=== PATIENT | male | born 1945 | race Caucasian/White ===

== ENCOUNTER → 2016-08-23 08:27 | Outpatient (CLI) | payer MEDICARE, BC ==
[2014-01-08 11:24] VITALS: BMI 35.5
[~2016-08-23 08:27] MED LIST: ASCORBIC ACID500 MG PO; BAYER CHEWABLE81 MG PO; COZAAR50 MG PO; ECOTRIN325 MG PO; HYDROCODON-ACE1 EAC7 PO; MOBIC7.5 MG PO; MULTI-DAY VITAM1 TAB PO; PLAVIX75 MG PO; TOPROL XL100 MG PO; TOPROL XL50 MG PO; VITAMIN D31000 UNIT; WELLBUTRIN SR150 MG PO; ZOCOR40 MG PO
== END | disposition home or self-care (01) ==
LOC: D.US 08:27
DX: I71.4 Abdominal aortic aneurysm, without rupture (principal); I65.23 Occlusion and stenosis of bilateral carotid arteries

== ENCOUNTER → 2017-02-02 08:51 | Outpatient (CLI) | payer MEDICARE, BC ==
[2014-01-08 11:24] VITALS: BMI 35.5
[~2017-02-02 08:51] MED LIST changes: +CORDARONE200 MG PO; +HYDROCODONE-APA1 TAB PO; +K-DUR20 MEQ PO; +LASIX40 MG PO; +METOPROLOL TART50 MG PO
== END | disposition home or self-care (01) ==
LOC: D.CT 08:51
DX: I71.4 Abdominal aortic aneurysm, without rupture (principal); I65.23 Occlusion and stenosis of bilateral carotid arteries

== ENCOUNTER → 2017-02-09 07:50 | Outpatient (CLI) | payer MEDICARE, BC ==
[2014-01-08 11:24] VITALS: BMI 35.5
== END | disposition home or self-care (01) ==
LOC: D.CT 07:50
DX: I71.4 Abdominal aortic aneurysm, without rupture (principal)

== ENCOUNTER 2017-05-12 06:32 | Outpatient (CLI) | payer MEDICARE, BC ==
[~2017-05-12] VITALS: Ht 172.7 cm; Wt 90.9 kg
--- NOTE | ~2017-05-12 | HEMODYNAMI ---
PATIENT:YOEL FINK MEDICAL RECORD: [id number] : 49 LOCATION:[facility] ADMISSION DATE: 05/12/17 Generatedon:05/12/20178:57 Patient name: YOEL FINK Patient #: [id number] SSN: DO B: 1945 Date of study: 05/12/2017 Page: Of Hemodynamic Procedure Report Patient Data Patient Demographics Procedure consent was obtained First Name: YOEL Gender: Male Last Name: DANAE : 1945 Middle Initial: A Age: 72 year(s) Patient #: [id number] Race: Unknown Additional ID: [id number] Contact details Address: [address] [place] [address] [facility] State: [place] City: [place] Zip code: [address] Past Medical History Allergies: No known allergies Admission Admission Data Admission Date: 05/12/2017 Admission Time: 6:32 Admit Source: Other Lab Results Lab Result Date: 05/12/2017 Lab Result Time: 7:19 Biochemistry Name Units Result Min Max BUN mg/dl 12 --(-*--)-- 7 18 Creatinine mg/dl 1 --(--*-)-- 0.6 1.3 CBC Name Units Result Min Max Hematocrit % 43.2 --(*---)-- 42 54 Hemoglobin g/dl 15 --(-*--)-- 13.5 17.5 Procedure Procedure Types Cath Procedure Diagnostic Procedure LHC LHC w/Coronaries Miscellaneous Procedures Moderate Sedation up to 30 minutes Procedure Description Procedure Date Procedure Date: 05/12/2017 Procedure Start Time: 8:36 Procedure End Time: 8:55 Procedure Staff Name Function Joel Mitchell MD Performing Physician Roldan Thrasher RT Monitor Farzana Santo RT Scrub Arnulfo Arreaga RN Nurse Procedure Data Cath Procedure Fluoroscopy Diagnostic fluoroscopy Total fluoroscopy Time: 4.4 time: 4.4 min min Diagnostic fluoroscopy Total fluoroscopy dose: 938 dose: 938 mGy mGy Contrast Material Contrast Material Type Amount (ml) Isovue 300 72 Entry Location Entry Primary Successful Side Size Upsize Upsize Entry Closure Bustos ccessful Closure Location (Fr) 1 (Fr) 2 (Fr) Remarks Device Remarks Radial Right 6 Fr Mechanical artery Short Compression Estimated blood loss: 5 ml Diagnostic catheters Device Type Used For End Catheter Placement DIAGNOSTIC Jesus 110cm Procedure 5Fr catheter ([id number]) DIAGNOSTIC AR MOD 5Fr Procedure Catheter ([id number]) Procedure Complications No complications Procedure Medications Medication Administration Route Dosage Oxygen NC 2 l/min Heparin Flush Bag added to field 2 bags (1000units/500ml NS) 0.9% NaCl I.V. 100 ml/hr Radial Cocktail added to field 1 syringe (Verapomil 2mg/Nitro 400mcg/Heparin 1500units) Fentanyl I.V. 50 mcg Versed I.V. 1 mg Radial Cocktail I.A. 1 syringe (Verapomil 2mg/Nitro 400mcg/Heparin 1500units) Hemodynamics Rest HGB: 15 (g/dl) Heart Rate: 56 (bpm) Pressure Samples Time Site Value (mmHg) Purpose Heart Use Rate(bpm) 8:46 LV 117/13,10 Snapshot 117 8:47 AO 149/64(97) Pullback 78 8:47 LV 154/0,17 Pullback 78 Gradients Valve Time Site 1 Site 2 Mean SEP/DFP Peak To Heart Use (mmHg) (sec/min) Peak Rate (mmHg) (bpm) Aortic 8:47 LV AO 5 78 154/0,17 149/64(97) Calculations Valve P-P Mean Valve Index Valve Source Name Gradient Area Flow (cm2) Aortic 5 5 Snapshots Pre Cath Intra NCS Post Cath Vital Signs Time Heart Resp SPO2 etCO2 NIBP (mmHg) Rhythm Pain Sedation Rate (ipm) (%) (mmHg) Status Level (bpm) 8:21:22 69 18 95 0 135/77(110) NSR 0 (11) 10(A) , No pain 8:25:40 66 16 93 0 128/63(74) NSR 0 (11) 10(A) , No pain 8:29:52 67 17 96 15.9 120/73(95) NSR 0 (11) 10(A) , No pain 8:34:02 62 17 95 18.2 117/73(91) NSR 0 (11) 9(A) , No pain 8:38:12 63 18 96 12.9 115/66(86) NSR 0 (11) 9(A) , No pain 8:42:24 71 18 95 3.7 105/59(76) NSR 0 (11) 9(A) , No pain 8:46:36 82 17 95 12.1 102/46(68) NSR 0 (11) 9(A) , No pain 8:50:40 67 18 95 19 108/65(88) NSR 0 (11) 9(A) , No pain 8:54:49 69 19 95 15.2 113/57(84) NSR 0 (11) 9(A) , No pain Medications Time Medication Route Dose Verified Delivered Reason Notes E ffectiveness by by 8:26:26 Oxygen NC 2 l/min Joel Arnulfo Per Stephen Arreaga RN physician 8:27:01 Heparin Flush added 2 bags Joel Arnulfo used for Bag to Stephen Arreaga RN procedure (1000units/500ml field NS) 8:27:12 0.9% NaCl I.V. 100 Joel Arnulfo Per ml/hr Stephen Arreaga RN physician 8:27:19 Radial Cocktail added 1 Joel Arnulfo used for (Verapomil to syringe Stephen Arreaga RN procedure 2mg/Nitro field 400mcg/Heparin 1500units) 8:31:23 Fentanyl I.V. 50 mcg Joel Arnulfo for sedation Stephen Arreaga RN 8:31:33 Versed I.V. 1 mg Joel Arnulfo for sedation Stephen Arreaga RN 8:39:42 Radial Cocktail I.A. 1 Joel Joel for (Verapomil syringe Stephen Mitchell MD vasodilation 2mg/Nitro 400mcg/Heparin 1500units) Procedure Log Time Note 7:37:55 Informed consent obtained and on chart 7:37:57 Admit Source: Other 7:39:01 Diagnostic Cath status Elective 7:39:03 Time tracking: Regular hours 7:39:06 Plan of Care:Hemodynamics will remain stable., Cardiac rhythm will remain stable., Comfort level will be maintained., Respiratory function will remain adequate., Patient/ family verbilizes understanding of procedure., Procedure tolerated without complication., Recovers from procedure without complications.. 7:39:13 H&P Date Dictated: 05/12/2017 New H&P dictated by physician.. 7:39:50 Lab Result : BUN 12 mg/dl 7:39:50 Lab Result : Creatinine 1 mg/dl 7:39:50 Lab Result : Hemoglobin 15 g/dl 7:39:50 Lab Result : Hematocrit 43.2 % 7:39:53 Lab results completed and on chart. 8:01:46 Roldan Thrasher RT(R) sent for patient. Start room use. 8:08:54 Patient received from Pre/Post Procedure Room to CCL 2 Alert and oriented. Tansferred to table in Supine position. 8:08:55 Warm blankets applied, and gareth hugger turned on for patient comfort. 8:08:56 Correct patient and procedure confirmed by team. 8:08:57 ECG and BP/O2 sat monitors applied to patient. 8:20:25 Vital chart was started 8:24:57 Baseline sample Acquired. 8:25:13 Rhythm: sinus rhythm 8:26:26 Oxygen 2 l/min NC was administered by Arnulfo Arreaga RN; Per physician; 8:26:30 Full Disclosure recording started 8:26:33 Pre-procedure instructions explained to patient. 8:26:34 Pre-op teaching completed and patient verbalized understanding. 8:26:36 Family in waiting room. 8:26:38 Patient NPO since Midnight. 8:26:46 Patient allergic to No known allergies 8:26:57 Is the patient allergic to Iodine/contrast media? No. 8:26:58 Is patient on blood thinner?Yes 8:27:00 ACC The patient was administered the following blood thiners within the last 24 hours: ACCPlavix 8:27:01 Heparin Flush Bag (1000units/500ml NS) 2 bags added to field was administered by Arnulfo Arreaga RN; used for procedure; 8:27:02 Patient diabetic? No. 8:27:07 Previous problem with sedation/anesthesia? No ? 8:27:07 Snore? Yes 8:27:08 Sleep apnea? Yes 8:27:09 Deviated septum? No 8:27:09 Opens mouth fully? Yes 8:27:10 Sticks out tongue? Yes 8:27:12 0.9% NaCl 100 ml/hr I.V. was administered by Arnulfo Arreaga RN; Per physician; 8:27:12 Airway obstruction? No ? 8:27:15 Dentures? Yes in tight 8:27:19 Radial Cocktail (Verapomil 2mg/Nitro 400mcg/Heparin 1500units) 1 syringe added to field was administered by Arnulfo Arreaga RN; used for procedure; 8:28:09 Modified Patrick's test Ulnar < 7 seconds 8:28:44 IV patent on arrival in left hand with 0.9% NaCl at O. 8:28:50 Right Radial & Right Groin area was prepped with chlora-prep and draped in sterile fashion 8:28:51 Alarms reviewed by R. N. 8:28:51 Sharps counted by scrub and verified by R.N. 8:28:55 Use device set Radial Dx or PCI 8:28:58 MBrace Wrist Support ([id number]) opened to sterile field. 8:28:59 Tegaderm 4 x 4 (1626W) opened to sterile field. 8:29:00 ACIST Manifold (81620) opened to sterile field. 8:29:00 ACIST Hand Control (06343) opened to sterile field. 8:29:01 ACIST Syringe (92953) opened to sterile field. 8:29:02 Medline Cath Pack ([id number]) opened to sterile field. 8:29:02 Bag Decanter (2002S) opened to sterile field. 8:29:04 DIAGNOSTIC WIRE .035 260cm J wire (607847) opened to sterile field. 8:29:05 SHEATH 6FR Slender ([id number]) opened to sterile field. 8:29:26 NEEDLE Cook 21G 4cm Radial (B19870) opened to sterile field. 8:30:23 Physician arrived 8:30:24 --------ALL STOP TIME OUT------ 8:30:24 Final Timeout: patient, procedure, and site verified with staff and physician. All members of the team are in agreement. 8:30:25 Right Radial & Right Groin site verified by team. 8:30:28 Physical assessment completed. ASA score P 2 - A patient with mild systemic disease as per Joel Mitchell MD. 8:30:31 Sedation plan: IV Moderate Sedation Medication:Versed, Fentanyl 8:30:42 Zero performed for pressure channel P1 8:31:23 Fentanyl 50 mcg I.V. was administered by Arnulfo Arreaga RN; for sedation; 8:31:33 Versed 1 mg I.V. was administered by Arnulfo Arreaga RN; for sedation; 8:36:32 Procedure started. 8:36:37 Local anesthetic to right radial artery with Lidocaine 2% by Joel Mitchell MD.INITIAL ACCESS ONLY 8:37:00 A 6 Fr Short sheath was inserted into the Right Radial artery 8:39:06 A DIAGNOSTIC Jesus 110cm 5Fr catheter (556022) was advanced over the wire and used for Procedure. 8:39:42 Radial Cocktail (Verapomil 2mg/Nitro 400mcg/Heparin 1500units) 1 syringe I.A. was administered by Joel Mitchell MD; for vasodilation; 8:40:57 GLIDE WIRE ANGLE 260cm (ET6210) opened to sterile field. 8:41:05 glide wire advanced. 8:41:37 Wire removed. 8:42:20 LCA angiography performed. 8:45:15 RCA angiography performed. 8:47:06 LV gram done using ROWE 8:47:10 Injector settings: Ml/sec: 5, Volume: 15, 8:47:17 EF : 50 % 8:47:36 Catheter exchanged over wire. 8:48:08 Catheter exchanged over wire. 8:48:11 A DIAGNOSTIC AR MOD 5Fr Catheter (552808L) was advanced over the wire and used for Procedure. 8:50:46 RCA angiography performed. 8:51:47 Catheter removed. 8:51:52 TR BAND Standard ([id number]) opened to sterile field. 8:52:11 Sheath removed intact; hemostasis achieved with Mechanical Compression to the Right Radial artery. 8:52:12 Procedure ended.(Physican Out) 8:52:25 Fluoroscopy time 04.40 minutes. 8:52:29 Fluoroscopy dose: 938 mGy 8:52:29 Flurop Dose total: 938 8:52:32 Contrast amount:Isovue 300 72ml. 8:52:33 Sharps counted by scrub and verified by R.N. 8:53:29 Insertion/operative site no bleeding no hematoma. 8:53:34 Post right radial artery:stable, soft, clean and dry 8:54:08 Post Procedure Pulses reassessed and unchanged 8:54:11 Post-procedure physical assessment completed. ASA score P 2 - A patient with mild systemic disease as per Joel Mitchell MD. 8:54:13 Post procedure rhythm: unchanged. 8:54:15 Estimated blood loss: 5 ml 8:54:47 Post procedure instruction explained to patient.Patient verbalizes understanding. 8:54:48 Patient needs reinforcement of post procedure teaching. 8:55:23 Procedure and supply charges have been captured, reviewed, submitted and are correct. 8:55:25 Procedure Complication : No complications 8:55:27 Vital chart was stopped 8:55:27 See physician's report for complete and final results. 8:55:29 Report given to Pre/Post Procedure Room. 8:55:32 Patient transfered to Pre/Post Procedure Room with Stretcher. 8:55:34 Procedure ended. 8:55:34 Full Disclosure recording stopped 8:56:53 TR band inflated with 12cc of air. 8:56:58 End room use (Document Last) Device Usage Item Name Manufacture Quantity Catalog Hospital Part Current Minima l Lot# / Number Charge Number Stock Stock Serial# Code MBrace Wrist Advanced 1 140-0250-00 216578 61784 057156 5 Support Vascular ([id number]) Dynamics Tegaderm 4 x 3M 1 1626W 923803 383178 421375 5 4 (1626W) ACIST Acist 1 50598 580962 151719 819111 5 Manifold Medical (67134) Systems Inc ACIST Hand Acist 1 44174 154577 331812 970859 5 Control Medical (96656) Systems Inc ACIST Acist 1 21601 769968 446805 600493 20 Syringe Medical (52817) Systems Inc Medline Cath Cardinal 1 [id number] 955931 25626 421470 5 Pack Health ([id number]) Bag Decanter Microtek 1 2001S 062374 15355 784697 5 (2001S) Medical Inc. DIAGNOSTIC St Cuate 1 699006 830621 264147 778514 30 WIRE .035 260cm J wire (381867) SHEATH 6FR Terumo 1 [id number] 671415 117469 669286 40 Slender ([id number]) NEEDLE Cook Cook Medical 1 I60779 977788 360426 377189 5 21G 4cm Radial (C01944) DIAGNOSTIC Terumo 1 40-4283 988874 961090 959613 5 Jesus 110cm 5Fr catheter (108323) GLIDE WIRE Terumo 1 RU0077 184225 528605 240023 5 ANGLE 260cm (CC2959) DIAGNOSTIC Cardinal 1 [id number] 996335 028869 095753 15 AR MOD 5Fr Health Catheter (632648U) TR BAND Terumo 1 [id number] 523224 509975 457132 40 Standard ([id number]) Signature Audit [place] Stage Time Signature Unsigned Intra-Procedure 05/12/2017 Roldan Thrasher 8:57:28 AM RT(R) Signatures Monitor : Roldan Thrasher RT Signature : Date : Time : [place] [id number] [facility] [place] [address]
[~2017-05-12 06:32] MED LIST changes: -CORDARONE200 MG PO; -HYDROCODONE-APA1 TAB PO; -K-DUR20 MEQ PO; -LASIX40 MG PO; -METOPROLOL TART50 MG PO
[2017-05-12 07:08] VITALS: BP 110/61; Ht 172.7 cm; Wt 90.9 kg
[2017-05-12 07:09] LABS: BASOPHILS 0.3 % (0-2); EOSINOPHILS 2.4 % (0-7); HEMATOCRIT 43.2 % (42.0-54.0); IMMATURE GRANULOCYTES 0.2 % (0-5); LYMPHOCYTES 34.7 % (15-50); MCHC 34.7 g/dL (31.0-37.0); MCV 103.6 fL (80.0-100.0); MEAN PLATELET VOLUME 9.4 fL (7.4-10.4); NEUTROPHILS 52.4 % (40-80); PLATELET COUNT 167 10x3/uL (130-400); RBC 4.17 10x6/uL (4.20-6.10); RDW 13.6 % (11.5-14.5); WBC 5.8 10x3/uL (4.8-10.8)
[2017-05-12 07:21] LABS: CALC OSMOLALITY 271 mosm/kg (275-300); CARBON DIOXIDE 23.9 mmol/L (21.0-32.0); CHLORIDE - SERUM 102 mmol/L (98-107); GLUCOSE 97 mg/dL (74-106); SODIUM 136 mmol/L (136-145); UREA NITROGEN 12 mg/dL (7-18); eGFR NON AFRICAN AMERICAN 78 mL/min (90-120)
[2017-05-24] MEDS ORDERED: MOBIC7.5 MG PO (14:51)
== END 2017-05-12 11:37 | disposition home or self-care (01) ==
LOC: D.CATH 06:32
PROVIDERS: Internal Medicine Cardiovascular Disease
DX: I25.119 Atherosclerotic heart disease of native coronary artery with unspecified angina pectoris (principal); R94.39 Abnormal result of other cardiovascular function study; I73.9 Peripheral vascular disease, unspecified; I10 Essential (primary) hypertension; E78.00 Pure hypercholesterolemia, unspecified; Z79.82 Long term (current) use of aspirin; Z79.891 Long term (current) use of opiate analgesic; Z79.02 Long term (current) use of antithrombotics/antiplatelets; Z87.891 Personal history of nicotine dependence; Z01.812 Encounter for preprocedural laboratory examination

== ENCOUNTER → 2017-05-17 16:05 | Outpatient (CLI) | payer MEDICARE, BC ==
[2017-05-12 07:08] VITALS: BMI 30.4
[~2017-05-17 16:05] MED LIST changes: +CORDARONE200 MG PO; +HYDROCODONE-APA1 TAB PO; +K-DUR20 MEQ PO; +LASIX40 MG PO; +METOPROLOL TART50 MG PO
[2017-05-19 14:28] LABS: HEPATITIS C ANTIBODY <0.1 (0.0-0.9)
== END | disposition home or self-care (01) ==
LOC: D.LAB 16:05
PROVIDERS: Internal Medicine Cardiovascular Disease
DX: Z01.812 Encounter for preprocedural laboratory examination (principal)

== ENCOUNTER 2017-05-25 05:16 | Inpatient (IN) | payer MEDICARE, BC ==
[2017-05-24 11:44] LABS: BASOPHILS 0.4 % (0-2); EOSINOPHILS 1.1 % (0-7); HEMATOCRIT 46.1 % (42.0-54.0); HEMOGLOBIN 15.6 g/dL (13.5-17.5); IMMATURE GRANULOCYTES 0.5 % (0-5); LYMPHOCYTES 26.4 % (15-50); MCH 35.5 pg (26.0-34.0); MCHC 33.8 g/dL (31.0-37.0); MCV 104.8 fL (80.0-100.0); MEAN PLATELET VOLUME 9.7 fL (7.4-10.4); MONOCYTES 11.4 % (2-11); NEUTROPHILS 60.2 % (40-80); PLATELET COUNT 164 10x3/uL (130-400); RDW 13.8 % (11.5-14.5); WBC 8.5 10x3/uL (4.8-10.8)
[2017-05-24 11:52] LABS: APTT 37.2 SECONDS (22.8-39.4); INR 1.09 (0.85-1.17); PROTIME 13.7 SECONDS (11.6-15.0)
[2017-05-24 12:00] LABS: HEMOGLOBIN A1C 5.7 % (4.8-6.0)
[2017-05-24 12:06] LABS: ALBUMIN 3.8 g/dL (3.4-5.0); ANION GAP 10.6 mmol/L (8-16); BILIRUBIN - TOTAL 1.52 mg/dL (0.2-1.3); CALCIUM 9.2 mg/dL (8.5-10.1); CARBON DIOXIDE 30.2 mmol/L (21.0-32.0); CREATININE - SERUM 1.3 mg/dL (0.6-1.3); PHOSPHOROUS 3.8 mg/dL (2.5-4.9); POTASSIUM - SERUM 4.8 mmol/L (3.5-5.1); PROTEIN - SERUM 7.8 g/dL (6.4-8.2); T4 THYROXIN - FREE 1.05 ng/dL (0.76-1.46); THYROID STIMULATING HORMONE 1.75 uIU/mL (0.36-3.74); URIC ACID 7.1 mg/dL (2.6-7.2)
[2017-05-24 12:25] LABS: APPEARANCE CLEAR (CLEAR); BILIRUBIN NEGATIVE (NEGATIVE); COLOR YELLOW (YELLOW); GLUCOSE NEGATIVE (NEGATIVE); KETONE NEGATIVE (NEGATIVE); NITRITE NEGATIVE (NEGATIVE); PROTEIN NEGATIVE (NEGATIVE); SPECIFIC GRAVITY 1.015 (1.005-1.020); UROBILINOGEN NORMAL (NORMAL)
[2017-05-24 12:27] LABS: BACTERIA FEW /hpf (NONE SEEN); EPITHELIAL CELLS 0-5 /hpf (0-5); MUCUS <1+ /lpf (NONE SEEN); RED CELLS - URINE OCC /hpf (0-5); WHITE CELLS - URINE OCC /hpf (0-5)
[2017-05-24 14:38] LABS: COLD SCREEN @ 4 DEGREES 2+ (NEGATIVE); COLD SCREEN ROOM TEMP NEGATIVE (NEGATIVE)
[~2017-05-25] VITALS: Ht 172.7 cm; Wt 88.2 kg
[2017-05-25] VITALS (33 sets, daily range): BP systolic 99–146; BP diastolic 35–70; BMI 29.5
--- NOTE | ~2017-05-25 | OP ---
PATIENT NAME: YOEL FINK MEDICAL RECORD: [id number] :49 LOCATION:D[facility]I D.[facility] ADMISSION DATE:05/25/17 SURGEON: MANUEL CASTILLO MD DATE OF OPERATION: 05/25/2017 SURGEON: Manuel Castillo MD ANESTHESIA: General endotracheal, Dr. Zamarripa. OPERATIONS PERFORMED: 1. Aortocoronary artery bypass utilizing left internal thoracic, left anterior descending. 2. Reverse saphenous vein graft to the ramus coronary artery. 3. Reverse saphenous vein graft to the circumflex coronary artery. 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 INDICATION FOR OPERATION: Angina pectoris with severe occlusive coronary artery disease. FINDINGS AT OPERATION: The right coronary artery was not graftable and not seen on the surface of the heart. The left anterior descending and ramus were large vessels and graftable. The circumflex coronary artery was a 1.5-mm vessel and graftable in the first obtuse marginal. ESTIMATED BLOOD LOSS: Cell Saver was used. DESCRIPTION OF PROCEDURE: After informed consent, adequate preoperative medication, and evaluation, the patient was brought to the operating room and placed on the table in supine position. After induction of general endotracheal anesthesia and application of appropriate monitoring devices, the chest, neck, abdomen, and both legs were prepped and draped in sterile field utilizing Betadine scrub, alcohol, and Betadine solution. Betadine-impregnated drape was also used. Saphenous vein was harvested from right thigh and prepared for reverse saphenous vein grafting. Leg was closed over drains utilizing 3-0 Vicryl and skin thi. A median sternotomy incision was made and dissection was carried down to the fascia. Hemostasis was maintained with electrocautery. Sternum was divided. Left internal thoracic was taken down and prepared for grafting. Pericardium was opened and pericardial well was formed utilizing pericardial traction sutures. The patient was given a calculated dose of heparin and cannulated in a standard fashion utilizing one aortic, one 2-stage cannula in the atrium and the inferior vena cava. The patient was placed on cardiopulmonary bypass and cooled to 27 degrees centigrade. A cross clamp was placed just proximal to the aortic cannula and the patient was given cardioplegic solution through the aortic root. The patient was given cold induction and cold maintenance. The patient was given cold intermittent cardioplegic solution throughout the procedure, either through the root, the grafts, or combination of both. The first vessel to be grafted was the ramus coronary artery, was grafted end-to-side utilizing running 7-0 Prolene suture. Graft was measured back to the aorta and the proximal anastomosis was fashioned utilizing running 6-0 Prolene suture. OPERATIVE REPORT [id number] YOEL FINK Next, the first obtuse marginal was grafted end-to-side utilizing running 7-0 Prolene suture. The grafts were measured back to the aorta and the proximal anastomosis was fashioned utilizing running 6-0 Prolene suture. Next, the left internal thoracic was brought through the hole in pericardium, sutured left anterior descending end-to-side utilizing running 8-0 Prolene suture. Pedicle was attached to epicardium with 6-0 Prolene suture. All maneuvers to remove trapped air were performed. The patient was given warm cardioplegic reperfusion and controlled reperfusion. The patient was rewarmed to 37 degrees centigrade. Two atrial and two ventricular pacing wires were placed on the heart and brought out through the epigastric area. The patient was weaned cardiopulmonary bypass. After being stable off bypass, he was given a calculated dose of protamine to reverse the heparin. Hemostasis was achieved. A #40 right angle and a #36 chest tubes were placed in the mediastinum and brought out through the epigastric area. A separate left pleural tube was connected to underwater seal and suction. Chest was again irrigated. Instrument count and sponge count were correct times 2. Chest was closed in layers utilizing #7 wire on the sternum, #2 Vicryl on linea alba and pectoralis fascia. Subcutaneous tissue was approximated with 3-0 Vicryl and skin was approximated with 3-0 subcuticular Vicryl. Sterile dressings were applied. The patient tolerated the procedure well and was transferred to the CV ICU in satisfactory condition. TRANSINT:[id number] Voice Confirmation ID: [id number] DOCUMENT ID: [id number] MANUEL CASTILLO MD at 1401 CC: [id number] DICTATION DATE: 05/25/17 1614 CAFETERIA WORKER: 05/25/17 1840 [place] [address]
--- NOTE | ~2017-05-25 | TEE ---
PATIENT:YOEL FINK MEDICAL RECORD: [id number] LOCATION:[place] [address] AGE OF PATIENT: 72 ADMISSION DATE: 05/25/17 SEX: M REFERRING PHYSICIAN: INTERPRETING PHYSICIAN: FRANKLIN PINON MD TRANSESOPHAGEAL ECHOCARDIOGRAM CHELA CHARGE Y INDICATIONS: CABG PREMEDICATIONS: PATIENT'S RESPONSE PROCEDURE DOPPLER MEASUREMENTS: LVIT LA PA RA LVOT RVOT Asc. Ao AV Gradient Peak AV Mean AV Area MV Gradient Peak MV Mean MV Area INTERPRETATION: LVd: 6.3 cm LVs: 4.0 cm Doppler: 2-D: COLOR FLOW DOPPLER NORMAL SALINE STUDY: MISCELLANOUS: DIAGNOSIS: PLAN: Director Of Vocational Guidance:2 Dr. Mitchell Zipper Ironer: Mabel LA COMMENTS: DATE OF SERVICE: 05/25/2017 DATE OF SERVICE: 05/25/2017 Transesophageal echo evaluation of valvular structures during bypass surgery. FINDINGS: 1. Left ventricular chamber size is within normal limits. Left ventricular systolic function is normal. Overall ejection fraction is estimated at 55%. TRANSESOPHAGEAL ECHOCARDIOGRAM REPORT [id number] YOEL FINK 2. Left atrium, right atrium, and right ventricle chamber sizes are within normal limits. 3. Valvular structures have normal structure and motion. 4. Doppler interrogation reveals mild mitral regurgitation, mild tricuspid regurgitation, no other valvular insufficiency or stenosis. 5. No evidence of pericardial effusion or left ventricular thrombus. TRANSINT:[id number] Voice Confirmation ID: [id number] DOCUMENT ID: [id number] at 1800 CC: [id number] DICTATION DATE: 05/26/17 1214 RETAIL SERVICES PROFESSIONAL: 05/26/17 1536 DIS IN 06/03/17 [place] [id number] [place] [id number]
--- NOTE | ~2017-05-25 | HP ---
PATIENT: YOEL FINK MEDICAL RECORD: [id number] ACCOUNT: [id number] LOCATION:[facility] : 49 ADMISSION DATE: 05/25/17 HISTORY AND PHYSICAL EXAMINATION YOEL Vila (72yo, M) ID# [id number]. Date/Time05/17/2017 03:55WABVC1947Service Dept.NP_[facility] ClinicProviderLIA LUTHER MDInsuranceMed Primary: [place]) Insurance # : [id number] Referring Provider Name : ABDIFATAH VENEGAS Employer Name : RETIRED Med Secondary: [place]LE[place]) Insurance # : [id number] Policy/Group # : [id number] Referring Provider Name : ABDIFATAH VENEGAS Employer Name : RETIRED Prescription: CMX - Member is eligible. Chief Complaint Followup: Coronary atherosclerosis s/p R arteriogram w intervention 09/15/09 s/p L arteriogram w intervention 09/14/13 s/p EVS AAA repair 01/08/14 now CAD, eval for CABG Patient's Care Team Referring Provider (): ABDIFATAH VENEGAS: [address] [place] [address], , Patient's Pharmacies [facility] [place] [id number] (ERX): [address] [facility] [address], , Vitals BP:128/60 sitting L arm 05/17/2017 03:04 pm 142/74 sitting R arm 05/17/2017 03:05 pmBP Cuff Size:adult 05/17/2017 03:04 pm adult 05/17/2017 03:05 pmHR:76,reg 05/17/2017 03:06 pmHt:5 ft 8 in 05/17/2017 02:58 pmWt:200 lbs 05/17/2017 03:06 pmNotes:has had some transient chest pressure, and some shortness of breath with exertion. Had abnormal EKG w physical at Dr Venegas back in February, and that started his cardiac w/u. SOB and chest pressure has occurred more frequently/noticably recently. 05/17/2017 03:07 pmBMI:30.4 05/17/2017 03:06 pmAllergies Reviewed Allergies NKDAMedications Reviewed Medications amoxicillin 875 mg-potassium clavulanate 125 mg hdwipr78/16/17 filledCaremarkcefUROXime axetil 500 mg /25/16 filledCaremarkclarithromycin 500 mg kawudo09/20/17 filledCaremarkclopidogrel 75 mg dtmsta24/20/17 filledCaremarketodolac ER 400 mg tablet,extended release 24 hr03/17/14 filledMEDCOfluticasone 50 mcg/actuation nasal spray,byeqsxcezh84/16/14 filledMEDCOHYDROcodone 5 mg-acetaminophen 325 mg /29/14 filledMEDCOlosartan 50 mg mlryte53/18/17 filledCaremarkmeloxicam 7.5 mg /15/17 filledCaremarkmethylPREDNISolone 4 mg tablets in a dose pack07/12/16 filledCaremarkmetoprolol succinate ER 100 mg tablet,extended release 24 hr 1 tab daily02/28/17 filledCaremarknitroglycerin 0.4 mg sublingual byvyht66/19/18 filledCaremarkOsmoPrep 1.5 gram (1.102-0.398) tablet Take 4 tablet(s) by oral route as directed.01/01/14 filledMEDCOpolyethylene glycol 3350 17 gram/dose oral eijpdg74/23/17 filledCaremarksimvastatin 40 mg HISTORY AND PHYSICAL [id number] YOEL FINK /09/17 filledCaremarkProblems Reviewed Problems Coronary atherosclerosis - Onset: 05/17/2017 Carotid artery occlusion Carotid artery stenosis Atherosclerosis of koi arteries of the extremities Atherosclerosis of arteries of the extremities, Bilateral Abdominal aortic aneurysm without rupture Intermittent claudication Family History Reviewed Family History Father- Myocardial infarction ( age: 72) - previously recorded as Heart Attack (ID)Social History Reviewed Social History Cardiology Family history of heart disease?: Y Smoking Status: Former smoker (Notes: quit in 2008) Smoker (1 04/26 PPD) Has smoked since age: (Notes: smoked for 42+ yrs) High Cholesterol: Y Alcohol intake: Occasional Diet: Regular Occupation: [employer] Surgical History Reviewed Surgical History Angioplasty - 09/15/2009 - LT & RT EXT. ILIAC W/ SMART STENTS Angioplasty - 09/15/2009 - LT & RT COM. ILIAC W/ SMART STENTS Past Medical History Reviewed Past Medical History Dizzy Spells: Y Eye Problems: Y High Blood Pressure: Y P ain in legs when walking: Y Stroke: Y Documents for Discussion N/A Screening None recorded. HPI Coronary Artery Disease F/U Reported by patient. Severity: has not needed to use Nitroglycerin; symptoms are worsening Context: non-smoker Associated Symptoms: no chest pain; no neck pain; no left arm pain; no sweating; no nausea; no stress; dyspnea with exertion; chest pressure coronary atherosclerosis with angina equivalent shortness of breath ROS Patient reports exercise intolerance but reports no fever, no night sweats, no significant weight gain, and no significant weight loss; but no cramping in his calves which was his preoperative symptom. He reports shortness of breath when walking and shortness of breath when lying down but reports no chest pain, no arm pain on exertion, no palpitations, and no known heart murmur; angina equivalent HISTORY AND PHYSICAL [id number] YOEL FINK A shortness of breath with exertion. He reports shortness of breath but reports no cough, no wheezing, and no coughing up blood. He reports muscle aches, muscle weakness, and arthralgias/joint pain (hips bilat) but reports no back pain and no swelling in the extremities; radicular pain left leg. He reports no dry eyes, no irritation, and no vision change. He reports no difficulty hearing and no ear pain. He reports no frequent nosebleeds and no nose/sinus problems. He reports no sore throat, no bleeding gums, no snoring, no dry mouth, no mouth ulcers, no oral abnormalities, and no teeth problems. He reports no abdominal pain, no vomiting, normal appetite, no diarrhea, not vomiting blood, no nausea, and no constipation. He reports no incontinence, no difficulty urinating, no hematuria, and no increased frequency. He reports no abnormal mole, no jaundice, and no rashes. He reports no loss of consciousness, no w e akness, no numbness, no seizures, no dizziness, and no headaches. He reports no depression, no sleep disturbances, feeling safe in relationship, and no alcohol abuse. He reports no fatigue. He reports no swollen glands and no bruising. He reports no runny nose, no sinus pressure, no itching, no hives, and no frequent sneezing. ROS as noted in the HPI Physical Exam Patient is a 72-year-old male. Constitutional: General Appearance well nourished and developed and healthy-appearing. Level of Distress NAD. Ambulation limited ambulation. Cardiovascular: Apical Impulse not displaced or no thrill. Heart Auscultation normal s1 and s2; no murmurs, rubs, or gallops; and RRR. Arterial Pulses no abdominal aorta bruits, femoral bruits, or popliteal bruits; popliteal diminished (B) and dorsalis pedis diminished (B); and 2+ bilateral, carotid 2+ bilateral, and femoral 2+ bilateral. Edema no edema or varicosities. Lungs: Repiratory Effort no dyspnea. Percussion no hyperresonance or dullness or flatness. Auscultation no w heezing, rhonchi, or rales / crackles and breathing sounds normal, good air movement, and CTA except as noted. Abdomen: Bowl Sounds normal. Inspection and Palpation no tenderness, guarding, masses, or rebound tenderness and soft and non-distended; SMALL AAA. Liver non-tender and no hepatomegaly. Spleen non-tender and no splenomegaly. Hernia none palpable. Ears, Nose, Throat: Hearing grossly normal hearing. Nose no external nose lesion. Lips, Teeth, and Gums no mouth or lip ulcers. Oropharynx: moist mucous membranes. Musculoskeletal System: Gait And Stance normal gait and stance. Digits and Nails normal nails and no cyanosis. Neurologic: Cranial Nerves grossly intact. Reflexes DTRs 2+ bilaterally throughout. Sensation grossly intact. Lymph Nodes: Lymph Nodes no cervical LAD, supraclavicular LAD, axillary LAD, or inguinal LAD. Eyes: Lids and Conjunctivae no discharge or pallor and non-injected. Pupils PERRLA. Cornea grossly intact. EOM EOMI. Lens clear. Sclerae non-icteric. Neck: Neck no masses, enlarged lymph nodes, or carotid bruits and supple and trachea midline. Thyroid no enlargement or nodules and non-tender. HISTORY AND PHYSICAL [id number] YOEL FINK Skin: Inspection and Palpation no rash, lesions, ulcers, jaundice, or abnormal nevi. Assessment / Plan coronary atherosclerosis with angina 1. Coronary atherosclerosis I25.118: Atherosclerotic heart disease of koi coronary artery with other forms of angina pectoris Discussion Notes I discussed the patient's disease process with him and his in detail as well as the alternative methods of treatment .We discussed coronary artery bypass including the expected benefits and risk which include bleeding, infection, stroke, , and the imponderables.He and his understand all of the above and he wished proceed with planned surgery. Will discontinue his Plavix now and restart in the postoperative period. ATILIO LUTHER MD at 1102 CC: [id number] DICTATION DATE: 05/17/17 1500 LABORER [place]: LIV 05/20/17 1149 PRE IN [facility] [address] [place] [address]
--- NOTE | ~2017-05-25 | CN ---
PATIENT NAME:YOEL FINK MEDICAL RECORD: [id number] : 49 LOCATION:[facility] ADMIT DATE: 05/25/17 ACCOUNT: [id number] CONSULTING PHYSICIAN: ABDIFATAH VENEGAS MD REFERRING PHYSICIAN: ATILIO LUTHER MD DATE OF CONSULTATION: 05/25/2017 REASON FOR CONSULTATION: Medical management. HISTORY OF PRESENT ILLNESS: Yoel is a 72-year-old gentleman with a history of peripheral vascular disease. He has seen Dr. Luther in the past. The patient had presented for his annual physical exam in February of this year where he was complaining of having some shortness of breath with exertion. The patient was found to have nonspecific ST-T wave changes with T-wave inversions inferiorly as well as laterally. It was felt the patient should proceed with cardiac catheterization. He was then referred to Dr. Mitchell. Dr. Mitchell on 12 of May of this year did a cardiac catheterization, which did reveal high-grade 3-vessel coronary artery disease with occluded circumflex as well as right coronary artery filling through collaterals, low-normal LV function. He was then referred to Dr. Luther for cardiac bypass. The patient was admitted earlier today and did undergo 3-vessel coronary artery bypass grafting. PAST MEDICAL HISTORY: Significant that he has had borderline diabetes. He has had peripheral vascular disease with stenting in the past. He has had carotid artery disease, had carpal tunnel syndrome, hypertension, hyperlipidemia, and osteoarthritis. He has had depression in the past. FAMILY HISTORY: Significant that father at age 72 of myocardial infarction. SOCIAL HISTORY: The patient was born and raised in [place]. 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 He is . The patient had been a smoker, started at age 19. He has since stopped several years ago. He denies any ethanol use or abuse. PAST SURGICAL HISTORY: He had a decompression laminectomy L4 and L5. MEDICATIONS: Include aspirin 81 mg once a day, Plavix 75 mg once a day, losartan 50 mg once a day, meloxicam 7.5 mg 1 to 2 p.o. every day p.r.n. pain. He has been on metoprolol succinate 25 mg once a day, 1 multivitamin a day, MiraLax 17 g every day, simvastatin 40 mg once a day, vitamin D3 2000 international units once a day. ALLERGIES: None. REVIEW OF SYSTEMS: Cannot be obtained, the patient is in the CVU unit, currently on the ventilator at the present time. PHYSICAL EXAMINATION: VITAL SIGNS: His temperature is 99.7, pulse 69, respirations were 18, blood pressure 129/70. HEENT: Head is normocephalic. No lesions. Ears: TMs clear. Eyes: The pupils are equal and reactive. CONSULT REPORT [id number] YOEL FINK NECK: Supple. There is no adenopathy. HEART: Has a regular rate and rhythm. LUNGS: Clear, chest tube is present. ABDOMEN: Soft, bowel sounds are positive. EXTREMITIES: Lower extremities have no edema currently, LABORATORY DATA: White count 17.5, hemoglobin 10.7, hematocrit 31.6, and his platelets are 121. Sodium 147, potassium 4.3, chloride 109, CO2 is 24, BUN is 10, creatinine 0.8, glucose slightly elevated at 196. ASSESSMENT: Status post coronary artery bypass grafting times 3, currently stable and history of peripheral vascular disease, carotid artery disease, hypertension, hyperlipidemia, borderline diabetes, history of depression. PLAN: We will continue the current course of therapy at the present time. We will follow with you. Thanks for the consultation. TRANSINT:[id number] Voice Confirmation ID: [id number] DOCUMENT ID: [id number] ABDIFATAH VENEGAS MD at 0619 CC: [id number] DICTATION DATE: 05/25/17 1755 FURNITURE PACKER: 05/26/17 0114 ADM IN [facility] [id number] [place] [address]
--- NOTE | ~2017-05-25 | OP ---
PATIENT NAME: YOEL FINK MEDICAL RECORD: [id number] :49 [facility]ATION:[facility] ADMISSION DATE:05/25/17 SURGEON: ATILIO LUTHER MD DATE OF OPERATION: 06/02/2017 SURGEON: Atilio Luther MD ANESTHESIA: General, Dr. Zamarrpia. OPERATION PERFORMED: Insertion of dual chamber pacing system. PREOPERATIVE DIAGNOSES: 1. Sick sinus syndrome. 2. Complete heart block. POSTOPERATIVE DIAGNOSES: 1. Sick sinus syndrome. 2. Complete heart block. INDICATIONS FOR OPERATION: Complete heart block. FINDINGS OF THE OPERATION: The pulse generator Medtronic Adapta ADDR01, serial number [id number]. ATRIAL LEAD: MedCooliris, model number 5568-45, serial number [id number]. VENTRICULAR LEAD: Medtronic, model number 4074-52, serial number [id number]. LEAD ANALYSIS: Atrial lead threshold 0.5 volts, current lead threshold 0.5 milliamps, resistance 515 ohms. P-wave 2.3. Ventricular lead threshold 0.5 volts, current lead threshold 0.6 milliamps, resistance 1054 ohms. R-wave 6.8. ESTIMATED BLOOD LOSS: Less than 5 cc. DESCRIPTION OF PROCEDURE: After informed consent, adequate preoperative medication and evaluation, the patient was brought to the operating room and placed on the table in the supine position. After induction of general endotracheal anesthesia and application of appropriate monitoring devices, the left chest and neck prepped and draped in a sterile field, utilizing Betadine scrub, alcohol, and Betadine solution. A Betadine-impregnated drape was also used. A subclavicular incision was made and dissection was carried down to the fascia. Hemostasis was maintained with electrocautery. A pocket was formed. Subclavian vein was cannulated with introducers, leads placed in the heart. The above electrophysiologic study was done. They were felt to be in good position. The patient required cardioversion with 300 joules due to atrial flutter. This returned to a sinus rhythm. The pulse generator was then connected to the leads and the pacemaker placed in the pocket. Pacemaker fired, captured and sensed appropriately. Pocket was irrigated. Instrument count and sponge count were correct times 2. Pocket was closed in layers utilizing 3-0 Vicryl on deep subcutaneous tissue, 5-0 subcuticular Monocryl on the skin. Sterile dressings were applied. The patient tolerated the procedure well and was transferred to the CV ICU in satisfactory condition. TRANSINT:[id number] Voice Confirmation ID: [id number] DOCUMENT ID: [id number] OPERATIVE REPORT [id number] YOEL FINK EDWARD MD at 1311 CC: [id number] DICTATION DATE: 06/02/17 1645 RESIDENTIAL LIFE DIRECTOR: 06/02/17 1712 DIS IN 06/03/17 [facility] [address] [place] [address]
[~2017-05-25 05:16] MED LIST changes: -CORDARONE200 MG PO; -HYDROCODONE-APA1 TAB PO; -K-DUR20 MEQ PO; -LASIX40 MG PO; -METOPROLOL TART50 MG PO
[2017-05-25 08:05] LABS: PLT FUNCT.(P2Y12) PLAVIX 223 PRU (194-418)
[2017-05-25 15:11] LABS: HEMATOCRIT 31.6 % (42.0-54.0); HEMOGLOBIN 10.7 g/dL (13.5-17.5); MCH 35.3 pg (26.0-34.0); MCHC 33.9 g/dL (31.0-37.0); MCV 104.3 fL (80.0-100.0); MEAN PLATELET VOLUME 10.3 fL (7.4-10.4); RBC 3.03 10x6/uL (4.20-6.10); RDW 13.9 % (11.5-14.5); WBC 17.5 10x3/uL (4.8-10.8)
[2017-05-25 15:26] LABS: APTT 34.6 SECONDS (22.8-39.4)
[2017-05-25 15:28] LABS: INR 1.62 (0.85-1.17); PROTIME 18.7 SECONDS (11.6-15.0)
[2017-05-25 15:41] LABS: CALC OSMOLALITY 295 mosm/kg (275-300); CALCIUM 7.2 mg/dL (8.5-10.1); CARBON DIOXIDE 24.4 mmol/L (21.0-32.0); CHLORIDE - SERUM 109 mmol/L (98-107); CREATININE - SERUM 0.8 mg/dL (0.6-1.3); GLUCOSE 196 mg/dL (74-106); POTASSIUM - SERUM 4.3 mmol/L (3.5-5.1); SODIUM 147 mmol/L (136-145); UREA NITROGEN 10 mg/dL (7-18); eGFR NON AFRICAN AMERICAN > 90 mL/min (90-120)
[2017-05-26] VITALS (96 sets, daily range): BP systolic 107–150; BP diastolic 42–73; BMI 33.0
[2017-05-26 06:13] LABS: MCH 35.5 pg (26.0-34.0); MCHC 34.5 g/dL (31.0-37.0); MCV 102.7 fL (80.0-100.0); MEAN PLATELET VOLUME 9.2 fL (7.4-10.4); RDW 14.2 % (11.5-14.5)
[2017-05-26 06:48] LABS: HEMATOCRIT 22.6 % (42.0-54.0); HEMOGLOBIN 7.8 g/dL (13.5-17.5); PLATELET COUNT 82 10x3/uL (130-400); WBC 12.1 10x3/uL (4.8-10.8)
[2017-05-26 06:53] LABS: ALBUMIN 3.4 g/dL (3.4-5.0); ANION GAP 14.5 mmol/L (8-16); CALCIUM 8.7 mg/dL (8.5-10.1); CARBON DIOXIDE 27.2 mmol/L (21.0-32.0); POTASSIUM - SERUM 4.7 mmol/L (3.5-5.1)
[2017-05-26 06:54] LABS: CREATININE - SERUM 1.4 mg/dL (0.6-1.3); PROTEIN - SERUM 5.1 g/dL (6.4-8.2)
[2017-05-26 07:10] LABS: PLATELET ESTIMATE DECREASED
[2017-05-26 07:23] LABS: HEMATOCRIT 22.5 % (42.0-54.0); HEMOGLOBIN 7.6 g/dL (13.5-17.5)
[2017-05-26 13:32] LABS: BASOPHILS 0.1 % (0-2); EOSINOPHILS 0 % (0-7); IMMATURE GRANULOCYTES 0.3 % (0-5); LYMPHOCYTES 9.7 % (15-50); MCH 33.8 pg (26.0-34.0); MCHC 34.1 g/dL (31.0-37.0); MEAN PLATELET VOLUME 9.5 fL (7.4-10.4); MONOCYTES 12.8 % (2-11); NEUTROPHILS 77.1 % (40-80); PLATELET COUNT 77 10x3/uL (130-400); RDW 15.6 % (11.5-14.5); WBC 14.4 10x3/uL (4.8-10.8)
[2017-05-26 13:33] LABS: HEMATOCRIT 29.3 % (42.0-54.0); RBC 2.96 10x6/uL (4.20-6.10)
[2017-05-27] VITALS (97 sets, daily range): BP systolic 91–143; BP diastolic 44–73
[2017-05-27 06:06] LABS: HEMOGLOBIN 10.2 g/dL (13.5-17.5); MCH 34.3 pg (26.0-34.0); MEAN PLATELET VOLUME 10.3 fL (7.4-10.4); RBC 2.97 10x6/uL (4.20-6.10); RDW 16.3 % (11.5-14.5); WBC 17.8 10x3/uL (4.8-10.8)
[2017-05-27 06:25] LABS: ALBUMIN 3.1 g/dL (3.4-5.0); ANION GAP 14.3 mmol/L (8-16); BILIRUBIN - TOTAL 4.2 mg/dL (0.2-1.3); CALCIUM 8.1 mg/dL (8.5-10.1); CARBON DIOXIDE 24.9 mmol/L (21.0-32.0); CREATININE - SERUM 1.1 mg/dL (0.6-1.3); MAGNESIUM - SERUM 2.1 mg/dL (1.8-2.4); PHOSPHOROUS 2.5 mg/dL (2.5-4.9); POTASSIUM - SERUM 4.2 mmol/L (3.5-5.1); PROTEIN - SERUM 5.6 g/dL (6.4-8.2)
[2017-05-28] VITALS (91 sets, daily range): BP systolic 71–138; BP diastolic 34–84
[2017-05-28 06:56] LABS: HEMATOCRIT 28.4 % (42.0-54.0); HEMOGLOBIN 9.8 g/dL (13.5-17.5); LYMPHOCYTES 4.6 % (15-50); MCH 34.9 pg (26.0-34.0); MCHC 34.5 g/dL (31.0-37.0); MCV 101.1 fL (80.0-100.0); MEAN PLATELET VOLUME 9.3 fL (7.4-10.4); NEUTROPHILS 89.7 % (40-80); PLATELET COUNT 75 10x3/uL (130-400); RBC 2.81 10x6/uL (4.20-6.10); RDW 15.9 % (11.5-14.5); WBC 17.9 10x3/uL (4.8-10.8)
[2017-05-28 07:07] LABS: ALBUMIN 2.8 g/dL (3.4-5.0); ANION GAP 13.7 mmol/L (8-16); BILIRUBIN - TOTAL 3.8 mg/dL (0.2-1.3); CALCIUM 8.1 mg/dL (8.5-10.1); CARBON DIOXIDE 25.8 mmol/L (21.0-32.0); CREATININE - SERUM 1.1 mg/dL (0.6-1.3); MAGNESIUM - SERUM 2.4 mg/dL (1.8-2.4); POTASSIUM - SERUM 4.5 mmol/L (3.5-5.1); PROTEIN - SERUM 5.7 g/dL (6.4-8.2)
[2017-05-28 21:07] LABS: ACID FAST SMEAR Negative (()); AFB SPECIMEN PROCESSING Concentration (())
[2017-05-29] VITALS (65 sets, daily range): BP systolic 78–144; BP diastolic 34–90
[2017-05-29 06:50] LABS: BASOPHILS 0 % (0-2); EOSINOPHILS 0 % (0-7); IMMATURE GRANULOCYTES 0.4 % (0-5); LYMPHOCYTES 5.2 % (15-50); MCH 33.3 pg (26.0-34.0); MONOCYTES 6.3 % (2-11); NEUTROPHILS 88.1 % (40-80); PLATELET COUNT 89 10x3/uL (130-400); RDW 16.5 % (11.5-14.5); WBC 16.1 10x3/uL (4.8-10.8)
[2017-05-29 06:52] LABS: HEMATOCRIT 35.6 % (42.0-54.0); HEMOGLOBIN 12.1 g/dL (13.5-17.5); MCV 98.1 fL (80.0-100.0); RBC 3.63 10x6/uL (4.20-6.10)
[2017-05-29 07:04] LABS: ALBUMIN 2.9 g/dL (3.4-5.0); ANION GAP 11.9 mmol/L (8-16); BILIRUBIN - TOTAL 3.69 mg/dL (0.2-1.3); CALCIUM 8.5 mg/dL (8.5-10.1); CARBON DIOXIDE 26.3 mmol/L (21.0-32.0); CREATININE - SERUM 1.2 mg/dL (0.6-1.3); MAGNESIUM - SERUM 2.6 mg/dL (1.8-2.4); PHOSPHOROUS 2.8 mg/dL (2.5-4.9); POTASSIUM - SERUM 4.2 mmol/L (3.5-5.1); PROTEIN - SERUM 6.1 g/dL (6.4-8.2)
[2017-05-30] VITALS (24 sets, daily range): BP systolic 92–136; BP diastolic 46–78; Ht 172.7 cm; Wt 88.2 kg
[2017-05-30 06:32] LABS: HEMATOCRIT 36.2 % (42.0-54.0); HEMOGLOBIN 12.2 g/dL (13.5-17.5); MCH 33.2 pg (26.0-34.0); MCHC 33.7 g/dL (31.0-37.0); MCV 98.6 fL (80.0-100.0); MEAN PLATELET VOLUME 10.4 fL (7.4-10.4); RBC 3.67 10x6/uL (4.20-6.10); RDW 16.4 % (11.5-14.5); WBC 16.3 10x3/uL (4.8-10.8)
[2017-05-30 06:52] LABS: ALBUMIN 3.1 g/dL (3.4-5.0); ANION GAP 13.1 mmol/L (8-16); BILIRUBIN - TOTAL 3.4 mg/dL (0.2-1.3); CALCIUM 8.7 mg/dL (8.5-10.1); CARBON DIOXIDE 24.8 mmol/L (21.0-32.0); CREATININE - SERUM 1.3 mg/dL (0.6-1.3); POTASSIUM - SERUM 3.9 mmol/L (3.5-5.1); PROTEIN - SERUM 6.5 g/dL (6.4-8.2)
[2017-05-30 10:12] LABS: FUNGUS STAIN Final report (())
[2017-05-31] VITALS (24 sets, daily range): BP systolic 86–120; BP diastolic 47–77
[2017-05-31 06:27] LABS: HEMATOCRIT 34.5 % (42.0-54.0); HEMOGLOBIN 11.7 g/dL (13.5-17.5); MCH 33.2 pg (26.0-34.0); MCHC 33.9 g/dL (31.0-37.0); MEAN PLATELET VOLUME 10.1 fL (7.4-10.4); RBC 3.52 10x6/uL (4.20-6.10); RDW 15.9 % (11.5-14.5); WBC 17.6 10x3/uL (4.8-10.8)
[2017-05-31 06:38] LABS: ANION GAP 13.8 mmol/L (8-16); CALCIUM 8.2 mg/dL (8.5-10.1); CARBON DIOXIDE 23.7 mmol/L (21.0-32.0); CREATININE - SERUM 1.4 mg/dL (0.6-1.3); POTASSIUM - SERUM 3.5 mmol/L (3.5-5.1)
[2017-06-01] VITALS (24 sets, daily range): BP systolic 88–139; BP diastolic 39–72
[2017-06-01 05:45] LABS: HEMATOCRIT 34.1 % (42.0-54.0); HEMOGLOBIN 11.4 g/dL (13.5-17.5); MCH 33.2 pg (26.0-34.0); MCHC 33.4 g/dL (31.0-37.0); MCV 99.4 fL (80.0-100.0); RBC 3.43 10x6/uL (4.20-6.10); RDW 15.8 % (11.5-14.5); WBC 14.2 10x3/uL (4.8-10.8)
[2017-06-01 06:07] LABS: CALCIUM 8.5 mg/dL (8.5-10.1); CARBON DIOXIDE 25.7 mmol/L (21.0-32.0); CREATININE - SERUM 1.2 mg/dL (0.6-1.3); POTASSIUM - SERUM 3.7 mmol/L (3.5-5.1)
[2017-06-02] VITALS (25 sets, daily range): BP systolic 93–130; BP diastolic 52–72
[2017-06-02 07:16] LABS: CALCIUM 9.4 mg/dL (8.5-10.1); CARBON DIOXIDE 24.5 mmol/L (21.0-32.0)
[2017-06-02 07:21] LABS: ANION GAP 17.4 mmol/L (8-16); CREATININE - SERUM 1.7 mg/dL (0.6-1.3); POTASSIUM - SERUM 4.9 mmol/L (3.5-5.1)
[2017-06-02 07:27] LABS: HEMATOCRIT 39.9 % (42.0-54.0); HEMOGLOBIN 13.3 g/dL (13.5-17.5); MCH 33.7 pg (26.0-34.0); MCHC 33.3 g/dL (31.0-37.0); RBC 3.95 10x6/uL (4.20-6.10); RDW 15.4 % (11.5-14.5); WBC 20.7 10x3/uL (4.8-10.8)
[2017-06-02 07:33] LABS: INR 1.11 (0.85-1.17); PROTIME 13.9 SECONDS (11.6-15.0)
[2017-06-02 15:25] LABS: FUNGUS MYCOLOGY CULTURE Preliminary report (())
[2017-06-02 15:25] LABS: IMMUNOGLOBULIN E 18 IU/mL (0-100)
[2017-06-03] VITALS (15 sets, daily range): BP systolic 93–127; BP diastolic 40–72
[2017-06-03 06:29] LABS: HEMATOCRIT 35.8 % (42.0-54.0); HEMOGLOBIN 11.9 g/dL (13.5-17.5); MCH 33.3 pg (26.0-34.0); MCHC 33.2 g/dL (31.0-37.0); MCV 100.3 fL (80.0-100.0); MEAN PLATELET VOLUME 9.8 fL (7.4-10.4); RBC 3.57 10x6/uL (4.20-6.10); RDW 15.3 % (11.5-14.5); WBC 18.1 10x3/uL (4.8-10.8)
[2017-06-03 06:38] LABS: ANION GAP 13.8 mmol/L (8-16); CALCIUM 8.4 mg/dL (8.5-10.1); CARBON DIOXIDE 26.4 mmol/L (21.0-32.0); CREATININE - SERUM 1.5 mg/dL (0.6-1.3); POTASSIUM - SERUM 4.2 mmol/L (3.5-5.1)
[2017-06-03] MEDS ORDERED: CORDARONE200 MG PO (10:52)
[2017-06-03] MEDS ORDERED: LASIX40 MG PO (10:57)
[2017-06-03] MEDS ORDERED: METOPROLOL TART50 MG PO (10:57)
[2017-06-03] MEDS ORDERED: K-DUR20 MEQ PO (11:00)
[2017-06-03] MEDS ORDERED: HYDROCODONE-APA1 TAB PO (14:45)
== END 2017-06-03 16:37 | disposition home or self-care (01) | DRG 235 ==
LOC: D.SDCHOLD 05:16 → D.CVICU 05:16 → D.SDCHOLD 07:30 → D.CVICU 12:27
PROVIDERS: Internal Medicine Cardiovascular Disease; Internal Medicine Pulmonary Disease
PROC: 02100AC Bypass Coronary Artery, One Artery from Thoracic Artery with Autologous Arterial Tissue, Open Approach (ICD-10-PCS; 2017-05-25)
PROC: 021109W Bypass Coronary Artery, Two Arteries from Aorta with Autologous Venous Tissue, Open Approach (ICD-10-PCS; 2017-05-25)
PROC: B245ZZ4 Ultrasonography of Left Heart, Transesophageal (ICD-10-PCS; 2017-05-25)
PROC: 0B9B8ZZ Drainage of Left Lower Lobe Bronchus, Via Natural or Artificial Opening Endoscopic (ICD-10-PCS; principal; 2017-05-27)
PROC: 0B968ZZ Drainage of Right Lower Lobe Bronchus, Via Natural or Artificial Opening Endoscopic (ICD-10-PCS; 2017-05-27)
PROC: 5A2204Z Restoration of Cardiac Rhythm, Single (ICD-10-PCS; 2017-05-31)
PROC: 0JH606Z Insertion of Pacemaker, Dual Chamber into Chest Subcutaneous Tissue and Fascia, Open Approach (ICD-10-PCS; 2017-06-02)
PROC: 02H63JZ Insertion of Pacemaker Lead into Right Atrium, Percutaneous Approach (ICD-10-PCS; 2017-06-02)
PROC: 02HK3JZ Insertion of Pacemaker Lead into Right Ventricle, Percutaneous Approach (ICD-10-PCS; 2017-06-02)
DX: I25.10 Atherosclerotic heart disease of native coronary artery without angina pectoris (principal); J96.01 Acute respiratory failure with hypoxia; J18.9 Pneumonia, unspecified organism; J44.1 Chronic obstructive pulmonary disease with (acute) exacerbation; J44.0 Chronic obstructive pulmonary disease with (acute) lower respiratory infection; D62 Acute posthemorrhagic anemia; I48.92 Unspecified atrial flutter; T17.590A Other foreign object in bronchus causing asphyxiation, initial encounter; I44.2 Atrioventricular block, complete; E78.5 Hyperlipidemia, unspecified; I10 Essential (primary) hypertension; G47.33 Obstructive sleep apnea (adult) (pediatric); Z91.19 Patient's noncompliance with other medical treatment and regimen; D69.6 Thrombocytopenia, unspecified; I71.4 Abdominal aortic aneurysm, without rupture; F32.9 Major depressive disorder, single episode, unspecified; M19.90 Unspecified osteoarthritis, unspecified site; I70.203 Unspecified atherosclerosis of native arteries of extremities, bilateral legs; E11.9 Type 2 diabetes mellitus without complications; Z87.891 Personal history of nicotine dependence; I49.5 Sick sinus syndrome

== ENCOUNTER → 2017-06-16 09:06 | Outpatient (CLI) | payer MEDICARE, BC ==
[2017-05-30 16:32] VITALS: BMI 33.0
[~2017-06-16 09:06] MED LIST changes: +CORDARONE200 MG PO; +HYDROCODONE-APA1 TAB PO; +K-DUR20 MEQ PO; +LASIX40 MG PO; +METOPROLOL TART50 MG PO
[2017-06-16 09:43] LABS: BASOPHILS 0.2 % (0-2); EOSINOPHILS 0.4 % (0-7); HEMOGLOBIN 12.6 g/dL (13.5-17.5); IMMATURE GRANULOCYTES 0.5 % (0-5); LYMPHOCYTES 19.9 % (15-50); MCH 32.6 pg (26.0-34.0); MCHC 33.2 g/dL (31.0-37.0); MCV 98.2 fL (80.0-100.0); MEAN PLATELET VOLUME 9.6 fL (7.4-10.4); MONOCYTES 13.2 % (2-11); NEUTROPHILS 65.8 % (40-80); PLATELET COUNT 263 10x3/uL (130-400); RBC 3.87 10x6/uL (4.20-6.10); RDW 14.7 % (11.5-14.5); WBC 9.2 10x3/uL (4.8-10.8)
[2017-06-16 10:06] LABS: ALBUMIN 3.1 g/dL (3.4-5.0); ANION GAP 12.6 mmol/L (8-16); BILIRUBIN - TOTAL 1.2 mg/dL (0.2-1.3); CARBON DIOXIDE 26.3 mmol/L (21.0-32.0); CREATININE - SERUM 1.3 mg/dL (0.6-1.3); POTASSIUM - SERUM 3.9 mmol/L (3.5-5.1); PROTEIN - SERUM 7.9 g/dL (6.4-8.2)
== END | disposition home or self-care (01) ==
LOC: D.RAD 09:06
PROVIDERS: Internal Medicine Cardiovascular Disease
DX: J91.8 Pleural effusion in other conditions classified elsewhere (principal); D64.9 Anemia, unspecified

== ENCOUNTER → 2017-10-11 12:56 | Outpatient (CLI) | payer MEDICARE, BC ==
[2017-05-30 16:32] VITALS: BMI 33.0
[~2017-10-11 12:56] MED LIST changes: +ADVIL200 MG PO; +ELIQUIS5 MG PO; +NEURONTIN 300300 MG PO; +RESTORIL15 MG PO
== END | disposition home or self-care (01) ==
LOC: D.US 12:56
DX: I65.23 Occlusion and stenosis of bilateral carotid arteries (principal)

== ENCOUNTER 2017-10-21 15:38 | Inpatient (IN) | payer MEDICARE, BC ==
[~2017-10-21] VITALS: Ht 172.7 cm; Wt 80.8 kg
--- NOTE | ~2017-10-21 | HEMODYNAMI ---
PATIENT:YOEL FINK MEDICAL RECORD: [id number] : 49 LOCATION:[facility] D.2220 ADMISSION DATE: 10/21/17 Generatedon:10/24/201716:46 Patient name: YOEL FINK Patient #: [id number] SSN: DO B: 1945 Date of study: 10/24/2017 Page: Of Hemodynamic Procedure Report Patient Data Patient Demographics Procedure consent was obtained First Name: YOEL Gender: Male Last Name: DANAE : 1945 Middle Initial: A Age: 72 year(s) Patient #: [id number] Race: Unknown Additional ID: [id number] Contact details Address: [address] [place] [address] [facility] State: [place] City: [place] Zip code: [address] Past Medical History Allergies: No known allergies Admission Admission Data Admission Date: 10/21/2017 Admission Time: 19:41 Room #: D.2220 Height (in.): 68 BSA: 1.97 (m2) Height (cm.): 172.72 BMI: 27.82 (kg/m2) Weight (lbs.): 183 Weight (kg.): 83.01 Procedure Procedure Types Cath Procedure Peripheral Cath Diagnostic Procedure Cath Peripheral Abd/Extremity Extremities Left Lower Ext Arterio Procedure Description Procedure Date Procedure Date: 10/24/2017 Procedure Start Time: 16:04 Procedure Staff Name Function Anthony Ramirez MD Performing Physician Ana Collins RT Animal Killer Radha Gonzalez RN Nurse Hai Muñoz RT Scrub Procedure Data Cath Procedure Fluoroscopy Diagnostic fluoroscopy Total fluoroscopy Time: 3.9 time: 3.9 min min Diagnostic fluoroscopy Total fluoroscopy dose: 226 dose: 226 mGy mGy Contrast Material Contrast Material Type Amount (ml) Isovue 300 135 Entry Location Entry Primary Successful Side Size Upsize Upsize Entry Closure Succes sful Closure Location (Fr) 1 (Fr) 2 (Fr) Remarks Device Remarks Femoral Left Exoseal artery Procedure Medications Medication Administration Route Dosage Lidocaine 1% added to field 20 Heparin Flush Bag added to field 3 bags (1000units/500ml NS) Versed I.V. 1 mg Fentanyl I.V. 50 mcg Versed I.V. 1 mg Fentanyl I.V. 50 mcg Hemodynamics Rest BSA: 1.97 (m2) O2 Consumption: Estimated: 280.11 (ml/min) O2 Consumption indexed : Estimated:142.19 (ml/min/m) Heart Rate: 140 (bpm) Snapshots Pre Cath Intra NCS Post Cath Vital Signs Time Heart Resp SPO2 etCO2 NIBP (mmHg) Rhythm Pain Sedation Rate (ipm) (%) (mmHg) Status Level (bpm) 15:32:34 85 24 92 15 112/70(94) NSR 0 (11) 10(A) , No pain 15:36:48 81 15 97 14.2 100/72(90) NSR 0 (11) 10(A) , No pain 15:40:54 81 16 96 9.7 116/68(91) NSR 0 (11) 10(A) , No pain 15:45:06 81 15 98 0 119/74(94) NSR 0 (11) 10(A) , No pain 15:49:44 89 28 92 0 111/87(106) NSR 0 (11) 10(A) , No pain 15:53:52 86 18 96 0 123/78(102) NSR 0 (11) 10(A) , No pain 15:58:04 80 20 96 16.5 107/69(93) NSR 0 (11) 10(A) , No pain 16:02:14 77 18 94 0 112/67(93) NSR 0 (11) 10(A) , No pain 16:06:24 80 17 96 2.2 110/73(91) NSR 0 (11) 10(A) , No pain 16:10:32 80 19 95 0 106/68(88) NSR 0 (11) 8(A) , No pain 16:14:40 82 28 94 0 110/71(86) NSR 0 (11) 8(A) , No pain 16:18:52 78 20 91 0 100/63(82) NSR 0 (11) 8(A) , No pain 16:22:59 80 23 96 0 104/66(78) NSR 0 (11) 8(A) , No pain 16:27:07 79 17 82 0 100/64(79) NSR 0 (11) 8(A) , No pain 16:31:13 80 27 94 0 97/71(80) NSR 0 (11) 8(A) , No pain 16:35:19 80 28 85 17.9 100/67(84) NSR 0 (11) 8(A) , No pain 16:39:25 78 18 96 0.7 99/69(81) NSR 0 (11) 8(A) , No pain 16:44:24 80 19 96 0.7 102/68(92) NSR 0 (11) 8(A) , No pain Medications Time Medication Route Dose Verified Delivered Reason Notes Effec tiveness by by 15:42:15 Lidocaine 1% added 20ml Anthony Cruz used for to vial James Ramirez MD procedure field ADAM 15:42:30 Heparin Flush added 3 Anthony Cruz used for Bag to bags James Ramirez MD procedure (1000units/500ml field ADAM NS) 16:04:10 Versed I.V. 1 mg Anthony Garcia for Carlos Ramirez RN sedation 16:04:50 Fentanyl I.V. 50 Anthony Garcia for mcg Carlos Ramirez RN sedation 16:08:27 Versed I.V. 1 mg Anthony Garcia for Carlos Ramirez RN sedation 16:08:37 Fentanyl I.V. 50 Anthony Garcia for mcg Carlos Ramirez RN sedation Procedure Log Time Note 15:01:08 Patient Height : 68 inches 15:01:13 Patient Weight : 183 lbs 15:05:38 Use device set IR Diagnostic 15:26:56 Time tracking: Regular hours (M-F 7:00 - 5:00) 15:27:15 Patient received from Med/Surg to IR Alert and oriented. Tansferred to table in Supine position. 15:27:17 Correct patient and procedure confirmed by team. 15:27:19 Signed procedure consent form obtained from patient. 15:27:27 H&P Date Dictated: 10/24/2017 Within 30 days and on chart.. 15:27:28 Pre-procedure instructions explained to patient. 15:27:29 Pre-op teaching completed and patient verbalized understanding. 15:27:31 Family in waiting room. 15:27:34 Patient NPO since Midnight. 15:27:42 Patient allergic to No known allergies 15::47 Is the patient allergic to Iodine/contrast media? No. 15::52 Is patient on blood thinner?Yes 15:28:02 Patient diabetic? No. 15:28:05 - 15:28:08 ----Pre-sedation anethsthesia assessment.---- 15::22 Previous problem with sedation/anesthesia? No ? 15:28:41 Snore? Yes 15:28:45 Sleep apnea? Yes 15:28:48 Deviated septum? No 15::51 Opens mouth fully? Yes 15:28:52 Sticks out tongue? Yes 15:29:11 Airway obstruction? No ? 15:29:16 Dentures? No ? 15:30:03 Pre procedure: right dorsailis pedis pulse Doppler 15:30:08 Pre procedure: left dorsailis pedis pulse Doppler 15:30:12 Pre procedure: right posterior tibial pulse Doppler 15:30:18 Pre procedure: left posterior tibial pulse Doppler 15:30:50 IV patent on arrival in right wrist with D5/.45%NaCl at KVO. 15:30:56 Left groin area was prepped with chlora-prep and draped in sterile fashion :: Plan of Care:Hemodynamics will remain stable., Cardiac rhythm will remain stable., Comfort level will be maintained., Respiratory function will remain adequate., Patient/ family verbilizes understanding of procedure., Procedure tolerated without complication., Recovers from procedure without complications.. 15:: ECG and BP/O2 sat monitors applied to patient. 15:: Vital chart was started 15:: Baseline sample Acquired. :: Full Disclosure recording started 15:31:35 - 15:32:16 Rhythm: paced 15:32:22 - 15:32:31 DOC .035 wire ([id number]) opened to sterile field. 15:32:32 TUBING Contrast Injection High Pressure (ITT463B) opened to sterile field. 15:32:33 Micropuncture VSI 4FR kit opened to sterile field. 15:32:35 Cordis 5Fr BRITE TIP 11cm sheath opened to sterile field. 15:32:36 Tegaderm 4 x 4 (1626W) opened to sterile field. 15:32:37 Sterile Angiographic Pack opened to sterile field. 15:32:38 Bag Decanter (2002S) opened to sterile field. 15:32:39 ACIST Manifold (37238) opened to sterile field. 15:32:40 ACIST Hand Control (15171) opened to sterile field. 15:32:41 ACIST Syringe (71206) opened to sterile field. 15:33:29 - 15:42:15 Lidocaine 1% 20ml vial added to field was administered by Anthony Ramirez MD; used for procedure; 15:42:30 Heparin Flush Bag (1000units/500ml NS) 3 bags added to field was administered by Anthony Ramirez MD; used for procedure; 15:58:53 Physician arrived 15:59:08 --------ALL STOP TIME OUT------ 15:59:08 Final Timeout: patient, procedure, and site verified with staff and physician. All members of the team are in agreement. 16:02:40 Procedure started. 16:04:10 Versed 1 mg I.V. was administered by Radha Gonzalez RN; for sedation; 16:04:32 Local anesthetic to left femerol artery with Lidocaine 1% by Anthony Ramirez MD.INITIAL ACCESS ONLY 16:04:50 Fentanyl 50 mcg I.V. was administered by Radha Gonzalez RN; for sedation ; 16:05:19 Arterial access obtained using ultrasound guidance. 16:08:27 Versed 1 mg I.V. was administered by Radha Gonzalez RN; for sedation; 16:08:37 Fentanyl 50 mcg I.V. was administered by Radha Gonzalez RN; for sedation ; 16:14:02 TORQUE DEVICE PLASTIC .038 ( TD01) opened to sterile field. 16:14:02 GLIDE CATHETER 5FR ANGLED 65cm (CG507) opened to sterile field. 16:14:03 Angiodynamics Omniflush 5Fr 65cm ([id number]) opened to sterile field. 16:14:04 GLIDE WIRE ANGLE 180cm (EP3485) opened to sterile field. 16:39:29 EXOSEAL 5Fr (EX500) opened to sterile field. 16:40:13 A sheath was inserted into the Left Femoral artery 16:40:13 Sheath removed intact; hemostasis achieved with Exoseal to the Left Femoral artery. 16:40:20 Procedure ended.(Physican Out) 16:40:34 Fluoroscopy time 03.90 minutes. 16:40:47 Flurop Dose total: 226 16:40:47 Fluoroscopy dose: 226 mGy 16:40:56 Contrast amount:Isovue 300 135ml. 16:43:05 Procedure and supply charges have been captured, reviewed, submitted an d are correct. 16:43:08 Post Procedure Pulses reassessed and unchanged 16:43:18 Report given to Med/Surg. 16:46:10 Vital chart was stopped Device Usage Item Name Manufacture Quantity Catalog Hospital Part Current Minim al Lot# / Number Charge Number Stock Stock Serial# Code DOC .035 wire [employer] 1 [id number] 5 ([id number]) TUBING [facility] 1 [id number] 860713 939239 5 Contrast Injection High Pressure (RBT502N) Micropuncture VSI VASCULAR 1 7266V 122274 181165 5 VSI 4FR kit SOLUTIONS Cordis 5Fr Cardinal 1 [id number] 083067 396094 5 BRITE TIP Health 11cm sheath Tegaderm 4 x 3M 1 1626W 690551 592525 765917 5 4 (1626W) Sterile Cardinal 1 [id number] 300719 476681 5 Angiographic Health Pack Bag Decanter Microtek 1 2001S 736691 92208 139494 5 (2001S) Medical Inc. ACIST Acist Medical 1 70150 042133 738286 121729 5 Manifold Systems Inc (24980) ACIST Hand Acist Medical 1 12083 677410 728980 315628 5 Control Systems Inc (41943) ACIST Syringe Acist Medical 1 54897 565620 189156 843754 20 (64186) Systems [employer]Space TORQUE DEVICE [place] 1 TD01 621254 131342 065967 5 PLASTIC .038 Scientific ( TD01) GLIDE Terumo 1 CG507 775195 034237 5 CATHETER 5FR ANGLED 65cm (CG507) Angiodynamics Angiodynamics 1 [id number] 602627 380345 299145 5 Omniflush 5Fr 65cm ([id number]) GLIDE WIRE Terumo 1 JU7757 024566 283638 076525 5 ANGLE 180cm (SF7683) EXOSEAL 5Fr Cardinal 1 EX500 179193 473572 739202 10 [id number] (EX500) Health Signature Audit Bacova Stage Time Signature Unsigned Intra-Procedure 10/24/2017 Ana Collins 4:46:07 PM RT(R) [address] [id number] [place] [address]
--- NOTE | ~2017-10-21 | DS ---
PATIENT:YOEL FINK :49 MEDICAL RECORD: [id number] DISCHARGE SUMMARY ADMISSION DATE: 10/21/17 DISCHARGE DATE: 10/25/17 DATE OF ADMISSION: 10/21/2017 DATE OF DISCHARGE: 10/25/2017 CONDITION ON DISCHARGE: Improved. ADMITTING DIAGNOSES: Peripheral vascular disease, cyanosis of the left lower extremity, history of prior peripheral vascular disease with iliac stenting, carotid endarterectomy, coronary artery bypass grafting, history of congestive heart failure, borderline diabetes, and hypertension. DISCHARGE DIAGNOSES: Peripheral vascular disease, cardiomyopathy, prediabetes, arteriosclerotic heart disease, history of coronary artery bypass grafting, hyperlipidemia, heart failure, and hypertension. HOSPITAL COURSE: This patient is a 72-year-old gentleman with a longstanding history of peripheral vascular disease. He has had coronary artery bypass grafting and carotid endarterectomy. For the past couple of weeks, he had noticed increased swelling in his lower extremities. Also, pain in the left foot. He had felt he had bruised the left foot. Upon arrival in the Emergency Room, he was found to have an ischemic left lower extremity. PHYSICAL EXAMINATION: VITAL SIGNS: He was afebrile. His vital signs are stable. HEENT: Unremarkable. NECK: Supple. There is no adenopathy. HEART: Regular. LUNGS: Clear. EXTREMITIES: The patient did have 1+ to 2+ pretibial edema. He also had cyanosis over the dorsum of the left foot and the toes were cyanotic. No palpable dorsalis pedis and posterior tibial pulses. He was afebrile. His vital signs were table. He was admitted, placed on heparin, sliding scale, and he was seen in consultation by Dr. Castillo. He did have arterial Dopplers and arterial Dopplers revealed significantly decreased velocity in the left dorsalis pedis artery, abrupt disease was noted and flow velocity between the right common femoral and proximal superficial femoral and between the right distal superficial femoral artery and proximal popliteal artery suggest peripheral vascular disease at least mild to moderate. 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 The patient did have a left lower extremity arteriogram, accessed the left common femoral artery with retrograde fashion. DSA of the aortoiliac stent grafts and left lower extremity artery performed, extensive multifocal calcifications throughout the left lower extremity in particular in unstented portions of the superficial femoral artery as well as popliteal artery below the knee. No definite right limiting stenosis, chronically occluded left anterior tibial artery with sluggish runoff to the left foot via the left posterior tibial artery and peroneal artery to the ankle. No single or multiple lesions amenable to endovascular intervention was seen. The patient did have an echocardiogram. Echocardiogram revealed left ventricular chamber size with the upper limits of normal. Left ventricular systolic functions were markedly decreased. Overall ejection fraction was down to 25% to 30%. Left atrium was within normal limits. Right atrium and right ventricle appeared to be mildly dilated. The patient was seen in consultation by Dr. Castillo, his cardiovascular surgeon, who felt the patient should be medically managed. His cyanosis did resolve. The patient had had no further pain. Therefore, he was discharged. MEDICATIONS: He would be on Eliquis 5 mg p.o. b.i.d., Zocor 40 mg daily, vitamin D3 2000 international units once a day, aspirin 81 mg once a day, hydrocodone 10/325 one every 4 hours p.r.n. severe pain, metoprolol tartrate 50 mg p.o. b.i.d., Lasix 40 mg p.o. every day, KCl 20 mEq once a day, meloxicam 7.5 mg one p.o. every day p.r.n. pain, Neurontin 300 mg p.o. t.i.d., Restoril 15 mg p.o. at bedtime p.r.n. insomnia. His Plavix was stopped. DISCHARGE INSTRUCTIONS: The patient was discharged. He was to take his p.o. potassium and Lasix as needed p.r.n. edema. Continue home medications. He was to follow up with me in 10-14 days. He would be on a 50-ounce fluid restriction. TRANSINT:[id number] Voice Confirmation ID: [id number] DOCUMENT ID: [id number] ABDIFATAH VENEGAS MD at 1414 CC: [id number] DICTATION DATE: 11/20/17 1434 OUTREACH ASSOCIATE: 11/21/17 1124 DIS IN 10/25/17 [address] [place] [address]
--- NOTE | ~2017-10-21 | EC ---
PATIENT:YOEL FINK DATE OF SERVICE: 10/21/17 SEX: M MEDICAL RECORD: [id number] DATE OF : [birth year] LOCATION:D.MS [facility] AGE OF PATIENT: 72 ADMISSION DATE: 10/21/17 REFERRING PHYSICIAN: INTERPRETING PHYSICIAN: FRANKLIN DOMINGUEZ MD ECHOCARDIOGRAM REPORT ECHO CHARGES 4 ECHO COMPLETE Date: 10/22 CLINICAL DIAGNOSIS: CHF HX OF PACER,CABG ECHOCARDIOGRAPHIC MEASUREMENTS (adult normal given) AC root (d.<3.7cm) 3.9 cm LV Septum d (<1.2 cm> 1.4 cm Valve Excursion 1.6 cm LV Septum (systole) 1.6 cm Left Atria (s.<4.0cm> 3.6 cm LVPW d(<1.2cm) 1.3 cm RV (d.<2.3cm) 4.3 cm LVPW (sytole) 1.4 cm LV diastole(<5.6CM) 5.2 cm MV E-F(>70mm/sec) cm LV systole 3.9 cm LVOT Diameter 1.9 cm MV exc.(>10mm) 1.9 cm Est.ejection fraction (50-75%) % DOPPLER: LVIT cm/sec A 49.0 cm/sec E 101 cm/sec LA cm/sec RVSP 44 mmHg LVOT 78 cm/sec AOP1/2T m/s Asc. Ao 90 cm/sec RVOT 42 cm/sec RA cm/sec PA 68 cm/sec AV Gradient Peak 3.21 mmHg AV Mean 1.687mmHg AV Area 2.6 cm MV Gradient Peak 4.97 mmHg MV Mean 2.04 mmHg MV Area cm COMMENTS: Benefits Specialist: Natalie MOTT Correspondent: 1 Dr. Dominguez TAPE# PACS Pericardial Effusion N DATE OF SERVICE: 10/22/2017 PROCEDURE: Echocardiogram. FINDINGS: 1. Left ventricular chamber size is upper limits of normal, left ventricular systolic function is markedly reduced, overall ejection fraction 25% to 30%. 2. Left atrium is within normal limits at 3.6 cm. Right atrium and right ventricle chamber sizes are mildly dilated. 3. Valvular structures have normal structure and motion. ECHOCARDIOGRAM REPORT [id number] YOEL FINK 4. Doppler interrogation reveals moderate mitral regurgitation, moderate to severe tricuspid regurgitation, no other valvular insufficiency or stenosis. Pulmonary systolic pressure is elevated, estimated at 44 mmHg. 5. No evidence of pericardial effusion or left ventricular thrombus. TRANSINT:[id number] Voice Confirmation ID: [id number] DOCUMENT ID: [id number] FRANKLIN DOMINGUEZ MD at 1741 CC: [id number] DICTATION DATE: 10/23/17 1037 INSURANCE ADMINISTRATIVE ASSISTANT: 10/23/17 1159 DIS IN 10/25/17 [id number] [place] [address]
--- NOTE | ~2017-10-21 | HP ---
PATIENT: YOEL FINK MEDICAL RECORD: [id number] ACCOUNT: [id number] LOCATION:D.MS [address] : 49 ADMISSION DATE: 10/21/17 HISTORY AND PHYSICAL EXAMINATION DATE OF ADMISSION: 10/21/2017 CHIEF COMPLAINT: Swelling in lower extremities as well as pain in the left foot. HISTORY OF PRESENT ILLNESS: The patient is a 72-year-old male with a history of having peripheral vascular disease in the past. He has also had coronary artery bypass grafting. The patient has also had a carotid endarterectomy. He states for the past couple of weeks, he has noticed increased swelling in the lower extremities, also had pain in the left foot, felt as if he may have bruised this. He presented to the Emergency Room where he was found to have an ischemic left lower limb. PAST MEDICAL HISTORY: Significantly, he has had diabetes mellitus and hyperlipidemia. He has had depression, coronary artery disease, and peripheral vascular disease. He has had cataract surgery. He has had iliac stenting in the past. The patient has had carpal tunnel syndrome. He has some chronic leukocytosis, low back pain. He has had a lumbar decompression laminectomy L4-L5. FAMILY HISTORY: Father had coronary artery disease. Mother history, unknown. ALLERGIES: The patient has known drug allergies. MEDICATIONS: Include aspirin 81 mg once a day, he has also been on Plavix 75 mg every day, Lasix 40 mg p.o. q.a.m., gabapentin 300 mg tablet p.o. q.h.s., metoprolol succinate 25 mg 1 p.o. b.i.d., multivitamin once a day, nitroglycerin 0.4 sublingual p.r.n., KCl 10 mEq once a day, simvastatin 40 mg p.o. q.h.s., temazepam 15 mg once a day, vitamin D3 2000 international units daily. SOCIAL HISTORY: The patient had been a 1 pack per day smoker, has stopped several years ago. He was born and raised in [facility]. 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 He is . REVIEW OF SYSTEMS: GENERAL: He denies any headaches, seizure or syncope. Denies change in visual or auditory acuity. PULMONARY: He denies any shortness of breath, cough, congestion, history of TB, asthma, or bronchitis. CARDIOVASCULAR: He has had no chest pain, palpitation, PND or orthopnea. GASTROINTESTINAL: No chronic nausea, vomiting, melena or hematochezia. GENITOURINARY: No urgency, frequency, or dysuria. PHYSICAL EXAMINATION: VITAL SIGNS: The patient's temperature was 97.9, respirations 18, blood pressure 122/89, his pulse is 93. HEENT: Head is normocephalic. No lesions. Ears: TMs clear. Eyes: Pupils equal, round and reactive to light. His extraocular movements are intact. His nasal cavity, oral cavity, oropharynx clear. NECK: Supple. There is no adenopathy. HISTORY AND PHYSICAL [id number] YOEL FINK HEART: Has a regular rate. LUNGS: Clear. ABDOMEN: Soft, bowel sounds are positive. EXTREMITIES: The patient does have 1-2+ pretibial edema. He also has cyanosis over the dorsum of the left foot and the toes as well. He has no palpable dorsalis pedis and posterior tibial pulses. LABORATORY DATA: White count 7.5, hemoglobin 12.8, hematocrit is 38.5, his platelets are 174. Sodium is 135, potassium 3.5, chloride is 97, CO2 is 28, BUN is 18, creatinine is 1.4, glucose of 128. He had a proBNP of 4111. His chest x-ray revealed no acute cardiopulmonary abnormality with the exception of having borderline cardiomegaly. ASSESSMENT: Peripheral vascular disease with cyanosis of the left lower extremity, history of prior peripheral vascular disease with iliac stenting, carotid endarterectomies, coronary artery bypass grafting, history of CHF, borderline diabetes, hypertension. PLAN: The patient is admitted. He will be placed on heparin 5000 bolus on sliding scale. Cardiovascular surgeon will be consulted. The patient will need to have a CTA of the lower extremities. TRANSINT:[id number] Voice Confirmation ID: [id number] DOCUMENT ID: [id number] ABDIFATAH VENEGAS MD at 0930 CC: [id number] DICTATION DATE: 10/22/17726 DIRECTOR RISK: 10/22/17 09 [place] [id number]
[~2017-10-21 15:38] MED LIST changes: -ADVIL200 MG PO; -ELIQUIS5 MG PO; -NEURONTIN 300300 MG PO; -RESTORIL15 MG PO
[2017-10-21 16:33] LABS: BASOPHILS 0.5 % (0-2); EOSINOPHILS 1.9 % (0-7); HEMATOCRIT 38.5 % (42.0-54.0); HEMOGLOBIN 12.8 g/dL (13.5-17.5); IMMATURE GRANULOCYTES 0.3 % (0-5); LYMPHOCYTES 21.9 % (15-50); MCH 30.6 pg (26.0-34.0); MCHC 33.2 g/dL (31.0-37.0); MCV 92.1 fL (80.0-100.0); MEAN PLATELET VOLUME 9.2 fL (7.4-10.4); MONOCYTES 11.9 % (2-11); NEUTROPHILS 63.5 % (40-80); RBC 4.18 10x6/uL (4.20-6.10); RDW 14.3 % (11.5-14.5); WBC 7.5 10x3/uL (4.8-10.8)
[2017-10-21 16:42] LABS: PLATELET COUNT 174 10x3/uL (130-400)
[2017-10-21 17:03] LABS: ALBUMIN 3.5 g/dL (3.4-5.0); ANION GAP 12.8 mmol/L (8-16); BILIRUBIN - TOTAL 1.32 mg/dL (0.2-1.3); CARBON DIOXIDE 28.7 mmol/L (21.0-32.0); CREATININE - SERUM 1.4 mg/dL (0.6-1.3); POTASSIUM - SERUM 3.5 mmol/L (3.5-5.1); PROTEIN - SERUM 7.8 g/dL (6.4-8.2)
[2017-10-21] MEDS ORDERED: MOBIC7.5 MG PO (18:00)
[2017-10-21] MEDS ORDERED: PLAVIX75 MG PO (18:00)
[2017-10-21] MEDS ORDERED: NEURONTIN 300300 MG PO (18:01)
[2017-10-21] MEDS ORDERED: RESTORIL15 MG PO (18:01)
[2017-10-21 18:46] LABS: INR 1.23 (0.85-1.17); PROTIME 15.1 SECONDS (11.6-15.0)
[2017-10-21 19:36] LABS: HEMATOCRIT 38.7 % (42.0-54.0); HEMOGLOBIN 12.7 g/dL (13.5-17.5); MCH 30.2 pg (26.0-34.0); MCHC 32.8 g/dL (31.0-37.0); MCV 91.9 fL (80.0-100.0); MEAN PLATELET VOLUME 9.6 fL (7.4-10.4); RBC 4.21 10x6/uL (4.20-6.10); RDW 14.4 % (11.5-14.5); WBC 7.5 10x3/uL (4.8-10.8)
[2017-10-21 19:39] LABS: APTT 35.7 SECONDS (22.8-39.4)
[2017-10-21] MEDS ORDERED: ADVIL200 MG PO ×2 (21:39→21:40)
[2017-10-21 22:49] VITALS: BP 105/72; BMI 28.8
[2017-10-22] VITALS: BP 93/58
[2017-10-22 03:49] LABS: BASOPHILS 0.3 % (0-2); EOSINOPHILS 1.8 % (0-7); HEMATOCRIT 37.3 % (42.0-54.0); HEMOGLOBIN 12.3 g/dL (13.5-17.5); IMMATURE GRANULOCYTES 0.4 % (0-5); LYMPHOCYTES 24.1 % (15-50); MCH 29.9 pg (26.0-34.0); MCV 90.8 fL (80.0-100.0); MEAN PLATELET VOLUME 9.5 fL (7.4-10.4); NEUTROPHILS 59.4 % (40-80); PLATELET COUNT 167 10x3/uL (130-400); RBC 4.11 10x6/uL (4.20-6.10); RDW 14.3 % (11.5-14.5); WBC 7.4 10x3/uL (4.8-10.8)
[2017-10-22 03:52] LABS: ANION GAP 12.3 mmol/L (8-16); CALCIUM 9.1 mg/dL (8.5-10.1); CREATININE - SERUM 1.2 mg/dL (0.6-1.3); POTASSIUM - SERUM 3.3 mmol/L (3.5-5.1)
[2017-10-22 05:43] VITALS: BP 126/83
[2017-10-22 09:02] VITALS: BP 93/50
[2017-10-22 13:42] VITALS: BMI 28.7
[2017-10-22 14:08] VITALS: BP 83/43
[2017-10-22 16:56] VITALS: BP 82/44
[2017-10-22 20:00] VITALS: BP 96/56
[2017-10-23] VITALS: BP 98/61
[2017-10-23 04:00] VITALS: BP 93/53
[2017-10-23 05:33] LABS: BASOPHILS 0.6 % (0-2); EOSINOPHILS 3.3 % (0-7); HEMATOCRIT 38.4 % (42.0-54.0); HEMOGLOBIN 12.4 g/dL (13.5-17.5); IMMATURE GRANULOCYTES 0.1 % (0-5); LYMPHOCYTES 28.7 % (15-50); MCHC 32.3 g/dL (31.0-37.0); MEAN PLATELET VOLUME 9.5 fL (7.4-10.4); MONOCYTES 14.6 % (2-11); NEUTROPHILS 52.7 % (40-80); PLATELET COUNT 165 10x3/uL (130-400); RBC 4.14 10x6/uL (4.20-6.10); RDW 14.6 % (11.5-14.5); WBC 6.9 10x3/uL (4.8-10.8)
[2017-10-23 05:42] LABS: MCV 92.8 fL (80.0-100.0)
[2017-10-23 05:55] LABS: ANION GAP 9.8 mmol/L (8-16); CALCIUM 9.2 mg/dL (8.5-10.1); CARBON DIOXIDE 31.4 mmol/L (21.0-32.0); CREATININE - SERUM 1.3 mg/dL (0.6-1.3)
[2017-10-23 05:59] LABS: POTASSIUM - SERUM 5.2 mmol/L (3.5-5.1)
[2017-10-23 11:37] VITALS: BP 94/57
[2017-10-23 15:26] VITALS: BP 94/56
[2017-10-23 22:41] VITALS: BP 99/61
[2017-10-23 23:25] VITALS: BP 89/50
[2017-10-24 04:38] LABS: BASOPHILS 0.3 % (0-2); EOSINOPHILS 3.2 % (0-7); HEMOGLOBIN 11.9 g/dL (13.5-17.5); IMMATURE GRANULOCYTES 0.4 % (0-5); LYMPHOCYTES 27.7 % (15-50); MCH 29.7 pg (26.0-34.0); MCHC 32.2 g/dL (31.0-37.0); MCV 92.3 fL (80.0-100.0); MEAN PLATELET VOLUME 9.6 fL (7.4-10.4); NEUTROPHILS 56.4 % (40-80); PLATELET COUNT 179 10x3/uL (130-400); RBC 4.01 10x6/uL (4.20-6.10); RDW 14.7 % (11.5-14.5); WBC 7.5 10x3/uL (4.8-10.8)
[2017-10-24 04:47] LABS: INR 1.21 (0.85-1.17); PROTIME 14.8 SECONDS (11.6-15.0)
[2017-10-24 04:53] LABS: APTT 97.6 SECONDS (22.8-39.4)
[2017-10-24 05:07] LABS: ANION GAP 13.2 mmol/L (8-16); CALCIUM 8.8 mg/dL (8.5-10.1); CREATININE - SERUM 1.2 mg/dL (0.6-1.3)
[2017-10-24 05:11] LABS: POTASSIUM - SERUM 3.2 mmol/L (3.5-5.1)
[2017-10-24 08:33] VITALS: BP 92/59
[2017-10-24 12:24] VITALS: Ht 172.7 cm; Wt 80.8 kg
[2017-10-24 12:49] VITALS: BP 94/64
[2017-10-24 12:53] LABS: INR 1.12 (0.85-1.17)
[2017-10-24 19:28] VITALS: BP 97/57
[2017-10-25 00:51] VITALS: BP 83/56
[2017-10-25 04:28] VITALS: BP 82/44
[2017-10-25 04:34] LABS: BASOPHILS 0.4 % (0-2); HEMATOCRIT 38.4 % (42.0-54.0); HEMOGLOBIN 12.3 g/dL (13.5-17.5); IMMATURE GRANULOCYTES 0.3 % (0-5); LYMPHOCYTES 25.4 % (15-50); MCH 29.7 pg (26.0-34.0); MCV 92.8 fL (80.0-100.0); MEAN PLATELET VOLUME 9.9 fL (7.4-10.4); MONOCYTES 12.3 % (2-11); NEUTROPHILS 57.6 % (40-80); PLATELET COUNT 175 10x3/uL (130-400); RBC 4.14 10x6/uL (4.20-6.10); RDW 14.7 % (11.5-14.5); WBC 6.8 10x3/uL (4.8-10.8)
[2017-10-25 04:44] LABS: ANION GAP 11.1 mmol/L (8-16); CALCIUM 8.9 mg/dL (8.5-10.1); CARBON DIOXIDE 31.1 mmol/L (21.0-32.0); CREATININE - SERUM 1.3 mg/dL (0.6-1.3); MAGNESIUM - SERUM 1.8 mg/dL (1.8-2.4)
[2017-10-25 05:08] LABS: POTASSIUM - SERUM 4.2 mmol/L (3.5-5.1)
[2017-10-25 08:01] VITALS: BP 103/44
[2017-10-25] MEDS ORDERED: ELIQUIS5 MG PO (09:07)
== END 2017-10-25 12:33 | disposition home or self-care (01) | DRG 300 ==
LOC: D.ER 15:38 → D.MS 19:41 → D.EDHOLD 19:41 → D.MS 20:29
PROVIDERS: Emergency Medicine; Family Medicine; General Practice
PROC: B41G1ZZ Fluoroscopy of Left Lower Extremity Arteries using Low Osmolar Contrast (ICD-10-PCS; 2017-10-24)
PROC: B41F1ZZ Fluoroscopy of Right Lower Extremity Arteries using Low Osmolar Contrast (ICD-10-PCS; 2017-10-24)
PROC: B41G1ZZ Fluoroscopy of Left Lower Extremity Arteries using Low Osmolar Contrast (ICD-10-PCS; principal; 2017-10-24 15:30)
DX: I73.9 Peripheral vascular disease, unspecified (principal); I42.9 Cardiomyopathy, unspecified; R73.03 Prediabetes; I25.10 Atherosclerotic heart disease of native coronary artery without angina pectoris; Z95.1 Presence of aortocoronary bypass graft; E78.5 Hyperlipidemia, unspecified; F32.9 Major depressive disorder, single episode, unspecified; I11.0 Hypertensive heart disease with heart failure; I50.9 Heart failure, unspecified; I08.1 Rheumatic disorders of both mitral and tricuspid valves

== ENCOUNTER → 2018-03-20 08:54 | Outpatient (CLI) | payer MEDICARE, BC ==
[~2018-03-20 08:54] MED LIST changes: +ADVIL200 MG PO; +ELIQUIS5 MG PO; +NEURONTIN 300300 MG PO; +RESTORIL15 MG PO
== END | disposition home or self-care (01) ==
LOC: D.CT 03-06 09:30
DX: I65.23 Occlusion and stenosis of bilateral carotid arteries (principal)

== ENCOUNTER → 2018-04-03 10:08 | Outpatient (CLI) | payer MEDICARE, BC | END | disposition home or self-care (01) | LOC: D.CT 10:08 | DX: I71.4 Abdominal aortic aneurysm, without rupture (principal) ==

== ENCOUNTER → 2018-05-11 07:59 | Outpatient (CLI) | payer MEDICARE, BC ==
[~2018-05-11 07:59] MED LIST changes: +DEPAKOTE250 MG PO; +LISINOPRIL5 MG PO; +RANITIDINE HCL150 M1 PO
== END | disposition home or self-care (01) ==
LOC: D.HCCARDIO 07:59
DX: I25.10 Atherosclerotic heart disease of native coronary artery without angina pectoris (principal)

== ENCOUNTER 2018-05-18 06:29 | Outpatient (CLI) | payer MEDICARE, BC ==
[~2018-05-18] VITALS: Ht 172.7 cm; Wt 74.5 kg
--- NOTE | ~2018-05-18 | HEMODYNAMI ---
PATIENT:YOEL FINK MEDICAL RECORD: [id number] : 49 LOCATION:[facility] ADMISSION DATE: 05/18/18 Generatedon:05/18/20189:22 Patient name: YOEL FINK Patient #: [id number] SSN: DO B: 1945 Date of study: 05/18/2018 Page: Of Hemodynamic Procedure Report Patient Data Patient Demographics Procedure consent was obtained First Name: YOEL Gender: Male Last Name: DANAE : 1945 [facility] Initial: FRANCISCO Age: 73 year(s) Patient #: [id number] Race: Unknown Additional ID: [id number] Contact details Address: [address] [place] [address] [facility] State: [place] City: [place] Zip code: [address] Past Medical History Allergies: No known allergies Admission Admission Data Admission Date: 05/18/2018 Admission Time: 6:29 Procedure Procedure Types Cath Procedure Diagnostic Procedure LHC LHC w/Coronaries w/Grafts Procedure Description Procedure Date Procedure Date: 05/18/2018 Procedure Start Time: 8:39 Procedure End Time: 9:20 Procedure Staff Name Function Joel Mitchell MD Performing Physician Matt Reyna RT Monitor Farzana Santo RT Scrub Lucila Kimble RN Nurse Procedure Data Cath Procedure Fluoroscopy Diagnostic fluoroscopy Total fluoroscopy Time: 11 time: 11 min min Diagnostic fluoroscopy Total fluoroscopy dose: 917 dose: 917 mGy mGy Contrast Material Contrast Material Type Amount (ml) Isovue 300 112 Entry Location Entry Primary Successful Side Size Upsize Upsize Entry Closure Succes sful Closure Location (Fr) 1 (Fr) 2 (Fr) Remarks Device Remarks Femoral Right 5 Fr wholey Exoseal artery wire used Diagnostic catheters Device Type Used For End Catheter Placement MULTIPACK JL 4.0 5Fr Left Coronary catheter Angiography DIAGNOSTIC AR MOD 5Fr Right Coronary Catheter ([id number]) Angiography DIAGNOSTIC AR2 MOD 5 Fr SVG Angiography catheter ([id number]) MULTIPACK 3DRC 5Fr SVG Angiography catheter DIAGNOSTIC MPA-2 5Fr SVG Angiography catheter ([id number]) DIAGNOSTIC IM 5Fr SVG Angiography catheter ([id number]) DIAGNOSTIC AR2 MOD 5 Fr SVG Angiography catheter ([id number]) MULTIPACK Pigtail 5 Fr LV Angiography catheter Procedure Complications No complications Procedure Medications Medication Administration Route Dosage 0.9% NaCl I.V. 100 ml/hr Oxygen etCO2 Nasal cannula 2 l/min Lidocaine 2% added to field 20 Heparin Flush Bag added to field 2 bags (1000units/500ml NS) Versed I.V. 2 mg Fentanyl I.V. 50 mcg Versed I.V. 2 mg Fentanyl I.V. 50 mcg Versed I.V. 1 mg Hemodynamics Rest Heart Rate: 79 (bpm) Pressure Samples Time Site Value (mmHg) Purpose Heart Use Rate(bpm) 9:10 LV 124/0,14 Snapshot 87 9:10 LV 122/-1,13 EDP 86 9:12 AO 122/46(75) Pullback 87 9:12 LV 123/-1,14 Pullback 87 Gradients Valve Time Site 1 Site 2 Mean SEP/DFP Peak To Heart Use (mmHg) (sec/min) Peak Rate (mmHg) (bpm) Aortic 9:12 LV AO 4 16 1 87 123/-1,14 122/46(75) Calculations Valve P-P Mean Valve Index Valve Source Name Gradient Area Flow (cm2) Aortic 1 4 1 4 Snapshots Pre Cath Intra NCS Post Cath Vital Signs Time Heart Resp SPO2 etCO2 NIBP Rhythm Pain Sedation Rate (ipm) (%) (mmHg) (mmHg) Status Level (bpm) 8:20:35 77 16 100 24.8 123/57(79) NSR 0 (11) 10(A) , No pain 8:24:46 80 23 98 25 105/50(77) NSR 0 (11) 10(A) , No pain 8:28:58 77 24 96 25 105/55(77) NSR 0 (11) 10(A) , No pain 8:33:10 73 21 98 29.7 106/49(74) NSR 0 (11) 10(A) , No pain 8:37:20 75 25 99 29 103/55(77) NSR 0 (11) 9(A) , No pain 8:41:28 85 20 97 23 93/58(70) NSR 0 (11) 9(A) , No pain 8:45:34 84 21 99 34.6 98/53(78) NSR 0 (11) 10(A) , No pain 8:49:42 83 19 99 32.3 96/54(73) NSR 0 (11) 9(A) , No pain 8:53:49 87 20 99 26.3 98/54(70) NSR 0 (11) 9(A) , No pain 8:57:55 85 21 99 33.8 96/52(72) NSR 0 (11) 9(A) , No pain 9:02:03 86 21 99 33 96/52(72) NSR 0 (11) 9(A) , No pain 9:06:13 85 21 99 33.8 92/50(69) NSR 0 (11) 9(A) , No pain 9:10:21 85 24 99 33.8 99/49(63) NSR 0 (11) 9(A) , No pain 9:14:31 83 21 98 30.8 96/48(69) NSR 0 (11) 9(A) , No pain 9:18:39 81 23 98 20.3 98/54(81) NSR 0 (11) 10(A) , No pain Medications Time Medication Route Dose Verified Delivered Reason Notes Effe ctiveness by by 8:19:38 0.9% NaCl I.V. 100 Joel Lucila used for ml/hr Stephen Kimble refrigeration service technician 8:20:03 Oxygen etCO2 2 Joel Lucila used for Nasal l/min Stephen Kimble procedure cannula RN 8:20:09 Lidocaine 2% added 20ml Joel Joel for local to vial Stephen Mitchell MD anesthetic field 8:20:31 Heparin Flush added 2 Joel Joel used for Bag to bags Stephen Mitchell MD procedure (1000units/500ml field NS) 8:30:42 Versed I.V. 2 mg Joel Lucila for Stephen Kimble sedation RN 8:30:48 Fentanyl I.V. 50 Joel Lucila for mcg Stephen Kimble sedation RN 8:42:32 Versed I.V. 2 mg Joel Lucila for Stephen Kimble sedation RN 8:42:36 Fentanyl I.V. 50 Joel Lucila for mcg Stephen Kimble sedation RN 8:50:45 Versed I.V. 1 mg Joel Moelleryla for Stephen Kimble sedation management advisor Log Time Note 8:00:03 Matt Reyna RT(R) sent for patient. Start room use. 8:04:28 Signed procedure consent form obtained from patient. 8:04:29 Diagnostic Cath status Elective 8:04:30 Time tracking: Regular hours (M-F 7:00 - 5:00) 8:04:35 Plan of Care:Hemodynamics will remain stable., Cardiac rhythm will remain stable., Comfort level will be maintained., Respiratory function will remain adequate., Patient/ family verbilizes understanding of procedure., Procedure tolerated without complication., Recovers from procedure without complications.. 8:08:22 H&P Date Dictated: 07/06/2018 Within 30 days and on chart., H&P Addendum completed by physician on day of procedure. (MUST COMPLETE FOR ALL OUTPATIENTS). 8:10:08 Patient received from Pre/Post Procedure Room to CCL 1 Alert and oriented. Tansferred to table in Supine position. 8:10:09 Warm blankets applied, and gareth hugger turned on for patient comfort. 8:10:09 Correct patient and procedure confirmed by team. 8:10:10 ECG and BP/O2 sat monitors applied to patient. 8:19:29 Vital chart was started 8:19:38 0.9% NaCl 100 ml/hr I.V. was administered by Lucila Kimble RN; used for procedure; 8:20:03 Oxygen 2 l/min etCO2 Nasal cannula was administered by Lucila Kimble RN; used for procedure; 8:20:09 Lidocaine 2% 20ml vial added to field was administered by Joel Mitchell MD; for local anesthetic; 8:20:31 Heparin Flush Bag (1000units/500ml NS) 2 bags added to field was administered by Joel Mitchell MD; used for procedure; 8:24:23 Baseline sample Acquired. 8:24:29 Rhythm: paced 8:24:31 Full Disclosure recording started 8:24:32 Pre-procedure instructions explained to patient. 8:24:32 Pre-op teaching completed and patient verbalized understanding. 8:24:34 Family in patients room. 8:24:35 Patient NPO since Midnight. 8:24:53 Patient allergic to No known allergies 8:24:57 Is the patient allergic to Iodine/contrast media? No. 8:25:00 Is patient on blood thinner?Yes 8:25:22 tue 8:25:25 Patient diabetic? No. 8:25:26 ----Pre-sedation anethsthesia assessment.---- 8:25:28 Previous problem with sedation/anesthesia? No ? 8:25:29 Snore? Yes 8:25:30 Sleep apnea? Yes 8:25:32 Deviated septum? No 8:25:35 Opens mouth fully? Yes 8:25:38 Sticks out tongue? Yes 8:25:40 Airway obstruction? No ? 8:25:47 Dentures? Yes in tight 8:25:51 Pre procedure: right dorsailis pedis pulse 2+ Normal; easily identifiable; not easily obliterated 8:25:56 Patient pain scale 0/10 ?. 8:25:59 IV patent on arrival in left antecubital with 0.9% NaCl at 10ml/hr. 8:26:03 Lab results completed and on chart. 8:26:06 Right groin area was prepped with chlora-prep and draped in sterile fashion 8:26:07 Alarms reviewed by R. N. 8:26:07 Sharps counted by scrub and verified by R.N. 8:26:08 Physician arrived 8:28:22 --------ALL STOP TIME OUT------ 8:28:23 Final Timeout: patient, procedure, and site verified with staff and physician. All members of the team are in agreement. 8:28:24 Right groin site verified by team. 8:28:27 Physical assessment completed. ASA score P 2 - A patient with mild systemic disease as per Joel Mitchell MD. 8:28:30 Sedation plan: IV Moderate Sedation Medication:Versed, Fentanyl 8:30:42 Versed 2 mg I.V. was administered by Lucila Kimble RN; for sedation; 8:30:48 Fentanyl 50 mcg I.V. was administered by Lucila Kimble RN; for sedation; 8:32:32 Use device set Femoral Dx 8:32:33 ACIST Syringe (18754) opened to sterile field. 8:32:33 Bag Decanter () opened to sterile field. 8:32:34 Medline Cath Pack ([id number]) opened to sterile field. 8:32:34 DIAGNOSTIC WIRE .035 260cm J wire ([id number]) opened to sterile field. 8:32:36 ACIST Hand Control (49073) opened to sterile field. 8:32:36 ACIST Manifold (43125) opened to sterile field. 8:32:37 DIAGNOSTIC Multipack 5Fr catheter set ([id number]) opened to sterile field. 8:32:37 Tegaderm 4 x 4 (1626W) opened to sterile field. 8:32:38 SHEATH 5FR Blue Point ([id number]) opened to sterile field. 8:38:22 Procedure started. 8:39:14 Local anesthetic to right femoral artery with Lidocaine 2% by Joel Mitchell MD.INITIAL ACCESS ONLY 8:39:27 A 5 Fr sheath was inserted into the Right Femoral arterywholey wire used 8:41:51 WHOLEY 300cm 0.035 wire ([id number]) opened to sterile field. 8:42:32 Versed 2 mg I.V. was administered by Lucila Kimble RN; for sedation; 8:42:36 Fentanyl 50 mcg I.V. was administered by Lucila Kimble RN; for sedation; 8:46:56 A MULTIPACK JL 4.0 5Fr catheter was advanced over the wire and used for Left Coronary Angiography. 8:47:32 LCA angiography performed. 8:49:23 Catheter exchanged over wire. 8:50:34 A DIAGNOSTIC AR MOD 5Fr Catheter ([id number]) was advanced over the wire and used for Right Coronary Angiography. 8:50:45 Versed 1 mg I.V. was administered by Lucila Kimble RN; for sedation; 8:51:43 SVG to Diag angiography performed. 8:53:24 Catheter exchanged over wire. 8:53:57 A DIAGNOSTIC AR2 MOD 5 Fr catheter ([id number]) was advanced over the wire and used for SVG Angiography. 8:56:19 Catheter exchanged over wire. 8:56:27 A MULTIPACK 3DRC 5Fr catheter was advanced over the wire and used for SVG Angiography. 8:57:38 RCA angiography performed. 8:58:07 Catheter exchanged over wire. 8:59:10 A DIAGNOSTIC MPA-2 5Fr catheter ([id number]) was advanced over the wire and used for SVG Angiography. 9:02:00 Catheter exchanged over wire. 9:02:53 A DIAGNOSTIC IM 5Fr catheter ([id number]) was advanced over the wire and used for SVG Angiography. 9:02:58 MENDEZ to LAD angiography performed. 9:05:20 Catheter exchanged over wire. 9:07:04 A DIAGNOSTIC AR2 MOD 5 Fr catheter ([id number]) was advanced over the wire and used for SVG Angiography. 9:09:08 Catheter exchanged over wire. 9:09:33 A MULTIPACK Pigtail 5 Fr catheter was advanced over the wire and used for LV Angiography. 9:10:44 LV gram done using ROWE 9:10:46 LV hemodynamics recorded. 9:10:49 Injector settings: Ml/sec: 10, Volume: 20, 9:11:53 EF : 35 % 9:12:21 Catheter exchanged over wire. 9:16:08 Sheath removed intact; hemostasis achieved with Exoseal to the Right Femoral artery. 9:16:11 Procedure ended.(Physican Out) 9:16:36 Contrast amount:Isovue 300 112ml. 9:16:41 Fluoroscopy time 11.00 minutes. 9:16:48 Flurop Dose total: 917 9:16:48 Fluoroscopy dose: 917 mGy 9:18:18 Sharps counted by scrub and verified by R.N. 9:18:19 Insertion/operative site no bleeding no hematoma. 9:18:32 Post-op/insertion site Right Femoral artery dressed using a 4 x 4 and Tegaderm. 9:18:36 Post right femoral artery:stable 9:19:31 Post Procedure Pulses reassessed and unchanged 9:19:33 Post procedure: right dorsailis pedis pulse 1+ Palpable, but thready & weak; easily obliterated. 9:19:38 Post procedure rhythm: paced 9:19:41 Post procedure instruction explained to patient.Patient verbalizes understanding. 9:19:42 Procedure and supply charges have been captured, reviewed, submitted and are correct. 9:20:00 Procedure Complication : No complications 9:20:03 Vital chart was stopped 9:20:04 See physician's report for complete and final results. 9:20:07 Report given to Pre/Post Procedure Room. 9:20:14 Patient transfered to Pre/Post Procedure Room with Stretcher. 9:20:16 Procedure ended. 9:20:16 Full Disclosure recording stopped 9:20:20 End room use (Document Last) Device Usage Item Name Manufacture Quantity Catalog Hospital Part Current Minimal L ot# / Number Charge Number Stock Stock Serial# Code ACIST Acist 1 74850 227167 621226 912582 20 Syringe Medical (71442) Systems Inc Bag Microtek 1 453947 09095 038335 5 Decanter Medical Inc. () Medline Medline 1 [id number] 364301 03538 514264 5 Cath Pack ([id number]) DIAGNOSTIC St Cuate 1 603742 758950 543829 417048 30 WIRE .035 260cm J wire (070071) ACIST Hand Acist 1 86591 143286 505111 673028 5 Control Medical (52667) Systems Inc ACIST Acist 1 84007 399347 014980 253198 5 Manifold Medical (12963) Systems Inc DIAGNOSTIC Cardinal 1 UP4615 609053 26472 323423 30 Multipack Health 5Fr catheter set (PM9227) Tegaderm 4 3M 1 1626W 944458 070307 723996 5 x 4 (1626W) SHEATH 5FR Terumo 1 CII159 446574 572575 308353 5 Blue Point (QRJ252) WHOLEY Medtronic 1 [id number] 928027 755275 380547 3 300cm 0.035 wire ([id number]) MULTIPACK Cardinal 1 313321 5 JL 4.0 5Fr Health catheter DIAGNOSTIC Cardinal 1 [id number] 730295 491194 111474 15 AR MOD 5Fr Health Catheter (838531C) DIAGNOSTIC Cardinal 1 [id number] 532016 241165 098708 20 AR2 MOD 5 Health Fr catheter ([id number]) MULTIPACK Cardinal 1 568289 5 3DRC 5Fr Health catheter DIAGNOSTIC Cardinal 1 [id number] 509444 905202 321852 5 MPA-2 5Fr Health catheter (271736Z) DIAGNOSTIC Cardinal 1 [id number] 172709 665847 868970 5 IM 5Fr Health catheter ([id number]) MULTIPACK Cardinal 1 [id number] 5 Pigtail 5 Health Fr catheter Signature Audit [place] Stage Time Signature Unsigned Intra-Procedure 05/18/2018 Matt MAXWELL(Hunter) 9:22:35 AM Signatures Monitor : Matt Reyna RT Signature : Date : Time : [facility] [address] [place] [address]
[~2018-05-18 06:29] MED LIST changes: -DEPAKOTE250 MG PO; -LISINOPRIL5 MG PO; -RANITIDINE HCL150 M1 PO
[2018-05-18 07:17] LABS: BASOPHILS 0.3 % (0-2); EOSINOPHILS 2.3 % (0-7); HEMOGLOBIN 12.5 g/dL (13.5-17.5); IMMATURE GRANULOCYTES 0.3 % (0-5); LYMPHOCYTES 24.8 % (15-50); MCH 32.1 pg (26.0-34.0); MCHC 33.8 g/dL (31.0-37.0); MCV 95.1 fL (80.0-100.0); MEAN PLATELET VOLUME 9.5 fL (7.4-10.4); NEUTROPHILS 60.3 % (40-80); PLATELET COUNT 169 10x3/uL (130-400); RBC 3.89 10x6/uL (4.20-6.10); RDW 13.3 % (11.5-14.5); WBC 6.5 10x3/uL (4.8-10.8)
[2018-05-18 07:19] VITALS: BP 108/57; Ht 172.7 cm; Wt 74.5 kg
[2018-05-18 07:22] LABS: ANION GAP 18.1 mmol/L (8-16); CALCIUM 9.8 mg/dL (8.5-10.1); CARBON DIOXIDE 25.7 mmol/L (21.0-32.0); CREATININE - SERUM 1.5 mg/dL (0.6-1.3); POTASSIUM - SERUM 3.8 mmol/L (3.5-5.1)
[2018-05-18] MEDS ORDERED: DEPAKOTE250 MG PO (07:33)
[2018-05-18] MEDS ORDERED: LISINOPRIL5 MG PO (07:33)
[2018-05-18] MEDS ORDERED: RANITIDINE HCL150 M1 PO (07:33)
--- NOTE | 2018-05-18 09:46 | NUR ---
0930 RECEIVED PT FROM MILL REPRESENTATIVE, PT SLEEPING, AWAKENS TO VERBAL. HOB IS FLAT, DRESSING TO RIGHT GROIN IS CDI, AREA IS SOFT AND NONTENDER. PEDAL PULSES PALPABLE. VSS, RESP WITH EASE ON O2 AT 2LPM VIA NC. AT BEDSIDE, CALL LIGHT IN REACH.
--- NOTE | 2018-05-18 09:50 | NUR ---
DRESSING CDI, AREA IS SOFT AND NO HEMATOMA NOTED. PEDAL PULSES PALPABLE, RESP WITH EASE, VSS. AT BEDSIDE.
--- NOTE | 2018-05-18 10:41 | NUR ---
PT SLEEPING, RESP WITH EASE ON O2, DRESSING CDI TO RIGHT GROIN, AREA IS SOFT WITH NO HEMATOMA NOTED. PULSES PALPABLE. HOB IS FLAT, SINUS RHYTHM.
--- NOTE | 2018-05-18 11:26 | NUR ---
DRESSING CDI TO RIGHT GROIN, PT ALERT AND DENIES ANY C/O. PEDAL PULSES PALPABLE. HOB ELEVATED 30 DEGREES, SANDWICH AND PO FLUIDS SERVED.
--- NOTE | 2018-05-18 12:09 | NUR ---
1145 HOB FULLY ELEVATED, DRESSING CDI TO RIGHT GROIN. PT EATING SANDWICH, DENIES ANY C/O. 1155 IV DC'D WITH CATH INTACT. DC INSTRUCTIONS REVIEWED WITH PT AND WHO VERBALIZE UNDERSTANDING. PT DENIES ANY C/O. DRESSING IS CDI, PEDAL PULSES PALPABLE. 1205 PT DRESSING FOR DC WITH ASSIST.
--- NOTE | 2018-05-18 12:44 | NUR ---
1210 PT DRESSED FOR DC TO HOME. DENIES ANY C/O. PT ESCORTED TO PRIVATE AUTO VIA WC BY NURSE WITH DRIVING HIM HOME. PT HAS ALL PERSONAL BELONGINGS AND DC INSTRUCTIONS AT TIME OF DC TO HOME.
== END 2018-05-18 12:10 | disposition home or self-care (01) ==
LOC: D.CATH 06:29
PROVIDERS: Internal Medicine Cardiovascular Disease
DX: I25.10 Atherosclerotic heart disease of native coronary artery without angina pectoris (principal); R94.30 Abnormal result of cardiovascular function study, unspecified; I50.9 Heart failure, unspecified

== ENCOUNTER 2018-05-26 08:44 | Outpatient (CLI) | payer MEDICARE, BC ==
[~2018-05-26] VITALS: Ht 172.7 cm; Wt 73.2 kg
--- NOTE | ~2018-05-26 | HEMODYNAMI ---
PATIENT:YOEL FINK MEDICAL RECORD: [id number] : 49 LOCATION:[facility] ADMISSION DATE: 05/26/18 Generatedon:05/26/201815:39 Patient name: YOEL FINK Patient #: [id number] SSN: DO B: 1945 Date of study: 05/26/2018 Page: Of Hemodynamic Procedure Report Patient Data Patient Demographics Procedure consent was obtained First Name: YOEL Gender: Male Last Name: DANAE : 1945 [facility] Initial: FRANCISCO Age: 73 year(s) Patient #: [id number] Race: Unknown Additional ID: [id number] Contact details Address: [address] [place] [address] [place] State: [place] City: [place] Zip code: [address] Past Medical History Allergies: No known allergies Admission Admission Data Admission Date: 05/26/2018 Admission Time: 8:44 Procedure Procedure Types Cath Procedure Peripheral Cath Diagnostic Procedure 4-Vessel Subclavian Arteriogram Uni Procedure Description Procedure Date Procedure Date: 05/26/2018 Procedure Start Time: 12:30 Procedure Staff Name Function Anthony Ramirez MD Performing Physician Hai Muñoz RT Monitor Brandie Rodgersub Radha Gonzalez RN Nurse Procedure Data Cath Procedure Fluoroscopy Diagnostic fluoroscopy Total fluoroscopy Time: time: 31.6 min 31.6 min Diagnostic fluoroscopy Total fluoroscopy dose: 717 dose: 717 mGy mGy Contrast Material Contrast Material Type Amount (ml) Isovue 300 130 Entry Location Entry Primary Successful Side Size (Fr) Upsize Upsize Entry Closure Successful Closure Location 1 (Fr) 2 (Fr) Remarks Device Remarks Femoral Left 6 Fr Exoseal artery Mid-Length Brachial Left 5 Fr 6 Fr Manual artery Short Compressi on Procedure Medications Medication Administration Route Dosage Heparin Flush Bag added to field 3 bags (1000units/500ml NS) Lidocaine 1% added to field 20 Oxygen etCO2 Nasal cannula 3 l/min Versed I.V. 2 mg Fentanyl I.V. 100 mcg Versed I.V. 1 mg Fentanyl I.V. 50 mcg Heparin Bolus I.V. 5000 units Versed I.V. 1 mg Fentanyl I.V. 50 mcg Heparin Bolus I.V. 2000 units Versed I.V. 1 mg Fentanyl I.V. 50 mcg Versed I.V. 1 mg Fentanyl I.V. 50 mcg Hemodynamics Rest Heart Rate: 92 (bpm) Snapshots Pre Cath Intra NCS Post Cath Vital Signs Time Heart Resp SPO2 etCO2 NIBP (mmHg) Rhythm Pain Sedation Rate (ipm) (%) (mmHg) Status Level (bpm) 12:25:50 80 7 100 17.3 128/66(91) NSR 0 (11) 9(A) , No pain 12:30:07 85 6 100 16.6 114/63(95) NSR 0 (11) 9(A) , No pain 12:34:16 80 17 100 1.5 121/63(89) NSR 0 (11) 9(A) , No pain 12:38:32 74 15 100 13.6 111/49(87) NSR 0 (11) 8(A) , No pain 12:42:44 71 13 99 12 110/54(81) NSR 0 (11) 8(A) , No pain 12:46:50 75 13 100 10.5 127/70(97) NSR 0 (11) 8(A) , No pain 12:51:02 75 5 100 1.5 118/63(96) NSR 0 (11) 8(A) , No pain 12:55:10 79 8 100 12.1 120/63(83) NSR 0 (11) 8(A) , No pain 12:59:26 75 16 100 8.3 109/53(82) NSR 0 (11) 8(A) , No pain 13:03:38 79 17 100 9 101/52(74) NSR 0 (11) 8(A) , No pain 13:07:46 84 18 100 7.5 96/49(74) NSR 0 (11) 8(A) , No pain 13:11:51 79 14 100 11.3 92/52(71) NSR 0 (11) 8(A) , No pain 13:15:59 80 18 100 12 87/48(70) NSR 0 (11) 8(A) , No pain 13:20:03 82 15 100 9 92/49(65) NSR 0 (11) 8(A) , No pain 13:24:11 84 16 99 11.3 87/47(63) NSR 0 (11) 8(A) , No pain 13:26:36 84 15 100 8.3 82/48(64) NSR 0 (11) 8(A) , No pain 13:30:38 86 16 100 9.8 82/51(65) NSR 0 (11) 8(A) , No pain 13:32:16 87 17 100 8.3 85/49(65) NSR 0 (11) 8(A) , No pain 13:36:18 82 16 15.1 95/56(77) NSR 0 (11) 8(A) , No pain 13:40:24 79 16 99 10.5 102/55(81) NSR 0 (11) 8(A) , No pain 13:44:33 83 19 100 11.3 98/54(75) NSR 0 (11) 8(A) , No pain 13:48:37 79 16 100 10.5 110/61(84) NSR 0 (11) 8(A) , No pain 13:52:47 80 17 100 11.3 111/61(88) NSR 0 (11) 8(A) , No pain 13:56:57 79 16 100 11.3 109/56(92) NSR 0 (11) 8(A) , No pain 14:01:07 82 17 100 10.5 101/60(80) NSR 0 (11) 8(A) , No pain 14:05:13 87 15 99 9 117/59(84) NSR 0 (11) 8(A) , No pain 14:09:22 87 16 12 114/62(90) NSR 0 (11) 8(A) , No pain 14:13:34 76 19 100 9.8 112/60(85) NSR 0 (11) 8(A) , No pain 14:17:42 80 18 11.3 114/65(79) NSR 0 (11) 8(A) , No pain 14:21:52 90 21 100 0 106/64(82) NSR 0 (11) 8(A) , No pain 14:26:02 84 18 1.5 104/51(67) NSR 0 (11) 8(A) , No pain 14:30:10 78 15 100 9 102/60(72) NSR 0 (11) 8(A) , No pain 14:34:18 82 16 100 12.8 99/56(74) NSR 0 (11) 8(A) , No pain 14:38:25 79 15 100 14.3 111/55(78) NSR 0 (11) 8(A) , No pain 14:42:37 78 16 98 13.6 107/54(75) NSR 0 (11) 8(A) , No pain 14:46:43 79 17 100 12 107/67(81) NSR 0 (11) 8(A) , No pain 14:50:51 75 18 100 10.5 107/59(85) NSR 0 (11) 8(A) , No pain 14:55:01 81 16 100 14.3 100/54(76) NSR 0 (11) 8(A) , No pain 14:59:09 80 18 100 9.8 96/55(83) NSR 0 (11) 8(A) , No pain 15:03:14 84 17 100 3 96/56(71) NSR 0 (11) 8(A) , No pain 15:07:20 77 17 100 21.9 98/53(74) NSR 0 (11) 8(A) , No pain 15:11:26 89 15 100 12 100/56(80) NSR 0 (11) 8(A) , No pain 15:16:09 73 13 100 9 103/52(80) NSR 0 (11) 8(A) , No pain 15:20:21 74 16 2.2 99/52(72) NSR 0 (11) 8(A) , No pain 15:24:31 72 14 8.2 98/52(76) NSR 0 (11) 8(A) , No pain 15:28:36 75 14 5.2 111/63(80) NSR 0 (11) 8(A) , No pain 15:32:48 78 13 100 6 106/54(82) NSR 0 (11) 8(A) , No pain 15:36:58 80 7 13.5 116/57(102) NSR 0 (11) 8(A) , No pain Medications Time Medication Route Dose Verified Delivered Reason Notes Eff ectiveness by by 12:24:49 Heparin Flush added 3 Anthony Cruz used for Bag to bags James Ramirez MD procedure (1000units/500ml field ADAM NS) 12:25:02 Lidocaine 1% added 20ml Anthony Cruz for local to vial James Ramirez MD anesthetic field ADAM 12:25:18 Oxygen etCO2 3 Anthony Radha used for Nasal l/min Carlos Ramirez RN procedure cannula 12:35:29 Versed I.V. 2 mg Anthony Radha for Carlos Ramirez RN sedation 12:35:42 Fentanyl I.V. 100 Anthony Radha for mcg Carlos Ramirez RN sedation 12:56:17 Versed I.V. 1 mg Anthony Radha for Carlos Ramirez RN sedation 12:56:30 Fentanyl I.V. 50 Anthony Radha for mcg Carlos Ramirez RN sedation 13:11:00 Heparin Bolus I.V. 5000 Anthony Radha Per units Calros Ramirez RN physician 13:13:26 Versed I.V. 1 mg Anthony Radha for Carlos Ramirez RN sedation 13:13:36 Fentanyl I.V. 50 Anthony Radha for mcg Carlos Ramirez RN sedation 14:00:51 Heparin Bolus I.V. 2000 Nathony Radha Per units Carlos Ramirez RN physician 14:10:02 Versed I.V. 1 mg Anthony Radha for Carlos Ramirez RN sedation 14:10:09 Fentanyl I.V. 50 Anthony Radha for mcg Carlos Ramirez RN sedation 14:45:33 Versed I.V. 1 mg Anthony Radha for Carlos Ramirez RN sedation 14:45:41 Fentanyl I.V. 50 Anthony Radha for mcg Carlos Ramirez RN sedation Procedure Log Time Note 11:35:32 Hai Muñoz RT (R) (CV) sent for patient. Start room use. 11:35:38 Time tracking: Regular hours (M-F 7:00 - 5:00) 11:35:43 Plan of Care:Hemodynamics will remain stable., Cardiac rhythm will remain stable., Comfort level will be maintained., Respiratory function will remain adequate., Patient/ family verbilizes understanding of procedure., Procedure tolerated without complication., Recovers from procedure without complications.. 11:35:49 Patient received from Outpatients to IR Alert and oriented. Tansferred to table in Supine position. 11:35:51 Correct patient and procedure confirmed by team. 11:35:52 Signed procedure consent form obtained from patient. 11:35:54 Full Disclosure recording started 11:35:56 ECG and BP/O2 sat monitors applied to patient. 11:36:01 Use device set IR Diagnostic 11:36:07 Sterile Angiographic Pack opened to sterile field. 11:36:07 Tegaderm 4 x 4 (1626W) opened to sterile field. 11:36:08 Bag Decanter (2002S) opened to sterile field. 11:36:09 ACIST Manifold (89017) opened to sterile field. 11:36:10 ACIST Syringe (83825) opened to sterile field. 11:36:11 ACIST Hand Control (73754) opened to sterile field. 11:36:18 - 11:36:23 H&P Date Dictated: 05/26/2018 H&P Addendum completed by physician on day of procedure. (MUST COMPLETE FOR ALL OUTPATIENTS). 11:36:24 Pre-procedure instructions explained to patient. 11:36:25 Pre-op teaching completed and patient verbalized understanding. 11:36:26 Family in waiting room. 11:36:30 Patient NPO since Midnight. 11:36:36 Patient allergic to No known allergies 11:36:40 Is the patient allergic to Iodine/contrast media? No. 11:37:45 Is patient on blood thinner?Yes 11:37:48 ACC The patient was administered the following blood thiners within the last 24 hours: ACCAspirin 11:37:53 ACC The patient was administered the following blood thiners within the last 24 hours: Eliquis 11:37:57 Patient diabetic? No. 11:38:00 - 11:38:00 ----Pre-sedation anethsthesia assessment.---- 11:38:04 Previous problem with sedation/anesthesia? No ? 11:38:06 Snore? Yes 11:38:10 Sleep apnea? Yes 11:38:12 Deviated septum? No 11:38:16 Opens mouth fully? Yes 11:38:17 Sticks out tongue? Yes 11:38:19 Airway obstruction? No ? 11:38:24 Dentures? Yes in 11:44:18 Pre procedure: right dorsailis pedis pulse 1+ Palpable, but thready & weak; easily obliterated 11:44:26 Pre procedure: right posterior tibial pulse Doppler 12:12:55 Pre procedure: left dorsailis pedis pulse Doppler 12:12:58 Pre procedure: left posterior tibial pulse Doppler 12:13:06 IV patent on arrival in left forearm with 0.9% NaCl at [facility]. 12:13:08 Sharps counted by scrub and verified by RRickN. 12:13:09 Alarms reviewed by RRick N. 12:13:14 Bilateral groins area was prepped with chlora-prep and draped in steril e fashion 12:24:47 Vital chart was started 12:24:48 Baseline sample Acquired. 12:24:49 Heparin Flush Bag (1000units/500ml NS) 3 bags added to field was administered by Anthony Ramirez MD; used for procedure; 12:25:02 Lidocaine 1% 20ml vial added to field was administered by Anthony Ramirez MD; for local anesthetic; 12:25:18 Oxygen 3 l/min etCO2 Nasal cannula was administered by Radha Gonzalez RN ; used for procedure; 12:28:56 Physician arrived 12:28:56 --------ALL STOP TIME OUT------ 12:28:57 Final Timeout: patient, procedure, and site verified with staff and physician. All members of the team are in agreement. 12:28:59 Bilateral groins site verified by team. 12:29:29 Sedation plan: IV Moderate Sedation Medication:Versed, Fentanyl 12:30:02 Procedure started. 12:30:08 Local anesthetic to right femoral artery with Lidocaine 1% by Anthony Ramirez MD.INITIAL ACCESS ONLY 12:30:11 Access obtained with 4Fr micropunture. 12:30:25 WEEKS 260 wire (V43618) opened to sterile field. 12:30:25 TUBING Contrast Injection High Pressure (JMK788K) opened to sterile field. 12:30:26 Micropuncture VSI 4FR kit opened to sterile field. 12:30:26 SHEATH 5FR Boaz (LRN352) opened to sterile field. 12:31:21 DOC .035 wire (C88533) opened to sterile field. 12:35:29 Versed 2 mg I.V. was administered by Radha Gonzalez RN; for sedation; 12:35:42 Fentanyl 100 mcg I.V. was administered by Radha Gonzalez RN; for sedation; 12:42:12 AMPLATZ Super stiff 180cm wire ([id number]) opened to sterile field. 12:51:46 Cook RAABE 6FR. 90cm guide sheath opened to sterile field. 12:52:16 A 6 Fr Mid-Length sheath was inserted into the Left Femoral artery 12:52:19 AMPLATZ Super stiff 3mm J 260cm wire ([id number]) opened to sterile field. 12:54:42 GLIDE CATHETER 5FR ANGLED 100cm (CG508) opened to sterile field. 12:55:43 GLIDE WIRE MERIT Angled 260cm ([id number]) opened to sterile field. 12:56:17 Versed 1 mg I.V. was administered by Radha Gonzalez RN; for sedation; 12:56:30 Fentanyl 50 mcg I.V. was administered by Radha Gonzalez RN; for sedation ; 12:56:37 TORQUE DEVICE PLASTIC .038 ( TD01) opened to sterile field. 13:03:11 ROADRUNNER .035 260 glide wire (Q16510) opened to sterile field. 13:09:41 INFLATOR BasixTOUCH (VP5999) opened to sterile field. 13:10:05 Trailblazer 0.035 135cm catheter ([id number]) opened to sterile field. 13:11:00 Heparin Bolus 5000 units I.V. was administered by Radha Gonzalez RN; Per physician; 13:13:26 Versed 1 mg I.V. was administered by Radha Gonzalez RN; for sedation; 13:13:36 Fentanyl 50 mcg I.V. was administered by Radha Gonzalez RN; for sedation ; 13:15:31 CXI SUPPORT .035 135 CM STR catheter (F65958) opened to sterile field. 13:18:24 NITINOL .014 300cm wire (T837226) opened to sterile field. 13:43:51 Micropuncture VSI 4FR kit opened to sterile field. 13:44:04 Local anesthetic to left brachial artery with Lidocaine 1% by Anthony Ramirez MD.ADDITIONAL ACCESS 13:44:17 A 5 Fr sheath was inserted into the Left Brachial artery 13:49:10 GLIDE CATHETER 5FR ANGLED 65cm (CG507) opened to sterile field. 14:00:50 SNARE GOOSENECK VASC 25MM 6 opened to sterile field. 14:00:51 Heparin Bolus 2000 units I.V. was administered by Radha Gonzalez RN; Per physician; 14:10:02 Versed 1 mg I.V. was administered by Radha Gonzalez RN; for sedation; 14:10:09 Fentanyl 50 mcg I.V. was administered by Radha Gonzalez RN; for sedation ; 14:12:40 Trailblazer 0.035 90cm catheter (ASC-035-090) opened to sterile field. 14:30:14 SHEATH 6FR Boaz (OQO981) opened to sterile field. 14:30:15 SHEATH 6FR Boaz (UGB377) opened to sterile field. 14:30:34 Sheath upsized to a 6 Fr Short. 14:45:33 Versed 1 mg I.V. was administered by Radha Gonzalez RN; for sedation; 14:45:41 Fentanyl 50 mcg I.V. was administered by Radha Gonzalez RN; for sedation ; 14:51:31 Inflate balloon Inflation number: 1 A Evercross 3 x 6 x 135 Balloon ([id number]) was prepped and advanced across the Proximal Subclavian, Left, then inflated to 10 EDA for 5:00 (min:sec). 14:52:12 EVERFLEX 8 x 60 Stent ([id number]) was deployed across Proximal Subclavian, Left . 15:10:39 Inflate balloon Inflation number: 2 A Evercross 7 x 6 x 135 Balloon ([id number]) was prepped and advanced across the Proximal Subclavian, Left, then inflated to 0 EDA for 0:00 (min:sec). 15:10:41 SHEATH 6FR Boaz (OWO948) opened to sterile field. 15:10:59 EXOSEAL 6Fr (EX600) opened to sterile field. 15:12:38 Sheath removed intact; hemostasis achieved with Exoseal to the Left Femoral artery. 15:13:17 Sheath removed intact; hemostasis achieved with Manual Compression to the Left Brachial artery. 15:13:20 Procedure ended.(Physican Out) 15:14:00 Fluoroscopy time 31.60 minutes. 15:14:05 Flurop Dose total: 717 15:14:05 Fluoroscopy dose: 717 mGy 15:28:12 Contrast amount:Isovue 300 130ml. 15:28:14 Sharps counted by scrub and verified by R.N. 15:28:16 Insertion/operative site no bleeding no hematoma. 15:28:23 Post-op/insertion site Left Brachial artery dressed using a 4 x 4 and Tegaderm. 15:28:27 Post-op/insertion site Right Femoral artery dressed using a 4 x 4 and Tegaderm. 15:28:31 Post-op/insertion site Left Femoral artery dressed using a 4 x 4 and Tegaderm. 15:28:41 Post right femoral artery:stable 15:28:45 Post left femerol artery:stable 15:28:50 Post left brachial artery:stable 15:28:51 Post Procedure Pulses reassessed and unchanged 15:28:52 Post procedure instruction explained to patient.Patient verbalizes understanding. 15:28:53 Procedure and supply charges have been captured, reviewed, submitted an d are correct. 15:38:47 Report given to Outpatients. 15:38:53 Patient transfered to Outpatients with Stretcher. 15:39:19 Vital chart was stopped Intervention Summary Intervention Notes Time ActionType Lesion and Equipment Used Action# Pressure Duration Attributes 14:51:31 Inflate Proximal Evercross 3 x 6 1 10 05:00 balloon Subclavian, x 135 Balloon Left ([id number]) 14:52:12 Deploy self Proximal EVERFLEX 8 x 60 1 expanding Subclavian, Stent stent Left ([id number]) 15:10:39 Inflate Proximal Evercross 7 x 6 2 0 00:00 balloon Subclavian, x 135 Balloon Left ([id number]) Device Usage Item Name Manufacture Quantity Catalog Number [facility] [place] nt Minimal Lot# / Charge Number Stock Stock Serial# Code Sterile Cardinal 1 [id number] 159379 89793 6 5 Angiographic Health Pack Tegaderm 4 x 4 3M 1 1626W 588091 489298 18537 4 5 (1626W) Bag Decanter Microtek 1 2001S 427831 11656 26291 1 5 (2001S) Medical Inc. ACIST Manifold Acist 1 52015 028465 971326 12098 3 5 (97066) Medical Systems Inc ACIST Syringe Acist 1 74369 792891 852450 53247 1 20 (02563) Medical Systems Inc ACIST Hand Acist 1 47226 184350 230679 96230 6 5 Control (73124) Medical Systems Inc WEEKS 260 wire Cook Medical 1 Y68353 620011 93684 13343 7 5 (H90695) TUBING Contrast Merit 1 [id number] 284511 105903 68360 0 5 Injection High Medical Pressure (REJ507Q) Micropuncture VSI VASCULAR 2 7266V 532429 45916 6 5 VSI 4FR kit SOLUTIONS SHEATH 5FR Terumo 1 UBH723 042464 108391 91460 1 5 Boaz (ZMI636) DOC .035 wire Cook Medical 1 C26864 378831 12813 9 5 (W47436) AMPLATZ Super Hood 1 [id number] 587502 292159 20171 8 5 [id number] stiff 180cm Scientific wire ([id number]) Cook RAABE 6FR. Cook Medical 1 H51084 795659 53586 1 5 90cm guide sheath AMPLATZ Super Hood 1 [id number] 968356 86692 7 5 stiff 3mm J Scientific 260cm wire ([id number]) GLIDE CATHETER Terumo 1 CG508 757762 66071 44137 4 4 5FR ANGLED 100cm (CG508) GLIDE WIRE Merit 1 [id number] 774046 883502 69062 4 5 [id number] [facility] Angled Medical 260cm ([id number]) TORQUE DEVICE Hood 1 TD01 612100 633717 97306 3 5 PLASTIC .038 ( Scientific TD01) ROADRUNNER .035 Cook Medical 1 F69551 752673 842643 87367 5 5 0791986 260 glide wire (Y74524) INFLATOR Merit 1 FI7555 911908 665168 94726 4 5 BasixTOUCH Medical (DS9613) Trailblazer Medtronic 1 ASC-035-135 338253 17614 33044 6 5 0.035 135cm catheter ([id number]) CXI SUPPORT Cook Medical 1 U83094 419463 967039 99017 7 5 4008854 .035 135 CM STR catheter (L09422) NITINOL .014 Medtronic 1 E085441 062914 12081 1 5 300cm wire (M123586) GLIDE CATHETER Terumo 1 CG507 294909 52840 8 5 5FR ANGLED 65cm (CG507) SNARE GOOSENECK Medtronic 1 PZ4391 244577 20907 8 5 [id number] VASC 25MM 6 Trailblazer Medtronic 1 ASC-035-090 838778 8146712 76324 4 5 0.035 90cm catheter (ASC-035-090) SHEATH 6FR Terumo 3 YNX765 777713 498257 43565 2 40 Boaz (JGU651) Evercross 3 x 6 Medtronic 1 [id number] 256181 961098 68396 6 5 [id number] x 135 Balloon ([id number]) EVERFLEX 8 x 60 Medtronic 1 UHA01-40-057-893 341273 616232 89446 5 5 Stent ([id number]) Evercross 7 x 6 Medtronic 1 [id number] 888480 910548 97617 8 5 [id number] x 135 Balloon ([id number]) EXOSEAL 6Fr Cardinal 1 EX600 834000 090060 02345 7 10 [id number] (EX600) Health Signature Audit [place] Stage Time Signature Unsigned Intra-Procedure 05/26/2018 Hai 3:39:14 PM Sh[place]ield RT (R) (CV) Signatures Monitor : Hai Signature : [place] RT Date : Time : [address] [place] [address]
[~2018-05-26 08:44] MED LIST changes: +DEPAKOTE250 MG PO; +LISINOPRIL5 MG PO; +RANITIDINE HCL150 M1 PO
[2018-05-26 09:36] LABS: BASOPHILS 0.7 % (0-2); EOSINOPHILS 2.4 % (0-7); HEMATOCRIT 36.4 % (42.0-54.0); HEMOGLOBIN 12.4 g/dL (13.5-17.5); IMMATURE GRANULOCYTES 0.1 % (0-5); LYMPHOCYTES 31.6 % (15-50); MCH 32.5 pg (26.0-34.0); MCHC 34.1 g/dL (31.0-37.0); MCV 95.3 fL (80.0-100.0); MEAN PLATELET VOLUME 9.8 fL (7.4-10.4); MONOCYTES 11.6 % (2-11); NEUTROPHILS 53.6 % (40-80); PLATELET COUNT 185 10x3/uL (130-400); RBC 3.82 10x6/uL (4.20-6.10); RDW 13.8 % (11.5-14.5); WBC 7.2 10x3/uL (4.8-10.8)
[2018-05-26 09:40] LABS: CALCIUM 9.6 mg/dL (8.5-10.1); CARBON DIOXIDE 29.1 mmol/L (21.0-32.0); CREATININE - SERUM 1.5 mg/dL (0.6-1.3); POTASSIUM - SERUM 4.1 mmol/L (3.5-5.1)
[2018-05-26] MEDS ORDERED: MULTI-DAY VITAM1 TAB PO (09:44)
[2018-05-26 09:48] LABS: APTT 44.9 SECONDS (22.8-39.4); INR 1.27 (0.85-1.17); PROTIME 15.3 SECONDS (11.6-15.0)
[2018-05-26 09:49] VITALS: BP 124/57; Ht 172.7 cm; Wt 73.2 kg
--- NOTE | 2018-05-26 19:05 | NUR ---
PATIENT SITS UP ON SIDE OF BED, NO DIZZINESS. LEFT HAND PIV DC'D WITH TIP INTACT. DISCHARGE INSTRUCTIONS REVIEWED WITH PATIENT AND SPOUSE. PATIENT DRESSING IN PERSONAL CLOTHING WITH SPOUSE ASSISTANCE
--- NOTE | 2018-05-26 19:20 | NUR ---
LEFT ARM AND LEFT GROIN DRESSINGS UNCHANGED, NO BLEEDING OR SIGNS OF HEMATOMA. DISCHARGED HOME VIA WHEELCHAIR TO PRIVATE VEHICLE WITH SPOUSE
== END 2018-05-26 19:20 | disposition home or self-care (01) ==
LOC: D.RAD 08:44
PROVIDERS: General Practice
DX: I70.8 Atherosclerosis of other arteries (principal)

== ENCOUNTER → 2018-07-28 09:52 | Outpatient (CLI) | payer OTHER, BC ==
[2018-05-26 09:49] VITALS: BMI 24.5
== END | disposition home or self-care (01) ==
LOC: D.ECHO 09:52
DX: I25.9 Chronic ischemic heart disease, unspecified (principal)

== ENCOUNTER → 2018-08-08 12:43 | Outpatient (CLI) | payer MEDICARE, BC ==
[~2018-08-08 12:43] MED LIST changes: +ALDACTONE50 MG PO; +ANORO ELLIPTA1 EACH INH; +CLEOCIN HCL300 MG PO; +COLACE100 MG PO; +DEPAKOTE500 MG PO; +FLORINEF 0.1 M0.1 MG PO; +FLUDROCORTISONE PO; +KLOR-CON 1010 MEQ PO; +LASIX20 MG PO; +LUNESTA2 M1 PO; +MIDODRINE HCL5 MG PO; +NITROSTAT0.4 MG SL; +PROTONIX40 MG PO; +SEROQUEL25 MG PO; +ZITHROMAX250 MG PO
== END | disposition home or self-care (01) ==
LOC: D.US 12:43
DX: R60.9 Edema, unspecified (principal); M79.605 Pain in left leg; M79.604 Pain in right leg

== ENCOUNTER → 2018-08-15 13:17 | Outpatient (CLI) | payer MEDICARE, BC ==
[2018-05-26 09:49] VITALS: BMI 24.5
[~2018-08-15 13:17] MED LIST changes: -ALDACTONE50 MG PO; -ANORO ELLIPTA1 EACH INH; -CLEOCIN HCL300 MG PO; -COLACE100 MG PO; -DEPAKOTE500 MG PO; -FLORINEF 0.1 M0.1 MG PO; -FLUDROCORTISONE PO; -KLOR-CON 1010 MEQ PO; -LASIX20 MG PO; -LUNESTA2 M1 PO; -MIDODRINE HCL5 MG PO; -NITROSTAT0.4 MG SL; -PROTONIX40 MG PO; -SEROQUEL25 MG PO; -ZITHROMAX250 MG PO
== END | disposition home or self-care (01) ==
LOC: D.CT 13:17
PROVIDERS: ATTEND Internal Medicine Cardiovascular Disease
DX: I70.219 Atherosclerosis of native arteries of extremities with intermittent claudication, unspecified extremity (principal)

== ENCOUNTER 2018-08-23 09:36 | Outpatient (CLI) | payer MEDICARE, BC ==
[2018-08-23 13:29] VITALS: BP 105/42; BMI 26.9
--- NOTE | 2018-08-23 17:13 | NUR ---
1600 IV REMOVED AND PRESSURE HELD.
== END 2018-08-23 16:15 | disposition home or self-care (01) ==
LOC: D.OPS 09:36
PROVIDERS: ATTEND Family Medicine
DX: D64.9 Anemia, unspecified (principal)

== ENCOUNTER 2018-09-02 10:38 | Inpatient (IN) | payer MEDICARE, BC ==
[~2018-09-02] VITALS: Ht 172.7 cm; Wt 67.0 kg
[2018-09-02] MEDS ORDERED: DEPAKOTE500 MG PO (10:46)
[2018-09-02] MEDS ORDERED: FLUDROCORTISONE PO (10:48)
[2018-09-02] MEDS ORDERED: ALDACTONE50 MG PO (10:49)
--- NOTE | 2018-09-02 10:50 | NUR ---
FSBS 81
[2018-09-02 11:02] LABS: BASOPHILS 0.5 % (0-2); EOSINOPHILS 0.6 % (0-7); HEMATOCRIT 38.4 % (42.0-54.0); HEMOGLOBIN 12.1 g/dL (13.5-17.5); IMMATURE GRANULOCYTES 0.9 % (0-5); LYMPHOCYTES 26.7 % (15-50); MCH 28.8 pg (26.0-34.0); MCHC 31.5 g/dL (31.0-37.0); MCV 91.4 fL (80.0-100.0); MEAN PLATELET VOLUME 10.6 fL (7.4-10.4); MONOCYTES 16.8 % (2-11); NEUTROPHILS 54.5 % (40-80); RDW 26.9 % (11.5-14.5); WBC 6.5 10x3/uL (4.8-10.8)
[2018-09-02 11:04] LABS: PLATELET COUNT 103 10x3/uL (130-400)
[2018-09-02 11:11] LABS: APTT 39.3 SECONDS (22.8-39.4); INR 1.83 (0.85-1.17); PROTIME 20.5 SECONDS (11.6-15.0)
[2018-09-02 11:19] LABS: ALBUMIN 2.9 g/dL (3.4-5.0); ALKALINE PHOSPHATASE 75 U/L (46-116); ALT (SGPT) 29 U/L (10-68); CALC OSMOLALITY 284 mosm/kg (275-300); CHLORIDE - SERUM 101 mmol/L (98-107); CREATININE - SERUM 1.6 mg/dL (0.6-1.3); GLUCOSE 89 mg/dL (74-106); POTASSIUM - SERUM 3.2 mmol/L (3.5-5.1); PROTEIN - SERUM 6.8 g/dL (6.4-8.2); SODIUM 143 mmol/L (136-145); UREA NITROGEN 14 mg/dL (7-18); eGFR NON AFRICAN AMERICAN 45 mL/min (90-120)
[2018-09-02 11:32] LABS: CKMB 1.8 U/L (0.0-3.6); CREATINE KINASE 67 UL (21-232); MAGNESIUM - SERUM 1.8 mg/dL (1.8-2.4); TROPONIN-I 0.044 ng/mL (0.000-0.060)
[2018-09-02 13:00] LABS: APPEARANCE CLEAR (CLEAR); BILIRUBIN NEGATIVE (NEGATIVE); COLOR YELLOW (YELLOW); GLUCOSE NEGATIVE (NEGATIVE); KETONE NEGATIVE (NEGATIVE); NITRITE NEGATIVE (NEGATIVE); PROTEIN NEGATIVE (NEGATIVE); SPECIFIC GRAVITY 1.005 (1.005-1.020)
[2018-09-02 13:09] VITALS: BP 118/75
[2018-09-02 13:10] LABS: UDS - AMPHET NEGATIVE QUAL (NEGATIVE); UDS - BARB NEGATIVE QUAL (NEGATIVE); UDS - BENZO NEGATIVE QUAL (NEGATIVE); UDS - COCAINE NEGATIVE QUAL (NEGATIVE); UDS - OPIATE NEGATIVE QUAL (NEGATIVE); UDS - PCP NEGATIVE QUAL (NEGATIVE); UDS - THC NEGATIVE QUAL (NEGATIVE)
[2018-09-02 14:19] VITALS: BP 124/81
--- NOTE | 2018-09-02 14:19 | NUR ---
PT VOIDED 800ML CLR YLW URINE
--- NOTE | 2018-09-02 14:20 | NUR ---
ROCEPHIN INFUSION COMPLETE
[2018-09-02 15:45] VITALS: BP 113/76
[2018-09-02 15:54] VITALS: BP 124/81; BMI 26.6
--- NOTE | 2018-09-02 16:32 | MORECARE ---
CASE MANAGEMENT DISCHARGE SUMMARY PATIENT: YOEL FINK UNIT: [id number] ADM DATE: 09/02/18 AGE: 73 : [birth year] SEX: M ROOM/BED: D.1212 AUTHOR: MARIZA,DOC PHYSICIAN: REFERRING PHYSICIAN: DERRICK DOCKERY MD DATE OF SERVICE: 09/02/18 Discharge Plan Patient Name: YOEL FINK Facility: [facility]:[place] : 1945 Planned Disposition: Home Anticipated Discharge Date: Discharge Date: Expected LOS: Initial Reviewer: [email or web address] Initial Review Date: 09/02/2018 Generated: 09/02/18 5:32 pm Comments DCP- Discharge Planning Updated by [email or web address]: Disha Rosa on 09/02/18 3:[address] Patient Name: YOEL FINK Admission Status: ER Accout number: [id number] Admission Date: 09-02-2018 : 1945 Admission Diagnosis: Attending: DERRICK DOCKERY Current LOS: 1 Anticipated DC Date: Planned Disposition: Home Primary Insurance: MEDICARE A & B Discharge Planning Comments: CM met with patient about discharge planning. CM explained CM role and verbal consent was given to do dc assessment. CM educated on Home Health, DME and rehab services that are available. Patient states his discharge plan is to return to home with . States home environment is safe for dc. Denies any discharge planning needs at this time. States will drive him home upon discharge. CM will continue to follow and assist as needed with discharge planning needs. Filler Blender: Disha Rosa DCPIA - Discharge Planning Initial Assessment Updated by [email or web address]: Disha Rosa on 09/02/18 4:28 pm * Is the patient Alert and Oriented? Yes * How many steps to enter\exit or inside your home? na * PCP [facility] * Pharmacy [facility] [address] * Preadmission Environment Home with Family * ADLs Independent * Equipment Walker * List name and contact numbers for known caregivers / representatives who currently or will assist patient after discharge: Kyra pts [phone] * Verbal permission to speak to the caregivers and representatives has been obtained from the patient. Yes * Community resources currently utilized None * Additional services required to return to the preadmission environment? No * Can the patient safely return to the preadmission environment? Yes * Has this patient been hospitalized within the prior 30 days at any hospital? No Patient Name: YOEL FINK Page [id number] at 1632 All edits/amendments must be made on the electronic document DICTATION DATE: 09/02/181630 LAG SCREWER: LIV 09/02/18 163 RPT#: [id number] DC DATE: STATUS: ADM IN [facility] [address] [place] [address] END OF REPORT
--- NOTE | 2018-09-02 17:26 | NUR ---
DONNA RECIEVED FROM ER BY JAJA. ADMITTED FOR AMS, PNEUMONIA. REPORTS PATIENT HAS HAD INCREASED CONFUSION OVER THE LAST FEW DAYS. PATIENT ASSISTED TO RESTROOM WITH WEAKNESS DYSPNEA NOTED. ORIENTED TO ROOM, CL IN REACH
--- NOTE | 2018-09-02 19:20 | NUR ---
PATIENT RESTING IN BED WITH SON AT BEDSIDE. ASSISTED PATIENT TO AND FROM RESTROOM PER HIS REQUEST AND BROUGHT HIM FRESH ICE WATER. PATIENT DENIES OTHER NEEDS AT THIS TIME. BED IN LOWEST POSITION AND CALL LIGHT WITHIN REACH. ENCOURAGED THE PATIENT TO CALL IF HE HAS NEEDS. WILL CONTINUE TO MONITOR.
[2018-09-02 20:00] VITALS: BP 99/47
[2018-09-03] VITALS: BP 91/48
[2018-09-03 06:05] LABS: BASOPHILS 0.2 % (0-2); EOSINOPHILS 0.6 % (0-7); HEMATOCRIT 37.5 % (42.0-54.0); HEMOGLOBIN 11.5 g/dL (13.5-17.5); IMMATURE GRANULOCYTES 0.6 % (0-5); MCH 28.5 pg (26.0-34.0); MCHC 30.7 g/dL (31.0-37.0); MCV 93.1 fL (80.0-100.0); MEAN PLATELET VOLUME 10.1 fL (7.4-10.4); MONOCYTES 14.8 % (2-11); NEUTROPHILS 49.8 % (40-80); PLATELET COUNT 88 10x3/uL (130-400); RBC 4.03 10x6/uL (4.20-6.10); RDW 27.8 % (11.5-14.5); WBC 6.4 10x3/uL (4.8-10.8)
[2018-09-03 06:28] LABS: ANION GAP 12.1 mmol/L (8-16); CALCIUM 8.7 mg/dL (8.5-10.1); CARBON DIOXIDE 31.3 mmol/L (21.0-32.0); CREATININE - SERUM 1.5 mg/dL (0.6-1.3); POTASSIUM - SERUM 4.4 mmol/L (3.5-5.1)
--- NOTE | 2018-09-03 07:00 | NUR ---
RECEIVED REPORT. ASSUMED CARE OF PATIENT. CALL LIGHT WITHIN EACH. PATIENT ALERT, FEMALE VISITOR AT BEDSIDE. PATIENT DENIES ANY NEEDS AT THIS TIME. NO DISTRESS.
[2018-09-03 07:15] LABS: PLATELET ESTIMATE DECREASED
--- NOTE | 2018-09-03 08:14 | NUR ---
RECEIVED CALL FROM [facility] IN THE LAB THAT D-DIMER IS 2.82. SPOKE WITH JORDON TO INFORM OF RESULTS AND SHE STATES SHE WILL ORDER NUCLEAR MED, ASSUMING CTA OF CHEST.
--- NOTE | 2018-09-03 08:15 | NUR ---
VQ SCAN OF LUNGS ORDERED.
--- NOTE | 2018-09-03 08:35 | NUR ---
PATIENT COMPLAINS OF BEING SHORT OF BREATH. RT AT BEDSIDE AND PLACED PATIENT ON HIGH FLOW NASAL CANULA AT 12 LITERS. PATIENT STATES HE FEELS BETTER AND DENIES ANY FUTHER SOB. RT OBTAINED O2 SAT OF 92%
--- NOTE | 2018-09-03 09:10 | NUR ---
HUMIDIFICATION PLACED ON OXYGEN AT THIS TIME. NO DISTRESS.
[2018-09-03 09:20] VITALS: BP 109/76
--- NOTE | 2018-09-03 11:35 | NUR ---
ASSISTED PATIENT OOB TO RESTROOM. NO DISTRESS. PATIENT BACK IN BED AT THIS TIME. FAMILY AT BEDSIDE.
--- NOTE | 2018-09-03 13:44 | NUR ---
UA COLLECTED AND SENT TO LAB.
[2018-09-03 14:06] LABS: APPEARANCE CLEAR (CLEAR); COLOR YELLOW (YELLOW); GLUCOSE NEGATIVE (NEGATIVE); KETONE NEGATIVE (NEGATIVE); NITRITE NEGATIVE (NEGATIVE); PROTEIN NEGATIVE (NEGATIVE)
[2018-09-03 14:07] LABS: BILIRUBIN NEGATIVE (NEGATIVE)
--- NOTE | 2018-09-03 15:13 | NUR ---
RESTING IN BED. NO DISTRESS. PATIENTS AT BEDSIDE. CALL LIGHT WITHIN REACH.
[2018-09-03 17:30] VITALS: BP 115/86
--- NOTE | 2018-09-03 17:37 | NUR ---
CONSUMING PM MEAL AT THIS TIME. PATIENT SPOUSE AT BEDSIDE. NO DISTRESS. CALL LIGHT WITHIN REACH.
--- NOTE | 2018-09-03 19:03 | NUR ---
PATIENT RESTING IN BED AND DENIES NEEDS AT THIS TIME. BED IN LOWEST POSITION, CALL LIGHT WITHIN REACH, AND MARIA LUISA ALARM ON. ENCOURAGED THE PATIENT TO CALL IF HE HAS NEEDS. WILL CONTINUE TO MONITOR.
[2018-09-03 20:00] VITALS: BP 98/59
[2018-09-04] VITALS: BP 98/60
[2018-09-04 04:00] VITALS: BP 96/52
[2018-09-04 07:23] VITALS: BP 97/52
[2018-09-04 13:23] VITALS: Ht 172.7 cm; Wt 67.0 kg
[2018-09-04 17:02] VITALS: BP 100/60
--- NOTE | 2018-09-04 17:15 | NUR ---
CONFUSED. SITTING UP IN BED. FAMILY AT BEDSIDE. [facility] CARDIOLOGY ENVIRONMENTAL HEALTH TECHNOLOGIST AT BEDSIDE. TALKING WITH FAMILY. SPOUSE VOICES CONCERNS WITH DEPAKOTE. SPOUSE REQUESTING POSSIBLE DISCONTINUATION OF MEDICATION. LAB VALUES ORDERED FOR BASELINE. DENIES ANY OTHER NEEDS AT THIS TIME. CONTINUE PLAN OF CARE AND SAFETY PRECAUTIONS. SINUS PACED 82 ON TELEMETRY.
[2018-09-04 18:34] LABS: BASOPHILS 0.2 % (0-2); EOSINOPHILS 1.9 % (0-7); HEMATOCRIT 36.5 % (42.0-54.0); HEMOGLOBIN 11.3 g/dL (13.5-17.5); IMMATURE GRANULOCYTES 0.5 % (0-5); LYMPHOCYTES 27.9 % (15-50); MCH 29.1 pg (26.0-34.0); MCV 94.1 fL (80.0-100.0); MEAN PLATELET VOLUME 10.3 fL (7.4-10.4); MONOCYTES 14.9 % (2-11); NEUTROPHILS 54.6 % (40-80); PLATELET COUNT 80 10x3/uL (130-400); RBC 3.88 10x6/uL (4.20-6.10); RDW 28.6 % (11.5-14.5); WBC 5.9 10x3/uL (4.8-10.8)
[2018-09-04 18:45] LABS: ANION GAP 11.8 mmol/L (8-16); CALCIUM 8.3 mg/dL (8.5-10.1); CARBON DIOXIDE 30.9 mmol/L (21.0-32.0); CREATININE - SERUM 1.3 mg/dL (0.6-1.3); VALPROIC ACID (DEPAKOTE) 99.6 ug/mL (50.0-100.0)
[2018-09-04 18:47] LABS: POTASSIUM - SERUM 2.7 mmol/L (3.5-5.1)
--- NOTE | 2018-09-04 19:45 | NUR ---
PATIENT RESTING IN BED WITH NO S/S OF DISTRESS AND DENIES NEEDS AT THIS TIME. BED IN LOWEST POSITION AND CALL LIGHT WITHIN REACH. ENCOURAGED THE PATIENT TO CALL IF HE HAS NEEDS. WILL CONTINUE TO MONITOR.
[2018-09-04 20:00] VITALS: BP 90/55
[2018-09-05] VITALS: BP 83/49
--- NOTE | 2018-09-05 01:37 | NUR ---
PT WILL NOT COMPLY WITH APPLICATION OF BIPAP TORE MASK OFF RETURNED TO NC
[2018-09-05 04:00] VITALS: BP 92/59
[2018-09-05 06:28] LABS: BASOPHILS 0.2 % (0-2); EOSINOPHILS 2.1 % (0-7); HEMATOCRIT 34.7 % (42.0-54.0); HEMOGLOBIN 10.8 g/dL (13.5-17.5); IMMATURE GRANULOCYTES 0.2 % (0-5); MCHC 31.1 g/dL (31.0-37.0); MCV 93.3 fL (80.0-100.0); MEAN PLATELET VOLUME 10.5 fL (7.4-10.4); MONOCYTES 14.4 % (2-11); NEUTROPHILS 51.1 % (40-80); PLATELET COUNT 74 10x3/uL (130-400); RBC 3.72 10x6/uL (4.20-6.10); RDW 28.8 % (11.5-14.5); WBC 5.2 10x3/uL (4.8-10.8)
[2018-09-05 06:54] LABS: ALBUMIN 2.5 g/dL (3.4-5.0); BILIRUBIN - TOTAL 1.58 mg/dL (0.2-1.3); CALCIUM 8.6 mg/dL (8.5-10.1); CARBON DIOXIDE 31.7 mmol/L (21.0-32.0); CREATININE - SERUM 1.2 mg/dL (0.6-1.3); MAGNESIUM - SERUM 1.6 mg/dL (1.8-2.4); PHOSPHOROUS 3.4 mg/dL (2.5-4.9)
[2018-09-05 07:07] LABS: ANION GAP 9.3 mmol/L (8-16)
--- NOTE | 2018-09-05 07:30 | NUR ---
PT PLEASANTLY CONFUSED. FALL PRECAUTIONS IN PLACE. REFUSED SCDS. UP WITH ASSIST. USES URINAL. ON ELECTROLYTE PROTOCOL. STRICT I&O. PT ON 11L O2, HIGHFLOW NC. ON TELEMETRY 91 PACED, PACEMAKER. POTASSIUM 2.8 THIS AM. COVERAGE STARTED ON PREVIOUS SHIFT. NO C/O PAIN. NO S/S OF ACUTE DISTRESS NOTED. MARIA LUISA ALARM ON AND WORKING. AT BEDSIDE. PT DENIES ANYTING FURTHER. WILL CONTINUE TO MONITOR.
[2018-09-05 08:27] VITALS: BP 95/45
[2018-09-05 09:48] LABS: ANISOCYTOSIS OCC; PLATELET ESTIMATE DECREASED
[2018-09-05 09:49] LABS: HYPOCHROMASIA OCC
--- NOTE | 2018-09-05 12:09 | NUR ---
PATIENT HAS A PACEMAKER. MRI NOT POSSIBLE. NOTIFIED DR. ALVARADO. CANCELLED MRI.
--- NOTE | 2018-09-05 13:30 | NUR ---
O2 SAT 98% ON 11L, DECREASED TO 9L. O2 SAT 94%.
--- NOTE | 2018-09-05 14:08 | NUR ---
O2 SAT 94% 9L, DECREASED TO 7L. STILL STATING AT 94%.
--- NOTE | 2018-09-05 14:50 | NUR ---
PT O2 SAT 94% ON 7L, DECREASED TO 6L. O2 SAT 94%.
[2018-09-05 16:12] VITALS: BP 96/60
--- NOTE | 2018-09-05 18:36 | NUR ---
I have reviewed this patient and I concur with the Shift Assessment completed by the Licensed Practical Nurse today this shift.
--- NOTE | 2018-09-05 19:40 | NUR ---
PATIENT ARRIVED TO FLOOR. PATIENT ALET AND ORIENTED. RESPIRATIONS ARE EVEN AND UNLABORED. NO S/S OF DISTRESS. NO C/O PAIN. CALL LIGHT WITHIN REACH. WILL CPOC. DOBUTAMINE DRIP WAS NOT STARTED, NOR WAS LASIX GIVEN. THESE MEDICATIONS ADMINISTERED LATE.
[2018-09-05 20:00] VITALS: BP 113/63
[2018-09-06] VITALS (13 sets, daily range): BP systolic 76–103; BP diastolic 33–71
[2018-09-06 06:51] LABS: BASOPHILS 0.3 % (0-2); EOSINOPHILS 1.8 % (0-7); HEMATOCRIT 36.2 % (42.0-54.0); HEMOGLOBIN 11.2 g/dL (13.5-17.5); IMMATURE GRANULOCYTES 0.3 % (0-5); LYMPHOCYTES 25.8 % (15-50); MCH 28.9 pg (26.0-34.0); MCHC 30.9 g/dL (31.0-37.0); MCV 93.3 fL (80.0-100.0); MEAN PLATELET VOLUME 10.1 fL (7.4-10.4); MONOCYTES 13.9 % (2-11); NEUTROPHILS 57.9 % (40-80); PLATELET COUNT 71 10x3/uL (130-400); RBC 3.88 10x6/uL (4.20-6.10); RDW 29.4 % (11.5-14.5)
[2018-09-06 07:37] LABS: ALBUMIN 2.6 g/dL (3.4-5.0); BILIRUBIN - TOTAL 1.67 mg/dL (0.2-1.3); CALCIUM 8.7 mg/dL (8.5-10.1); CARBON DIOXIDE 34.1 mmol/L (21.0-32.0); CREATININE - SERUM 1.2 mg/dL (0.6-1.3); MAGNESIUM - SERUM 1.6 mg/dL (1.8-2.4); PROTEIN - SERUM 6.5 g/dL (6.4-8.2)
[2018-09-06 07:39] LABS: ANION GAP 7.5 mmol/L (8-16); POTASSIUM - SERUM 3.6 mmol/L (3.5-5.1)
--- NOTE | 2018-09-06 09:13 | NUR ---
Nutrition follow-up: Diet: AHA PO intake 25-50% of meals Labs reviewed Wt: 175# Will provide food choices and encourage increased po intake RDN following.
--- NOTE | 2018-09-06 09:39 | NUR ---
TELEMETRY PACED. UP TO AMBYLATE WITH PT ASSIST. AT BS. WILL CONT. PLAN OF CARE.
--- NOTE | 2018-09-06 15:08 | NUR ---
SBP 98/52 MANUAL. 02 SATS 80. STAT ABGS ORDERED. WILL MONITOR.
--- NOTE | 2018-09-06 15:26 | NUR ---
ABGS REPORTED TO TRI JOSÉ. PUT ON BIPAP 100%. ORDERED TO TRANSFER TO ICU.
--- NOTE | 2018-09-06 15:54 | NUR ---
REPORT CALLED. TRANSFERED TO ICU BY BED TO 2315.
--- NOTE | 2018-09-06 19:00 | NUR ---
REPORT RECEIVED, CARE ASSUMED. PT IS LAYING IN BED WITH EYES CLOSED AT THIS TIME. NO SIGNS OF ACUTE DISTRESS NOTED. BP IS ON THE LOWER SIDE, WILL CONTINUE TO MONITOR CLOSELY.
--- NOTE | 2018-09-06 21:00 | NUR ---
PT IS RESTING IN BED WITH EYES CLOSED AT THIS TIME. PT REQUESTED TO USE THE URINAL, URINAL PROVIDED. PT WAS GIVEN A NEW GOWN, AND BLANKET. NO SIGNS OF ACUTE DISTRESS NOTED. WILL CONTINUE TO MONITOR.
--- NOTE | 2018-09-06 23:00 | NUR ---
REASSESSMENT COMPLETED, SEE FLOWSHEET FOR DETAILS. PT HAS BEEN PULLING AT VAPORTHERM AND REMOVING IT. PT HAS ALSO BEEN PEEING ON THE BED/FLOOR, AND TRYING TO GET OUT OF BED. SPOKE WITH TRI JOSÉ AND RECEIVED ORDERS. WILL CONTINUE TO MONITOR.
[2018-09-06 23:36] LABS: APPEARANCE CLEAR (CLEAR); BILIRUBIN NEGATIVE (NEGATIVE); COLOR YELLOW (YELLOW); GLUCOSE NEGATIVE (NEGATIVE); KETONE NEGATIVE (NEGATIVE); NITRITE NEGATIVE (NEGATIVE); PROTEIN NEGATIVE (NEGATIVE); UROBILINOGEN NORMAL (NORMAL)
[2018-09-07] VITALS (24 sets, daily range): BP systolic 82–120; BP diastolic 50–95
--- NOTE | 2018-09-07 01:00 | NUR ---
PT IS RESTING IN BED WITH EYES CLOSED. PT WAS INCONTINET OF STOOL, CLEANED PT UP AND DID A COMPLETE BED CHANGE. PT HAD SLID DOWN IN BED AND RIPPED THE HOSE OFF HIS BIPAP AND THEN TOOK OFF HIS BIPAP MASK. PT WAS ATTEMPTING TO GET OUT OF BED WHEN I ENTERED ROOM BUT WAS UNABLE DUE TO RESTRAINTS. PT WAS CURSING AND YELLING STATING THAT WE WERE NOT BEING NICE TO HIM AND WAS TREATING HIM UNFAIRLY. WHILE ATTEMPTING TO TURN PT HE WAS PUSHING AGAINST STAFF INSTEAD OF HELPING US WITH THE PROCESS. AFTER PT WAS CLEANED UP GAVE PT WATER AND HELPED HIM REPOSITION TO A COMFORTABLE POSITION, WHILE ATTEMPTING TO KEEP HIM FROM SLIDING DOWN IN BED. NO FURTHER NEEDS NOTED AT THIS TIME. PT APPEARS TO BE RESTING COMFORTABLY AT THIS TIME.
--- NOTE | 2018-09-07 03:00 | NUR ---
REASSESSMENT COMPLETED, SEE FLOWSHEET FOR DETAILS. NO ACUTE CHANGES NOTED AT THIS TIME. NO SIGNS OF ACUTE DISTRESS. WILL CONTINUE TO MONITOR.
[2018-09-07 04:41] LABS: HEMATOCRIT 36.2 % (42.0-54.0); HEMOGLOBIN 11.3 g/dL (13.5-17.5); MCH 29.1 pg (26.0-34.0); MCHC 31.2 g/dL (31.0-37.0); MCV 93.3 fL (80.0-100.0); MEAN PLATELET VOLUME 11.1 fL (7.4-10.4); RBC 3.88 10x6/uL (4.20-6.10); RDW 29.9 % (11.5-14.5); WBC 6.1 10x3/uL (4.8-10.8)
[2018-09-07 04:42] LABS: PLATELET COUNT 92 10x3/uL (130-400)
[2018-09-07 04:49] LABS: ALBUMIN 2.8 g/dL (3.4-5.0); ANION GAP 12.1 mmol/L (8-16); BILIRUBIN - TOTAL 2.03 mg/dL (0.2-1.3); CALCIUM 8.9 mg/dL (8.5-10.1); CARBON DIOXIDE 33.9 mmol/L (21.0-32.0); CREATININE - SERUM 1.1 mg/dL (0.6-1.3); MAGNESIUM - SERUM 1.9 mg/dL (1.8-2.4); PHOSPHOROUS 3.7 mg/dL (2.5-4.9); PROTEIN - SERUM 6.8 g/dL (6.4-8.2)
--- NOTE | 2018-09-07 05:00 | NUR ---
PT IS RESTING IN BED WITH EYES CLOSED. NO SIGNS OF ACUTE DISTRESS NOTED. WILL CONTINUE TO MONITOR.
[2018-09-07 05:26] LABS: EOSINOPHILS 3 % (0-7); LYMPHOCYTES 23 % (15-50); MONOCYTES 14 % (2-11); NEUTROPHILS 60 % (40-80); PLATELET ESTIMATE DECREASED
--- NOTE | 2018-09-07 07:00 | NUR ---
REC'D REPORT AND RESUMED CARE, PT SLEEPING, AROUSABLE TO VERBAL STIMULI, VAPOTHERM IN USE AT 90% FIO2, SAT 96%, LEFT CHEST PM IN PLACE, NOW SHOWING UCAF ON MONITOR, RT FA PIV WITH DOBUTAMINE INFUSING AT 2.5 MCG, DAY TO GRAVITY WITH DARK CONCENTRATED DRAINAGE TO BAG, UNCONTINENT OF PASTY, SEEDY STOOL, SKINCARE AND LINEN CHANGE COMPLETED, ASSESSMENT COMPLETED PER FLOWSHEET, DENIES PAIN, B/L SOFT WRIST RESTRAINTS IN USE, ASSESSMENT COMPLETED PER FLOWSHEET, REPOSTIONED UP AND TO LEFT SIDE WITH PILLOW PROPPED TO BACK, HEELS FLOATED, CALL LIGHT IN REACH
--- NOTE | 2018-09-07 07:45 | NUR ---
BREAKFST TO BEDSIDE, ASSIST WITH SET UP AND EATING, 60% OF MEAL EATEN
--- NOTE | 2018-09-07 08:30 | NUR ---
RESTRAINT D'CD, MORE AWAKE AND FOLLOWING COMMANDS, NOT PULLING AT LINES OR PULLING VAPOTHERM OFF
--- NOTE | 2018-09-07 08:40 | NUR ---
Nutrition follow-up: Pt now in ICU Diet: Low sodium PO intake ~25% of meals; poor Labs reviewed Wt: 192# +BM Will continue to provide food choices with selective menus and honor food preferences within diet restrictoins. Recommend changing diet order to regular as tolerated to encourage increased po intake. RDN following.
--- NOTE | 2018-09-07 09:05 | NUR ---
MORNING MEDS GIVEN PER JUN FLOWSHEET
--- NOTE | 2018-09-07 10:00 | NUR ---
SLEEPING WITH NO SIGN OF DISTRESS, VSS, CALL LIGHT IN REACH
--- NOTE | 2018-09-07 11:58 | NUR ---
LUNCH TRAY TO BEDSIDE, ASSIST WITH SET UP, INDEPENDENT WITH EATING
--- NOTE | 2018-09-07 12:15 | NUR ---
DR ROOPA MCDONALD, PER RT TIRATING O2 ON VAPOTHERM, NOW 45% FIO2, DISCUSSED WITH AND PATIENT THAT WHEN PATIENT TAKES A NAP OR IS SLEEPING HE WILL NEED TO WEAR HIS BIPAP SECONDARY TO HIS SLEEP APNEA, THEY VERBALIZED UNDERSTANDING
--- NOTE | 2018-09-07 13:33 | NUR ---
C/O DAY DISCOMFORT, FLUSHED WITH 20 CC NS, BULB DEFLATED AND REINFLATED, 10 CC NS PLACED
--- NOTE | 2018-09-07 14:19 | CN ---
PATIENT NAME:YOEL FINK MEDICAL RECORD: [id number] : 47 LOCATION:[facility].2315 ADMIT DATE: 09/02/18 ACCOUNT: [id number] CONSULTING PHYSICIAN: DAVID MCDERMOTT MD REFERRING PHYSICIAN: DERRICK DOCKERY MD DATE OF CONSULTATION: 09/06/2018 IDENTIFYING DATA: The patient is 73 years old and he is admitted to the hospital secondary to confusion, shortness of breath, and a variety of medical problems. HISTORY OF PRESENT ILLNESS: He has been correctly diagnosed with metabolic encephalopathy. He is currently experiencing pretty significant respiratory issues and has been quite confused. He has been started on Depakote, which has not seemed to have helped very much. He does have a history of hypertension and hyperlipidemia, coronary artery disease with both coronary artery bypass grafting and pacemaker placement. He has a history of peripheral vascular disease and gastroesophageal reflux disease. He has been intermittently confused. He has had some diarrhea and he was admitted to the hospital a few days ago secondary to acute respiratory failure with hypoxia, congestive heart failure, pneumonia, hypokalemia, hypertension and since then has been confused and at times agitated. ASSESSMENT: Metabolic encephalopathy. PLAN: I am going to discontinue the patient's Depakote and we will start him on a low dose of Trilafon. Trilafon is being used to treat his thought disorganization. It is unclear what his baseline level of functioning was before this acute episode. Given his current medical condition, it is not at all surprising that he is confused. I do not see any evidence of behaviors that would be acutely dangerous. If those occur, please consult me. TRANSINT:[id number] Voice Confirmation ID: [id number] DOCUMENT ID: [id number] DAVID MCDERMOTT MD at 1419 CC: [id number] DICTATION DATE: 09/06/18 1417 OIL DIPPER: 09/06/18 1441 ADM IN [facility] [address] [id number]
--- NOTE | 2018-09-07 19:00 | NUR ---
REPORT RECEIVED, CARE ASSUMED. PT IS LAYING IN BED WATCHING TV AT THIS TIME. INITIAL ASSESSMENT COMPLETED, SEE FLOWSHEET FOR DETAILS. NO SIGNS OF ACUTE DISTRESS NOTED AT THIS TIME. WILL CONTINUE TO MONITOR.
--- NOTE | 2018-09-07 21:00 | NUR ---
PT PULLED OUT IV, HAD TAKEN OFF HIS VAPORTHERM AND WAS ATTEMPTING TO GET OUT OF BED WHEN I ENTERED ROOM. GOT PT BACK IN BED COMFORTABLE AND RESITED IV TO HIS LEFT FOREARM. NO SIGNS OF ACUTE DISTRESS NOTED. WILL CONTINUE TO MONITOR.
--- NOTE | 2018-09-07 23:00 | NUR ---
REASSESSMENT COMPLETED, SEE FLOWSHEET FOR DETAILS. PT IS RESTING IN BED WITH EYES CLOSED AT THIS TIME. NO SIGNS OF ACUTE DISTRESS. VSS. WILL CONTINUE TO MONITOR.
[2018-09-08] VITALS (25 sets, daily range): BP systolic 82–137; BP diastolic 47–90
--- NOTE | 2018-09-08 01:00 | NUR ---
PT IS RESTING IN BED WITH EYES CLOSED AT THIS TIME. NO SIGNS OF ACUTE DISTRESS. WILL CONTINUE TO MONITOR.
--- NOTE | 2018-09-08 03:00 | NUR ---
REASSESSMENT COMPLETED, SEE FLOWSHEET FOR DETAILS. PT IS LAYING IN BED WEARING HIS BIPAP WITH EYES CLOSED AT THIS TIME. NO SIGNS OF ACUTE DISTRESS NOTED. NO NEEDS VOICED. WILL CONTINUE TO MONITOR.
[2018-09-08 04:46] LABS: BASOPHILS 0.3 % (0-2); EOSINOPHILS 1.5 % (0-7); HEMATOCRIT 35.7 % (42.0-54.0); HEMOGLOBIN 11.2 g/dL (13.5-17.5); IMMATURE GRANULOCYTES 0.3 % (0-5); LYMPHOCYTES 22.9 % (15-50); MCH 29.2 pg (26.0-34.0); MCHC 31.4 g/dL (31.0-37.0); MCV 93.2 fL (80.0-100.0); MEAN PLATELET VOLUME 10.9 fL (7.4-10.4); MONOCYTES 15.7 % (2-11); NEUTROPHILS 59.3 % (40-80); PLATELET COUNT 87 10x3/uL (130-400); RBC 3.83 10x6/uL (4.20-6.10); RDW 29.2 % (11.5-14.5); WBC 6.7 10x3/uL (4.8-10.8)
[2018-09-08 05:04] LABS: ALBUMIN 2.3 g/dL (3.4-5.0); ANION GAP 9.3 mmol/L (8-16); BILIRUBIN - TOTAL 2.2 mg/dL (0.2-1.3); CALCIUM 8.9 mg/dL (8.5-10.1); CARBON DIOXIDE 31.3 mmol/L (21.0-32.0); CREATININE - SERUM 1.1 mg/dL (0.6-1.3); MAGNESIUM - SERUM 1.8 mg/dL (1.8-2.4); PHOSPHOROUS 3.3 mg/dL (2.5-4.9); POTASSIUM - SERUM 3.6 mmol/L (3.5-5.1); PROTEIN - SERUM 6.2 g/dL (6.4-8.2)
--- NOTE | 2018-09-08 07:00 | NUR ---
PT RESTING IN BED, SHIFT ASSESSMENT PERFORMED. PARTIAL LINEN CHANGE PROVIDED DUE TO INCONTINENCE OF BOWEL. STOOL SAMPLE COLLECTED. DENIES ANY FURTHER NEEDS AT THIS TIME, WILL CONT TO FOLLOW POC
--- NOTE | 2018-09-08 09:00 | NUR ---
PT SITTING UP IN BED EATING BREAKFAST. AT BEDSIDE. DENIES ANY NEEDS AT THIS TIME, CALL LIGHT WITHIN REACH. WILL CONT TO FOLLOW POC
--- NOTE | 2018-09-08 10:52 | NUR ---
PT RESTING IN BED WATCHING TV, DENIES NEEDS AT THIS TIME. CALL LIGHT WITHIN REACH, SIDE RAILS UP X2, WILL CONT TO FOLLOW POC
--- NOTE | 2018-09-08 13:00 | NUR ---
PROVIDED PT WITH CHLORHEXIDINE FOAM BATH. COMPLETE LINEN CHANGE PROVIDIED. CARDIAC ELECTRODES CHANGED. GREEN DAY WIPES USED TO CLEANSE DAY. DENIES ANY NEEDS AT THIS TIME, AT BEDSIDE. CALL LIGHT WITHIN REACH. BED IN LOWEST POSITION. WILL CONT TO FOLLOW POC
--- NOTE | 2018-09-08 15:12 | NUR ---
PT SLEEPING IN BED. CALL LIGHT WITHIN REACH. SCDS IN PLACE. SIDE RAILS UP X2. BED IN LOWEST POSITION. WILL CONT TO FOLLOW POC
--- NOTE | 2018-09-08 17:00 | NUR ---
PT RESTING IN BED, ASSISTED PT WITH TRAY SET-UP. DENIES ANY FURTHER NEEDS AT THIS TIME. CALL LIGHT WITHIN REACH. BED IN LOWEST POSITION. WILL CONT TO FOLLOW POC
--- NOTE | 2018-09-08 19:30 | NUR ---
SHIFT ASSESSMENT COMPLETED SEE FLOWSHEET
--- NOTE | 2018-09-08 21:15 | NUR ---
PATIENT CONFUSED - TAKING OFF VAPOTHERM NASAL CANNULA
--- NOTE | 2018-09-08 23:04 | NUR ---
PAGED DR BLAS REGARDING PATIENT SYSTOLIC BP AND MAP. HOLD LASIX UNTIL REORDERED AND WATCH BP, SYSTOLIC GREATER THAN 85 IS ACCEPTABLE
--- NOTE | 2018-09-08 23:10 | NUR ---
REASSESMENT COMPLETED SEE FLOWSHEET
[2018-09-09] VITALS (36 sets, daily range): BP systolic 76–121; BP diastolic 33–68
[2018-09-09 02:48] LABS: BASOPHILS 0.4 % (0-2); EOSINOPHILS 1.7 % (0-7); HEMATOCRIT 35.4 % (42.0-54.0); HEMOGLOBIN 11.3 g/dL (13.5-17.5); IMMATURE GRANULOCYTES 0.4 % (0-5); LYMPHOCYTES 23.6 % (15-50); MCH 29.3 pg (26.0-34.0); MCHC 31.9 g/dL (31.0-37.0); MCV 91.7 fL (80.0-100.0); MEAN PLATELET VOLUME 10.8 fL (7.4-10.4); MONOCYTES 16.1 % (2-11); NEUTROPHILS 57.8 % (40-80); PLATELET COUNT 104 10x3/uL (130-400); RBC 3.86 10x6/uL (4.20-6.10); RDW 28.6 % (11.5-14.5); WBC 7.6 10x3/uL (4.8-10.8)
[2018-09-09 03:01] LABS: ALBUMIN 2.4 g/dL (3.4-5.0); ANION GAP 9.2 mmol/L (8-16); BILIRUBIN - TOTAL 2.23 mg/dL (0.2-1.3); CALCIUM 8.9 mg/dL (8.5-10.1); CARBON DIOXIDE 32.5 mmol/L (21.0-32.0); CREATININE - SERUM 1.2 mg/dL (0.6-1.3); MAGNESIUM - SERUM 1.8 mg/dL (1.8-2.4); PHOSPHOROUS 3.5 mg/dL (2.5-4.9); POTASSIUM - SERUM 3.7 mmol/L (3.5-5.1); PROTEIN - SERUM 6.4 g/dL (6.4-8.2)
--- NOTE | 2018-09-09 03:15 | NUR ---
REASSESSMENT COMPLETED SEE FLOWSHEET
--- NOTE | 2018-09-09 05:08 | NUR ---
PT RESTING COMFORTABLY NO ACUTE DISTRESS VSS CPOC
--- NOTE | 2018-09-09 08:19 | NUR ---
UP IN BED EATING BREAKFAST WITH SET UP ASSIST. AT BEDSIDE. NO ACUTE DISTRESS NOTED. CALL LIGHT IN REACH. ASSISTED WITH REPOSITIONING Q2H. WILL CONTINUE PLAN OF CARE.
--- NOTE | 2018-09-09 10:02 | NUR ---
NOTED WHILE PTS WAS LEAVING UNIT FROM VISITING HER SHE STATED SHE WASN'T SURE BUT SHE THOUGHT PT MIGHT HAVE HAD A BOWEL MOVEMENT. WHEN ASSESSED PT NOTED LINENS WERE CLEANED AND NO FECAL MATTER WAS SEEN. REPOSITIONING PROVIDED. PT TURNED Q2H. OFFERED PT A BATH BUT HE STATED HE DID NOT WANT A BATH UNTIL AFTER HIS RETURNED. WILL PROVIDE PT A BATH WHEN HIS RETURNS PER PT REQUEST. WILL CONTINUE PLAN OF CARE.
--- NOTE | 2018-09-09 10:26 | NUR ---
UP IN BED RESTING AT THIS TIME. NO ACUTE DISTRESS NOTED. VSS. BED ALARM ON. CALL LIGHT IN REACH. WILL CONTINUE PLANO F CARE.
--- NOTE | 2018-09-09 11:09 | NUR ---
EPISODE OF CONFUSION NOTED, PT USED CALL LIGHT TO ASK WHAT WAS GOING ON AND IF HE TOOK A NAP TODAY. REORIENTATION PROVIDED, PT STATED HE NO LONGER FELT CONFUSED. WILL CONTINUE PLAN OF CARE.
--- NOTE | 2018-09-09 13:15 | NUR ---
UP IN CHAIR. BED BATH AND TOTAL LINEN CHANGE PROVIDED. INCONTINENT BOWEL MOVEMENT NOTED, SMALL BROWN. JENNIFER CARE AND DAY CARE PROVIDED HIPICLENS USED. NO ACUTE DISTRESS NOTED. VSS. CALL LIGHT IN REACH. FAMILY AT BEDSIDE. WILL CONTINUE PLAN OF CARE.
--- NOTE | 2018-09-09 13:16 | NUR ---
PTS CAME TO NURSES STATION STATING THE BLOOD PRESSURE CUFF WAS NOT WORKING ACCURATELY. WHEN ASSESSED BLOOD PRESSURE NOTED CUFF IS IN CORRECT POSITION, BLOOD PRESSURE READING NOTED 100/66. NO ACUTE DISTRESS NOTED. WILL CONTINUE PLAN OF CARE.
--- NOTE | 2018-09-09 13:56 | NUR ---
PT ASSISTED BACK TO BED WITH NURSING ASSIST, STAND BY ASSIST. VSS. PT WEIGHT OBTAINED WELL AFTER BED ZEROED OUT, PT WT 143.3 POUNDS. PTS ALSO NOTED TO EXPRESS SOME CONCERN REGARDING PT WT LOSS, SHE SPOKE WITH DR INGRAM WHO WAS ROUNDING ON PT AT THE TIME. ALL QUESTIONS AND CONCERNS ADRESSED. WILL CONTINUE PLAN OF CARE.
--- NOTE | 2018-09-09 15:47 | NUR ---
NOTED PT STATED HE FELT LIKE HE NEEDS TO URINATE. ASSESSED DAY AND NOTED IT IS DRAINING URINE IN TO CLOSED CONTAINER. PT REMINDED THAT HE HAS A DAY, HE THEN STATED, "OH YEAH." PT THEN WAS ABLE TO STATE THAT HE FELT OKAY AGAIN AND THAT HIS BLADDER FELT EMPTY. LINENS DRY, NO DRAINAGE OR LEAKS NOTED TO LINENS. PT TURNED Q2H AND IS ABLE TO ASSIST WITH HIS REPOSITIONING. WILL CONTINUE PLAN OF CARE.
--- NOTE | 2018-09-09 16:10 | NUR ---
PT STATES HE FEELS LIKE HE MIGHT HAVE HAD A BOWEL MOVEMENT, ASSESSED PT, NOTED LINENS CLEAN WITHOUT ANY WETNESS OR ANY SIGNS OF SOILED, SKIN CLEAN AND DRY. NO REDNESS. NO ACUTE DISTRESS NOTED. VSS. WILL CONTINUE PLAN OF CARE.
--- NOTE | 2018-09-09 18:48 | NUR ---
UP IN BED AWAKE AT THIS TIME. DENIES ANY NEEDS. NO ACUTE DISTRESS NOTED. VSS. WILL CONTINUE PLAN OF CARE.
--- NOTE | 2018-09-09 21:01 | NUR ---
pt received hs medications, requested light turned off so that he can get some sleep. patient has call light in hand, education provided on how to operate call light if nurse is needed. vss cpoc
--- NOTE | 2018-09-09 23:00 | NUR ---
REASSESSMENT COMPLETED SEE FLOWSHEET
[2018-09-10] VITALS (23 sets, daily range): BP systolic 89–125; BP diastolic 50–79
--- NOTE | 2018-09-10 01:24 | NUR ---
PATIENT RESTING COMFORTABLY VSS - LOW SYSTOLIC BP NOTED AND DOCTORS AWARE, WILL CONTINUE TO CLOSELY MONITOR CPOC
[2018-09-10 02:55] LABS: BASOPHILS 0.4 % (0-2); EOSINOPHILS 1.5 % (0-7); HEMATOCRIT 34.3 % (42.0-54.0); IMMATURE GRANULOCYTES 0.5 % (0-5); LYMPHOCYTES 28.5 % (15-50); MCH 29.3 pg (26.0-34.0); MCHC 32.1 g/dL (31.0-37.0); MCV 91.2 fL (80.0-100.0); MONOCYTES 16.3 % (2-11); NEUTROPHILS 52.8 % (40-80); PLATELET COUNT 123 10x3/uL (130-400); RBC 3.76 10x6/uL (4.20-6.10); RDW 28.6 % (11.5-14.5); WBC 7.6 10x3/uL (4.8-10.8)
[2018-09-10 03:04] LABS: ALBUMIN 2.4 g/dL (3.4-5.0); ANION GAP 10.4 mmol/L (8-16); BILIRUBIN - TOTAL 2.19 mg/dL (0.2-1.3); CALCIUM 8.9 mg/dL (8.5-10.1); CARBON DIOXIDE 31.3 mmol/L (21.0-32.0); CREATININE - SERUM 1.2 mg/dL (0.6-1.3); MAGNESIUM - SERUM 1.9 mg/dL (1.8-2.4); PHOSPHOROUS 3.6 mg/dL (2.5-4.9); POTASSIUM - SERUM 3.7 mmol/L (3.5-5.1); PROTEIN - SERUM 6.3 g/dL (6.4-8.2)
--- NOTE | 2018-09-10 03:10 | NUR ---
REASSESSMENT COMPLETED, PATIENT DENIES NEEDS SEE FLOWSHEET. SYSTOLIC BP 111 - VSS CPOC
--- NOTE | 2018-09-10 08:02 | NUR ---
UP IN BED EATING BREAKFAST AT THIS TIME WITH SET UP ASSIST. AT BEDSIDE. NO ACUTE DISTRESS NOTED. VSS. CALL LIGHT IN REACH. WILL CONTINUE PLAN OF CARE.
--- NOTE | 2018-09-10 09:31 | NUR ---
PT USED CALL LIGHT AT THIS TIME, WHEN WALKED IN ROOM TO ANSWER CALL LIGHT, PT STATED HE FORGOT WHAT HE NEEDED BUT WOULD LET ME KNOW WHEN HE REMEMBERED. PT DENIES ANY NEEDS OR DISCOMFORTS. LINENS ARE DRY AND CLEAN. NO ACUTE DISTRESS NOTED. WILL CONTINUE PLAN OF CARE.
--- NOTE | 2018-09-10 11:59 | NUR ---
UP IN BED AWAKE AT THIS TIME. NO ACUTE DISTRESS NOTED. DENIES ANY NEEDS. VSS. WILL CONTINUE PLAN OF CARE.
--- NOTE | 2018-09-10 13:33 | NUR ---
BED BATH USING HIPICLENS USED AT THIS TIME ALONG WITH TOTAL LINEN CHANGE. JENNIFER CARE AND DAY CARE PROVIDED. NO INCONTINENCE NOTED AT THIS TIME. PT ABLE TO ASSIST WITH TURNING. DENEIES ANY NEEDS. VSS. TURNED Q2H. WILL CONTINUE PLAN OF CARE.
--- NOTE | 2018-09-10 15:34 | NUR ---
PT NOTED TO PICK AT DRESSING TO RT UPPER ARM MIDLINE. DRESSING CHANGED PER PROTOCOL SINCE DRESSING NO LONGER ADHERED TO SKIN. NO S/S REDNESS, EDEMA, DRAINAGE TO SITE. NO ACUTE DISTRESS NOTED. VSS. WILL CONTINUE PLAN OF CARE.
--- NOTE | 2018-09-10 17:29 | NUR ---
UP IN BED WATCHING TV AT THIS TIME. NO ACUTE DISTRESS NOTED. PT TURNED Q2H. AT BEDSIDE. VSS. CALL LIGHT IN REACH. WILL CONTINUE PLAN OF CARE.
--- NOTE | 2018-09-10 17:45 | NUR ---
REPORT CALLED TO RECIEVING NURSE, WILL TRANSFER PT TO ROOM 210 SHORTLY.
--- NOTE | 2018-09-10 17:58 | NUR ---
RECEIVED REPORT FROM SHAWNA. PATIENT TO ROOM 2102 SOON.
--- NOTE | 2018-09-10 18:12 | NUR ---
PT TRANSFERRED TO ROOM 2109 AT THIS TIME VIA BED ACCOMPANIED BY HOSPITAL STAFF. PTS HAS BEEN MADE AWARE OF TRANSFER WELL PTS SON. VSS. NO ACUTE DISTRESS NOTED. NO FURTHER ACTIONS.
--- NOTE | 2018-09-10 18:12 | NUR ---
RECEIVED PATIENT VIA BED FROM ICU AT THIS TIME. PATIENT ADMITTED TO ROOM 2108. PATIENT ALERT. CALL LIGHT WITHIN REACH. DOBUTAMINE INFUSING AT 2.5MCK/KG TO RIGHT UPPER MIDLINE. NO DISTRESS. RESP EVEN AND UNLABORED. O2 VIA HIGHFLOW NC AT 4L/MIN.
[2018-09-11] VITALS: BP 92/52
--- NOTE | 2018-09-11 02:58 | NUR ---
I have reviewed this patient and I concur with the Shift Assessment completed by the Licensed Practical Nurse today this shift.
[2018-09-11 04:00] VITALS: BP 99/50
[2018-09-11 04:46] LABS: BASOPHILS 0.4 % (0-2); EOSINOPHILS 1.2 % (0-7); HEMATOCRIT 35.1 % (42.0-54.0); HEMOGLOBIN 11.2 g/dL (13.5-17.5); IMMATURE GRANULOCYTES 0.5 % (0-5); LYMPHOCYTES 24.2 % (15-50); MCH 29.3 pg (26.0-34.0); MCHC 31.9 g/dL (31.0-37.0); MCV 91.9 fL (80.0-100.0); MONOCYTES 16.2 % (2-11); NEUTROPHILS 57.5 % (40-80); RBC 3.82 10x6/uL (4.20-6.10); RDW 28.9 % (11.5-14.5); WBC 8.5 10x3/uL (4.8-10.8)
[2018-09-11 04:50] LABS: PLATELET COUNT 163 10x3/uL (130-400)
[2018-09-11 05:05] LABS: ANION GAP 10.8 mmol/L (8-16); CALCIUM 9.5 mg/dL (8.5-10.1); CARBON DIOXIDE 30.4 mmol/L (21.0-32.0); CREATININE - SERUM 1.2 mg/dL (0.6-1.3)
[2018-09-11 05:07] LABS: POTASSIUM - SERUM 5.2 mmol/L (3.5-5.1)
[2018-09-11 08:01] VITALS: BP 84/33
--- NOTE | 2018-09-11 08:37 | NUR ---
RECIEVED REPORT. PATIENT HAS A NEW ONSET OF CONFUSION. HIS IS AT BEDSIDE AND REPORTS THAT HE HAS BEEN CONFUSED FOR A MONTH OR MORE. PATIENT CAN STATE HIS NAME AND DATE OF . HE KNOWS WHERE HE IS AND HIS HISTORY. HE HAS BEEN ALERT AND ORIENTED FOR ME. SCD'S ARE IN [place]. PATIENT AND REPORT THAT THEY WOULD LIKE TO SEE THE PHYSICAL THERAPIST.
--- NOTE | 2018-09-11 09:11 | NUR ---
PATIENT HAS A DAY CATH IN PlACE FROM HIS TIME IN ICU. WILL CHECK NURSE DRIVEN PROTOCAL AND SEE IF THE FOLY CAN BE REMOVED.
[2018-09-11 11:35] VITALS: BP 82/52
--- NOTE | 2018-09-11 14:11 | NUR ---
Nutrition follow-up: Diet: Low sodium PO intake ~70% average of last 7 meals; improved over last week +BM Labs reviewed Wt: 146# RDN following.
--- NOTE | 2018-09-11 16:40 | NUR ---
I have reviewed this patient and I concur with the Shift Assessment completed by the Licensed Practical Nurse today this shift.
--- NOTE | 2018-09-11 16:46 | NUR ---
OT NOTE: PT COMPLETED BED MOB WITH MOD A. PT COMPLETED SIT TO STAND WITH MIN A. PT COMPLETED SIMPLE GROOMING TASK AT EOB WITH SET UP. THANK YOU, RAMILA CHUNG
--- NOTE | 2018-09-11 19:00 | NUR ---
PATIENT LAYING IN BED, EYES CLOSED, CHEST RISING AND FALLING. NO DISTRESS NOTED.
[2018-09-11 20:00] VITALS: BP 101/55
[2018-09-12] VITALS: BP 97/63
[2018-09-12 04:00] VITALS: BP 106/57
--- NOTE | 2018-09-12 05:24 | NUR ---
I have reviewed this patient and I concur with the Shift Assessment completed by the Licensed Practical Nurse today this shift.
--- NOTE | 2018-09-12 05:32 | NUR ---
PATIENT PULLED BIPAP AND ASKED FOR IT TO BE LEFT OFF. NC PUT ON PATIENT AND BIPAP PUT ON STANDBY MODE.
[2018-09-12 05:48] LABS: BASOPHILS 0.2 % (0-2); EOSINOPHILS 1.2 % (0-7); HEMATOCRIT 37.7 % (42.0-54.0); HEMOGLOBIN 12.1 g/dL (13.5-17.5); IMMATURE GRANULOCYTES 0.3 % (0-5); LYMPHOCYTES 17.1 % (15-50); MCH 29.6 pg (26.0-34.0); MCHC 32.1 g/dL (31.0-37.0); MCV 92.2 fL (80.0-100.0); MEAN PLATELET VOLUME 9.5 fL (7.4-10.4); MONOCYTES 18.6 % (2-11); NEUTROPHILS 62.6 % (40-80); PLATELET COUNT 186 10x3/uL (130-400); RBC 4.09 10x6/uL (4.20-6.10); RDW 28.7 % (11.5-14.5); WBC 9.9 10x3/uL (4.8-10.8)
--- NOTE | 2018-09-12 06:24 | NUR ---
PATIENT TOOK MEDICATION WITHOUT DIFFICULTY. NO COMPLAINTS AT THIS TIME. NO DISTRESS NOTED.
[2018-09-12 06:25] LABS: CALC OSMOLALITY 274 mosm/kg (275-300); CALCIUM 9.4 mg/dL (8.5-10.1); CARBON DIOXIDE 28.6 mmol/L (21.0-32.0); CHLORIDE - SERUM 100 mmol/L (98-107); GLUCOSE 96 mg/dL (74-106); PHOSPHOROUS 3.5 mg/dL (2.5-4.9); SODIUM 136 mmol/L (136-145); UREA NITROGEN 20 mg/dL (7-18); eGFR NON AFRICAN AMERICAN 78 mL/min (90-120)
[2018-09-12 06:29] LABS: POTASSIUM - SERUM 4.2 mmol/L (3.5-5.1)
[2018-09-12 08:01] VITALS: BP 157/97
--- NOTE | 2018-09-12 13:08 | PN ---
PATIENT:YOEL FINK MEDICAL RECORD: [id number] LOCATION:D. D.210 ADMISSION DATE: 09/02/18 PROGRESS NOTE DATE OF SERVICE: 09/11/2018 SUBJECTIVE: The patient's case was discussed with staff. He has no new complaint. OBJECTIVE: The patient's and brother are there today. They give some helpful information that helps clarify things. I think he looks clear and less confused than he has in the past. Also, he is almost completely oriented. He does make a couple of mistakes. He is still sick. The indicates that about 6 weeks ago all of this began, but he was also developing the pulmonary edema at that time. The also indicates that 12 weeks ago he was perfectly fine, but would have some irritability or mood lability. He certainly has no thoughts of harming himself or others. Just making some small talk about where he was from and was having trouble remembering the name of an adjacent [place] and he came up with it instantly. He also did well with immediate recall and his remote recall apparently is intact as his brother and did not correct him. She has described a couple of instances that sounds very much like a delirium. He is watching a TV show about something and then just out of the blue makes a comment about something unrelated. Some sort of mood lability and disconnected thinking is in my opinion consistent with the encephalopathy. ASSESSMENT: Delirium. PLAN: I am going to change the patient's Trilafon to Seroquel. I am doing this to help and get some extra rest. The 12.5 mg may not be strong enough. Please increase it to 25 or even more if he is not resting adequately. I have advised the to go home and get some rest herself. I think she is fairly stressed at this point. There may well be some underlying dementia that has been developing. It is really difficult to say under these circumstances and an outpatient evaluation would need to take place to know with certainty. I would also recommend starting him on some Celexa, either at the time of discharge or shortly thereafter. TRANSINT:[id number] Voice Confirmation ID: [id number] DOCUMENT ID: [id number] DAVID MCDERMOTT MD at 1308 CC: [id number] DICTATION DATE: 09/11/18 1616 LEAK OPERATOR PARAFFIN PLANT: 09/11/18 1744 ADM IN [facility] [address] [id number]
[2018-09-12 16:08] VITALS: BP 138/82
--- NOTE | 2018-09-12 19:51 | NUR ---
PATIENT LAYING IN BED. PATIENT CONFUSED AT THIS TIME. NO COMPLAINTS AT THIS TIME. NO DISTRESS NOTED.
[2018-09-12 20:00] VITALS: BP 93/51
--- NOTE | 2018-09-12 23:38 | NUR ---
PATIENT LAYING IN BED, EYES CLOSED, CHEST RISING AND FALLING. NO DISTRESS NOTED.
[2018-09-13 00:09] VITALS: BP 91/50
[2018-09-13 04:00] VITALS: BP 101/48
[2018-09-13 06:27] LABS: CALC OSMOLALITY 276 mosm/kg (275-300); CALCIUM 10.1 mg/dL (8.5-10.1); CARBON DIOXIDE 28.3 mmol/L (21.0-32.0); CHLORIDE - SERUM 101 mmol/L (98-107); GLUCOSE 101 mg/dL (74-106); POTASSIUM - SERUM 4.6 mmol/L (3.5-5.1); SODIUM 137 mmol/L (136-145); UREA NITROGEN 22 mg/dL (7-18); eGFR NON AFRICAN AMERICAN 78 mL/min (90-120)
--- NOTE | 2018-09-13 06:30 | NUR ---
PATIENT AWAKE IN BED. PATIENT TOOK MEDICATION WITHOUT DIFFICULTY. NO COMPLAINTS AT THIS TIME. NO DISTRESS NOTED.
[2018-09-13 06:46] LABS: HEMATOCRIT 34.8 % (42.0-54.0); HEMOGLOBIN 11.3 g/dL (13.5-17.5); MCH 29.7 pg (26.0-34.0); MCHC 32.5 g/dL (31.0-37.0); MCV 91.3 fL (80.0-100.0); MEAN PLATELET VOLUME 9.9 fL (7.4-10.4); PLATELET COUNT 214 10x3/uL (130-400); RBC 3.81 10x6/uL (4.20-6.10); RDW 28.7 % (11.5-14.5); WBC 9.6 10x3/uL (4.8-10.8)
--- NOTE | 2018-09-13 07:33 | NUR ---
RESUMING PT CARE, PT LAYING IN BED WITH EYES CLOSED, RESPIRATIONS EVEN AND UNLABORED. CALL LIGHT IN REACH, WILL CONTINUE TO MONITOR AND FOLLOW PLAN OF CARE.
[2018-09-13 08:31] LABS: ANISOCYTOSIS OCC; LYMPHOCYTES 14 % (15-50); MONOCYTES 18 % (2-11); NEUTROPHILS 65 % (40-80); PLATELET ESTIMATE NORMAL; POIKILOCYTOSIS OCC
[2018-09-13 08:48] VITALS: BP 120/51
[2018-09-13 11:59] VITALS: BP 128/65
--- NOTE | 2018-09-13 12:29 | MORECARE ---
CASE MANAGEMENT DISCHARGE SUMMARY PATIENT: YOEL IFNK UNIT: [id number] ADM DATE: 09/02/18 AGE: 73 : [birth year] SEX: M ROOM/BED: D.2109 AUTHOR: MARIZA,DOC PHYSICIAN: REFERRING PHYSICIAN: DERRICK DOCKERY MD DATE OF SERVICE: 09/13/18 Discharge Plan Patient Name: YOEL FINK [facility] [facility] 1945 Planned Disposition: Inpatient Rehab Anticipated Discharge Date: 09/13/18 Discharge Date: Expected LOS: 11 Initial Reviewer: [email or web address] Initial Review Date: 09/02/2018 Generated: 09/13/18 1:29 pm Comments DCP- Discharge Planning Updated by [id number]: Miguel Matos on 09/13/18 11:[address] Patient Name: YOEL FINK Encounter No: [id number] : 1945 Primary Insurance: MEDICARE A & B Anticipated DC Date: 09-13-2018 Planned Disposition: Inpatient Rehab External Planned Provider: [facility] INPATIENT REH[facility] DCP follow-up note: CM RECEIVED ORDER FOR INPATIENT REHAB PRESCREENING, MET WITH PT IN ROOM TO DISCUSS DISCHARGE NEEDS AND PLANNING. CM DISCUSSED AVAILABILITY OF HOME HEALTH, REHAB SERVICES AND MEDICAL EQUIPMENT. PT HAS DISCUSSED REHAB WITH THE DOCTOR AND WOULD LIKE REHAB AT [facility] PRIOR TO RETURN HOME. IMPORTANT MESSAGE FROM MEDICARE PROVIDED AND EXPLAINED. CM WAITING INPATIENT REHAB PRESCREENING AND ADMISSION DETERMINATION FROM [facility] INPATIENT [facility]. JOSEPH Munroe DCP- Discharge Planning Updated by [id number]: Disha Rosa on 09/02/18 3:[address] Patient Name: YOEL FINK Admission Status: ER Accout number: [id number] Admission Date: 09-02-2018 : 1945 Admission Diagnosis: Attending: DERRICK DOCKERY Current LOS: 1 Anticipated DC Date: Planned Disposition: Home Primary Insurance: MEDICARE A & B Discharge Planning Comments: CM met with patient about discharge planning. CM explained CM role and verbal consent was given to do dc assessment. CM educated on Home Health, DME and rehab services that are available. Patient states his discharge plan is to return to home with . States home environment is safe for dc. Denies any discharge planning needs at this time. States will drive him home upon discharge. CM will continue to follow and assist as needed with discharge planning needs. Account Specialist: Disha Rosa DCPIA - Discharge Planning Initial Assessment Updated by [id number]: Disha Rosa on 09/02/18 4:28 pm * Is the patient Alert and Oriented? Yes * How many steps to enter\exit or inside your home? na * PCP Pepito * [facility] [address] * Preadmission Environment Home with Family * ADLs Independent * Equipment Walker * List name and contact numbers for known caregivers / representatives who currently or will assist patient after discharge: Kyra pts [phone] * Verbal permission to speak to the caregivers and representatives has been obtained from the patient. Yes * Community resources currently utilized None * Additional services required to return to the preadmission environment? No * Can the patient safely return to the preadmission environment? Yes * Has this patient been hospitalized within the prior 30 days at any hospital? No Coverage Notice Reviewer: [id number] Dot Matos Notice Issued Date-Time: 09/13/2018 11:05 Notice Type: IM Discharge Notice Notice Delivered To: Patient Relationship to Patient: Lotus Notes Developer Name: Delivery Method: HAND - Hand Delivered Ariadna Days: Prior Verbal Notification: Recipient Understood Notice: Yes Recipient Signature: Yes Med Rec Note Co-signed by Attending: Coverage Notice Comment: Last DP export: 09/02/18 3:32 p Patient Name: YOEL FINK Page 19615 at 1229 All edits/amendments must be made on the electronic document DICTATION DATE: 09/13/18 1229 HAND COLLATOR: LIV 09/13/18 1229 RPT#: [id number] DC DATE: STATUS: ADM IN [facility] [address] [place] [address] END OF REPORT
--- NOTE | 2018-09-13 12:35 | NUR ---
I have reviewed this patient and I concur with the Shift Assessment completed by the Licensed Practical Nurse today this shift.
--- NOTE | 2018-09-13 13:09 | NUR ---
OT NOTE: BED MOB WITH MOD ASSIST. CONFUSED TO WHERE HE IS, BUT KNOWS HE IS IN [place]. DECREASED SAFETY AWARENESS. SIMPLE GROOMING TASKS WITH SET UP; FUNCTIONAL TRANSFERS WITH MOD ASSIST. ZAINA PINTO, OTR/L
--- NOTE | 2018-09-13 15:19 | NUR ---
Rehab Prescreening Consult recieved and the chart has been reviewed. This patient is a good ARU candidate. He is still on a Dobutrex drip which will need to be titrated off prior to coming to the ARU. Rehab will continue to follow. Ana Miller RN Clincal Liaison, rehab
--- NOTE | 2018-09-13 15:39 | MORECARE ---
CASE MANAGEMENT DISCHARGE SUMMARY PATIENT: YOEL FINK UNIT: [id number] ADM DATE: 09/02/18 AGE: 73 : [birth year] SEX: M ROOM/BED: D.2109 AUTHOR: MARIZA,DOC PHYSICIAN: REFERRING PHYSICIAN: DERRICK DOCKERY MD DATE OF SERVICE: 09/13/18 Discharge Plan Patient Name: YOEL FINK [facility] [facility] 1945 Planned Disposition: Inpatient Rehab Anticipated Discharge Date: 09/14/18 Discharge Date: Expected LOS: 12 Initial Reviewer: [id number] Initial Review Date: 09/02/2018 Generated: 09/13/18 4:39 pm Comments DCP- Discharge Planning Updated by [email or web address]: Miguel Matos on 09/13/18 2:[address] Patient Name: YOEL FINK Encounter No: [id number] : 1945 Primary Insurance: MEDICARE A & B Anticipated DC Date: 09-14-2018 Planned Disposition: Inpatient Rehab External Planned Provider: [facility] INPATIENT REH[facility] DCP follow-up note: CM SPOKE TO CARLOS OF INPATIENT REHAB, THEY PLAN TO ACCEPT PT FOR REHAB WHEN STABLE AND OFF DOBUTAMINE. NOTIFY [facility] INPATIENT REHAB WHEN PT HAS DISCHARGE ORDER. [facility] INPATIENT REHAB TO CONTACT MED 2 NURSE WITH ROOM NUMBER WHEN READY TO ACCEPT PT AND NURSE REPORT. Miguel Matos, CASE MANAGEMENT DCP- Discharge Planning Updated by [email or web address]: Miguel Matos on 09/13/18 11:[address] Patient Name: YOEL FINK Encounter No: [id number] : 1945 Primary Insurance: MEDICARE A & B Anticipated DC Date: 09-13-2018 Planned Disposition: Inpatient Rehab External Planned Provider: [facility] DCP follow-up note: CM RECEIVED ORDER FOR INPATIENT REHAB PRESCREENING, MET WITH PT IN ROOM TO DISCUSS DISCHARGE NEEDS AND PLANNING. CM DISCUSSED AVAILABILITY OF HOME HEALTH, REHAB SERVICES AND MEDICAL EQUIPMENT. PT HAS DISCUSSED REHAB WITH THE DOCTOR AND WOULD LIKE REHAB AT [facility] PRIOR TO RETURN HOME. IMPORTANT MESSAGE FROM MEDICARE PROVIDED AND EXPLAINED. CM WAITING INPATIENT REHAB PRESCREENING AND ADMISSION DETERMINATION FROM [facility] INPAT[facility]. Miguel Matos, CASE MANAGEMENT DCP- Discharge Planning Updated by [email or web address]: Disha Shelley on 09/02/18 3:[address] Patient Name: YOEL FINK Admission Status: ER Accout number: [id number] Admission Date: 09-02-2018 : 1945 Admission Diagnosis: Attending: DERRICK DOCKERY Current LOS: 1 Anticipated DC Date: Planned Disposition: Home Primary Insurance: MEDICARE A & B Discharge Planning Comments: CM met with patient about discharge planning. CM explained CM role and verbal consent was given to do dc assessment. CM educated on Home Health, DME and rehab services that are available. Patient states his discharge plan is to return to home with . States home environment is safe for dc. Denies any discharge planning needs at this time. States will drive him home upon discharge. CM will continue to follow and assist as needed with discharge planning needs. Safety Tech: Disha Rosa DCPIA - Discharge Planning Initial Assessment Updated by [id number]: Disha Rosa on 09/02/18 4:28 pm * Is the patient Alert and Oriented? Yes * How many steps to enter\exit or inside your home? na * PCP Pepito * [facility] [address] * Preadmission Environment Home with Family * ADLs Independent * Equipment Walker * List name and contact numbers for known caregivers / representatives who currently or will assist patient after discharge: Kyra pts [phone] * Verbal permission to speak to the caregivers and representatives has been obtained from the patient. Yes * Community resources currently utilized None * Additional services required to return to the preadmission environment? No * Can the patient safely return to the preadmission environment? Yes * Has this patient been hospitalized within the prior 30 days at any hospital? No Coverage Notice Reviewer: [id number] - Miguel Matos Notice Issued Date-Time: 09/13/2018 11:05 Notice Type: IM Discharge Notice Notice Delivered To: Patient Relationship to Patient: Communications Professor Name: Delivery Method: HAND - Hand Delivered Ariadna Days: Prior Verbal Notification: Recipient Understood Notice: Yes Recipient Signature: Yes Med Rec Note Co-signed by Attending: Coverage Notice Comment: Last DP export: 09/13/18 11:29 a Patient Name: YOEL FINK Page 49869 at 1539 All edits/amendments must be made on the electronic document DICTATION DATE: 09/13/181537 ZOOKEEPER: LIV 09/13/181537 RPT#: [id number] DC DATE: STATUS: ADM IN [facility] [address] [place] [address] END OF REPORT
[2018-09-13 16:17] VITALS: BP 119/64
--- NOTE | 2018-09-13 17:29 | NUR ---
PER DR DOCKERY ORDER [facility]CO 5/325 Q6HR PRN FOR PAIN. ORDER NOTED.
[2018-09-13 20:00] VITALS: BP 85/48
--- NOTE | 2018-09-13 21:53 | NUR ---
PATIENT LAYING IN BED. NO COMPLAINTS AT THIS TIME. NO DISTRESS NOTED.
[2018-09-14] VITALS: BP 95/51
--- NOTE | 2018-09-14 02:45 | NUR ---
PATIENT PULLED OF BIPAP. WHEN ASKED IF HE NEEDED HELP PUTTING IT BACK ON, HE STATED HE DID NOT AND HE COULDN'T WEAR IT BECAUSE IT HURTS HIS FACE. BIPAP PUT ON STANDBY MODE, 4L HF NC APPLIED AND RT NOTIFIED.
--- NOTE | 2018-09-14 03:43 | NUR ---
PT WORE BIPAP FOR A WHILE RR INC TO 35-40 BPM WHEN BIPAP PLACED. INSTRUCTED PT TO BREATHE NORMALLY BUT WOULD NOT SLOW DOWN RESPS. FINALLY PT TOOK BIPAP OFF AND WOULD NOT LET NURSE REPLACE. THERAPIST SPOKE WITH PT RE: BIPAP. HE DOES NOT LIKE IT. WILL NOT REPLACE IT. INFORMED PT IT WAS FOR SLEEP APNEA. ACKNOWLEDGES NEED BUT DOES NOT WANT TO WEAR IT AND AGREES TO SPEAK WITH PULMONARY TODAY.
[2018-09-14 04:00] VITALS: BP 92/49
--- NOTE | 2018-09-14 04:36 | NUR ---
PATIENT LAYING IN BED. EYES CLOSED, CHEST RISING AND FALLING. NO DISTRESS NOTED.
[2018-09-14 05:06] LABS: BASOPHILS 0.2 % (0-2); EOSINOPHILS 0.3 % (0-7); HEMOGLOBIN 9.9 g/dL (13.5-17.5); IMMATURE GRANULOCYTES 0.5 % (0-5); LYMPHOCYTES 19.4 % (15-50); MCH 29.3 pg (26.0-34.0); MCHC 31.9 g/dL (31.0-37.0); MCV 91.7 fL (80.0-100.0); MEAN PLATELET VOLUME 9.7 fL (7.4-10.4); MONOCYTES 14.6 % (2-11); PLATELET COUNT 212 10x3/uL (130-400); RBC 3.38 10x6/uL (4.20-6.10); RDW 28.8 % (11.5-14.5); WBC 8.7 10x3/uL (4.8-10.8)
[2018-09-14 05:31] LABS: CALC OSMOLALITY 273 mosm/kg (275-300); CALCIUM 9.4 mg/dL (8.5-10.1); CARBON DIOXIDE 26.6 mmol/L (21.0-32.0); CHLORIDE - SERUM 102 mmol/L (98-107); GLUCOSE 104 mg/dL (74-106); MAGNESIUM - SERUM 2.1 mg/dL (1.8-2.4); PHOSPHOROUS 4.2 mg/dL (2.5-4.9); POTASSIUM - SERUM 4.2 mmol/L (3.5-5.1); SODIUM 135 mmol/L (136-145); UREA NITROGEN 23 mg/dL (7-18); eGFR NON AFRICAN AMERICAN 78 mL/min (90-120)
--- NOTE | 2018-09-14 05:36 | NUR ---
I have reviewed this patient and I concur with the Shift Assessment completed by the Licensed Practical Nurse today this shift.
[2018-09-14 07:50] VITALS: BP 95/42
--- NOTE | 2018-09-14 08:35 | NUR ---
RESUMING PT CARE, PT IS LAYING IN BED WITH EYES CLOSED, RESPIRATIONS EVEN AND UNLABORED. BED IS IN LOWEST POSITION WITH RAILS UP X3. CALL LIGHT IN REACH, WILL CONTINUE TO MONITOR AND FOLLOW PLAN OF CARE.
--- NOTE | 2018-09-14 08:36 | NUR ---
NIGHT NURSE REPORTS FEVER AND LOW BP FROM ORNAMENTAL METAL WORKER HELPER. BP STILL LOW THIS MORNING, I NOTIFIED JORDON SCHMIDT APRN OF SYMPTOMS AND OF LAB RESULTS SHOWING WBC'S MORE THAN DOUBLED SINCE YESTERDAY AND CREATNINE INCREASE. I ASKED JORDON IF I CAN ORDER A LACTIC ACID, SHE SAID NO AND GAVE NEW ORDERS FOR CXR, BLOOD AND URINE CULTURES. ORDERS NOTED, WILL CONTINUE TO MONITOR.
--- NOTE | 2018-09-14 08:39 | NUR ---
DR NAIK ON FLOOR SEEING PT'S, NEW ORDER FOR LACTIC ACID, FLAGYL AND LEVAQUIN TO BE STARTED. ORDERS NOTED, WILL CONTINUE TO MONITOR.
[2018-09-14 11:30] VITALS: BP 98/52
[2018-09-14 15:39] VITALS: BP 111/52
--- NOTE | 2018-09-14 15:59 | NUR ---
OT NOTE: PT PERFORMED WELL TODAY. CONTINUED C/O NECK PAIN STATING THAT IT WAS DUE TO REMOVAL OF C PAP. NO REDNESS NOTED BUT ABLE TO PINPOINT AREA. PT ABLE TO PERFORM BED MOB WITH MIN ASSIST. SIMPLE GROOMING TASKS WITH MIN ASSIST. ABLE TO PERFORM FUNCITONAL TRANSFERS WITH MIN ASSIST. ZAINA PINTO, OTR/L
--- NOTE | 2018-09-14 16:10 | NUR ---
OT NOTE: PT COMPLETED BED MOB WITH MIN A. PT COMPLETED SIT TO STAND WITH MIN A. PT C/O NECK PAIN. PT COMPLETED HYGIENE TASKS AT EOB WITH MIN A. THANK YOU, RAMILA CHUNG
--- NOTE | 2018-09-14 17:20 | NUR ---
I have reviewed this patient and I concur with the Shift Assessment completed by the Licensed Practical Nurse today this shift.
--- NOTE | 2018-09-14 19:45 | NUR ---
RESUMING PT CARE. PT IS ALERT LAYING IN THE BED. NO C/O VOICED. NO S/S OF DISTRESS NOTED. BED IN LOW POSITION WITH CALL LIGHT IN REACH. SIDE RAILS UP X2. WILL CONTINUE TO MONITOR PT AND FOLLOW PLAN OF CARE.
[2018-09-14 20:00] VITALS: BP 111/56
[2018-09-15] VITALS: BP 98/41
[2018-09-15 06:38] LABS: BASOPHILS 0.4 % (0-2); EOSINOPHILS 0.7 % (0-7); HEMATOCRIT 30.7 % (42.0-54.0); HEMOGLOBIN 9.9 g/dL (13.5-17.5); IMMATURE GRANULOCYTES 0.3 % (0-5); LYMPHOCYTES 23.5 % (15-50); MCH 29.5 pg (26.0-34.0); MCHC 32.2 g/dL (31.0-37.0); MCV 91.4 fL (80.0-100.0); MEAN PLATELET VOLUME 9.6 fL (7.4-10.4); MONOCYTES 9.6 % (2-11); NEUTROPHILS 65.5 % (40-80); RBC 3.36 10x6/uL (4.20-6.10); WBC 7.2 10x3/uL (4.8-10.8)
[2018-09-15 06:40] LABS: PLATELET COUNT 265 10x3/uL (130-400)
[2018-09-15 07:08] LABS: CALC OSMOLALITY 275 mosm/kg (275-300); CALCIUM 9.7 mg/dL (8.5-10.1); CARBON DIOXIDE 25.7 mmol/L (21.0-32.0); CHLORIDE - SERUM 101 mmol/L (98-107); GLUCOSE 89 mg/dL (74-106); SODIUM 137 mmol/L (136-145); UREA NITROGEN 20 mg/dL (7-18); eGFR NON AFRICAN AMERICAN 78 mL/min (90-120)
--- NOTE | 2018-09-15 09:00 | NUR ---
PT SITTING UP IN CHAIR ALERT AND ORIENTED X3. PT DENIES ANY PAIN OR NEEDS AT THIS TIME. FAMILY AT BEDSIDE. WILL CONTINUE TO MONITOR.
[2018-09-15 09:35] LABS: PLATELET ESTIMATE NORMAL
[2018-09-15 09:38] VITALS: BP 122/73
[2018-09-15 12:43] VITALS: BP 97/43
[2018-09-15 17:57] VITALS: BP 99/43
--- NOTE | 2018-09-15 17:58 | NUR ---
PT RESTING IN BED WITH EYES CLOSED RR EVEN AND UNLABORED. NO S/S OF DISTRESS. FAMILY AT BEDSIDE. WILL CONTINUE TO MONITOR.
--- NOTE | 2018-09-15 19:15 | NUR ---
RESUMING PT CARE. PT IS ALERT LAYING IN BED. NO C/O VOICED. NO S/S OF DISTRESS NOTED. RESPIRATIONS EVEN AND UNLABORED. BED IN LOW POSITION WITH CALL LIGHT IN REACH. SIDE RAILS UP X 2. WILL CONTINUE TO MONITOR PT AND FOLLOW PLAN OF CARE.
[2018-09-15 20:00] VITALS: BP 109/37
[2018-09-16] VITALS: BP 95/42
--- NOTE | 2018-09-16 01:26 | NUR ---
I have reviewed this patient and I concur with the Shift Assessment completed by the Licensed Practical Nurse today this shift.
[2018-09-16 04:00] VITALS: BP 115/46
[2018-09-16 04:31] LABS: BASOPHILS 0.5 % (0-2); EOSINOPHILS 0.8 % (0-7); HEMATOCRIT 29.7 % (42.0-54.0); HEMOGLOBIN 9.6 g/dL (13.5-17.5); IMMATURE GRANULOCYTES 0.3 % (0-5); LYMPHOCYTES 29.3 % (15-50); MCH 29.5 pg (26.0-34.0); MCHC 32.3 g/dL (31.0-37.0); MCV 91.4 fL (80.0-100.0); MEAN PLATELET VOLUME 9.6 fL (7.4-10.4); MONOCYTES 8.1 % (2-11); PLATELET COUNT 260 10x3/uL (130-400); RBC 3.25 10x6/uL (4.20-6.10); WBC 7.5 10x3/uL (4.8-10.8)
[2018-09-16 04:44] LABS: CALC OSMOLALITY 273 mosm/kg (275-300); CALCIUM 9.6 mg/dL (8.5-10.1); CARBON DIOXIDE 24.4 mmol/L (21.0-32.0); CHLORIDE - SERUM 100 mmol/L (98-107); CREATININE - SERUM 0.9 mg/dL (0.6-1.3); GLUCOSE 107 mg/dL (74-106); POTASSIUM - SERUM 4.1 mmol/L (3.5-5.1); SODIUM 135 mmol/L (136-145); UREA NITROGEN 23 mg/dL (7-18); eGFR NON AFRICAN AMERICAN 88 mL/min (90-120)
--- NOTE | 2018-09-16 07:30 | NUR ---
RPEORT RECIEVED AND MORNING ROUNDS COMPLETE PT LAYING IN BED EYES CLOSED BREATHING EVEN AND UNLABORED. TOOK PT'S B/P FOR MORNING MEDS, HYPOTENSIVE THIS AM. HOLDING B/P MEDS AND LASIX FOR THIS. B/P WAS 98/49. PT WOKE UP WHEN B/P WAS READING. PT'S AT BEDSIDE. PT STATES NO NEEDS AT THIS TIME CALL LIGHT WITHIN REACH BED IN LOWEST POSITION.
[2018-09-16 11:41] VITALS: BP 85/51
--- NOTE | 2018-09-16 11:45 | NUR ---
I have reviewed this patient and I concur with the Shift Assessment completed by the Licensed Practical Nurse today this shift.
[2018-09-16 16:41] VITALS: BP 89/53
[2018-09-16 20:00] VITALS: BP 87/43
--- NOTE | 2018-09-16 21:46 | NUR ---
INITIAL ROUNDS COMPLETED AT 191 HRS. PT RESTING WITH EYES CLOSED. RESP EVEN AND REGULAR. ASSESSMETN COMPLETED AT 1954 HRS. SR PER CM HR 71. PT ALERT AND ORIENTED TO PERSON AND PLACE. REORIENTED TO TIME AND SITUATION. IV TO LFA SL. MIDLINE TO UPPER R ARM PATENT. LUNGS DIMINISHED IN BASES BILAT. ZUNIGA. DAY DRAINING YELLOW URINE. PM MEDS GIVEN. PT CURRENTLY RESTING WITH EYES CLOSED. RESP EVEN AND REGULAR. SR UP X2, CALL LIGHT WITHIN REACH AND BED ALARM ON.
[2018-09-17] VITALS (7 sets, daily range): BP systolic 77–88; BP diastolic 28–45
--- NOTE | 2018-09-17 00:01 | NUR ---
IV TO LFA DC'D WITH CATHETER INTACT. PT TOLERATED ACTIVITY WELL. REPOSITIONED IN BED FOR COMFORT. SR UP X2, CALL LIGHT WITHIN REACH AND BED ALARM ON.
--- NOTE | 2018-09-17 02:09 | NUR ---
PT RESTING WITH EYES CLOSED. RESP EVEN AND REGULAR. SR UP X2, CALL LIGHT WITHIN REACH.
[2018-09-17 03:50] LABS: BASOPHILS 0.8 % (0-2); HEMATOCRIT 29.6 % (42.0-54.0); HEMOGLOBIN 9.5 g/dL (13.5-17.5); IMMATURE GRANULOCYTES 0.2 % (0-5); LYMPHOCYTES 35.9 % (15-50); MCH 29.3 pg (26.0-34.0); MCHC 32.1 g/dL (31.0-37.0); MCV 91.4 fL (80.0-100.0); MEAN PLATELET VOLUME 9.6 fL (7.4-10.4); NEUTROPHILS 55.1 % (40-80); PLATELET COUNT 244 10x3/uL (130-400); RBC 3.24 10x6/uL (4.20-6.10); WBC 6.3 10x3/uL (4.8-10.8)
[2018-09-17 03:52] LABS: CALC OSMOLALITY 269 mosm/kg (275-300); CALCIUM 9.3 mg/dL (8.5-10.1); CARBON DIOXIDE 22.9 mmol/L (21.0-32.0); CHLORIDE - SERUM 102 mmol/L (98-107); GLUCOSE 104 mg/dL (74-106); POTASSIUM - SERUM 4.2 mmol/L (3.5-5.1); SODIUM 134 mmol/L (136-145); UREA NITROGEN 18 mg/dL (7-18); eGFR NON AFRICAN AMERICAN 78 mL/min (90-120)
--- NOTE | 2018-09-17 04:07 | NUR ---
PT AWAKE; DENIES ANY DISCOMFORT. ROUTINE DAY CARE DONE. SR UP X2, CALL LIGHT WITHIN REACH AND BED ALARM ON.
--- NOTE | 2018-09-17 06:35 | NUR ---
VSS THROUGHOUT NIGHT. SR/PACED PER CM. PT DENIED ANY DISCOMFORT AFTER FLEXERIL ADMINISTRATION. NEEDS MET; WILL CONTINUE TO MONITOR.
--- NOTE | 2018-09-17 07:25 | NUR ---
REPORT RECIEVED AND MORNING ROUNDING COMPLETE PT LAYING IN BED EYES OPEN AND AT BEDSIDE. PT'S AND I DISCUSSED MEDICATION AND SHE WAS CONCERNED THAT PT'S B/P WAS STILL GETTING LOWER. CALLED JORDON HILL (NAHED) AND JORDON STATED SHE WILL LOOK INTO IT. PT HAS NO NEEDS AT THIS TIME CALL LIGHT WITHIN REACH ASSISTED PT AND PT'S IN GETTING HIM HIGHE RIN THE BED AND GETING HIM READY FOR BREAKFAST.
--- NOTE | 2018-09-17 09:30 | NUR ---
TALKED WITH DR. PINON ABOUT PT'S LOW B/P. DR PINON STATED TO PUT PT BACK ON MEDICATION HE WAS TAKING FOR HIS LOW BLOOD PRESSURE. ZI ALSO REVIEWED PT'S MED LIST AND MADE ADJUSTMENTS.
--- NOTE | 2018-09-17 15:42 | NUR ---
I have reviewed this patient and I concur with the Shift Assessment completed by the Licensed Practical Nurse today this shift.
--- NOTE | 2018-09-17 17:20 | NUR ---
PT LAYING IN BED AND EATING DINNER AT THIS TIME CALL LIGHT WITHIN REACH. PT HAS NO NEEDS AT THIS TIME.
--- NOTE | 2018-09-17 20:17 | NUR ---
INITIAL ROUNDS COMPLETED AT 1910 HRS. PT DENIED ANY DISCOMFORT. ASSESSMENT COMPLETED AT 2004 HRS. PACED RHYTHM PER CM HR 88. R UPPER ARM MID LINE CLEAN,DRY AND INTACT. PT ALERT AND ORIENTED TO PERSON AND PLACE. REORIENTED TO TIME AND SITUATION. LUNGS DIMINISHED IN BASES BILAT. ZUNIGA. DAY DRAINING DARK URINE. SR UP X2, CALL LIGHT WITHIN REACH AND BED ALARM ON.
--- NOTE | 2018-09-17 21:31 | NUR ---
PM MEDS GIVEN. PT DENIES AN DISCOMFORT. SR UP X2, CALL LIGHT WITHIN REACH AND BED ALARM ON.
[2018-09-18] VITALS (7 sets, daily range): BP systolic 76–102; BP diastolic 40–58
--- NOTE | 2018-09-18 00:30 | NUR ---
PT RESTING WITH EYES CLOSED. RESP EVEN AND REGULAR. SR UP X2, CALL LIGHT WITHIN REACH.
--- NOTE | 2018-09-18 03:00 | NUR ---
BIPAP OFF PER PT REQUEST. NO DISTRESS NOTED. SR UP X2, CALL LIGHT WITHIN REACH AND BED ALARM ON
--- NOTE | 2018-09-18 04:48 | NUR ---
PT RESTING WITH EYES CLOSED. RESP EVEN AND REGULAR. SR UP X2,CALL LIGHT WITHIN REACH.
--- NOTE | 2018-09-18 06:28 | NUR ---
SBP CONTINUES TO LOW THIS SHIFT. PT DENIED ANY DISCOMFORT. NEEDS MET; WILL CONTINUE TO MONITOR.
--- NOTE | 2018-09-18 07:16 | NUR ---
ASSESSMENT DONE. DENIES NEEDS.
--- NOTE | 2018-09-18 10:04 | NUR ---
I have reviewed this patient and I concur with the Shift Assessment completed by the Licensed Practical Nurse today this shift.
[2018-09-18 11:19] LABS: BASOPHILS 0.5 % (0-2); EOSINOPHILS 1.4 % (0-7); IMMATURE GRANULOCYTES 0.3 % (0-5); LYMPHOCYTES 23.2 % (15-50); MCHC 32.4 g/dL (31.0-37.0); MCV 92.6 fL (80.0-100.0); MEAN PLATELET VOLUME 9.2 fL (7.4-10.4); MONOCYTES 5.6 % (2-11); PLATELET COUNT 272 10x3/uL (130-400); WBC 7.4 10x3/uL (4.8-10.8)
[2018-09-18 11:20] LABS: HEMATOCRIT 36.1 % (42.0-54.0); HEMOGLOBIN 11.7 g/dL (13.5-17.5)
[2018-09-18 11:25] LABS: ANION GAP 15.8 mmol/L (8-16); CALCIUM 9.9 mg/dL (8.5-10.1); CARBON DIOXIDE 22.4 mmol/L (21.0-32.0); CREATININE - SERUM 1.1 mg/dL (0.6-1.3); POTASSIUM - SERUM 4.2 mmol/L (3.5-5.1)
--- NOTE | 2018-09-18 12:09 | MORECARE ---
CASE MANAGEMENT DISCHARGE SUMMARY PATIENT: YOEL FINK UNIT: [id number] ADM DATE: 09/02/18 AGE: 73 : [birth year] SEX: M ROOM/BED: D.2102 AUTHOR: MARIZA,DOC PHYSICIAN: REFERRING PHYSICIAN: DERRICK DOCKERY MD DATE OF SERVICE: 09/18/18 Discharge Plan Patient Name: YOEL FINK [facility] [facility] 1945 Planned Disposition: Inpatient Rehab Anticipated Discharge Date: 09/14/18 Discharge Date: Expected LOS: 12 Initial Reviewer: [email or web address] Initial Review Date: 09/02/2018 Generated: 09/18/18 1:08 pm Comments DCP- Discharge Planning Updated by [email or web address]: Elisa Woods on 09/18/18 11:[address] WAS ASKED BY MD IF PATIENT WOULD BE ABLE TO DISCHARGE TO INPATIENT REHAB TODAY. I CALLED AND SPOKE WITH ASHLYN IN REHAB AT EXT 1160, AND SHE STATED THAT [facility] WAS ONCALL FOR REHAB INTAKE AND I WAS GIVEN HER PHONE NUMBER TO CALL HER. @ 1012 I CALLED AND LEFT HER A VOICEMAIL EXPLAINING WHAT MD WAS ASKING. I WILL WAIT FOR RETURN CALL. DCP- Discharge Planning Updated by [id number]: Miguel Matos on 09/13/18 2:[address] Patient Name: YOEL FINK Encounter No: [id number] : 1945 Primary Insurance: MEDICARE A & B Anticipated DC Date: 09-14-2018 Planned Disposition: Inpatient Rehab External Planned Provider: [facility] INPATIENT REHAB DCP follow-up note: CM SPOKE TO CARLOS OF INPATIENT REHAB, THEY PLAN TO ACCEPT PT FOR REHAB WHEN STABLE AND OFF DOBUTAMINE. NOTIFY [facility] INPATIENT REH[facility] WHEN PT HAS DISCHARGE ORDER. [facility] INPATIENT REHAB TO CONTACT MED 2 NURSE WITH ROOM NUMBER WHEN READY TO ACCEPT PT AND NURSE REPORT. Miguel Matos, CASE MANAGEMENT DCP- Discharge Planning Updated by [id number]: Miguel Matos on 09/13/18 11:[address] Patient Name: YOEL FINK Encounter No: [id number] : 1945 Primary Insurance: MEDICARE A & B Anticipated DC Date: 09-13-2018 Planned Disposition: Inpatient Rehab External Planned Provider: [facility] DCP follow-up note: CM RECEIVED ORDER FOR INPATIENT REHAB PRESCREENING, MET WITH PT IN ROOM TO DISCUSS DISCHARGE NEEDS AND PLANNING. CM DISCUSSED AVAILABILITY OF HOME HEALTH, REHAB SERVICES AND MEDICAL EQUIPMENT. PT HAS DISCUSSED REHAB WITH THE DOCTOR AND WOULD LIKE REHAB AT [facility] PRIOR TO RETURN HOME. IMPORTANT MESSAGE FROM MEDICARE PROVIDED AND EXPLAINED. CM WAITING INPATIENT REHAB PRESCREENING AND ADMISSION DETERMINATION FROM [facility] IN[facility]. Miguel Matos, CASE MANAGEMENT DCP- Discharge Planning Updated by [id number]: Disha Rosa on 09/02/18 3:[address] Patient Name: YOEL FINK Admission Status: ER Accout number: [id number] Admission Date: 09-02-2018 : 1945 Admission Diagnosis: Attending: DERRICK DOCKERY Current LOS: 1 Anticipated DC Date: Planned Disposition: Home Primary Insurance: MEDICARE A & B Discharge Planning Comments: CM met with patient about discharge planning. CM explained CM role and verbal consent was given to do dc assessment. CM educated on Home Health, DME and rehab services that are available. Patient states his discharge plan is to return to home with . States home environment is safe for dc. Denies any discharge planning needs at this time. States will drive him home upon discharge. CM will continue to follow and assist as needed with discharge planning needs. Trailer Driver: Disha Rosa DCPIA - Discharge Planning Initial Assessment Updated by [email or web address]: Disha Rosa on 09/02/18 4:28 pm * Is the patient Alert and Oriented? Yes * How many steps to enter\exit or inside your home? na * PCP Pepito * Pharmacy [facility] [address] * Preadmission Environment Home with Family * ADLs Independent * Equipment Walker * List name and contact numbers for known caregivers / representatives who currently or will assist patient after discharge: Kyra pts [phone] * Verbal permission to speak to the caregivers and representatives has been obtained from the patient. Yes * Community resources currently utilized None * Additional services required to return to the preadmission environment? No * Can the patient safely return to the preadmission environment? Yes * Has this patient been hospitalized within the prior 30 days at any hospital? No Coverage Notice Reviewer: [id number] - Miguel Matos Notice Issued Date-Time: 09/13/2018 11:05 Notice Type: IM Discharge Notice Notice Delivered To: Patient Relationship to Patient: Quality Control Clerk Name: Delivery Method: HAND - Hand Delivered Ariadna Days: Prior Verbal Notification: Recipient Understood Notice: Yes Recipient Signature: Yes Med Rec Note Co-signed by Attending: Coverage Notice Comment: Last DP export: 09/13/18 2:39 p Patient Name: YOEL FINK Page [id number] at 1209 All edits/amendments must be made on the electronic document DICTATION DATE: 09/18/18 1208 ADULT SECONDARY EDUCATION INSTRUCTOR: LIV 09/18/18 1208 RPT#: [id number] DC DATE: STATUS: ADM IN [facility] [address] [place] [address] END OF REPORT
--- NOTE | 2018-09-18 17:21 | NUR ---
WITHOUT CHANGES OR DISTRESS NOTED AT THIS TIME. DENIES NEEDS.
--- NOTE | 2018-09-18 22:00 | NUR ---
BLADDER TRAINING STARTED ON PT AT THIS TIME. PT CURRENTLY LAYING IN BED WITH EYES CLOSE. WILL CPOC.
[2018-09-19] VITALS: BP 93/36
[2018-09-19 04:00] VITALS: BP 88/35
[2018-09-19 04:53] LABS: CALC OSMOLALITY 274 mosm/kg (275-300); CALCIUM 8.8 mg/dL (8.5-10.1); CHLORIDE - SERUM 104 mmol/L (98-107); CREATININE - SERUM 0.9 mg/dL (0.6-1.3); GLUCOSE 108 mg/dL (74-106); MAGNESIUM - SERUM 1.8 mg/dL (1.8-2.4); POTASSIUM - SERUM 4.2 mmol/L (3.5-5.1); SODIUM 136 mmol/L (136-145); UREA NITROGEN 18 mg/dL (7-18); eGFR NON AFRICAN AMERICAN 88 mL/min (90-120)
[2018-09-19 05:22] LABS: BASOPHILS 0.6 % (0-2); EOSINOPHILS 2.7 % (0-7); IMMATURE GRANULOCYTES 0.1 % (0-5); MCH 29.7 pg (26.0-34.0); MCHC 32.2 g/dL (31.0-37.0); MEAN PLATELET VOLUME 9.4 fL (7.4-10.4); MONOCYTES 5.9 % (2-11); NEUTROPHILS 61.7 % (40-80); PLATELET COUNT 263 10x3/uL (130-400); WBC 6.7 10x3/uL (4.8-10.8)
[2018-09-19 05:33] LABS: HEMATOCRIT 27.6 % (42.0-54.0); HEMOGLOBIN 8.9 g/dL (13.5-17.5)
--- NOTE | 2018-09-19 06:36 | NUR ---
ROUNDS COMPLETED. VSS WITH BP 82/41. AAOX3, NO S/S OF RESP DISTRESS. R. UPPER ARM MIDLINE PATENT, DRESSING, C/D/I. DAY INTACT, URINE APPEARS CONC. BMX RIDER STATES TO START PT ON BLADDER TRAINING TONIGHT. PT RESTING IN BED, DENIES ANY FURTHER NEEDS FOR COMFORT CARE. WILL CTM. CL IN REACH.
--- NOTE | 2018-09-19 06:39 | NUR ---
BLADDER TRAINING COMPLETED FOR THIS SHIFT. PT PUT A TOTAL OF 300CC'S IN HIS DAY. WILL CPOC.
--- NOTE | 2018-09-19 08:00 | NUR ---
PT RESTING IN BED, AM MEDICATIONS GIVEN ORDERED, SHIFT ASSESSMENT PERFORMED. DENIES ANY NEEDS AT THIS TIME, WILL CONT TO FOLLOW POC
[2018-09-19 08:08] VITALS: BP 80/39
[2018-09-19 11:41] VITALS: BP 94/42
--- NOTE | 2018-09-19 12:07 | NUR ---
OT NOTE: PT DOING MUCH BETTER. BED MOB WITH SPV; STANDING BALANCE FAIR..REQUIRES USE OF WALKER FOR UE SUPPORT. IN ROOM AMBULATION WITH USE OF WALKER AND GAIT BELT AND MIN ASSIST; REQUIRED MOD ASSIST FOR DONNING AND ADJUSTING SOCKS. SET UP WITH GOWN AND SIMPLE GROOMING. PT AGREEABLE TO SIT UP IN CHAIR FOR A WHILE. ZAINA PINTO, OTR/L
--- NOTE | 2018-09-19 12:31 | NUR ---
Nutrition follow-up: Visited with pt during rounds. Pt reports his appetite is improving Diet: AHA PO intake ~60% average of meals labs reviewed Wt: 148# +BM RDN following.
--- NOTE | 2018-09-19 13:49 | MORECARE ---
CASE MANAGEMENT DISCHARGE SUMMARY PATIENT: YOEL FINK UNIT: [id number] ADM DATE: 09/02/18 AGE: 73 : [birth year] SEX: M ROOM/BED: D.2109 AUTHOR: MARIZA,DOC PHYSICIAN: REFERRING PHYSICIAN: DERRICK DOCKERY MD DATE OF SERVICE: 09/19/18 Discharge Plan Patient Name: [facility]OEL [facility]INK [facility] [facility] 1945 Planned Disposition: Inpatient Rehab Anticipated Discharge Date: 09/14/18 Discharge Date: Expected LOS: 12 Initial Reviewer: [id number] Initial Review Date: 09/02/2018 Generated: 09/19/18 2:49 pm Comments DCP- Discharge Planning Updated by [email or web address]: Miguel Matos on 09/19/18 12:[address] Patient Name: YOEL FINK Encounter No: [id number] : 1945 Primary Insurance: MEDICARE A & B Anticipated DC Date: 09-14-2018 Planned Disposition: Inpatient Rehab External Planned Provider: [facility] DCP follow-up note: CM SPOKE TO URSULA OF INPATIENT REHAB, THEY PLAN TO ACCEPT PT FOR REHAB TODAY. RN MATTHEW VYAS NOTIFED ESTEFANÍA KAIMARILEE. PT AND SPOUSE NOTIFIED IN ROOM, BOTH IN AGREEMENT WITH DISCHARGE TO REHAB TODAY. IMPORTANT MESSAGE FROM MEDICARE PROVIDED AND EXPLAINED. [facility] IN[facility] TO CONTACT MED 2 NURSE WITH ROOM NUMBER WHEN READY TO ACCEPT PT AND NURSE REPORT. Miguel Matos, CASE MANAGEMENT DCP- Discharge Planning Updated by [id number]: Elisa Vyas on 09/18/18 11:[address] WAS ASKED BY MD IF PATIENT WOULD BE ABLE TO DISCHARGE TO INPATIENT REHAB TODAY. I CALLED AND SPOKE WITH ASHLYN IN REHAB AT EXT 1160, AND SHE STATED THAT [facility] WAS ONCALL FOR REHAB INTAKE AND I WAS GIVEN HER PHONE NUMBER TO CALL HER. @ 1012 I CALLED AND LEFT HER A VOICEMAIL EXPLAINING WHAT MD WAS ASKING. I WILL WAIT FOR RETURN CALL. DCP- Discharge Planning Updated by [email or web address]: Miguel Matos on 09/13/18 2:[address] Patient Name: YOEL FINK Encounter No: [id number] : 1945 Primary Insurance: MEDICARE A & B Anticipated DC Date: 09-14-2018 Planned Disposition: Inpatient Rehab External Planned Provider: [facility] DCP follow-up note: CM SPOKE TO CARLOS OF INPATIENT REHAB, THEY PLAN TO ACCEPT PT FOR REHAB WHEN STABLE AND OFF DOBUTAMINE. NOTIFY [facility] IN[facility] WHEN PT HAS DISCHARGE ORDER. [facility] TO CONTACT MED 2 NURSE WITH ROOM NUMBER WHEN READY TO ACCEPT PT AND NURSE REPORT. JOSEPH Munroe DCP- Discharge Planning Updated by [id number]: Miguel Matos on 09/13/18 11:[address] Patient Name: YOEL FINK Encounter No: [id number] : 1945 Primary Insurance: MEDICARE A & B Anticipated DC Date: 09-13-2018 Planned Disposition: Inpatient Rehab External Planned Provider: [facility]PAT[facility] DCP follow-up note: CM RECEIVED ORDER FOR INPATIENT REHAB PRESCREENING, MET WITH PT IN ROOM TO DISCUSS DISCHARGE NEEDS AND PLANNING. CM DISCUSSED AVAILABILITY OF HOME HEALTH, REHAB SERVICES AND MEDICAL EQUIPMENT. PT HAS DISCUSSED REHAB WITH THE DOCTOR AND WOULD LIKE REHAB AT [facility] PRIOR TO RETURN HOME. IMPORTANT MESSAGE FROM MEDICARE PROVIDED AND EXPLAINED. CM WAITING INPATIENT REHAB PRESCREENING AND ADMISSION DETERMINATION FROM [facility] IN[facility]. JOSEPH Munroe DCP- Discharge Planning Updated by [id number]: Disha Rosa on 09/02/18 3:[address] Patient Name: YOEL FINK Admission Status: ER Accout number: [id number] Admission Date: 09-02-2018 : 1945 Admission Diagnosis: Attending: DERRICK DOCKERY Current LOS: 1 Anticipated DC Date: Planned Disposition: Home Primary Insurance: MEDICARE A & B Discharge Planning Comments: CM met with patient about discharge planning. CM explained CM role and verbal consent was given to do dc assessment. CM educated on Home Health, DME and rehab services that are available. Patient states his discharge plan is to return to home with . States home environment is safe for dc. Denies any discharge planning needs at this time. States will drive him home upon discharge. CM will continue to follow and assist as needed with discharge planning needs. Guide Foreign Tour: Disha Rosa DCPIA - Discharge Planning Initial Assessment Updated by [id number]: Disha Rosa on 09/02/18 4:28 pm * Is the patient Alert and Oriented? Yes * How many steps to enter\exit or inside your home? na * PCP Pepito * Pharmacy [facility] [address] * Preadmission Environment Home with Family * ADLs Independent * Equipment Walker * List name and contact numbers for known caregivers / representatives who currently or will assist patient after discharge: Kyra mora [phone] * Verbal permission to speak to the caregivers and representatives has been obtained from the patient. Yes * Community resources currently utilized None * Additional services required to return to the preadmission environment? No * Can the patient safely return to the preadmission environment? Yes * Has this patient been hospitalized within the prior 30 days at any hospital? No Coverage Notice Reviewer: [id number] Matos Notice Issued Date-Time: 09/13/2018 11:05 Notice Type: IM Discharge Notice Notice Delivered To: Patient Relationship to Patient: Economic Research Assistant Name: Delivery Method: HAND - Hand Delivered Ariadna Days: Prior Verbal Notification: Recipient Understood Notice: Yes Recipient Signature: Yes Med Rec Note Co-signed by Attending: Coverage Notice Comment: Reviewer: RAKAN Matos Notice Issued Date-Time: 09/19/2018 9:25 Notice Type: IM Discharge Notice Notice Delivered To: Patient Relationship to Patient: Economic Research Assistant Name: Delivery Method: HAND - Hand Delivered Ariadna Days: Prior Verbal Notification: Recipient Understood Notice: Yes Recipient Signature: Yes Med Rec Note Co-signed by Attending: Coverage Notice Comment: Last DP export: 09/18/18 11:09 a Patient Name: YOEL FINK Page 61353 at 1349 All edits/amendments must be made on the electronic document DICTATION DATE: 09/19/18 1348 PROFESSIONAL SPORTS SCOUT: LIV 09/19/18 1348 RPT#: [id number] RI DATE: STATUS: ADM IN [facility] [address] [place] [address] END OF REPORT
--- NOTE | 2018-09-19 14:28 | MORECARE ---
CASE MANAGEMENT DISCHARGE SUMMARY PATIENT: YOEL FINK UNIT: [id number] ADM DATE: 09/02/18 AGE: 73 : [birth year] SEX: M ROOM/BED: D.2109 AUTHOR: MARIZA,DOC PHYSICIAN: REFERRING PHYSICIAN: DERRICK DOCKERY MD DATE OF SERVICE: 09/19/18 Discharge Plan Patient Name: [facility]OEL FINK [facility] [facility] 1945 Planned Disposition: Inpatient Rehab Anticipated Discharge Date: 09/19/18 Discharge Date: Expected LOS: 17 Initial Reviewer: [id number] Initial Review Date: 09/02/2018 Generated: 09/19/18 3:28 pm Comments DCP- Discharge Planning Updated by [email or web address]: Miguel Matos on 09/19/18 12:[address] Patient Name: YOEL FINK Encounter No: [id number] : 1945 Primary Insurance: MEDICARE A & B Anticipated DC Date: 09-14-2018 Planned Disposition: Inpatient Rehab External Planned Provider: [facility] INPATIENT REHAB DCP follow-up note: CM SPOKE TO URSULA OF INPATIENT REHAB, THEY PLAN TO ACCEPT PT FOR REHAB TODAY. RN MATTHEW VYAS NOTIFED ESTEFANÍA KAIMARILEE. PT AND SPOUSE NOTIFIED IN ROOM, BOTH IN AGREEMENT WITH DISCHARGE TO REHAB TODAY. IMPORTANT MESSAGE FROM MEDICARE PROVIDED AND EXPLAINED. [facility] INPATIENT REHAB TO CONTACT MED 2 NURSE WITH ROOM NUMBER WHEN READY TO ACCEPT PT AND NURSE REPORT. Miguel Matos, CASE MANAGEMENT DCP- Discharge Planning Updated by [id number]: Elisa Vyas on 09/18/18 11:[address] WAS ASKED BY MD IF PATIENT WOULD BE ABLE TO DISCHARGE TO INPATIENT REHAB TODAY. I CALLED AND SPOKE WITH ASHLYN IN REHAB AT EXT 1160, AND SHE STATED THAT [facility] WAS ONCALL FOR REHAB INTAKE AND I WAS GIVEN HER PHONE NUMBER TO CALL HER. @ 1012 I CALLED AND LEFT HER A VOICEMAIL EXPLAINING WHAT MD WAS ASKING. I WILL WAIT FOR RETURN CALL. DCP- Discharge Planning Updated by [id number]: Miguel Matos on 09/13/18 2:[address] Patient Name: YOEL FINK Encounter No: [id number] : 1945 Primary Insurance: MEDICARE A & B Anticipated DC Date: 09-14-2018 Planned Disposition: Inpatient Rehab External Planned Provider: [facility] INPATIENT REH[facility] DCP follow-up note: CM SPOKE TO CARLOS OF INPATIENT REHAB, THEY PLAN TO ACCEPT PT FOR REHAB WHEN STABLE AND OFF DOBUTAMINE. NOTIFY [facility] INPATIENT REHAB WHEN PT HAS DISCHARGE ORDER. [facility] INPATIENT REHAB TO CONTACT MED 2 NURSE WITH ROOM NUMBER WHEN READY TO ACCEPT PT AND NURSE REPORT. JOSEPH Munroe DCP- Discharge Planning Updated by [email or web address]: Miguel Matos on 09/13/18 11:[address] Patient Name: YOEL FINK Encounter No: [id number] : 1945 Primary Insurance: MEDICARE A & B Anticipated DC Date: 09-13-2018 Planned Disposition: Inpatient Rehab External Planned Provider: [facility] INPATIENT REHAB DCP follow-up note: CM RECEIVED ORDER FOR INPATIENT REHAB PRESCREENING, MET WITH PT IN ROOM TO DISCUSS DISCHARGE NEEDS AND PLANNING. CM DISCUSSED AVAILABILITY OF HOME HEALTH, REHAB SERVICES AND MEDICAL EQUIPMENT. PT HAS DISCUSSED REHAB WITH THE DOCTOR AND WOULD LIKE REHAB AT [facility] PRIOR TO RETURN HOME. IMPORTANT MESSAGE FROM MEDICARE PROVIDED AND EXPLAINED. CM WAITING INPATIENT REHAB PRESCREENING AND ADMISSION DETERMINATION FROM [facility] INPATIENT REHAB. JOSEPH Munroe DCP- Discharge Planning Updated by [id number]: Disha Rosa on 09/02/18 3:[address] Patient Name: YOEL FINK Admission Status: ER Accout number: [id number] Admission Date: 09-02-2018 : 1945 Admission Diagnosis: Attending: DERRICK DOCKERY Current LOS: 1 Anticipated DC Date: Planned Disposition: Home Primary Insurance: MEDICARE A & B Discharge Planning Comments: CM met with patient about discharge planning. CM explained CM role and verbal consent was given to do dc assessment. CM educated on Home Health, DME and rehab services that are available. Patient states his discharge plan is to return to home with . States home environment is safe for dc. Denies any discharge planning needs at this time. States will drive him home upon discharge. CM will continue to follow and assist as needed with discharge planning needs. Dba Developer: Disha Rosa DCPIA - Discharge Planning Initial Assessment Updated by [id number]: Disha Rosa on 09/02/18 4:28 pm * Is the patient Alert and Oriented? Yes * How many steps to enter\exit or inside your home? na * PCP Pepito * Pharmacy [facility] [address] * Preadmission Environment Home with Family * ADLs Independent * Equipment Walker * List name and contact numbers for known caregivers / representatives who currently or will assist patient after discharge: Kyra mora [phone] * Verbal permission to speak to the caregivers and representatives has been obtained from the patient. Yes * Community resources currently utilized None * Additional services required to return to the preadmission environment? No * Can the patient safely return to the preadmission environment? Yes * Has this patient been hospitalized within the prior 30 days at any hospital? No Coverage Notice Reviewer: [id number] Matos Notice Issued Date-Time: 09/13/2018 11:05 Notice Type: IM Discharge Notice Notice Delivered To: Patient Relationship to Patient: Home Care Provider Name: Delivery Method: HAND - Hand Delivered Ariadna Days: Prior Verbal Notification: Recipient Understood Notice: Yes Recipient Signature: Yes Med Rec Note Co-signed by Attending: Coverage Notice Comment: Reviewer: RAKAN Matos Notice Issued Date-Time: 09/19/2018 9:25 Notice Type: IM Discharge Notice Notice Delivered To: Patient Relationship to Patient: Home Care Provider Name: Delivery Method: HAND - Hand Delivered Ariadna Days: Prior Verbal Notification: Recipient Understood Notice: Yes Recipient Signature: Yes Med Rec Note Co-signed by Attending: Coverage Notice Comment: Last DP export: 09/19/18 12:49 p Patient Name: YOEL FINK Page 01249 at 1428 All edits/amendments must be made on the electronic document DICTATION DATE: 09/19/181426 NURSE EPIDEMIOLOGIST: LIV 09/19/181426 RPT#: [id number] MO DATE: STATUS: ADM IN [facility] [address] [place] [address] END OF REPORT
--- NOTE | 2018-09-19 15:32 | NUR ---
OT NOTE: PT COMPLETED BATHING TASKS WITH MOD/MAX A. PT COMPLETED GROOMING TASKS WITH SET UP. PT COMPLETED BED MOB SIDE ROLLING WITH SBA. PT COMPLETED BUE AROM EXS. THANK YOU, RAMILA CHUNG
[2018-09-19 17:20] VITALS: BP 99/55
--- NOTE | 2018-09-19 17:59 | NUR ---
PT HAD 500 URINE OUTPUT IN URINAL THIS AFTERNOON
[2018-09-19 20:00] VITALS: BP 87/51
--- NOTE | 2018-09-19 21:00 | NUR ---
EVENING ROUNDS COMPLETED. VSS, AA0X3, NO S/S OF RR DISTRESS. PT CURRENTLY RESTING IN BED STATES HE ONLY URINATED ONCES ALL DAY. PT DENIES ANY NEED FOR PAIN AT THIS TIME. WILL CTM. CL IN REACH, BED IN LOW, SR UP X2.
[2018-09-20 00:30] VITALS: BP 87/46
[2018-09-20 04:30] VITALS: BP 86/44
[2018-09-20 05:47] LABS: BASOPHILS 0.5 % (0-2); EOSINOPHILS 3.8 % (0-7); HEMATOCRIT 28.4 % (42.0-54.0); HEMOGLOBIN 9.2 g/dL (13.5-17.5); IMMATURE GRANULOCYTES 0.3 % (0-5); LYMPHOCYTES 30.2 % (15-50); MCH 29.9 pg (26.0-34.0); MCHC 32.4 g/dL (31.0-37.0); MCV 92.2 fL (80.0-100.0); NEUTROPHILS 58.2 % (40-80); PLATELET COUNT 238 10x3/uL (130-400); RBC 3.08 10x6/uL (4.20-6.10); RDW 28.1 % (11.5-14.5); WBC 5.7 10x3/uL (4.8-10.8)
[2018-09-20 06:18] LABS: CALC OSMOLALITY 276 mosm/kg (275-300); CALCIUM 9.1 mg/dL (8.5-10.1); CARBON DIOXIDE 23.7 mmol/L (21.0-32.0); CHLORIDE - SERUM 106 mmol/L (98-107); GLUCOSE 95 mg/dL (74-106); MAGNESIUM - SERUM 1.8 mg/dL (1.8-2.4); POTASSIUM - SERUM 4.1 mmol/L (3.5-5.1); SODIUM 138 mmol/L (136-145); UREA NITROGEN 16 mg/dL (7-18); eGFR NON AFRICAN AMERICAN 78 mL/min (90-120)
[2018-09-20 07:40] VITALS: BP 78/50
--- NOTE | 2018-09-20 07:48 | MORECARE ---
CASE MANAGEMENT DISCHARGE SUMMARY PATIENT: YOEL FINK UNIT: [id number] ADM DATE: 09/02/18 AGE: 73 : [birth year] SEX: M ROOM/BED: D.2109 AUTHOR: MARIZA,DOC PHYSICIAN: REFERRING PHYSICIAN: DERRICK DOCKERY MD DATE OF SERVICE: 09/20/18 Discharge Plan Patient Name: YOLE FINK [facility] [facility] 1945 Planned Disposition: Inpatient Rehab Anticipated Discharge Date: 09/19/18 Discharge Date: Expected LOS: 17 Initial Reviewer: [email or web address] Initial Review Date: 09/02/2018 Generated: 09/20/18 8:48 am Comments DCP- Discharge Planning Updated by [email or web address]: Miguel Matos on 09/19/18 12:[address] Patient Name: YOEL FINK Encounter No: [id number] : 1945 Primary Insurance: MEDICARE A & B Anticipated DC Date: 09-14-2018 Planned Disposition: Inpatient Rehab External Planned Provider: [facility] INPATIENT REHAB DCP follow-up note: CM SPOKE TO URSULA OF INPATIENT REHAB, THEY PLAN TO ACCEPT PT FOR REHAB TODAY. RN MATTHEW VYAS NOTIFED WASTEWATER TECHNICIAN KAIMARILEE. PT AND SPOUSE NOTIFIED IN ROOM, BOTH IN AGREEMENT WITH DISCHARGE TO REHAB TODAY. IMPORTANT MESSAGE FROM MEDICARE PROVIDED AND EXPLAINED. [facility] INPATIENT REHAB TO CONTACT MED 2 NURSE WITH ROOM NUMBER WHEN READY TO ACCEPT PT AND NURSE REPORT. Miguel Matos, CASE MANAGEMENT DCP- Discharge Planning Updated by [email or web address]: Elisa Vyas on 09/18/18 11:[address] WAS ASKED BY MD IF PATIENT WOULD BE ABLE TO DISCHARGE TO INPATIENT REHAB TODAY. I CALLED AND SPOKE WITH ASHLYN IN REHAB AT EXT 1160, AND SHE STATED THAT [facility] WAS ONCALL FOR REHAB INTAKE AND I WAS GIVEN HER PHONE NUMBER TO CALL HER. @ 1012 I CALLED AND LEFT HER A VOICEMAIL EXPLAINING WHAT MD WAS ASKING. I WILL WAIT FOR RETURN CALL. DCP- Discharge Planning Updated by [id number]: Miguel Matos on 09/13/18 2:[address] Patient Name: YOEL FINK Encounter No: [id number] : 1945 Primary Insurance: MEDICARE A & B Anticipated DC Date: 09-14-2018 Planned Disposition: Inpatient Rehab External Planned Provider: [facility] INPATIENT REH[facility] DCP follow-up note: CM SPOKE TO CARLOS OF INPATIENT REHAB, THEY PLAN TO ACCEPT PT FOR REHAB WHEN STABLE AND OFF DOBUTAMINE. NOTIFY [facility] INPATIENT REHAB WHEN PT HAS DISCHARGE ORDER. [facility] INPATIENT REHAB TO CONTACT MED 2 NURSE WITH ROOM NUMBER WHEN READY TO ACCEPT PT AND NURSE REPORT. JOSEPH Munroe DCP- Discharge Planning Updated by [id number]: Miguel Matos on 09/13/18 11:[address] Patient Name: YOEL FINK Encounter No: [id number] : 1945 Primary Insurance: MEDICARE A & B Anticipated DC Date: 09-13-2018 Planned Disposition: Inpatient Rehab External Planned Provider: [facility] INPATIENT REH[facility] DCP follow-up note: CM RECEIVED ORDER FOR INPATIENT REHAB PRESCREENING, MET WITH PT IN ROOM TO DISCUSS DISCHARGE NEEDS AND PLANNING. CM DISCUSSED AVAILABILITY OF HOME HEALTH, REHAB SERVICES AND MEDICAL EQUIPMENT. PT HAS DISCUSSED REHAB WITH THE DOCTOR AND WOULD LIKE REHAB AT [facility] PRIOR TO RETURN HOME. IMPORTANT MESSAGE FROM MEDICARE PROVIDED AND EXPLAINED. CM WAITING INPATIENT REHAB PRESCREENING AND ADMISSION DETERMINATION FROM [facility] INPATIENT REHAB. JOSEPH Munroe DCP- Discharge Planning Updated by [email or web address]: Disha Rosa on 09/02/18 3:[address] Patient Name: YOEL FINK Admission Status: ER Accout number: [id number] Admission Date: 09-02-2018 : 1945 Admission Diagnosis: Attending: DERRICK DOCKERY Current LOS: 1 Anticipated DC Date: Planned Disposition: Home Primary Insurance: MEDICARE A & B Discharge Planning Comments: CM met with patient about discharge planning. CM explained CM role and verbal consent was given to do dc assessment. CM educated on Home Health, DME and rehab services that are available. Patient states his discharge plan is to return to home with . States home environment is safe for dc. Denies any discharge planning needs at this time. States will drive him home upon discharge. CM will continue to follow and assist as needed with discharge planning needs. Travel Coordinator: Disha Rosa DCPIA - Discharge Planning Initial Assessment Updated by [id number]: Disha Rosa on 09/02/18 4:28 pm * Is the patient Alert and Oriented? Yes * How many steps to enter\exit or inside your home? na * PCP Pepito * Pharmacy [facility] [address] * Preadmission Environment Home with Family * ADLs Independent * Equipment Walker * List name and contact numbers for known caregivers / representatives who currently or will assist patient after discharge: Kyra mora [phone] * Verbal permission to speak to the caregivers and representatives has been obtained from the patient. Yes * Community resources currently utilized None * Additional services required to return to the preadmission environment? No * Can the patient safely return to the preadmission environment? Yes * Has this patient been hospitalized within the prior 30 days at any hospital? No Coverage Notice Reviewer: [email or web address] Matos Notice Issued Date-Time: 09/13/2018 11:05 Notice Type: IM Discharge Notice Notice Delivered To: Patient Relationship to Patient: Rib Matcher And Fitter Name: Delivery Method: HAND - Hand Delivered Ariadna Days: Prior Verbal Notification: Recipient Understood Notice: Yes Recipient Signature: Yes Med Rec Note Co-signed by Attending: Coverage Notice Comment: Reviewer: RAKAN Matos Notice Issued Date-Time: 09/19/2018 9:25 Notice Type: IM Discharge Notice Notice Delivered To: Patient Relationship to Patient: Rib Matcher And Fitter Name: Delivery Method: HAND - Hand Delivered Ariadna Days: Prior Verbal Notification: Recipient Understood Notice: Yes Recipient Signature: Yes Med Rec Note Co-signed by Attending: Coverage Notice Comment: Last DP export: 09/19/18 1:28 p Patient Name: YOEL FINK Page 44052 at 0748 All edits/amendments must be made on the electronic document DICTATION DATE: 09/20/18747 CONSULTING BUSINESS DEVELOPER: LIV 09/20/18747 RPT#: [id number] DC DATE: STATUS: ADM IN [facility] [address] [place] [address] END OF REPORT
--- NOTE | 2018-09-20 08:15 | NUR ---
PT RESTING IN BED EATING BREAKFAST. SHIFT ASSESSMENT PERFORMED. DENIES ANY NEEDS AT THIS TIME, CALL LIGHT WITHIN REACH, WILL CONT TO FOLLOW POC
--- NOTE | 2018-09-20 12:30 | NUR ---
PT RESTING IN BED, CALL LIGHT WITHIN REACH, DENIES ANY NEEDS AT THIS TIME, WILL CONT TO FOLLOW POC
[2018-09-20 12:35] VITALS: BP 150/85; BP 73/45
--- NOTE | 2018-09-20 12:39 | NUR ---
OT NOTE: PT REPORTED LOW BP TODAY. STATES THAT HE STILL WANTS TO GET UP..BED MOB WITH SPV; ABLE TO LAILA SOCKS IN BED; MIN ASSIST WITH CLOTHING MGMT; MIN ASSIST WITH UE DRESSING. MIN ASSIST WITH TRANSFERS WITH USE OF WALKER. ABLE TO AMB IN ROOM WITH MIN ASSIST. SITTING IN CHAIR WITHOUT DIFFICULTY. ZAINA PINTO, OTR/L
[2018-09-20 15:00] VITALS: BP 79/50
[2018-09-20] MEDS ORDERED: MIDODRINE HCL5 MG PO (15:25)
--- NOTE | 2018-09-20 15:25 | MORECARE ---
CASE MANAGEMENT DISCHARGE SUMMARY PATIENT: YOEL FINK UNIT: [id number] ADM DATE: 09/02/18 AGE: 73 : [birth year] SEX: M ROOM/BED: D.2109 AUTHOR: MARIZA,DOC PHYSICIAN: REFERRING PHYSICIAN: DERRICK DOCKERY MD DATE OF SERVICE: 09/20/18 Discharge Plan Patient Name: [facility]OEL FINK [facility] [facility] 1945 Planned Disposition: Inpatient Rehab Anticipated Discharge Date: 09/20/18 Discharge Date: Expected LOS: 18 Initial Reviewer: [email or web address] Initial Review Date: 09/02/2018 Generated: 09/20/18 4:24 pm Comments DCP- Discharge Planning Updated by [email or web address]: Miguel Matos on 09/19/18 12:[address] Patient Name: YOEL FINK Encounter No: [id number] : 1945 Primary Insurance: MEDICARE A & B Anticipated DC Date: 09-14-2018 Planned Disposition: Inpatient Rehab External Planned Provider: [facility] IN[facility] DCP follow-up note: CM SPOKE TO URSULA OF INPATIENT REHAB, THEY PLAN TO ACCEPT PT FOR REHAB TODAY. RN MATTHEW VYAS NOTIFED ESTEFANÍA KAIMARILEE. PT AND SPOUSE NOTIFIED IN ROOM, BOTH IN AGREEMENT WITH DISCHARGE TO REHAB TODAY. IMPORTANT MESSAGE FROM MEDICARE PROVIDED AND EXPLAINED. [facility] INPATIENT REH[facility] TO CONTACT MED 2 NURSE WITH ROOM NUMBER WHEN READY TO ACCEPT PT AND NURSE REPORT. Miguel Matos, CASE MANAGEMENT DCP- Discharge Planning Updated by [id number]: Elisa Vyas on 09/18/18 11:[address] WAS ASKED BY MD IF PATIENT WOULD BE ABLE TO DISCHARGE TO INPATIENT REHAB TODAY. I CALLED AND SPOKE WITH ASHLYN IN REHAB AT EXT 1160, AND SHE STATED THAT [facility] WAS ONCALL FOR REHAB INTAKE AND I WAS GIVEN HER PHONE NUMBER TO CALL HER. @ 1012 I CALLED AND LEFT HER A VOICEMAIL EXPLAINING WHAT MD WAS ASKING. I WILL WAIT FOR RETURN CALL. DCP- Discharge Planning Updated by [email or web address]: Miguel Matos on 09/13/18 2:[address] Patient Name: YOEL FINK Encounter No: [id number] : 1945 Primary Insurance: MEDICARE A & B Anticipated DC Date: 09-14-2018 Planned Disposition: Inpatient Rehab External Planned Provider: [facility] DCP follow-up note: CM SPOKE TO CARLOS OF INPATIENT REHAB, THEY PLAN TO ACCEPT PT FOR REHAB WHEN STABLE AND OFF DOBUTAMINE. NOTIFY [facility] IN[facility] WHEN PT HAS DISCHARGE ORDER. [facility] IN[facility] TO CONTACT MED 2 NURSE WITH ROOM NUMBER WHEN READY TO ACCEPT PT AND NURSE REPORT. JOSEPH Munroe DCP- Discharge Planning Updated by [email or web address]: Migule Matos on 09/13/18 11:[address] Patient Name: YOEL FINK Encounter No: [id number] : 1945 Primary Insurance: MEDICARE A & B Anticipated DC Date: 09-13-2018 Planned Disposition: Inpatient Rehab External Planned Provider: [facility] DCP follow-up note: CM RECEIVED ORDER FOR INPATIENT REHAB PRESCREENING, MET WITH PT IN ROOM TO DISCUSS DISCHARGE NEEDS AND PLANNING. CM DISCUSSED AVAILABILITY OF HOME HEALTH, REHAB SERVICES AND MEDICAL EQUIPMENT. PT HAS DISCUSSED REHAB WITH THE DOCTOR AND WOULD LIKE REHAB AT [facility] PRIOR TO RETURN HOME. IMPORTANT MESSAGE FROM MEDICARE PROVIDED AND EXPLAINED. CM WAITING INPATIENT REHAB PRESCREENING AND ADMISSION DETERMINATION FROM [facility] IN[facility]. JOSEPH Munroe DCP- Discharge Planning Updated by [id number]: Disha Rosa on 09/02/18 3:[address] Patient Name: YOEL FINK Admission Status: ER Accout number: [id number] Admission Date: 09-02-2018 : 1945 Admission Diagnosis: Attending: DERRICK DOCKERY Current LOS: 1 Anticipated DC Date: Planned Disposition: Home Primary Insurance: MEDICARE A & B Discharge Planning Comments: CM met with patient about discharge planning. CM explained CM role and verbal consent was given to do dc assessment. CM educated on Home Health, DME and rehab services that are available. Patient states his discharge plan is to return to home with . States home environment is safe for dc. Denies any discharge planning needs at this time. States will drive him home upon discharge. CM will continue to follow and assist as needed with discharge planning needs. Ios Architect: Disha Rosa DCPIA - Discharge Planning Initial Assessment Updated by [email or web address]: Disha Rosa on 09/02/18 4:28 pm * Is the patient Alert and Oriented? Yes * How many steps to enter\exit or inside your home? na * PCP Pepito * Pharmacy [facility] [address] * Preadmission Environment Home with Family * ADLs Independent * Equipment Walker * List name and contact numbers for known caregivers / representatives who currently or will assist patient after discharge: Kyra mora [phone] * Verbal permission to speak to the caregivers and representatives has been obtained from the patient. Yes * Community resources currently utilized None * Additional services required to return to the preadmission environment? No * Can the patient safely return to the preadmission environment? Yes * Has this patient been hospitalized within the prior 30 days at any hospital? No Coverage Notice Reviewer: [email or web address] Matos Notice Issued Date-Time: 09/13/2018 11:05 Notice Type: IM Discharge Notice Notice Delivered To: Patient Relationship to Patient: Manager Software Development Name: Delivery Method: HAND - Hand Delivered Ariadna Days: Prior Verbal Notification: Recipient Understood Notice: Yes Recipient Signature: Yes Med Rec Note Co-signed by Attending: Coverage Notice Comment: Reviewer: RAKAN Matos Notice Issued Date-Time: 09/19/2018 9:25 Notice Type: IM Discharge Notice Notice Delivered To: Patient Relationship to Patient: Manager Software Development Name: Delivery Method: HAND - Hand Delivered Ariadna Days: Prior Verbal Notification: Recipient Understood Notice: Yes Recipient Signature: Yes Med Rec Note Co-signed by Attending: Coverage Notice Comment: Last DP export: 09/20/18 6:48 a Patient Name: YOEL FINK Page [id number] at 1525 All edits/amendments must be made on the electronic document DICTATION DATE: 09/20/18 152 SENIOR SQL DEVELOPER: LIV 09/20/18 152 RPT#: [id number] HI DATE: STATUS: ADM IN [facility] [address] [place] [address] END OF REPORT
--- NOTE | 2018-09-20 15:33 | NUR ---
OT NOTE: PT COMPLETED BED MOB SUPINE TO SIT WITH SPV. PT COMPLETED SIT TO STAND WITH CGA. PT COMPLETED FACE WASH AT EOB WITH SET UP. THANK YOU, RMAILA CHUNG
--- NOTE | 2018-09-20 15:34 | MORECARE ---
CASE MANAGEMENT DISCHARGE SUMMARY PATIENT: YOEL FINK UNIT: [id number] ADM DATE: 09/02/18 AGE: 73 : [birth year] SEX: M ROOM/BED: D.2109 AUTHOR: MARIZA,DOC PHYSICIAN: REFERRING PHYSICIAN: DERRICK DOCKERY MD DATE OF SERVICE: 09/20/18 Discharge Plan Patient Name: [facility]OEL [facility]INK [facility] [facility] 1945 Planned Disposition: Inpatient Rehab Anticipated Discharge Date: 09/20/18 Discharge Date: Expected LOS: 18 Initial Reviewer: [id number] Initial Review Date: 09/02/2018 Generated: 09/20/18 4:34 pm Comments DCP- Discharge Planning Updated by [email or web address]: Miguel Matos on 09/20/18 2:[address] Patient Name: YOEL FINK Encounter No: [id number] : 1945 Primary Insurance: MEDICARE A & B Anticipated DC Date: 09-20-2018 Planned Disposition: Inpatient Rehab External Planned Provider: [facility] INPATIENT REH[facility] DCP follow-up note: CM SPOKE TO ESTEFANÍA SCHROEDER AND DR. LOCKHART WHO PLAN TO DISCHARGE PT TO INPATIENT REHAB TODAY. CM NOTIFIED PATTIE OF INPATIENT REHAB, THEY PLAN TO ACCEPT PT FOR REHAB TODAY. PT NOTIFIED IN ROOM, BOTH IN AGREEMENT WITH DISCHARGE TO REHAB TODAY AND WILL CALL HIS . [facility] INPATIENT REHAB TO CONTACT MED 2 NURSE WITH ROOM NUMBER WHEN READY TO ACCEPT PT AND NURSE REPORT. Miguel Matos, CASE MANAGEMENT DCP- Discharge Planning Updated by [email or web address]: Miguel Matos on 09/19/18 12:[address] Patient Name: YOEL FINK Encounter No: [id number] : 1945 Primary Insurance: MEDICARE A & B Anticipated DC Date: 09-14-2018 Planned Disposition: Inpatient Rehab External Planned Provider: [facility] INPATIENT REH[facility] DCP follow-up note: CM SPOKE TO URSULA OF INPATIENT REHAB, THEY PLAN TO ACCEPT PT FOR REHAB TODAY. RN MATTHEW HOUSE NOTIFED ESTEFANÍA SCHROEDER. PT AND SPOUSE NOTIFIED IN ROOM, BOTH IN AGREEMENT WITH DISCHARGE TO REHAB TODAY. IMPORTANT MESSAGE FROM MEDICARE PROVIDED AND EXPLAINED. [facility] INPATIENT REHAB TO CONTACT MED 2 NURSE WITH ROOM NUMBER WHEN READY TO ACCEPT PT AND NURSE REPORT. JOSEPH Munroe MANAGEMENT DCP- Discharge Planning Updated by [id number]: Elisa Woods on 09/18/18 11:[address] WAS ASKED BY MD IF PATIENT WOULD BE ABLE TO DISCHARGE TO INPATIENT REHAB TODAY. I CALLED AND SPOKE WITH ASHLYN IN REHAB AT EXT 1160, AND SHE STATED THAT [facility] WAS ONCALL FOR REHAB INTAKE AND I WAS GIVEN HER PHONE NUMBER TO CALL HER. @ 1012 I CALLED AND LEFT HER A VOICEMAIL EXPLAINING WHAT MD WAS ASKING. I WILL WAIT FOR RETURN CALL. DCP- Discharge Planning Updated by [id number]: Miguel Matos on 09/13/18 2:[address] Patient Name: YOEL FINK Encounter No: [id number] : 1945 Primary Insurance: MEDICARE A & B Anticipated DC Date: 09-14-2018 Planned Disposition: Inpatient Rehab External Planned Provider: [facility] INPATIENT REH[facility] DCP follow-up note: CM SPOKE TO CARLOS OF INPATIENT REHAB, THEY PLAN TO ACCEPT PT FOR REHAB WHEN STABLE AND OFF DOBUTAMINE. NOTIFY [facility] INPATIENT REH[facility] WHEN PT HAS DISCHARGE ORDER. [facility] INPATIENT REHAB TO CONTACT MED 2 NURSE WITH ROOM NUMBER WHEN READY TO ACCEPT PT AND NURSE REPORT. Miguel Matos CASE MANAGEMENT DCP- Discharge Planning Updated by [email or web address]: Miguel Matos on 09/13/18 11:[address] Patient Name: YOEL FINK Encounter No: [id number] : 1945 Primary Insurance: MEDICARE A & B Anticipated DC Date: 09-13-2018 Planned Disposition: Inpatient Rehab External Planned Provider: [facility] INPATIENT REH[facility] DCP follow-up note: CM RECEIVED ORDER FOR INPATIENT REHAB PRESCREENING, MET WITH PT IN ROOM TO DISCUSS DISCHARGE NEEDS AND PLANNING. CM DISCUSSED AVAILABILITY OF HOME HEALTH, REHAB SERVICES AND MEDICAL EQUIPMENT. PT HAS DISCUSSED REHAB WITH THE DOCTOR AND WOULD LIKE REHAB AT [facility] PRIOR TO RETURN HOME. IMPORTANT MESSAGE FROM MEDICARE PROVIDED AND EXPLAINED. CM WAITING INPATIENT REHAB PRESCREENING AND ADMISSION DETERMINATION FROM [facility] INPATIENT REH[facility]. Miguel Matos CASE MANAGEMENT DCP- Discharge Planning Updated by [id number]: Disha Rosa on 09/02/18 3:[address] Patient Name: YOEL FINK Admission Status: ER Accout number: [id number] Admission Date: 09-02-2018 : 1945 Admission Diagnosis: Attending: DERRICK DOCKERY Current LOS: 1 Anticipated DC Date: Planned Disposition: Home Primary Insurance: MEDICARE A & B Discharge Planning Comments: CM met with patient about discharge planning. CM explained CM role and verbal consent was given to do dc assessment. CM educated on Home Health, DME and rehab services that are available. Patient states his discharge plan is to return to home with . States home environment is safe for dc. Denies any discharge planning needs at this time. States will drive him home upon discharge. CM will continue to follow and assist as needed with discharge planning needs. Applications Support Engineer: Disha Rosa DCPIA - Discharge Planning Initial Assessment Updated by [email or web address]: Disha Rosa on 09/02/18 4:28 pm * Is the patient Alert and Oriented? Yes * How many steps to enter\exit or inside your home? na * PCP [facility] * Pharmacy [facility] [address] * Preadmission Environment Home with Family * ADLs Independent * Equipment Walker * List name and contact numbers for known caregivers / representatives who currently or will assist patient after discharge: Kyra pts [phone] * Verbal permission to speak to the caregivers and representatives has been obtained from the patient. Yes * Community resources currently utilized None * Additional services required to return to the preadmission environment? No * Can the patient safely return to the preadmission environment? Yes * Has this patient been hospitalized within the prior 30 days at any hospital? No Coverage Notice Reviewer: RAKAN Matos Notice Issued Date-Time: 09/13/2018 11:05 Notice Type: IM Discharge Notice Notice Delivered To: Patient Relationship to Patient: Pepper Cutter Name: Delivery Method: HAND - Hand Delivered Ariadna Days: Prior Verbal Notification: Recipient Understood Notice: Yes Recipient Signature: Yes Med Rec Note Co-signed by Attending: Coverage Notice Comment: Reviewer: RAKAN Matos Notice Issued Date-Time: 09/19/2018 9:25 Notice Type: IM Discharge Notice Notice Delivered To: Patient Relationship to Patient: Pepper Cutter Name: Delivery Method: HAND - Hand Delivered Ariadna Days: Prior Verbal Notification: Recipient Understood Notice: Yes Recipient Signature: Yes Med Rec Note Co-signed by Attending: Coverage Notice Comment: Last DP export: 09/20/18 2:25 p Patient Name: YOEL FINK Page [id number] at 1534 All edits/amendments must be made on the electronic document DICTATION DATE: 09/20/181532 BYPRODUCTS PUMP OPERATOR: LIV 09/20/181532 RPT#: [id number] DC DATE: STATUS: ADM IN [facility] [address] [place] [address] END OF REPORT
--- NOTE | 2018-09-20 16:20 | NUR ---
CALLED REPORT TO INPATIENT REHAB, ALL QUESTIONS ANSWERED.
[2018-09-20] MEDS ORDERED: SEROQUEL25 MG PO (16:25)
[2018-09-20] MEDS ORDERED: PROTONIX40 MG PO (16:27)
[2018-09-20] MEDS ORDERED: FLORINEF 0.1 M0.1 MG PO (16:27)
[2018-09-20] MEDS ORDERED: COLACE100 MG PO (16:28)
--- NOTE | 2018-09-20 17:20 | NUR ---
DISCHARGE INSTRUCTIONS REVIEWED WITH PT AND ALL QUESTIONS ANSWERED. TELEMETRY REMOVED AND GIVEN TO IT HELP DESK TECHNICIAN. ASSISTED PT DOWN TO INPATIENT REHAB VIA WHEELCHAIR.
== END 2018-09-20 17:51 | DRG 291 ==
LOC: D.ER 10:38 → D.EDHOLD 13:43 → D.M2 13:43 → D.M3 13:43 → D.ICU 13:43 → D.M3 14:12 → D.M2 09-05 19:22 → D.ICU 09-06 15:54 → D.M2 09-10 18:11
PROVIDERS: Emergency Medicine; Family Medicine; Internal Medicine Pulmonary Disease; ADMIT Internal Medicine Nephrology; ATTEND Internal Medicine Nephrology
PROC: 5A09557 Assistance with Respiratory Ventilation, Greater than 96 Consecutive Hours, Continuous Positive Airway Pressure (ICD-10-PCS; 2018-09-03)
PROC: 05HB33Z Insertion of Infusion Device into Right Basilic Vein, Percutaneous Approach (ICD-10-PCS; principal; 2018-09-08)
PROC: B54MZZA Ultrasonography of Right Upper Extremity Veins, Guidance (ICD-10-PCS; 2018-09-08)
DX: I11.0 Hypertensive heart disease with heart failure (principal); J18.9 Pneumonia, unspecified organism; G93.41 Metabolic encephalopathy; J96.21 Acute and chronic respiratory failure with hypoxia; N17.9 Acute kidney failure, unspecified; J44.0 Chronic obstructive pulmonary disease with (acute) lower respiratory infection; J98.11 Atelectasis; I50.23 Acute on chronic systolic (congestive) heart failure; I08.3 Combined rheumatic disorders of mitral, aortic and tricuspid valves; D64.9 Anemia, unspecified; E87.6 Hypokalemia; E78.5 Hyperlipidemia, unspecified; G47.33 Obstructive sleep apnea (adult) (pediatric); I27.21 Secondary pulmonary arterial hypertension; F03.90 Unspecified dementia, unspecified severity, without behavioral disturbance, psychotic disturbance, mood disturbance, and anxiety; I95.89 Other hypotension; K21.9 Gastro-esophageal reflux disease without esophagitis; I73.9 Peripheral vascular disease, unspecified; R41.0 Disorientation, unspecified; Z95.0 Presence of cardiac pacemaker

== ENCOUNTER 2018-09-20 16:06 | Inpatient (IN) | payer MEDICARE, BC ==
[~2018-09-20] VITALS: Ht 172.7 cm; Wt 69.3 kg
[~2018-09-20 16:06] MED LIST changes: +ALDACTONE50 MG PO; +DEPAKOTE500 MG PO; +FLUDROCORTISONE PO; +MIDODRINE HCL5 MG PO
[2018-09-20] MEDS ORDERED: SEROQUEL25 MG PO (16:25)
[2018-09-20] MEDS ORDERED: PROTONIX40 MG PO (16:27)
[2018-09-20] MEDS ORDERED: FLORINEF 0.1 M0.1 MG PO (16:27)
[2018-09-20] MEDS ORDERED: COLACE100 MG PO (16:28)
--- NOTE | 2018-09-20 17:53 | NUR ---
ADMITTED FROM ACUTE UNIT TO ROOM 1109A.
[2018-09-20 18:20] VITALS: BP 90/49; BMI 22.8
[2018-09-20 19:00] VITALS: BP 90/43
--- NOTE | 2018-09-20 20:40 | NUR ---
PT IN BED, EYES OPEN, SON AT BEDSIDE, A&O, PLEASANT, NEW ADMIT, WALK PT TO TOILET WHILE PULLING WC BEHIND PT FOR SAFETY IF TOO FAR A WALK, UNSTEADY GAIT, USED WC TO RETURN TO BED, AFTER TOILETING AND BM, PAPERS SIGNED, CHART COMPLETED, NO OTHER NEEDS NOTED, FLUIDS AND CALL LIGHT WITHIN REACH
[2018-09-21 06:10] LABS: BASOPHILS 0.5 % (0-2); EOSINOPHILS 4.8 % (0-7); HEMATOCRIT 30.4 % (42.0-54.0); HEMOGLOBIN 9.8 g/dL (13.5-17.5); IMMATURE GRANULOCYTES 0.2 % (0-5); MCH 29.9 pg (26.0-34.0); MCHC 32.2 g/dL (31.0-37.0); MCV 92.7 fL (80.0-100.0); MEAN PLATELET VOLUME 8.8 fL (7.4-10.4); NEUTROPHILS 59.5 % (40-80); PLATELET COUNT 252 10x3/uL (130-400); RBC 3.28 10x6/uL (4.20-6.10); RDW 27.5 % (11.5-14.5); WBC 5.6 10x3/uL (4.8-10.8)
[2018-09-21 06:14] LABS: CALC OSMOLALITY 275 mosm/kg (275-300); CALCIUM 9.1 mg/dL (8.5-10.1); CARBON DIOXIDE 24.6 mmol/L (21.0-32.0); CHLORIDE - SERUM 106 mmol/L (98-107); CREATININE - SERUM 0.8 mg/dL (0.6-1.3); GLUCOSE 88 mg/dL (74-106); POTASSIUM - SERUM 4.3 mmol/L (3.5-5.1); SODIUM 138 mmol/L (136-145); UREA NITROGEN 16 mg/dL (7-18); eGFR NON AFRICAN AMERICAN > 90 mL/min (90-120)
[2018-09-21 08:00] VITALS: BP 93/48
[2018-09-21 14:02] VITALS: BMI 22.8
[2018-09-21 15:00] VITALS: Ht 172.7 cm; Wt 69.3 kg
--- NOTE | 2018-09-21 20:07 | NUR ---
PT IN BED LOWEST POSITION, WATCHING TV, BREATH EVEN AND UNLABORED, NO NEEDS NOTED, PLEASANT, FLUIDS AND CALL LIGHT WITHIN REACH
--- NOTE | 2018-09-22 01:49 | NUR ---
PT IN BED LOWEST POSITION, EYES CLOSED AROUSES EASILY TO VOICE, BREATHS SLOW EVEN AND UNLABORED, NO NEEDS NOTED, FLUIDS AND CALL LIGHT WITHIN REACH,
[2018-09-22 06:39] VITALS: BP 114/40
[2018-09-22 07:22] LABS: CALC OSMOLALITY 273 mosm/kg (275-300); CARBON DIOXIDE 23.2 mmol/L (21.0-32.0); CHLORIDE - SERUM 105 mmol/L (98-107); GLUCOSE 92 mg/dL (74-106); POTASSIUM - SERUM 4.1 mmol/L (3.5-5.1); SODIUM 136 mmol/L (136-145); UREA NITROGEN 18 mg/dL (7-18); eGFR NON AFRICAN AMERICAN 78 mL/min (90-120)
[2018-09-22 08:09] VITALS: BP 109/49
[2018-09-22 08:35] LABS: BASOPHILS 0.6 % (0-2); EOSINOPHILS 4.3 % (0-7); HEMATOCRIT 30.4 % (42.0-54.0); HEMOGLOBIN 9.9 g/dL (13.5-17.5); IMMATURE GRANULOCYTES 0.2 % (0-5); LYMPHOCYTES 25.9 % (15-50); MCH 30.5 pg (26.0-34.0); MCHC 32.6 g/dL (31.0-37.0); MCV 93.5 fL (80.0-100.0); MEAN PLATELET VOLUME 8.8 fL (7.4-10.4); MONOCYTES 6.5 % (2-11); NEUTROPHILS 62.5 % (40-80); PLATELET COUNT 263 10x3/uL (130-400); RBC 3.25 10x6/uL (4.20-6.10); WBC 6.3 10x3/uL (4.8-10.8)
[2018-09-22 10:18] LABS: PLATELET ESTIMATE DECREASED
[2018-09-22 10:19] LABS: ANISOCYTOSIS OCC
--- NOTE | 2018-09-22 11:31 | RHP ---
PATIENT: YOEL FINK MEDICAL RECORD: [id number] ACCOUNT: [id number] LOCATION:[facility] [id number] : [birth year] ADMISSION DATE: 09/20/18 REHABILITATION HISTORY AND PHYSICAL EXAMINATION POST ADMISSION PHYSICIAN EXAMINATION DATE OF ADMISSION: 09/20/2018. ADMITTING DIAGNOSIS: Acute metabolic encephalopathy. HISTORY OF PRESENT ILLNESS: The patient was admitted to the inpatient rehab with a nontraumatic brain dysfunction, acute metabolic encephalopathy. A 73-year-old gentleman that presented to the ED with his reporting that the patient has been having increased confusion, intermittent slurred speech, shortness of breath, and several episodes of diarrhea starting with iron supplementation that had been on the week before. He was in the hospital a week prior to this and he required a blood transfusion. He has got new onset incontinence. He was found to be in acute respiratory failure with hypoxia, congestive heart failure, pneumonia, electrolyte abnormalities, hypertension, and new onset confusion. He has had a history of heart failure in the past, got an ejection fraction of apparently 25% to 30% with moderate mitral regurg and moderate to severe tricuspid regurg. He has been treated with Floricot and has had a significant fluid retention and weight gain in the past couple of weeks. He has had midodrine, which has been started per cardiology. He is diuresed from 181-148 with IV diuretics. He has had a Fernandez catheter. He has had problems with hypotension. He has had adjustments made to his medications. He has been followed by pulmonary, cardiology, amy-psych during his acute hospital stay. He has been requiring IV diuretics, BiPAP, supplemental O2, Fernandez catheter. Symptomatic hypotension with medication change, deconditioning, debility, impaired mobility, high risk for falls, acute confusion and self-care deficits. These are all barriers to his discharge home at this time. He lives at home with his and independent with ADLs and mobility. He is currently set up for mod assist for ADLs and mod assist to total assist for mobility. He is currently receiving OT and PT. He and his would like for him to return home at his prior level of functioning or better if possible. COMORBIDITIES: In this patient include hypotension, respiratory failure, [id number] congestive heart failure, bilateral pleural effusion, CHF, normocytic anemia, pneumonia, electrolyte abnormalities, peripheral arterial disease, peripheral vascular disease, fluid overload, hypotension, gastroesophageal reflux disease, debility, dilated cardiomyopathy, and acute metabolic encephalopathy. PAST MEDICAL HISTORY: Significant for hypertension, CHF. He has got a history of coronary artery disease, coronary artery bypass grafting, acid reflux, arthritis. PAST SURGICAL HISTORY: Includes cataract surgery, lumbar discectomy. He has had iliac stents, open heart surgery, pacemaker placement, and angioplasty. ALLERGIES: No known drug allergies. CURRENT MEDICATIONS: Include Protonix 40 mg daily, multivitamin daily, midodrine 10 mg t.i.d. He is on Floranex 460 mg daily, vitamin D 2000 units daily, aspirin 81 mg daily, Pepcid 20 mg daily, Seroquel 12.5 q.h.s., Colace 100 HISTORY AND PHYSICAL [id number] YOEL FINK mg b.i.d., and Eliquis 5 mg b.i.d. HABITS: No current alcohol or tobacco use. FAMILY HISTORY: Noncontributory. SOCIAL HISTORY: The patient hopes to return back home with his and get back to his prior level of functioning. REVIEW OF SYSTEMS: GENERAL: Does complain of weakness and fatigue. HEENT: Denies cold, cough, or congestion. CARDIOVASCULAR: He denies any chest pain. PHYSICAL EXAMINATION: VITAL SIGNS: Stable, afebrile. GENERAL: An elderly gentleman in no acute distress, alert upon exam. HEENT: Normocephalic and atraumatic. Mucosa moist. NECK: Supple. No lymphadenopathy. LUNGS: Clear at this time. HEART: Irregular rate and rhythm. ABDOMEN: Benign. EXTREMITIES: No clubbing, cyanosis or edema. NEUROLOGIC: He is noted to be somewhat diminished. He does have problems also with hypotension upon standing. LABORATORY DATA: His white count is 5.6, H&H of 9.8 and 30.4, and platelet count was noted to be 252. Sodium 138, potassium 4.3, BUN and creatinine of 16 and 0.8, and blood sugar is noted to be 88. ASSESSMENT: This is a 73-year-old gentleman admitted to the rehab with a working diagnosis of acute metabolic encephalopathy. The patient has potential to make improvement. We instituted the following multidisciplinary therapies including, but not limited to physical, occupational, respiratory, speech, nutritional services, prosthetics, and orthotics. Given his complex medical condition and risk for more complications, rehabilitation services cannot be provided at a low level of care such a skilled nurse facility. PLAN: 1. Admit to [facility] for intensive inpatient therapy to include the following disciplines: A. Physical therapy to improve gait, all transfer skills and bed mobility to a modified independent level. B. Occupational therapy to improve activities of daily living to a modified independent level. C. Case management to assist with discharge planning and placement options. D. Nutrition to assist with nutritional needs. E. Rehabilitation nursing to assist in monitoring the patient's underlying medical condition and to assist with any type of bowel or bladder management. 2. The patient's current medication and medical care will be continued. 3. The patient will be placed on the standard fall precautions. 4. The patient's estimated length of stay is approximately 7-10 days. 5. We will discuss the patient during care team staff meeting this week. TRANSINT:[id number] Voice Confirmation ID: [id number] DOCUMENT ID: [id number] HISTORY AND PHYSICAL [id number] YOEL FINK notes whether there has been none or any medical/functional change since admission: - No change since pre-admission screen. COURTNEY attests patient continues to be appropriate for IRF: - Continues to be appropriate. ALETA INGRAM MD at 1131 CC: [id number] DICTATION DATE: 09/21/1808 GREY GOODS EXAMINER: 09/21/18 [address] [facility] [address] [place] [address]
--- NOTE | 2018-09-22 12:49 | NUR ---
LAYING IN BED RESTING QUIETLY. WFIEE IN ROOM. HE STILL REFUSES TO USE BIPAP AT HS AND DOES NOT CALL FOR HELP TO GET UP. ENCOURAGED PT TO USE CALL LIGHT AND ASK FOR HELP BEFORE HE GETS UP.
[2018-09-22 19:00] VITALS: BP 91/48
--- NOTE | 2018-09-22 19:24 | NUR ---
THE PATIENT APPEARED TO BE SLEEPING BUT EASILTY AWOKE WHEN STAFF ENTERED HIS ROOM. BED IS IN THE LOW POSITION WITH SIDERAILS X2 AND CALL LIGHT WITHIN REACH. THE PATIENT WAS EDUCATED ON AND DEMONSTRATED USE OF A CALL LIGHT. THE PATIENT APPEARS COMFORTABLE WITH NO QUESTIONS OR CONCERNS AT THIS TIME.
--- NOTE | 2018-09-22 21:06 | NUR ---
THE PATIENT WAS LYING IN BED BUT EASILY AWOKE WHEN STAFF ENTERED HIS ROOM. BED IS IN THE LOW POSITION WITH SIDERAILS X2 AND CALL LIGHT WITHIN REACH. THE PATIENT DEMONSTRTAES APPRPRIATE USE OF A DELICIA LIGHT. PRESWURE ULCERS X2 DOCUMENTATED. THE PATIENT APPEARS COMFORTABLE WITH NO QUESTIONS OR CONCERNS AT THIS TIME.
--- NOTE | 2018-09-23 02:40 | NUR ---
THE PATIENT APPEARS TO BE SLEEPING. BED IS IN THE LOW POSITION WITH SIDERAILS X2 AND CALL LIGHT WITHIN REACH.
[2018-09-23 08:00] VITALS: BP 74/42
--- NOTE | 2018-09-23 08:41 | NUR ---
PT ASSISTED TO BR. PT CURRENTLY SITTING UP IN WHEELCHAIR EATING BREAKFAST, DENIES NEEDS.
--- NOTE | 2018-09-23 17:32 | NUR ---
PT SITTING UP EATING DINNER, DENIES NEEDS. WCTM.
--- NOTE | 2018-09-23 19:28 | NUR ---
PT IS RESTING IN BED WITH EYES OPEN. ALERT AND ORIENTED X 3. DENIES ANY PAIN OR DISCOMFORT AT THIS TIME. NO NEEDS VOICE. NO SOB NOTED. SR'S ARE UP X 2 IN BED. CALL LIGHT AND BEDSIDE TABLE ARE WITHIN EASY REACH.
[2018-09-23 19:50] VITALS: BP 91/63
--- NOTE | 2018-09-23 22:21 | NUR ---
PATIENT SLEEPING AT THIS TIME. WILL CONTINUE TO MONITOR.
--- NOTE | 2018-09-24 02:07 | NUR ---
RESTING IN BED WITH EYES CLOSED.
--- NOTE | 2018-09-24 04:53 | NUR ---
PT RESTING IN BED WITH EYES CLOSED. NO DISTRESS NOTED.
[2018-09-24 08:00] VITALS: BP 87/43
--- NOTE | 2018-09-24 09:20 | NUR ---
PT AM MEDS ADMINISTERED. PT DENIES NEEDS. WCTM.
--- NOTE | 2018-09-24 17:35 | NUR ---
PT EATING DINNER, DENIES NEEDS. WCTM.
--- NOTE | 2018-09-24 19:25 | NUR ---
PT RESTING IN BED WITH EYES OPEN. ALERT AND ORIENTED X 3. DENIES ANY PAIN OR DISCOMFORT AT THIS TIME. NO NEEDS VOICED. NO SOB NOTED. SR'S ARE UP X 3 IN BED. CALL LIGHT AND BEDSIDE TABLE ARE WITHIN EASY REACH.
[2018-09-24 20:00] VITALS: BP 86/41
--- NOTE | 2018-09-24 21:19 | NUR ---
PT IS RESTING IN BED WATCHING TV. NO ACUTE DISTRESS NOTED.
--- NOTE | 2018-09-24 22:32 | NUR ---
PATIENT SLEEPING AT THIS TIME. WILL CONTINUE TO MONITOR.
--- NOTE | 2018-09-25 02:23 | NUR ---
RESTING IN BED WITH EYES CLOSED.
--- NOTE | 2018-09-25 06:04 | NUR ---
PT READYING HIMSELF FOR THE DAY. NO NEEDS VOICED.
[2018-09-25 06:43] LABS: BASOPHILS 0.4 % (0-2); EOSINOPHILS 4.2 % (0-7); HEMATOCRIT 29.3 % (42.0-54.0); HEMOGLOBIN 9.4 g/dL (13.5-17.5); IMMATURE GRANULOCYTES 0.2 % (0-5); LYMPHOCYTES 35.8 % (15-50); MCH 30.3 pg (26.0-34.0); MCHC 32.1 g/dL (31.0-37.0); MCV 94.5 fL (80.0-100.0); MEAN PLATELET VOLUME 8.5 fL (7.4-10.4); MONOCYTES 8.5 % (2-11); NEUTROPHILS 50.9 % (40-80); PLATELET COUNT 257 10x3/uL (130-400); WBC 5.5 10x3/uL (4.8-10.8)
[2018-09-25 07:04] LABS: CALC OSMOLALITY 275 mosm/kg (275-300); CARBON DIOXIDE 25.3 mmol/L (21.0-32.0); CHLORIDE - SERUM 104 mmol/L (98-107); CREATININE - SERUM 0.9 mg/dL (0.6-1.3); GLUCOSE 84 mg/dL (74-106); POTASSIUM - SERUM 4.1 mmol/L (3.5-5.1); SODIUM 138 mmol/L (136-145); UREA NITROGEN 14 mg/dL (7-18); eGFR NON AFRICAN AMERICAN 88 mL/min (90-120)
[2018-09-25 08:00] VITALS: BP 98/61
--- NOTE | 2018-09-25 09:45 | NUR ---
Nutrition follow up: Pt is sleeping now Pt has snacks on bedside table Pt on a regular diet with 75% average po intake Ensure ordered with meals RD following
--- NOTE | 2018-09-25 10:08 | NUR ---
PT AM MEDS ADMINISTERED. PT CURRENTLY AT SINK SHAVING WHILE IN WHEELCHAIR. PT DENIES NEEDS. WCTM.
--- NOTE | 2018-09-25 16:47 | NUR ---
PATIENT ADMITTED TO REHAB FROM ACUTE FLOOR. DR. VENEGAS IS PATIENT PCP. DME AT HOME IS A WALKER. DISCHARGE PLANS ARE FOR PATIENT TO REURN HOME WITH SPOUSE. WILL CONTINUE TO FOLLOW WITH PATIENT.
--- NOTE | 2018-09-25 17:45 | NUR ---
PT SITTING UP EATING DINNER, DENIES NEEDS. WCTM.
[2018-09-25 19:00] VITALS: BP 85/49
--- NOTE | 2018-09-25 19:00 | NUR ---
PT IS RESTING IN BED WATCHING TV. ALERT AND ORIENTED X 3. DENIES ACUTE PAIN OR DISCOMFORT AT THIS TIME. NO DISTRESS NOTED. NO SOB NOTED. NO NEEDS VOICED. SR'S ARE UP X 3 IN BED. CALL LIGHT AND BEDSIDE TABLE ARE WITHIN EASY REACH.
--- NOTE | 2018-09-25 22:27 | NUR ---
PT RESTING IN BED WITH EYES CLOSED. NO ACUTE DISTRESS NOTED.
--- NOTE | 2018-09-25 23:48 | NUR ---
PT IN BED, LOWEST POSITION, EYES CLOSED, AROUSES EASILY TO VOICE, NO IMMEDIATE NEEDS NOTED, FLUIDS AND CALL LIGHT WITHIN REACH
[2018-09-26 08:00] VITALS: BP 96/62
--- NOTE | 2018-09-26 08:02 | NUR ---
PATIENT IS ALERT/ORIENT. SITTING UP IN WHEELCHAIR AT BEDSIDE TO EAT BREAKFAST. CALL LIGHT WITHIN REACH. WILL CONTINUE WITH PLAN OF CARE
--- NOTE | 2018-09-26 09:35 | NUR ---
RESTING QUIETLY IN BED. NO DISTRESS NOTED. CL IN REACH. RESP EVEN AND UNLABORED.
--- NOTE | 2018-09-26 10:12 | NUR ---
PATIENT IN REHAB ROOM. WORKING WITH PHYSICAL THERAPIST. DENIES ANY PAIN/DISC AT THIS TIME.
--- NOTE | 2018-09-26 13:22 | NUR ---
I have reviewed this patient and I concur with the Shift Assessment completed by the Licensed Practical Nurse today this shift.
--- NOTE | 2018-09-26 14:27 | NUR ---
PATIENT HELPED INTO BATHROOM. STAND BY ASST OF ONE
--- NOTE | 2018-09-26 15:17 | NUR ---
PATIENT UP AT NURSING STATION IN WHEELCHAIR. STATES HE IS GOING TO WHEEL HIMSELF OUTSIDE FOR AWHILE
--- NOTE | 2018-09-27 00:03 | NUR ---
PT IN BED LOWEST POSITION, EYES CLOSED AROUSES EASILY TO VOICE, BREATHS EVEN AND UNLABORED, NO NEEDS NOTED, FLUIDS AND CALL LIGHT WITHIN REACH
--- NOTE | 2018-09-27 02:39 | NUR ---
PT IN BED LOWEST POSITION, EYES CLOSED AROUSES EASILY TO VOICE, BREATHS EVEN AND UNLABORED, NO NEEDS NOTED, FLUIDS AND CALL LIGHT WITHIN REACH
[2018-09-27 03:39] VITALS: BP 91/56
--- NOTE | 2018-09-27 08:00 | NUR ---
SHIFT ASSMT COMPLETED.UP IN WC.BREAKFAST GIVEN.CL IN REACH.
[2018-09-27 08:10] VITALS: BP 101/62
--- NOTE | 2018-09-27 12:00 | NUR ---
UP IN FOR LUNCH.VISITING WITH FAMILY.CL IN REACH.
--- NOTE | 2018-09-27 14:00 | NUR ---
REPORTED PER PT THAT BP HAD DROPPED AFTER AMB IN SITTING POSITION 72/43.ALLOWED TO REST X 4 MIN AND RECHECKED BP WAS 92/47;STAND BALANCE ACTIVITY BP TAKEN IN STAND POSITION AND BP WAS 73/40.AFTER REST IN SITTING POS BP WAS 92/52.ASYMPTOMATIC ENTIRE TIME.NO SOB.
--- NOTE | 2018-09-27 15:27 | NUR ---
CARE TEAM MEETING: PATIENT AND SPOUSE ATTENDED MEETING. QUESTIONS AND CONCERNS WERE ADDRESSED. TENATIVE DISCHARGE DATE TO GO HOME IS 10/03/18. WILL CONTINUE TO FOLLOW WITH PATIENT.
[2018-09-27 19:00] VITALS: BP 94/41
--- NOTE | 2018-09-28 00:55 | NUR ---
PT IN BED LOWEST POSITION, EYES CLOSED AROUSES EASILY TO VOICE, BREATHS EVEN AND UNLABORED, NO NEEDS NOTED, FLUIDS AND CALL LIGHT WITHIN REACH
[2018-09-28 08:00] VITALS: BP 97/59
--- NOTE | 2018-09-28 08:00 | NUR ---
SHIFT ASSMT COMPLETED.BREAKFAST GIVEN.
--- NOTE | 2018-09-28 12:00 | NUR ---
SITTING UP IN WC.
--- NOTE | 2018-09-28 22:27 | NUR ---
PT IN BED LOWEST POSITION, EYES CLOSED AROUSES EASILY TO VOICE, BREATHS EVEN AND UNLABORED, NO NEEDS NOTED, FLUIDS AND CALL LIGHT WITHIN REACH
[2018-09-29 01:11] VITALS: BP 128/50
--- NOTE | 2018-09-29 03:17 | NUR ---
PT IN BED LOWEST POSITION, EYES CLOSED AROUSES EASILY TO VOICE, BREATHS EVEN AND UNLABORED, NO NEEDS NOTED, FLUIDS AND CALL LIGHT WITHIN REACH
[2018-09-29 07:29] LABS: BASOPHILS 0.4 % (0-2); EOSINOPHILS 2.9 % (0-7); HEMOGLOBIN 9.4 g/dL (13.5-17.5); IMMATURE GRANULOCYTES 0.2 % (0-5); LYMPHOCYTES 35.8 % (15-50); MCHC 32.4 g/dL (31.0-37.0); MCV 95.7 fL (80.0-100.0); MEAN PLATELET VOLUME 8.5 fL (7.4-10.4); MONOCYTES 12.4 % (2-11); NEUTROPHILS 48.3 % (40-80); PLATELET COUNT 221 10x3/uL (130-400); RBC 3.03 10x6/uL (4.20-6.10); WBC 5.5 10x3/uL (4.8-10.8)
[2018-09-29 07:37] LABS: CALC OSMOLALITY 281 mosm/kg (275-300); CALCIUM 9.1 mg/dL (8.5-10.1); CARBON DIOXIDE 25.9 mmol/L (21.0-32.0); CHLORIDE - SERUM 107 mmol/L (98-107); GLUCOSE 94 mg/dL (74-106); POTASSIUM - SERUM 4.1 mmol/L (3.5-5.1); SODIUM 141 mmol/L (136-145); UREA NITROGEN 14 mg/dL (7-18); eGFR NON AFRICAN AMERICAN 78 mL/min (90-120)
[2018-09-29 07:55] VITALS: BP 93/55
[2018-09-29 09:40] LABS: ACANTHOCYTES OCC; ANISOCYTOSIS OCC; CRENATED CELLS OCC; PLATELET ESTIMATE NORMAL; SCHISTOCYTES OCC
--- NOTE | 2018-09-29 13:33 | NUR ---
SITTING UP IN WC IN ROOM VISITING WITH . DENIES WEARING MANSI HOSE IN LAST SEVERAL DAYS. BP STILL DROPS WHEN HE STANDS.
--- NOTE | 2018-09-29 17:39 | NUR ---
SITTING UP IN WC IN ROOM EATING SUPPER. DENIES NEEDS OR C/O. CALL LIGHT IN REACH
--- NOTE | 2018-09-29 20:15 | NUR ---
PT IS RESTING IN BED WITH EYES OPEN. NO NEEDS VOICED. NO DISCOMFORT VOICED. SR'S ARE UP X 2 IN BED. CALL LIGHT AND BEDSIDE TABLE ARE WITHIN EASY REACH.
[2018-09-29 21:45] VITALS: BP 87/41
--- NOTE | 2018-09-29 23:47 | NUR ---
PT IS RESTING QUIETLY IN BED WITH EYES CLOSED. NO ACUTE DISTRESS NOTED.
--- NOTE | 2018-09-30 01:18 | NUR ---
PT RESTING IN BED WITH EYES CLOSED.
--- NOTE | 2018-09-30 02:41 | NUR ---
RESTING IN BED WITH RESPIRATIONS UNLABORED. NO DISTRESS NOTED. CALL LIGHT IN REACH.
--- NOTE | 2018-09-30 06:06 | NUR ---
PT RESTING IN BED WITH EYES OPEN. NO NEEDS VOICED.
[2018-09-30 08:08] VITALS: BP 107/60
--- NOTE | 2018-09-30 13:48 | NUR ---
RESTING QUIETLY IN BED. IN ROOM WITH HIM. HE IS STILL UNSTEADY ON HIS FEET AND NEEDS ASST FOR SAFETY. CALL LIGHT IN REACH
--- NOTE | 2018-09-30 18:19 | NUR ---
SITTING IN WC IN ROOM WATCHING TV. DENIES NEEDS OR C/O. CALL LIGHT IN REACH
--- NOTE | 2018-09-30 19:38 | NUR ---
PT IS RESTING IN BED WITH EYES OPEN. ALERT AND ORIENTED X 3. DENIES ANY DISCOMFORT AT THIS TIME. NO NEEDS VOICED. VSS. NO SOB NOTED. SR'S ARE UP X 2 IN BED. CALL LIGHT AND BEDSIDE TABLE ARE WITHIN EASY REACH.
[2018-09-30 21:16] VITALS: BP 94/59
--- NOTE | 2018-09-30 22:11 | NUR ---
PT IS RESTING IN BED WITH EYES OPEN. NO NEEDS VOICED.
--- NOTE | 2018-10-01 00:25 | NUR ---
RESTING IN BED WITH EYES CLOSED.
--- NOTE | 2018-10-01 05:39 | NUR ---
RESTING IN BED WITH RESPIRATIONS UNLABORED. NO DISTRESS NOTED. CALL LIGHT IN REACH,
[2018-10-01 08:31] VITALS: BP 104/61
--- NOTE | 2018-10-01 14:16 | NUR ---
LAYING IN BED WATCHING TV. DENIES NEEDS. CALL LIGHT IN REACH
--- NOTE | 2018-10-01 15:54 | NUR ---
SITTING UP IN IN ROOM. DENIES NEEDS OR C/O. DENIES FEELING DIZZY OR LIGHT HEADED WHEN TRANSFERING FROM TO BED. CALL LIGHT IN REACH
--- NOTE | 2018-10-01 16:12 | NUR ---
SITTING IN ROOM TALKING TO . DENIES NEEDS
[2018-10-01 18:44] VITALS: BP 108/60
[2018-10-01 19:00] VITALS: BP 108/60
--- NOTE | 2018-10-01 19:10 | NUR ---
PT IS RESTING IN BED WITH EYES OPEN. ALERT AND ORIENTED X 3. DENIES ANY PAIN OR DISCOMFORT AT THIS TIME. NO NEEDS VOICED. SR'S ARE UP X 2 IN BED. CALL LIGHT AND BEDSIDE TABLE ARE WITHIN EASY REACH.
--- NOTE | 2018-10-01 21:55 | NUR ---
RESTING IN BED WITH EYES CLOSED.
--- NOTE | 2018-10-01 22:06 | NUR ---
PATIENT RESTING QUIETLY AT THIS TIME. WILL CONTINUE TO MONITOR.
--- NOTE | 2018-10-02 02:25 | NUR ---
RESTING IN BED WITH EYES CLOSED.
[2018-10-02 07:43] LABS: CARBON DIOXIDE 23.9 mmol/L (21.0-32.0); CREATININE - SERUM 1.1 mg/dL (0.6-1.3); POTASSIUM - SERUM 4.9 mmol/L (3.5-5.1)
[2018-10-02 07:57] LABS: BASOPHILS 0.2 % (0-2); EOSINOPHILS 3.1 % (0-7); HEMATOCRIT 31.2 % (42.0-54.0); HEMOGLOBIN 10.1 g/dL (13.5-17.5); IMMATURE GRANULOCYTES 0.2 % (0-5); LYMPHOCYTES 36.4 % (15-50); MCH 31.4 pg (26.0-34.0); MCHC 32.4 g/dL (31.0-37.0); MCV 96.9 fL (80.0-100.0); MONOCYTES 10.1 % (2-11); PLATELET COUNT 236 10x3/uL (130-400); RBC 3.22 10x6/uL (4.20-6.10); RDW 27.2 % (11.5-14.5); WBC 6.4 10x3/uL (4.8-10.8)
[2018-10-02 08:00] VITALS: BP 98/48
--- NOTE | 2018-10-02 15:32 | NUR ---
order has been faxed to [email or web address] for a rolling walker to be delivered to patient room.
--- NOTE | 2018-10-02 19:33 | NUR ---
PT IS RESTING IN BED WITH EYES OPEN. ALERT AND ORIENTED X 3. DENIES ANY DISCOMFORT AT THIS TIME. NO NEEDS VOICED. SR'S ARE UP X 2 IN BED. CALL LIGHT AND BEDSIDE TABLE ARE WITHIN EASY REACH.
[2018-10-02 20:51] VITALS: BP 98/48
--- NOTE | 2018-10-02 21:49 | NUR ---
PT IS RESTING IN BED WITH EYES OPEN. NO NEEDS VOICED.
--- NOTE | 2018-10-03 02:23 | NUR ---
RESTING IN BED WITH RESPIRATIONS UNLABORED. NO DISTRESS NOTED. CALL LIGHT IN REACH.
--- NOTE | 2018-10-03 05:48 | NUR ---
RESTING IN BED WITH EYES OPEN. NO NEEDS VOICED.
[2018-10-03 08:00] VITALS: BP 103/63
--- NOTE | 2018-10-03 08:00 | NUR ---
SHIFT ASSMT COMPLETED.SITTING UP IN WC.BREAKFAST GIVEN.CL IN REACH.PLAN TO DC HOME TODAY.
--- NOTE | 2018-10-03 10:23 | NUR ---
PATIENT DISCHARGING HOME WITH FAMILY TODAY. BOOM DECLINES HOME HEALTH AT THIS TIME. [facility] HAS DELIVERED A ROLLING WALKER TO PATIENT. DR. VENEGAS 10/10/18 @ 3:15, DR. FELICIANO 10/17/18 @ 11:15. PATIENT CHOICE FORM AND IMFM FORMS SIGNED, COPY GIVEN TO PATIENT AND FILED IN CHART. DISCHARGE INSTRUCTIONS WITH [facility]IM DATA FAXED TO PCP AND REVIEWED WITH PATIENT AND FAMILY.
--- NOTE | 2018-10-03 11:45 | NUR ---
REVIEWED MEDS AND DC INSTRUCTIONS;MEDS CALLED INTO [facility].JACINTO IN ROOM DELIVERED FROM [facility].
--- NOTE | 2018-10-03 12:05 | NUR ---
DC'D IN STABLE CONDITION
== END 2018-10-03 12:05 | disposition home or self-care (01) | DRG 70 ==
LOC: D.REHAB 16:06
PROVIDERS: ADMIT Emergency Medicine; ATTEND Emergency Medicine
DX: G93.41 Metabolic encephalopathy (principal); J18.9 Pneumonia, unspecified organism; I50.23 Acute on chronic systolic (congestive) heart failure; J96.21 Acute and chronic respiratory failure with hypoxia; J90 Pleural effusion, not elsewhere classified; I42.0 Dilated cardiomyopathy; N17.9 Acute kidney failure, unspecified; I95.9 Hypotension, unspecified; I11.0 Hypertensive heart disease with heart failure; D64.9 Anemia, unspecified; I73.9 Peripheral vascular disease, unspecified; K21.9 Gastro-esophageal reflux disease without esophagitis; R53.81 Other malaise; E87.8 Other disorders of electrolyte and fluid balance, not elsewhere classified; E87.6 Hypokalemia; I25.10 Atherosclerotic heart disease of native coronary artery without angina pectoris; E78.5 Hyperlipidemia, unspecified

== ENCOUNTER → 2018-10-10 10:11 | Outpatient (CLI) | payer MEDICARE, BC ==
[2018-09-21 15:00] VITALS: BMI 22.8
[~2018-10-10 10:11] MED LIST changes: +COLACE100 MG PO; +FLORINEF 0.1 M0.1 MG PO; +PROTONIX40 MG PO; +SEROQUEL25 MG PO
== END | disposition home or self-care (01) ==
LOC: D.CT 10:11
PROVIDERS: ATTEND General Practice
DX: Z98.890 Other specified postprocedural states (principal)

== ENCOUNTER 2018-11-22 11:01 | Inpatient (IN) | payer MEDICARE, BC ==
[~2018-11-22] VITALS: Ht 172.7 cm; Wt 70.3 kg
[2018-11-22 11:30] VITALS: BP 92/48
[2018-11-22 11:46] LABS: BASOPHILS 0.1 % (0-2); EOSINOPHILS 0 % (0-7); HEMOGLOBIN 10.1 g/dL (13.5-17.5); IMMATURE GRANULOCYTES 0.3 % (0-5); MCHC 32.6 g/dL (31.0-37.0); MCV 85.9 fL (80.0-100.0); MEAN PLATELET VOLUME 8.9 fL (7.4-10.4); MONOCYTES 6.8 % (2-11); NEUTROPHILS 85.8 % (40-80); RBC 3.61 10x6/uL (4.20-6.10); RDW 19.1 % (11.5-14.5); WBC 6.8 10x3/uL (4.8-10.8)
[2018-11-22 12:02] LABS: PLATELET COUNT 188 10x3/uL (130-400)
[2018-11-22 12:08] LABS: ALBUMIN 3.4 g/dL (3.4-5.0); ALKALINE PHOSPHATASE 118 U/L (46-116); ALT (SGPT) 18 U/L (10-68); CALC OSMOLALITY 269 mosm/kg (275-300); CALCIUM 9.1 mg/dL (8.5-10.1); CARBON DIOXIDE 24.1 mmol/L (21.0-32.0); CHLORIDE - SERUM 101 mmol/L (98-107); CREATININE - SERUM 1.3 mg/dL (0.6-1.3); GLUCOSE 114 mg/dL (74-106); POTASSIUM - SERUM 4.3 mmol/L (3.5-5.1); PROTEIN - SERUM 7.8 g/dL (6.4-8.2); SODIUM 134 mmol/L (136-145); UREA NITROGEN 16 mg/dL (7-18); eGFR NON AFRICAN AMERICAN 58 mL/min (90-120)
[2018-11-22 12:19] LABS: CKMB 0.5 U/L (0.0-3.6); CREATINE KINASE 63 UL (21-232); INR 1.65 (0.85-1.17); PRO BNP 7534 pg/mL (0-125); PROTIME 18.9 SECONDS (11.6-15.0); TROPONIN-I 0.039 ng/mL (0.000-0.060)
[2018-11-22 12:20] LABS: APTT 41.3 SECONDS (22.8-39.4)
[2018-11-22 12:30] VITALS: BP 103/56
--- NOTE | 2018-11-22 12:40 | NUR ---
TREATING PROVIDER NOTIFIED OF TEMP OF 101.5, RECEIVED VERBAL ORDER TO ADMINISTER 1000MG TYLENOL PO. BLANKETS REMOVED FROM PT D/T FEVER.
[2018-11-22] MEDS ORDERED: LUNESTA2 M1 PO (13:09)
[2018-11-22] MEDS ORDERED: KLOR-CON 1010 MEQ PO (13:10)
[2018-11-22] MEDS ORDERED: LASIX20 MG PO (13:10)
[2018-11-22] MEDS ORDERED: NITROSTAT0.4 MG SL (13:11)
[2018-11-22 13:30] VITALS: BP 102/56
[2018-11-22 13:33] LABS: APPEARANCE CLEAR (CLEAR); BACTERIA FEW /hpf (NONE SEEN); BILIRUBIN NEGATIVE (NEGATIVE); COLOR YELLOW (YELLOW); EPITHELIAL CELLS OCC /hpf (0-5); GLUCOSE NEGATIVE (NEGATIVE); KETONE NEGATIVE (NEGATIVE); NITRITE NEGATIVE (NEGATIVE); PROTEIN 1+ mg/dL (NEGATIVE); RED CELLS - URINE 0-5 /hpf (0-5); SPECIFIC GRAVITY 1.015 (1.005-1.020); WHITE CELLS - URINE RARE /hpf (0-5)
--- NOTE | 2018-11-22 13:48 | NUR ---
PT LYING IN BED, RESPIRATIONS EVEN AND UNLABORED. NO SIGNS OF DISTRESS. CALL LIGHT IN REACH. PT AWARE HE IS BEING ADMITTED TO [facility], AWAITING BED ASSIGNMENT. PT OFFERED FOOD AND HE DENIES AT THIS TIME, PT DID ACCEPT WATER. WILL CONTINUE TO MONITOR.
--- NOTE | 2018-11-22 14:05 | NUR ---
TREATING PROVIDER NOTIFIED OF ELEVATED LACTIC ACID OF 2.2
[2018-11-22 14:31] VITALS: BP 83/44
--- NOTE | 2018-11-22 15:30 | NUR ---
NEW PATIENT ADMIT FROM ER. PATIENT TRANSFERRED VIA HOSPITAL BED AND HOSPITAL PERSONNEL. SPOUSE AT BS. PATIENT IS AWAKE, ALERT AND ORIENTED X 4. PATIENT IS HYPOTENSIVE AT 80/47. PATIENT ON 02@ 3L VIA NC . PATIENT DENIES ANY NEEDS OR PAIN. WILL CONTINUE WITH PLAN OF CARE. SR UP X 2 BED IN LOW POSITION AND CALL LIGHT IN REACH.
[2018-11-22] MEDS ORDERED: ANORO ELLIPTA1 EACH INH (15:31)
[2018-11-22 15:51] VITALS: BP 80/47; BMI 23.6
[2018-11-22 20:00] VITALS: BP 85/50
--- NOTE | 2018-11-22 20:20 | NUR ---
PT IN BED. DENIES NEEDS AT THIS TIME.
[2018-11-23] VITALS: BP 83/43
[2018-11-23 04:00] VITALS: BP 101/60
[2018-11-23 06:12] LABS: BASOPHILS 0.2 % (0-2); EOSINOPHILS 0.2 % (0-7); HEMATOCRIT 29.4 % (42.0-54.0); HEMOGLOBIN 9.4 g/dL (13.5-17.5); IMMATURE GRANULOCYTES 0.2 % (0-5); LYMPHOCYTES 21.5 % (15-50); MCH 27.8 pg (26.0-34.0); MEAN PLATELET VOLUME 9.1 fL (7.4-10.4); MONOCYTES 11.3 % (2-11); NEUTROPHILS 66.6 % (40-80); PLATELET COUNT 162 10x3/uL (130-400); RBC 3.38 10x6/uL (4.20-6.10); RDW 18.9 % (11.5-14.5)
[2018-11-23 06:39] LABS: ANION GAP 12.3 mmol/L (8-16); CALCIUM 8.7 mg/dL (8.5-10.1); CARBON DIOXIDE 23.3 mmol/L (21.0-32.0); CREATININE - SERUM 1.2 mg/dL (0.6-1.3); MAGNESIUM - SERUM 1.9 mg/dL (1.8-2.4); PHOSPHOROUS 3.6 mg/dL (2.5-4.9); WBC 4.4 10x3/uL (4.8-10.8)
[2018-11-23 06:43] LABS: POTASSIUM - SERUM 3.6 mmol/L (3.5-5.1)
--- NOTE | 2018-11-23 07:10 | NUR ---
REPORT RECEIVED FROM MOUSE BREEDER AND PATIENT CARE ASSUMED. PATIENT SITTING UP IN BED AWAKE, ALERT AND ORIENTED X 4. PATIENT IS STABLE AND VSS. PATIENT DENIES ANY NEEDS OR PAIN. WILL CONTINUE WITH PLAN OF CARE. SR UP X 2 BED IN LOW POSITION AND CALL LIGHT IN REACH.
[2018-11-23 08:00] VITALS: BP 92/48
[2018-11-23 10:00] LABS: % SATURATION 5 % (15-55); IRON 15 ug/dl (35-150); TOTAL IRON BIND CAPACITY 299 ug/dl (260-445); UNSAT IRON BIND CAPACITY 284 ug/dl (150-375)
[2018-11-23 10:29] LABS: FERRITIN 54 ng/mL (3-244)
--- NOTE | 2018-11-23 11:40 | NUR ---
PATIENT IS UNCHANGED AND VSS. WILL CONTINUE TO MONITOR.
[2018-11-23 12:00] VITALS: BP 101/68
[2018-11-23 12:28] VITALS: Ht 172.7 cm; Wt 70.3 kg
--- NOTE | 2018-11-23 15:05 | NUR ---
PATIENT SITTING UP IN BED UNDERGOING BREATHING TREATMENT. PATIENT IS STABLE AND VSS. WILL CONTINUE TO MONITOR. SR UP X 2 BED IN LOW POSITION AND CALL LIGHT IN REACH.
[2018-11-23 17:16] VITALS: BP 113/60
--- NOTE | 2018-11-23 20:07 | NUR ---
BEDSIDE SHIFT REPORT RECEIVED FROM DAY SHIFT RN, PT CARE ASSUMED. PT SITTING UP IN BED, [id number]. VERBALIZES UNDERSTANDING OF NEED FOR STOOL AND SPUTUM SPECIMEN. C/O SOB, DENIES PAIN AND ANY OTHER NEEDS AT THIS TIME. BED IN LOWEST POSITION, SR X2, CALL LIGHT WITHIN REACH. WILL CONTINUE TO MONITOR.
[2018-11-23 20:10] VITALS: BP 117/60
--- NOTE | 2018-11-23 23:20 | NUR ---
PT RESTING IN BED WITH BIPAP, EYES CLOSED, RESPIRATIONS EVEN AND NONLABORED, EASILY AROUSED BY VOICE. NIGHT TIME MEDS ADMINISTERED, PER ORDER. DENIES PAIN AND ANY OTHER NEEDS AT THIS TIME. BIPAP MASK REAPPLIED, BED IN LOWEST POSITION, SR X2, CALL LIGHT WITHIN REACH. WILL CONTINUE TO MONITOR.
--- NOTE | 2018-11-23 23:41 | NUR ---
PT RESTING IN BED WITH EYES CLOSED, RESPIRATIONS EVEN AND NONLABORED, NO S/S OF DISTRESS. EASILY AROUSED BY VOICE. REFUSED VS AT THIS TIME, STATES HE "WANTS TO TRY TO GET SOME REST TONIGHT."
[2018-11-24 04:36] VITALS: BP 107/61
[2018-11-24 07:06] LABS: BASOPHILS 0.4 % (0-2); EOSINOPHILS 0.6 % (0-7); HEMATOCRIT 30.3 % (42.0-54.0); IMMATURE GRANULOCYTES 0.2 % (0-5); LYMPHOCYTES 29.9 % (15-50); MCH 28.4 pg (26.0-34.0); MCV 86.1 fL (80.0-100.0); MEAN PLATELET VOLUME 9.1 fL (7.4-10.4); MONOCYTES 10.6 % (2-11); NEUTROPHILS 58.3 % (40-80); PLATELET COUNT 191 10x3/uL (130-400); RBC 3.52 10x6/uL (4.20-6.10)
[2018-11-24 07:07] LABS: WBC 8.3 10x3/uL (4.8-10.8)
[2018-11-24 07:14] LABS: ANION GAP 15.9 mmol/L (8-16); CALCIUM 8.3 mg/dL (8.5-10.1); CARBON DIOXIDE 20.8 mmol/L (21.0-32.0); CREATININE - SERUM 1.3 mg/dL (0.6-1.3); POTASSIUM - SERUM 3.7 mmol/L (3.5-5.1)
[2018-11-24 07:22] VITALS: BP 103/60
--- NOTE | 2018-11-24 07:40 | NUR ---
PT RESTING IN BED, DENIES ANY PAIN AT THIS TIME, SHIFT ASSESSMENT PERFORMED. VSS AND WNL. WILL CONT TO FOLLOW POC
--- NOTE | 2018-11-24 15:17 | MORECARE ---
CASE MANAGEMENT DISCHARGE SUMMARY PATIENT: YOEL FINK UNIT: [id number] ADM DATE: 11/22/18 AGE: 73 : 47 SEX: M ROOM/BED: D.1211 AUTHOR: IVANA DAWKINS PHYSICIAN: REFERRING PHYSICIAN: DERRICK DOCKERY MD DATE OF SERVICE: 11/24/18 Discharge Plan Patient Name: YOEL FINK [facility] [facility] 1945 Planned Disposition: Home Anticipated Discharge Date: Discharge Date: Expected LOS: Initial Reviewer: [email or web address] Initial Review Date: 11/23/2018 Generated: 11/24/18 4:16 pm DCPIA - Discharge Planning Initial Assessment Updated by [id number]: Miguel Matos on 11/24/18 3:14 pm * Is the patient Alert and Oriented? Yes * How many steps to enter\exit or inside your home? NONE * PCP DR. ROBLES * Pharmacy [facility] * Preadmission Environment Home with Family * ADLs Independent * Equipment Walker * Other Equipment NO MEDICAL EQUIPMENT PROVIDER PREFERENCE * List name and contact numbers for known caregivers / representatives who currently or will assist patient after discharge: LUIZ FINK, SPOUSE, * Verbal permission to speak to the caregivers and representatives has been obtained from the patient. Yes * Community resources currently utilized None * Please name any agencies selected above. NONE * Additional services required to return to the preadmission environment? No * Can the patient safely return to the preadmission environment? Yes * Has this patient been hospitalized within the prior 30 days at any hospital? No Patient Name: YOEL FINK Page [phone] at 1517 All edits/amendments must be made on the electronic document DICTATION DATE: 11/24/18 151 CASE MAKING MACHINE OPERATOR: LIV 11/24/18 151 RPT#: [id number] DC DATE: STATUS: ADM IN [facility] [address] [place] [address] END OF REPORT
--- NOTE | 2018-11-24 15:24 | MORECARE ---
CASE MANAGEMENT DISCHARGE SUMMARY PATIENT: YOEL FINK UNIT: [id number] ADM DATE: 11/22/18 AGE: 73 : 47 SEX: M ROOM/BED: D.1211 AUTHOR: MARIZA,DOC PHYSICIAN: REFERRING PHYSICIAN: DERRICK DOCKERY MD DATE OF SERVICE: 11/24/18 Discharge Plan Patient Name: YOEL FINK Facility: [facility]:[place] : 1945 Planned Disposition: Home Anticipated Discharge Date: Discharge Date: Expected LOS: Initial Reviewer: [id number] Initial Review Date: 11/23/2018 Generated: 11/24/18 4:24 pm Comments DCP- Discharge Planning Updated by [id number]: Miguel Matos on 11/24/18 2:[address] Patient Name: YOEL FINK Admission Status: ER Accout number: [id number] Admission Date: 11-22-2018 : 1945 Admission Diagnosis:SHORTNESS OF BREATH Attending: DERRICK DOCKERY Current LOS: 2 Anticipated DC Date: Planned Disposition: Home Primary Insurance: MEDICARE A & B Discharge Planning Comments: CM RECEIVED ORDER FOR HOME CPAP. MET WITH PT AND SPOUSE IN ROOM TO DISCUSS DISCHARGE PLANNING AND NEEDS. YOEL FINK provided verbal consent to discuss current and ongoing needs with/in the presence of: SPOUSE, LUIZ. PT REPORTS LIVING AT HOME INDEPENDENTLY WITH HIS SPOUSE. PT HAS WALKER WITH NO MEDICAL EQUIPMENT PROVIDER PREFERENCE. PT HAS NO OUTSIDE SERVICES ASSISTING IN THE HOME. CM DISCUSSED AVAILABILITY OF HOME HEALTH, REHAB SERVICES AND MEDICAL EQUIPMENT. PT DENIES DISCHARGE NEEDS, REPORTS THEY ARE TESTING HIM FOR OXYGEN; PT HAS OUTPATIENT SLEEP STUDY SCHEDULED AT END OF AND PT / SPOUSE HAS TALKED TO DR. MATTHEWS TODAY WHO INFORMED THEM THAT CPAP CANNOT BE OBTAINED WITHOUT CURRENT SLEEP STUDY. PT DOES NOT HAVE A CURRENT SLEEP STUDY, PT REPORTS HIS WILL PICK HIM UP FOR DISCHARGE HOME. IMPORTANT MESSAGE FROM MEDICARE PROVIDED AND EXPLAINED. CHOICE FOR NO MEDICAL EQUIPMENT PROVIDER SIGNED. PT AND SPOUSE THINKS THAT PT MAY BE IN HOSPITAL THROUGH TUESDAY. CM RECEIVED OXYGEN TESTING INDICATING PT'S OXYGEN AT REST 88% WITH RECOVERY ON 2LNC TO 96%. COPY SCANNED TO DATABASE, ORIGINAL TO PT'S CHART. PT PLANS TO DISCHARGE HOME WITH SPOUSE, DENIES NEED OF HOME HEALTH OR REHAB SERVICES. PT CANNOT OBTAIN CPAP MACHINE WITHOUT CURRENT OUTPATIENT SLEEP STUDY. IF PT DISCHARGES OVER WEEKEND, CM WILL REQUIRE OXYGEN ORDER FOR CM TO ARRANGE HOME AND PORTABLE OXYGEN WITH NO PROVIDER PREFERENCE. Ornamental Bronze Worker: Miguel Matos DCPIA - Discharge Planning Initial Assessment Updated by RAKAN: Miguel Matos on 11/24/18 3:14 pm * Is the patient Alert and Oriented? Yes * How many steps to enter\exit or inside your home? NONE * PCP DR. ROBLES * Pharmacy [facility] [address] * Preadmission Environment Home with Family * ADLs Independent * Equipment Walker * Other Equipment NO MEDICAL EQUIPMENT PROVIDER PREFERENCE * List name and contact numbers for known caregivers / representatives who currently or will assist patient after discharge: LUIZ FINK, SPOUSE, * Verbal permission to speak to the caregivers and representatives has been obtained from the patient. Yes * Community resources currently utilized None * Please name any agencies selected above. NONE * Additional services required to return to the preadmission environment? No * Can the patient safely return to the preadmission environment? Yes * Has this patient been hospitalized within the prior 30 days at any hospital? No Coverage Notice Reviewer: [id number] Dot Matos Notice Issued Date-Time: 11/24/2018 14:35 Notice Type: Patient Choice Letter Notice Delivered To: Patient Relationship to Patient: Functional Tester Name: Delivery Method: HAND - Hand Delivered Ariadna Days: Prior Verbal Notification: Recipient Understood Notice: Yes Recipient Signature: Yes Med Rec Note Co-signed by Attending: Coverage Notice Comment: NO MEDICAL EQUIPMENT PROVIDER PREFERENCE. Reviewer: [id number] - Miguel Matos Notice Issued Date-Time: 11/24/2018 14:35 Notice Type: IM Discharge Notice Notice Delivered To: Patient Relationship to Patient: Functional Tester Name: Delivery Method: HAND - Hand Delivered Ariadna Days: Prior Verbal Notification: Recipient Understood Notice: Yes Recipient Signature: Yes Med Rec Note Co-signed by Attending: Coverage Notice Comment: Last DP export: 11/24/18 2:17 pm Patient Name: YOEL FINK Page [phone] at 1524 All edits/amendments must be made on the electronic document DICTATION DATE: 11/24/18 1524 GEOSPATIAL EXTRACTOR ANALYSIS: LIV 11/24/18 1524 RPT#: [id number] DC DATE: STATUS: ADM IN [facility] [address] [place] [address] END OF REPORT
[2018-11-24 16:51] VITALS: BP 94/56
--- NOTE | 2018-11-24 18:02 | NUR ---
PT RESTING IN BED, DENIES ANY NEEDS AT THIS TIME, WILL CONT TO FOLLOW POC
--- NOTE | 2018-11-24 19:23 | NUR ---
RECIEVED UP IN BED WITH EYES OPEN AND TV ON. ALERT AND ORIENTED X4. UP AD KAIA TO B/R. USES URINAL IN BED. IV TO LEFT UPPER ARM WITH NS AT 5CC/HR. O2@ 2 LITERS PER N/C. REQUESTED CPAP BE PUT IN PLACE. PACEMAKER TO LEFT CHEST. DENIES ANY NEEDS AT THIS TIME.
[2018-11-24 20:00] VITALS: BP 100/60
[2018-11-25] VITALS: BP 96/51
--- NOTE | 2018-11-25 02:01 | NUR ---
REFUSES TO WEAR BIPAP THIS SHIFT. ALSO, WEARING O2@2 LITERS PER N/C AND LAYING FLAT IN BED. ATTEMPTED TO EDUCATE ON NEED FOR HEAD OF BED TO BE ELEVATED. STATED " I KEEP GOING UP AND DOWN".
[2018-11-25 04:46] VITALS: BP 108/63
[2018-11-25 07:45] LABS: BASOPHILS 0.2 % (0-2); EOSINOPHILS 1.5 % (0-7); HEMATOCRIT 28.2 % (42.0-54.0); HEMOGLOBIN 9.4 g/dL (13.5-17.5); IMMATURE GRANULOCYTES 0.2 % (0-5); LYMPHOCYTES 20.4 % (15-50); MCH 28.1 pg (26.0-34.0); MCHC 33.3 g/dL (31.0-37.0); MCV 84.2 fL (80.0-100.0); MEAN PLATELET VOLUME 8.7 fL (7.4-10.4); MONOCYTES 12.8 % (2-11); NEUTROPHILS 64.9 % (40-80); PLATELET COUNT 166 10x3/uL (130-400); RBC 3.35 10x6/uL (4.20-6.10); RDW 18.9 % (11.5-14.5)
[2018-11-25 08:01] LABS: ANION GAP 14.3 mmol/L (8-16); CALCIUM 8.4 mg/dL (8.5-10.1); CARBON DIOXIDE 23.9 mmol/L (21.0-32.0); CREATININE - SERUM 1.1 mg/dL (0.6-1.3); POTASSIUM - SERUM 3.2 mmol/L (3.5-5.1)
[2018-11-25 13:37] VITALS: BP 101/54
--- NOTE | 2018-11-25 13:44 | NUR ---
THE PATIENT WAS LYING IN BED AND WATCHING TELEVISION WHEN STAFF ENTERED HIS ROOM. BED IS IN THE LOW POSITION WITH SIDERAILS X2 AND CALL LIGHT WITHIN REACH. THE PATIENT WAS EDUCATED ON THE USE OF A CALL LIGHT AND DEMONSTRATES UNDERSTANDING VIA TEACHBACK METHOD. THE PATIENT APPEARS COMFORTABLE WITH NO QUESTIONS OR COCNERNS AT THIS TIME.
--- NOTE | 2018-11-25 19:40 | NUR ---
PT RESTING SUPINE IN BED UPON ENTERING, INTRODUCED SELF TO PT. PT AKSED ABOUT NASAL SPRAY SCHEDULE, EDUCATED PATIENT. PT DENIES ANY OTHER NEEDS AT THIS TIME. BED IN LOWEST POSITON, BED RAILS X2, CALL LIGHT WITHIN REACH. RT ENTERING I LEFT. WILL CONTINUE TO MONITOR.
[2018-11-25 20:06] VITALS: BP 94/56
--- NOTE | 2018-11-25 21:23 | NUR ---
ADMINISTERED EVENING MEDICATION AT THIS TIME. NO TROUBLE SWALLOWING. DENIES ANY NEEDS AT THIS TIME. BED IN LOWEST POSITION, BED RAILS X2, CALL LIGHT WITHIN REACH. WILL CONTINUE TO MONITOR.
--- NOTE | 2018-11-25 22:15 | NUR ---
PT RESTING LATERAL UPON ENTERING WITH EYES CLOSED. BREATHING EVEN AND UNLABORED. BED IN LOWEST POSITION, BED RAILS X2, CALL LIGHT WITHIN REACH. WILL CONTINUE TO MONITOR.
--- NOTE | 2018-11-26 00:35 | NUR ---
PT RESTING LATERAL IN BED UPON ENTERING WITH EYES CLOSED. PT REFUSED MIDNIGHT VITALS. BREATHING EVEN, SHALLOW AND UNLABORED. NO S/S OF DISTRESS. BED IN LOWEST POSITION, BED RAILS X2, CALL LIGHT WITHIN REACH. WILL CONTINUE TO MONITOR.
--- NOTE | 2018-11-26 02:31 | NUR ---
PT RESTING IN BED WITH EYES CLOSED. BREATHING EVEN, SHALLOW AND UNLABORED. NO S/S OF DISTRESS. WILL CONTINUE TO MONITOR.
--- NOTE | 2018-11-26 02:56 | NUR ---
I have reviewed this patient and I concur with the Shift Assessment completed by the Licensed Practical Nurse today this shift.
--- NOTE | 2018-11-26 04:09 | NUR ---
PT RESTING SUPINE UPON ENETERING, PT AWOKE WHEN I ENTERED THE ROOM. ASKED FOR ICE WATER, PROVIDED PROMPTLY. DENIES OTHER NEEDS AT THIS TIME. WILL CONTINUE TO MONITOR.
[2018-11-26 04:57] VITALS: BP 92/60
[2018-11-26 06:12] LABS: BASOPHILS 0.8 % (0-2); EOSINOPHILS 3.3 % (0-7); HEMATOCRIT 29.4 % (42.0-54.0); HEMOGLOBIN 9.6 g/dL (13.5-17.5); IMMATURE GRANULOCYTES 0.3 % (0-5); LYMPHOCYTES 27.4 % (15-50); MCH 27.8 pg (26.0-34.0); MCHC 32.7 g/dL (31.0-37.0); MCV 85.2 fL (80.0-100.0); MEAN PLATELET VOLUME 9.6 fL (7.4-10.4); MONOCYTES 13.9 % (2-11); NEUTROPHILS 54.3 % (40-80); PLATELET COUNT 184 10x3/uL (130-400); RBC 3.45 10x6/uL (4.20-6.10); RDW 19.4 % (11.5-14.5); WBC 6.6 10x3/uL (4.8-10.8)
--- NOTE | 2018-11-26 06:12 | NUR ---
ADMINISTERED MORNING MEDICATION AT THIS TIME, NO TROUBLE SWALLOWING. DENIES OTHER NEEDS AT THIS TIME. WILL CONTINUE TO MONITOR.
[2018-11-26 06:25] LABS: ANION GAP 14.7 mmol/L (8-16); CALCIUM 8.8 mg/dL (8.5-10.1); CREATININE - SERUM 1.1 mg/dL (0.6-1.3); POTASSIUM - SERUM 3.7 mmol/L (3.5-5.1)
--- NOTE | 2018-11-26 07:17 | NUR ---
AM ROUNDS- INTRODUCED SELF TO PT HIS NURSE FOR TODAY. PT UP TO CHAIR ON HIS TABLET. PT A/O X4, RESP EVEN AND NONLABORED ON 3L. LT UPPER ARM IV SL. PT DENIES ANY NEEDS AT THIS TIME. CALL LIGHT IN REACH, NAD NOTED, WILL CONTINUE PLAN OF CARE.
[2018-11-26 07:37] VITALS: BP 95/52
--- NOTE | 2018-11-26 08:28 | NUR ---
AM MEDS GIVEN AT THIS TIME. REMEDY DEVELOPER AT BEDSIDE, DRAWING BLOOD. PT DENIES ANY NEEDS AT THIS TIME. PT HAS BEEN STUCK TWICE FOR ABGS AND IS REFUSING TO GET STUCK AGAIN, NOTIFED JORDON HILL.
--- NOTE | 2018-11-26 08:28 | NUR ---
PATIENT REFUSING ABGs TO BE DONE. SOURAV CAMERON AND DIANN NOTIFIED
--- NOTE | 2018-11-26 09:13 | NUR ---
LT UPPER ARM IV INFILTRATED, D/C IV WITH CATHETER TIP INTACT. NEW 22G IV STARTED TO LT UPPPER ARM X1 STICK. PT TOLERATED PROCEDURE WELL. HAS AGREED TO HAVE SOMEONE ELSE FROM [facility] TO COME DRAW ABGS.
[2018-11-26 11:52] VITALS: BP 93/58
[2018-11-26 16:27] VITALS: BP 97/51
[2018-11-26 19:30] VITALS: BP 95/48
--- NOTE | 2018-11-26 19:30 | NUR ---
BREATHING SHALLOW WITH NC @ 3L. NO SIGNS OF DISTRESS. IV SITE TO THE LT UPPER ARM, SALINE LOCK. REPORTS NO COMPLAINTS OR NEEDING ANYTHING AT THIS TIME. CONTIUE WITH PLAN OF CARE.
--- NOTE | 2018-11-27 | NUR ---
ANSWERS QUESTIONS APPROPRIATELY. A/O X4. DENIES PAIN OR NEEDS AT THIS TIME. WILL CONTINUE TO MONIOTR.
[2018-11-27 00:17] VITALS: BP 106/57
[2018-11-27 04:31] VITALS: BP 99/55
[2018-11-27 06:18] LABS: ANION GAP 13.4 mmol/L (8-16); CALCIUM 8.8 mg/dL (8.5-10.1); CREATININE - SERUM 1.2 mg/dL (0.6-1.3)
[2018-11-27 06:20] LABS: HEMATOCRIT 27.7 % (42.0-54.0); MCH 27.5 pg (26.0-34.0); MCHC 32.5 g/dL (31.0-37.0); MCV 84.7 fL (80.0-100.0); MEAN PLATELET VOLUME 9.5 fL (7.4-10.4); PLATELET COUNT 199 10x3/uL (130-400); POTASSIUM - SERUM 4.4 mmol/L (3.5-5.1); RBC 3.27 10x6/uL (4.20-6.10); RDW 19.3 % (11.5-14.5); WBC 7.9 10x3/uL (4.8-10.8)
[2018-11-27 07:37] VITALS: BP 107/57
--- NOTE | 2018-11-27 07:54 | NUR ---
PT SITTING UP EATING. RR EVEN AND UNLABORED. PT REQUESTED TO COMPLETE ASSESSMENT AFTER MEAL. NO DISTRESS OR PAIN NOTED. WILL CONTINUE HTO MONITOR.
[2018-11-27 11:17] LABS: EOSINOPHILS 2 % (0-7); HYPOCHROMASIA OCC; LYMPHOCYTES 23 % (15-50); MONOCYTES 20 % (2-11); NEUTROPHILS 55 % (40-80); PLATELET ESTIMATE NORMAL
[2018-11-27] MEDS ORDERED: ZITHROMAX250 MG PO (11:47)
[2018-11-27] MEDS ORDERED: LASIX40 MG PO (11:48)
[2018-11-27] MEDS ORDERED: CLEOCIN HCL300 MG PO (11:50)
--- NOTE | 2018-11-27 12:15 | NUR ---
SPOKE WITH CASE MANAGEMENT ABOUT HOME O2.
--- NOTE | 2018-11-27 13:24 | MORECARE ---
CASE MANAGEMENT DISCHARGE SUMMARY PATIENT: YOEL FINK UNIT: [id number] ADM DATE: 11/22/18 AGE: 73 : 47 SEX: M ROOM/BED: D.1211 AUTHOR: MARIZADOC PHYSICIAN: REFERRING PHYSICIAN: DERRICK DOCKERY MD DATE OF SERVICE: 11/27/18 Discharge Plan Patient Name: YOEL FINK Facility: [facility]:[place] : 1945 Planned Disposition: Home Anticipated Discharge Date: Discharge Date: Expected LOS: Initial Reviewer: [email or web address] Initial Review Date: 11/23/2018 Generated: 11/27/18 2:23 pm Comments DCP- Discharge Planning Updated by [id number]: Jessica Nieves on 11/27/18 12:[address] PATIENT WILL BE DISCHARING HOME TODAY, WILL NEED HOME O2 WITH PORTABILITY IMM SERVED AND EXPLAINED. SEND CLINICALS TO [facility] AND NOTIFED ELIZABETH. DCP- Discharge Planning Updated by [id number]: Miguel Matos on 11/24/18 2:[address] Patient Name: YOEL FINK Admission Status: ER Accout number: [id number] Admission Date: 11-22-2018 : 1945 Admission Diagnosis:SHORTNESS OF BREATH Attending: DERRICK DOCKERY Current LOS: 2 Anticipated DC Date: Planned Disposition: Home Primary Insurance: MEDICARE A & B Discharge Planning Comments: CM RECEIVED ORDER FOR HOME CPAP. MET WITH PT AND SPOUSE IN ROOM TO DISCUSS DISCHARGE PLANNING AND NEEDS. YOEL FINK provided verbal consent to discuss current and ongoing needs with/in the presence of: SPOUSE, LUIZ. PT REPORTS LIVING AT HOME INDEPENDENTLY WITH HIS SPOUSE. PT HAS WALKER WITH NO MEDICAL EQUIPMENT PROVIDER PREFERENCE. PT HAS NO OUTSIDE SERVICES ASSISTING IN THE HOME. CM DISCUSSED AVAILABILITY OF HOME HEALTH, REHAB SERVICES AND MEDICAL EQUIPMENT. PT DENIES DISCHARGE NEEDS, REPORTS THEY ARE TESTING HIM FOR OXYGEN; PT HAS OUTPATIENT SLEEP STUDY SCHEDULED AT END OF AND PT / SPOUSE HAS TALKED TO DR. MATTHEWS TODAY WHO INFORMED THEM THAT CPAP CANNOT BE OBTAINED WITHOUT CURRENT SLEEP STUDY. PT DOES NOT HAVE A CURRENT SLEEP STUDY, PT REPORTS HIS WILL PICK HIM UP FOR DISCHARGE HOME. IMPORTANT MESSAGE FROM MEDICARE PROVIDED AND EXPLAINED. CHOICE FOR NO MEDICAL EQUIPMENT PROVIDER SIGNED. PT AND SPOUSE THINKS THAT PT MAY BE IN HOSPITAL THROUGH TUESDAY. CM RECEIVED OXYGEN TESTING INDICATING PT'S OXYGEN AT REST 88% WITH RECOVERY ON 2LNC TO 96%. COPY SCANNED TO CM DATABASE, ORIGINAL TO PT'S CHART. PT PLANS TO DISCHARGE HOME WITH SPOUSE, DENIES NEED OF HOME HEALTH OR REHAB SERVICES. PT CANNOT OBTAIN CPAP MACHINE WITHOUT CURRENT OUTPATIENT SLEEP STUDY. IF PT DISCHARGES OVER WEEKEND, CM WILL REQUIRE OXYGEN ORDER FOR CM TO ARRANGE HOME AND PORTABLE OXYGEN WITH NO PROVIDER PREFERENCE. Sales Agent Pest Control Service: Miguel Matos DCPIA - Discharge Planning Initial Assessment Updated by [id number]: Miguel Matos on 11/24/18 3:14 pm * Is the patient Alert and Oriented? Yes * How many steps to enter\exit or inside your home? NONE * PCP DR. ROBLES * Pharmacy [facility] ON [address] * Preadmission Environment Home with Family * ADLs Independent * Equipment Walker * Other Equipment NO MEDICAL EQUIPMENT PROVIDER PREFERENCE * List name and contact numbers for known caregivers / representatives who currently or will assist patient after discharge: LUIZ FINK, SPOUSE, * Verbal permission to speak to the caregivers and representatives has been obtained from the patient. Yes * Community resources currently utilized None * Please name any agencies selected above. NONE * Additional services required to return to the preadmission environment? No * Can the patient safely return to the preadmission environment? Yes * Has this patient been hospitalized within the prior 30 days at any hospital? No External Providers External Provider: Evy Next Contact Date: Service Request Date: Service Type: Resolution: Reviewer: Comments: Coverage Notice Reviewer: [id number] Dot Matos Notice Issued Date-Time: 11/24/2018 14:35 Notice Type: Patient Choice Letter Notice Delivered To: Patient Relationship to Patient: Lead Caster Name: Delivery Method: HAND - Hand Delivered Ariadna Days: Prior Verbal Notification: Recipient Understood Notice: Yes Recipient Signature: Yes Med Rec Note Co-signed by Attending: Coverage Notice Comment: NO MEDICAL EQUIPMENT PROVIDER PREFERENCE. Reviewer: [email or web address] Dot Matos Notice Issued Date-Time: 11/24/2018 14:35 Notice Type: IM Discharge Notice Notice Delivered To: Patient Relationship to Patient: Lead Caster Name: Delivery Method: HAND - Hand Delivered Ariadna Days: Prior Verbal Notification: Recipient Understood Notice: Yes Recipient Signature: Yes Med Rec Note Co-signed by Attending: Coverage Notice Comment: Last DP export: 11/24/18 2:24 pm Patient Name: YOEL FINK Page [phone] at 1324 All edits/amendments must be made on the electronic document DICTATION DATE: 11/27/18 132 REVENUE ACCOUNTANT: LIV 11/27/18 1323 RPT#: [id number] DC DATE: STATUS: ADM IN [facility] [address] [place] [address] END OF REPORT
--- NOTE | 2018-11-27 14:26 | MORECARE ---
CASE MANAGEMENT DISCHARGE SUMMARY PATIENT: YOEL FINK UNIT: [id number] ADM DATE: 11/22/18 AGE: 73 : [birth year] SEX: M ROOM/BED: D.1211 AUTHOR: MARIZADOC PHYSICIAN: REFERRING PHYSICIAN: DERRICK DOCKERY MD DATE OF SERVICE: 11/27/18 Discharge Plan Patient Name: YOEL FINK Facility: [facility]:[place] : 1945 Planned Disposition: Home Anticipated Discharge Date: Discharge Date: Expected LOS: Initial Reviewer: [email or web address] Initial Review Date: 11/23/2018 Generated: 11/27/18 3:26 pm Comments DCP- Discharge Planning Updated by [email or web address]: Jessica Nieves on 11/27/18 1:[address] [facility] will be delivering the portable o2 to the hospital and will be delivering the nebulizer and home o2 to the patients house. CM will continue to follow and assist with dc planning DCP- Discharge Planning Updated by [email or web address]: Jessica Nieves on 11/27/18 12:[address] PATIENT WILL BE DISCHARING HOME TODAY, WILL NEED HOME O2 WITH PORTABILITY IMM SERVED AND EXPLAINED. SEND CLINICALS TO [facility] AND NOTIFED ELIZABETH. DCP- Discharge Planning Updated by [id number]: Miguel Matos on 11/24/18 2:[address] Patient Name: YOEL FINK Admission Status: ER Accout number: [id number] Admission Date: 11-22-2018 : 1945 Admission Diagnosis:SHORTNESS OF BREATH Attending: DERRICK DOCKERY Current LOS: 2 Anticipated DC Date: Planned Disposition: Home Primary Insurance: MEDICARE A & B Discharge Planning Comments: CM RECEIVED ORDER FOR HOME CPAP. MET WITH PT AND SPOUSE IN ROOM TO DISCUSS DISCHARGE PLANNING AND NEEDS. YOEL FINK provided verbal consent to discuss current and ongoing needs with/in the presence of: SPOUSE, LUIZ. PT REPORTS LIVING AT HOME INDEPENDENTLY WITH HIS SPOUSE. PT HAS WALKER WITH NO MEDICAL EQUIPMENT PROVIDER PREFERENCE. PT HAS NO OUTSIDE SERVICES ASSISTING IN THE HOME. CM DISCUSSED AVAILABILITY OF HOME HEALTH, REHAB SERVICES AND MEDICAL EQUIPMENT. PT DENIES DISCHARGE NEEDS, REPORTS THEY ARE TESTING HIM FOR OXYGEN; PT HAS OUTPATIENT SLEEP STUDY SCHEDULED AT END OF AND PT / SPOUSE HAS TALKED TO DR. MATTHEWS TODAY WHO INFORMED THEM THAT CPAP CANNOT BE OBTAINED WITHOUT CURRENT SLEEP STUDY. PT DOES NOT HAVE A CURRENT SLEEP STUDY, PT REPORTS HIS WILL PICK HIM UP FOR DISCHARGE HOME. IMPORTANT MESSAGE FROM MEDICARE PROVIDED AND EXPLAINED. CHOICE FOR NO MEDICAL EQUIPMENT PROVIDER SIGNED. PT AND SPOUSE THINKS THAT PT MAY BE IN HOSPITAL THROUGH TUESDAY. CM RECEIVED OXYGEN TESTING INDICATING PT'S OXYGEN AT REST 88% WITH RECOVERY ON 2LNC TO 96%. COPY SCANNED TO DATABASE, ORIGINAL TO PT'S CHART. PT PLANS TO DISCHARGE HOME WITH SPOUSE, DENIES NEED OF HOME HEALTH OR REHAB SERVICES. PT CANNOT OBTAIN CPAP MACHINE WITHOUT CURRENT OUTPATIENT SLEEP STUDY. IF PT DISCHARGES OVER WEEKEND, CM WILL REQUIRE OXYGEN ORDER FOR CM TO ARRANGE HOME AND PORTABLE OXYGEN WITH NO PROVIDER PREFERENCE. County Home Demonstration Agent: Miguel Matos DCPIA - Discharge Planning Initial Assessment Updated by [email or web address]: Miguel Matos on 11/24/18 3:14 pm * Is the patient Alert and Oriented? Yes * How many steps to enter\exit or inside your home? NONE * PCP DR. ROBLES * Pharmacy [facility] * Preadmission Environment Home with Family * ADLs Independent * Equipment Walker * Other Equipment NO MEDICAL EQUIPMENT PROVIDER PREFERENCE * List name and contact numbers for known caregivers / representatives who currently or will assist patient after discharge: LUIZ FINK, SPOUSE, * Verbal permission to speak to the caregivers and representatives has been obtained from the patient. Yes * Community resources currently utilized None * Please name any agencies selected above. NONE * Additional services required to return to the preadmission environment? No * Can the patient safely return to the preadmission environment? Yes * Has this patient been hospitalized within the prior 30 days at any hospital? No Coverage Notice Reviewer: [id number] Dot Matos Notice Issued Date-Time: 11/24/2018 14:35 Notice Type: Patient Choice Letter Notice Delivered To: Patient Relationship to Patient: Equal Opportunity Director Name: Delivery Method: HAND - Hand Delivered Ariadna Days: Prior Verbal Notification: Recipient Understood Notice: Yes Recipient Signature: Yes Med Rec Note Co-signed by Attending: Coverage Notice Comment: NO MEDICAL EQUIPMENT PROVIDER PREFERENCE. Reviewer: [id number] Dot Matos Notice Issued Date-Time: 11/24/2018 14:35 Notice Type: IM Discharge Notice Notice Delivered To: Patient Relationship to Patient: Equal Opportunity Director Name: Delivery Method: HAND - Hand Delivered Ariadna Days: Prior Verbal Notification: Recipient Understood Notice: Yes Recipient Signature: Yes Med Rec Note Co-signed by Attending: Coverage Notice Comment: Reviewer: [id number] - Jessica Nieves Notice Issued Date-Time: 11/27/2018 13:05 Notice Type: IM Discharge Notice Notice Delivered To: Family Member Relationship to Patient: Spouse Equal Opportunity Director Name: LUIZ Delivery Method: HAND - Hand Delivered Ariadna Days: Prior Verbal Notification: Recipient Understood Notice: Yes Recipient Signature: Yes Med Rec Note Co-signed by Attending: Coverage Notice Comment: Last DP export: 11/27/18 12:24 pm Patient Name: YOEL FINK Page [phone] at 1426 All edits/amendments must be made on the electronic document DICTATION DATE: 11/27/181425 RECYCLING OPERATIONS MANAGER: LIV 11/27/18 1426 RPT#: [id number] DC DATE: STATUS: ADM IN [facility] [address] [place] [address] END OF REPORT
--- NOTE | 2018-11-27 15:19 | NUR ---
I have reviewed this patient and I concur with the Shift Assessment completed by the Licensed Practical Nurse today this shift.
--- NOTE | 2018-11-27 15:56 | NUR ---
PT D/C VIA WHEELCHAIR TO [facility]. IV D/C WITH CATHETER TIP INTACT. D/C PAPERWORK REVIEWED AND SIGNED WITH NO FURTHER QUESTIONS. ALL BELONGINGS SENT WITH PT.
--- NOTE | 2018-11-27 16:26 | MORECARE ---
CASE MANAGEMENT DISCHARGE SUMMARY PATIENT: YOEL FINK UNIT: [id number] ADM DATE: 11/22/18 AGE: 73 : [birth year] SEX: M ROOM/BED: D.1211 AUTHOR: MARIZA,DOC PHYSICIAN: REFERRING PHYSICIAN: DERRICK DOCKERY MD DATE OF SERVICE: 11/27/18 Discharge Plan Patient Name: YOEL FINK Facility: [facility]:[place] : 1945 Planned Disposition: Home Anticipated Discharge Date: Discharge Date: 11/27/2018 Expected LOS: Initial Reviewer: [email or web address] Initial Review Date: 11/23/2018 Generated: 11/27/18 5:26 pm Comments DCP- Discharge Planning Updated by [email or web address]: Jessica Nieves on 11/27/18 1:[address] [facility] will be delivering the portable o2 to the hospital and will be delivering the nebulizer and home o2 to the patients house. CM will continue to follow and assist with dc planning DCP- Discharge Planning Updated by [email or web address]: Jessica Nieves on 11/27/18 12:[address] PATIENT WILL BE DISCHARING HOME TODAY, WILL NEED HOME O2 WITH PORTABILITY IMM SERVED AND EXPLAINED. SEND CLINICALS TO [facility] AND NOTIFED ELIZABETH. DCP- Discharge Planning Updated by [id number]: Miguel Matos on 11/24/18 2:[address] Patient Name: YOEL FINK Admission Status: ER Accout number: [id number] Admission Date: 11-22-2018 : 1945 Admission Diagnosis:SHORTNESS OF BREATH Attending: DERRICK DOCKERY Current LOS: 2 Anticipated DC Date: Planned Disposition: Home Primary Insurance: MEDICARE A & B Discharge Planning Comments: CM RECEIVED ORDER FOR HOME CPAP. MET WITH PT AND SPOUSE IN ROOM TO DISCUSS DISCHARGE PLANNING AND NEEDS. YOEL FINK provided verbal consent to discuss current and ongoing needs with/in the presence of: SPOUSE, LUIZ. PT REPORTS LIVING AT HOME INDEPENDENTLY WITH HIS SPOUSE. PT HAS WALKER WITH NO MEDICAL EQUIPMENT PROVIDER PREFERENCE. PT HAS NO OUTSIDE SERVICES ASSISTING IN THE HOME. CM DISCUSSED AVAILABILITY OF HOME HEALTH, REHAB SERVICES AND MEDICAL EQUIPMENT. PT DENIES DISCHARGE NEEDS, REPORTS THEY ARE TESTING HIM FOR OXYGEN; PT HAS OUTPATIENT SLEEP STUDY SCHEDULED AT END OF AND PT / SPOUSE HAS TALKED TO DR. MATTHEWS TODAY WHO INFORMED THEM THAT CPAP CANNOT BE OBTAINED WITHOUT CURRENT SLEEP STUDY. PT DOES NOT HAVE A CURRENT SLEEP STUDY, PT REPORTS HIS WILL PICK HIM UP FOR DISCHARGE HOME. IMPORTANT MESSAGE FROM MEDICARE PROVIDED AND EXPLAINED. CHOICE FOR NO MEDICAL EQUIPMENT PROVIDER SIGNED. PT AND SPOUSE THINKS THAT PT MAY BE IN HOSPITAL THROUGH TUESDAY. CM RECEIVED OXYGEN TESTING INDICATING PT'S OXYGEN AT REST 88% WITH RECOVERY ON 2LNC TO 96%. COPY SCANNED TO DATABASE, ORIGINAL TO PT'S CHART. PT PLANS TO DISCHARGE HOME WITH SPOUSE, DENIES NEED OF HOME HEALTH OR REHAB SERVICES. PT CANNOT OBTAIN CPAP MACHINE WITHOUT CURRENT OUTPATIENT SLEEP STUDY. IF PT DISCHARGES OVER WEEKEND, CM WILL REQUIRE OXYGEN ORDER FOR CM TO ARRANGE HOME AND PORTABLE OXYGEN WITH NO PROVIDER PREFERENCE. Service Station Equipment Mechanic: Miguel Matos DCPIA - Discharge Planning Initial Assessment Updated by [id number]: Miguel Matos on 11/24/18 3:14 pm * Is the patient Alert and Oriented? Yes * How many steps to enter\exit or inside your home? NONE * PCP DR. ROBLES * Pharmacy [facility] * Preadmission Environment Home with Family * ADLs Independent * Equipment Walker * Other Equipment NO MEDICAL EQUIPMENT PROVIDER PREFERENCE * List name and contact numbers for known caregivers / representatives who currently or will assist patient after discharge: LUIZ FINK, SPOUSE, * Verbal permission to speak to the caregivers and representatives has been obtained from the patient. Yes * Community resources currently utilized None * Please name any agencies selected above. NONE * Additional services required to return to the preadmission environment? No * Can the patient safely return to the preadmission environment? Yes * Has this patient been hospitalized within the prior 30 days at any hospital? No Coverage Notice Reviewer: [id number] Dot Matos Notice Issued Date-Time: 11/24/2018 14:35 Notice Type: Patient Choice Letter Notice Delivered To: Patient Relationship to Patient: Railroad Brake Operator Name: Delivery Method: HAND - Hand Delivered Ariadna Days: Prior Verbal Notification: Recipient Understood Notice: Yes Recipient Signature: Yes Med Rec Note Co-signed by Attending: Coverage Notice Comment: NO MEDICAL EQUIPMENT PROVIDER PREFERENCE. Reviewer: [id number] Dot Matos Notice Issued Date-Time: 11/24/2018 14:35 Notice Type: IM Discharge Notice Notice Delivered To: Patient Relationship to Patient: Railroad Brake Operator Name: Delivery Method: HAND - Hand Delivered Ariadna Days: Prior Verbal Notification: Recipient Understood Notice: Yes Recipient Signature: Yes Med Rec Note Co-signed by Attending: Coverage Notice Comment: Reviewer: [id number] - Jessica Nieves Notice Issued Date-Time: 11/27/2018 13:05 Notice Type: IM Discharge Notice Notice Delivered To: Family Member Relationship to Patient: Spouse Railroad Brake Operator Name: LUIZ Delivery Method: HAND - Hand Delivered Ariadna Days: Prior Verbal Notification: Recipient Understood Notice: Yes Recipient Signature: Yes Med Rec Note Co-signed by Attending: Coverage Notice Comment: Last DP export: 11/27/18 1:26 pm Patient Name: YOEL FINK Page [phone] at 1626 All edits/amendments must be made on the electronic document DICTATION DATE: 11/27/186 DRIVER TRAINEE: LIV 11/27/18 1626 RPT#: [id number] DC DATE:11/27/18 STATUS: DIS IN [facility] [address] [place] [address] END OF REPORT
--- NOTE | 2018-11-28 09:53 | CN ---
PATIENT NAME:YOEL FINK MEDICAL RECORD: [id number] : [birth year] LOCATION:D.M3 D.1211 ADMIT DATE: 11/22/18 ACCOUNT: [id number] CONSULTING PHYSICIAN: FRANKLIN PINON MD REFERRING PHYSICIAN: DERRICK DOCKERY MD DATE OF CONSULTATION: 11/24/2018 DIAGNOSES: 1. Pneumonia. 2. Shortness of breath, dyspnea on exertion. 3. Cardiomyopathy. 4. Congestive heart failure, chronic systolic dysfunction. 5. Coronary artery disease. 6. Status post coronary artery bypass graft surgery. 7. Sick sinus syndrome. 8. Status post pacemaker. 9. Hypotension. 10. Orthostasis. HISTORY OF PRESENT ILLNESS: This is a gentleman known to us with a past history of coronary artery disease, status post coronary artery bypass graft surgery, stable from the standpoint of ischemic heart disease, peripheral vascular disease, status post abdominal aortic aneurysm repair, stable from this standpoint, status post pacemaker, stable from the standpoint of dysrhythmia, who now presents with shortness of breath, found to have right lower lobe pneumonia. He as well has pulmonary edema. He has chronic congestive heart failure. His ejection fraction is in the 20% to 25% range and this is not new. His therapy is limited secondary to his orthostasis. He is on midodrine for the orthostasis. He is only on Lasix therapy as an outpatient secondary to low blood pressure and the orthostasis. He continues to have low blood pressure in here. He is being diuresed while being in here and is tolerating with systolic blood pressure barely over 100 with this. PHYSICAL EXAMINATION: GENERAL APPEARANCE: Well-nourished, well-developed, appears stated age. Level of distress, comfortable. PSYCHIATRIC: Mental status, alert, normal affect. Orientation, oriented to time, place and person. EYES: Lids and conjunctiva, noninjected. No discharge, no pallor. ENT: Lips, teeth, gums, normal dentition. Oropharynx, no cyanosis, no pallor. NECK: Carotid arteries, bilateral normal upstroke, no bruits, no thrills. JUGULAR VEINS: No jugular venous pressure or distention. CERVICAL LYMPH NODES: Nontender, nonenlarged. THYROID: Not enlarged. Nontender. No nodules. LUNGS: Respiratory effort, unlabored. CHEST: Normal curvature. No thoracic deformity. No chest wall tenderness. Percussion, resonant. Auscultation, clear. No wheezes, no rales, no rhonchi. CARDIOVASCULAR: Precordial exam, nondisplaced. No heaves or pericardial thrills. Rate and rhythm, regular. Heart sounds, normal S1, normal S2. No S3, no gallop, no rub. Systolic murmur, not heard. Diastolic murmur, not heard. EXTREMITIES: No cyanosis, no edema. Peripheral pulses, full and equal in all extremities, except as noted. No bruits appreciated. ABDOMEN: Soft, nondistended. Normal aorta. No bruit. Nontender. No masses. Liver, nontender, no hepatomegaly. Spleen, nontender, no splenomegaly. MUSCULOSKELETAL: No joint tenderness. No joint swelling. No erythema. CONSULT REPORT [id number] YOEL FINK NEUROLOGICAL: Normal gait, normal strength, normal tone. SKIN: Warm and dry. OVERALL IMPRESSION: Shortness of breath. At this time, he is being treated for the pneumonia and being treated for the heart failure with the diuresis. It is really all we can do. With the addition of any beta-sukumar or АНДРЕЙ inhibitor would cause significant hypotension. He is already unsteady and has history of falling, hence at this time, no other cardiac treatment is necessary. TRANSINT:[id number] Voice Confirmation ID: [id number] DOCUMENT ID: [id number] FRANKLIN PINON MD at 0953 CC: [id number] DICTATION DATE: 11/24/18 1522 PROFESSOR OF PUBLIC ADMINISTRATION: 11/24/18 1530 DIS IN 11/27/18 [place] [id number] [place] [address]
--- NOTE | 2018-11-28 09:53 | EC ---
PATIENT:YOEL FINK DATE OF SERVICE: 11/22/18 SEX: M MEDICAL RECORD: [id number] DATE OF : [birth year] LOCATION:D.M3 D.121 AGE OF PATIENT: 73 ADMISSION DATE: 11/22/18 REFERRING PHYSICIAN: INTERPRETING PHYSICIAN: FRANKLIN DOMINGUEZ MD ECHOCARDIOGRAM REPORT ECHO CHARGES 4 ECHO COMPLETE Date: 11/23/18 CLINICAL DIAGNOSIS: CHF ECHOCARDIOGRAPHIC MEASUREMENTS (adult normal given) AC root (d.<3.7cm) 2.6 cm LV Septum d (<1.2 cm> 1.3 cm Valve Excursion 1.3 cm LV Septum (systole) 1.4 cm Left Atria (s.<4.0cm> 2.9 cm LVPW d(<1.2cm) 1.1 cm RV (d.<2.3cm) 3.3 cm LVPW (sytole) 1.3 cm LV diastole(<5.6CM) 4.6 cm MV E-F(>70mm/sec) cm LV systole 3.7 cm LVOT Diameter 1.9 cm MV exc.(>10mm) cm Est.ejection fraction (50-75%) % DOPPLER: LVIT cm/sec A 53 cm/sec E 105 cm/sec LA cm/sec RVSP 36.2 mmHg LVOT 61 cm/sec AOP1/2T m/s Asc. Ao 110 cm/sec RVOT 64 cm/sec RA cm/sec PA 65 cm/sec AV Gradient Peak 4.9 mmHg AV Mean 2.7 mmHg AV Area 1.2 cm MV Gradient Peak 5.1 mmHg MV Mean 2.4 mmHg MV Area cm COMMENTS: Nut Sorter Operator: Carlitos [facility] Park Superintendent: 1 Dr. Dominguez TAPE# PACS Pericardial Effusion N DATE OF SERVICE: 11/23/2018 PROCEDURE: Echocardiogram. FINDINGS: 1. Left ventricular chamber size is mildly dilated. Left ventricular systolic function is markedly depressed at 20%. 2. Left atrium, right atrium and right ventricular chamber sizes are mildly dilated. 3. Valvular structures have normal structure and motion. ECHOCARDIOGRAM REPORT [id number] YOEL FINK 4. Doppler interrogation reveals moderate mitral regurgitation, moderate tricuspid regurgitation, no other valvular insufficiency or stenosis. Pulmonary systolic pressure is estimated 36 mmHg. 5. No evidence of pericardial effusion or left ventricular thrombus. TRANSINT:[id number] Voice Confirmation ID: [id number] DOCUMENT ID: [id number] FRANKLIN DOMINGUEZ MD at 0953 CC: [id number] DICTATION DATE: 11/24/18 1213 PARKS RECREATION COORDINATOR: 11/24/18 1242 DIS IN 11/27/18 [place] [id number] [place] [id number]
== END 2018-11-27 15:58 | disposition home or self-care (01) | DRG 871 ==
LOC: D.ER 11:01 → D.M3 14:29
PROVIDERS: Family Medicine; ADMIT Internal Medicine Nephrology; ATTEND Internal Medicine Nephrology
DX: A41.9 Sepsis, unspecified organism (principal); J18.1 Lobar pneumonia, unspecified organism; I50.23 Acute on chronic systolic (congestive) heart failure; J96.01 Acute respiratory failure with hypoxia; E87.1 Hypo-osmolality and hyponatremia; J98.11 Atelectasis; R78.81 Bacteremia; I11.0 Hypertensive heart disease with heart failure; D64.9 Anemia, unspecified; E78.5 Hyperlipidemia, unspecified; K21.9 Gastro-esophageal reflux disease without esophagitis; M19.90 Unspecified osteoarthritis, unspecified site; B95.8 Unspecified staphylococcus as the cause of diseases classified elsewhere

== ENCOUNTER → 2019-01-01 12:26 | Outpatient (CLI) | payer MEDICARE, BC ==
[2018-11-23 12:28] VITALS: BMI 23.5
[~2019-01-01 12:26] MED LIST changes: +ANORO ELLIPTA1 EACH INH; +CLEOCIN HCL300 MG PO; +KLOR-CON 1010 MEQ PO; +LASIX20 MG PO; +LUNESTA2 M1 PO; +NITROSTAT0.4 MG SL; +ZITHROMAX250 MG PO
== END | disposition home or self-care (01) ==
LOC: D.RT 12:26
PROVIDERS: ATTEND Internal Medicine Pulmonary Disease
DX: J18.9 Pneumonia, unspecified organism (principal); R06.00 Dyspnea, unspecified

== ENCOUNTER 2019-02-05 09:35 | Inpatient (IN) | payer MEDICARE, BC ==
[~2019-02-05] VITALS: Ht 170.2 cm; Wt 77.5 kg
[2019-02-05] MEDS ORDERED: PROTONIX40 MG PO (10:20)
[2019-02-05] MEDS ORDERED: LASIX40 MG PO (10:21)
[2019-02-05] MEDS ORDERED: FERROUS SULFAT325 MG PO (10:22)
[2019-02-05 12:08] LABS: HEMATOCRIT 40.4 % (42.0-54.0); HEMOGLOBIN 13.2 g/dL (13.5-17.5); MCH 31.9 pg (26.0-34.0); MCHC 32.7 g/dL (31.0-37.0); MCV 97.6 fL (80.0-100.0); MEAN PLATELET VOLUME 9.4 fL (7.4-10.4); RBC 4.14 10x6/uL (4.20-6.10); RDW 19.7 % (11.5-14.5); WBC 8.4 10x3/uL (4.8-10.8)
[2019-02-05 12:11] LABS: APPEARANCE CLEAR (CLEAR); BILIRUBIN NEGATIVE (NEGATIVE); COLOR YELLOW (YELLOW); GLUCOSE NEGATIVE (NEGATIVE); KETONE NEGATIVE (NEGATIVE); NITRITE NEGATIVE (NEGATIVE); PROTEIN NEGATIVE (NEGATIVE); UROBILINOGEN NORMAL (NORMAL)
[2019-02-05 12:20] LABS: APTT 40.5 SECONDS (22.8-39.4); INR 1.14 (0.85-1.17); PROTIME 14.1 SECONDS (11.6-15.0)
[2019-02-05 12:32] LABS: ALBUMIN 3.9 g/dL (3.4-5.0); ALKALINE PHOSPHATASE 211 U/L (46-116); ALT (SGPT) 24 U/L (10-68); BILIRUBIN - TOTAL 1.14 mg/dL (0.2-1.3); CALC OSMOLALITY 276 mosm/kg (275-300); CALCIUM 9.5 mg/dL (8.5-10.1); CHLORIDE - SERUM 100 mmol/L (98-107); GLUCOSE 97 mg/dL (74-106); PROTEIN - SERUM 8.5 g/dL (6.4-8.2); SODIUM 138 mmol/L (136-145); UREA NITROGEN 14 mg/dL (7-18); eGFR NON AFRICAN AMERICAN 78 mL/min (90-120)
[2019-02-07] VITALS (25 sets, daily range): BP systolic 94–129; BP diastolic 48–68; Ht 170.2 cm; Wt 77.5 kg
[2019-02-07] MEDS ORDERED: PROTONIX40 MG PO (05:21)
--- NOTE | 2019-02-07 10:38 | NUR ---
PT ARRIVED TO ROOM. PLACED ON BEDSIDE MONITORING. PT AWAKE AND CONVERSANT. ANSWERS APPROPRIATELY. INCISION TO RIGHT NECK. ICE PACK PLACED. HAS LEFT RADIAL ART LINE, CRITICORE DAY, PPM LEFT UPPER CHEST. RIGHT SUBCLAVIAN CENTRAL LINE.
--- NOTE | 2019-02-07 12:04 | NUR ---
PT PROVIDED WITH CLEAR LIQUID LUNCH TRAY. AT BEDSIDE.
--- NOTE | 2019-02-07 19:00 | NUR ---
SHIFT ASSESSMENT COMPLETE. PT IS SITITNG UP IN BED WITH GLASSES ON WATCHING TV. A&O X4 WITH NO COMPLAINTS OF PAIN OR DISCOMFORT. PERRLA, 3 MM, BRISK REACTION TO LIGHT. R CAROTID DRESSING CDI, NO TRACHEAL DEVIATION NOTED. RR EVEN AND UNLABORED, CLEAR LUNG SOUNDS HEARD BILAT THROUGHOUT ALL LOBES. RT SUBCLAVIAN CVL INFUSING PLASMALYTE @ 30 ML/HR AND ZINACEF @ 11.4 ML/HR. L UPPER CHEST PACEMAKER SEEN. S1S2 AUDIBLE, 70 BPM SHOWING ON MONITOR. RT MIDSTERNAL BABAR DRAIN COMPRESSED, SEROSANG FLUID NOTED. AM NURSE STATED THAT THE INSERTION SITE WAS BLEEDING AND THAT SX TEAM WAS AWARE. SHE REINFORCED DRESSING WITH GAUZE AND TEGADERM. WILL CONT TO MONITOR FOR SIGNS OF BLEEDING. L RADIAL A-LINE, ZEROED, BP 126/62, GOOD WAVE. CRITICORE DAY INTACT DRAINING CONCENTRATED URINE. MANSI AND SCDS ON AND FUNCTIONING. REFRESHMENTS BROUGHT TO BEDSIDE. NO FURTHER NEEDS AT THIS TIME. WILL CONT WITH POC.
--- NOTE | 2019-02-07 21:00 | NUR ---
PO MEDS GIVEN WITHOUT DIFFICULTY. IS BROUGHT TO ROOM. IS USE X10, [phone] ML INSPIRED. INSTRUCTED PT TO DO THE EXERCISES Q1H WHILE AWAKE AND THAT I WOULD WAKE HIM Q4. HE STATED THAT HE UNDERSTANDS. HE IS IN GOOD SPIRITS. NO FURTHER NEEDS AT THIS TIME. WILL CONT WITH POC.
--- NOTE | 2019-02-07 23:00 | NUR ---
REASSESSMENT COMPLETE. NO CHAGNES IN PT CONDITION. IS USE X10, GOOD EFFORT, [phone] ML. SEE FLOWSHEET FOR FURTHER DETAILS. NO FURTHER NEEDS AT THIS TIME. WILL CONT WITH POC. CALL LIGHT IN REACH.
[2019-02-08] VITALS (31 sets, daily range): BP systolic 86–126; BP diastolic 41–64
--- NOTE | 2019-02-08 01:00 | NUR ---
A&O X4 WITH NO COMPLAINTS OF PAIN OR DISTRESS. PT IS NOW RESTING. VSS. WILL CONT TO MONITOR CLOSELY.
--- NOTE | 2019-02-08 02:39 | NUR ---
IS USE X10, GOOD EFFORT, [phone] ML. REPOSITIONED FOR COMFORT. VSS. WILL CONT TO MONITOR CLOSELY.
--- NOTE | 2019-02-08 03:00 | NUR ---
REASSESSMENT COMPLETE. RESPOSITIONED FOR COMFORT. PT DENIES ANY PAIN OR DISCOMFORT AT THIS TIME. VSS. S1S2 AUDIBLE. BABAR COMPRESSED. R NECK DRESSING CDI. CALL LIGHT IN REACH, BED IN LOWEST POSITION. WILL CONT WITH POC.
--- NOTE | 2019-02-08 05:06 | NUR ---
PT RESTING WITH NO SIGNS OF ACUTE DISTRESS NOTED. VSS. CALL LIGHT IN REACH, BED IN LOWEST POSITION. WILL CONT WITH POC.
--- NOTE | 2019-02-08 05:52 | NUR ---
BABAR PULLED BY CLIFF. PT TOLERATED WELL.
--- NOTE | 2019-02-08 07:51 | NUR ---
SHIFT REPORT RECEIVED. PT AA&OX4. RATES PAIN 1/10 AT INCISION SITE. ON 2L OF O2 VIA NC. RIGHT NECK DRESSING IN PLACE. RU CHEST DRESSING NOTED AT PREVIOUS BABAR DRAIN SITE. LEFT SUBCLAVIAN CVL WITH PLASMOLYTE AT 30ML/HR AND ZINACEF AT 11.4ML/HR. DAY IN PLACE WITH CONCENTRATED URINE NOTED. SAFETY MEASURES IN PLACE. CALL LIGHT IN REACH. WILL COTNINUE TO MONITOR.
--- NOTE | 2019-02-08 09:30 | NUR ---
ORA DC'D AT THIS TIME PER ORDER. PT TOLERATED WELL.
--- NOTE | 2019-02-08 11:10 | NUR ---
ZINACEF FINISHED INFUSING. RIGHT SUB CVL SALINE LOCKED AT THIS TIME.
--- NOTE | 2019-02-08 13:14 | NUR ---
patient in chair. speaking to family on phone. no changes noted
--- NOTE | 2019-02-08 15:30 | NUR ---
DR MATTHEWS AT BEDSIDE. CPAP FROM HOME BEING TRIED. ON. DR MATTHEWS EDUACTED PATIENT ON CPAP AND VALUES SHOWN ON SCREEN. WILL CONTINUE TO MONITOR. VSS. SLEEPING ON CPAP. EASILY AROUSED.
--- NOTE | 2019-02-08 17:18 | NUR ---
patient in chair eating meals. toleated cpap well. family at bedside. no distress. urinal at bedside. on nasal cannula. eating dinner. alert and oriented. will continue to monitor.
--- NOTE | 2019-02-08 18:07 | NUR ---
NIC BALDWIN PROVIDED TO PATIENT
--- NOTE | 2019-02-08 19:00 | NUR ---
REPORT RECEIVED FROM OFF GOING NURSE. PT IS SITTING UP IN CHAIR AT THIS TIME WATCHING TV. INITIAL ASSESSMENT COMPLETED, SEE FLOWSHEET FOR DETAILS. PT STATED THAT HE INTENDS ON WEARING HIS CPAP TONIGHT THAT HE IS WANTING TO GET USED TO WEARING IT. NO FURTHER NEEDS VOICED AT THIS TIME. NO SIGNS OF ACUTE DISTRESS. WILL CONTINUE TO MONITOR.
--- NOTE | 2019-02-08 19:01 | MORECARE ---
CASE MANAGEMENT DISCHARGE SUMMARY PATIENT: YOEL FINK UNIT: [id number] ADM DATE: 02/07/19 AGE: 73 : [birth year] SEX: M ROOM/BED: [facility] AUTHOR: MARIZA,DOC PHYSICIAN: REFERRING PHYSICIAN: ATILIO LUTHER MD DATE OF SERVICE: 02/08/19 Discharge Plan Patient Name: YOEL FINK Facility: [facility]:[place] : 1945 Planned Disposition: Anticipated Discharge Date: Discharge Date: Expected LOS: Initial Reviewer: [email or web address] Initial Review Date: 02/08/2019 Generated: 02/08/19 8:00 pm Comments DCP- Discharge Planning Updated by [email or web address]: Denisa Hull on 02/08/19 5:[address] Patient Name: YOEL FINK Admission Status: Elective Accout number: [id number] Admission Date: 02-07-2019 : 1945 Admission Diagnosis: Attending: ATILIO LUTHER Current LOS: 1 Anticipated DC Date: Planned Disposition: Primary Insurance: MEDICARE A & B Discharge Planning Comments: CM met with patient at bedside after explaining CM role and obtaining verbal consent. Patient lives at home with his Luiz where he is independent with his care and plans to return there upon discharge. Patient feels this would be a safe discharge. CM discussed availability / needs of home health and medical equipment. Patient states he has home 02 / portable 02 and CPAP with [facility]. Patient denies any discharge needs at this time. Patient states he will have his family drive him home upon discharge. CM will continue to follow and assist as needed with discharge planning / needs. Welt Beater: Denisa Hull DCPIA - Discharge Planning Initial Assessment Updated by [email or web address]: Denisa Hull on 02/08/19 6:57 pm * Is the patient Alert and Oriented? Yes * How many steps to enter\exit or inside your home? * PCP RUBI * Pharmacy [facility] * Preadmission Environment Home with Family * ADLs Independent * Other Equipment HOME/ PORTABLE 02, CPAP * List name and contact numbers for known caregivers / representatives who currently or will assist patient after discharge: LUIZ FINK - SPOUSE- [phone] * Verbal permission to speak to the caregivers and representatives has been obtained from the patient. N/A * Community resources currently utilized None * Additional services required to return to the preadmission environment? No * Can the patient safely return to the preadmission environment? Yes * Has this patient been hospitalized within the prior 30 days at any hospital? No Patient Name: YOEL FINK Page [id number] at 1901 All edits/amendments must be made on the electronic document DICTATION DATE: 02/08/191899 BUSINESS DEVELOPMENT COORDINATOR: LIV 02/08/191899 RPT#: [id number] DC DATE: STATUS: ADM IN [facility] [address] [place] [address] END OF REPORT
--- NOTE | 2019-02-08 21:00 | NUR ---
PT IS LAYING IN BED AT THIS TIME ATTEMPTING TO SLEEP. PT CHANGED HIS MIND ABOUT WEARING THE CPAP MACHINE SAYING THAT HE WOULD TALK TO DR MATTHEWS AND EXPLAIN TO HIM WHY HE DIDNT WANT TO WEAR IT AT THE HOSPITAL BUT THAT HE WOULD WEAR IT AT HOME. PT FELL ASLEEP AND IMMEDIATELY HIS O2 SATURATION BEGAN TO DROP INTO THE 80'S. I AWOKE PT AND EXPLAINED THIS TO HIM AND SUGGESTED HE TRY WEARING HIS CPAP. PT AGREED AND HIS OXYGEN SATURATION HAS GREATLY IMPROVED. NO FURTHER NEEDS NOTED. NO SIGNS OF ACUTE DISTRESS. WILL CONTINUE TO MONITOR.
--- NOTE | 2019-02-08 23:00 | NUR ---
REASSESSMENT COMPLETED, SEE FLOWSHEET FOR DETAILS. PT IS LAYING IN BED WEARING HIS CPAP MASK WITH EYES CLOSED. NO NEEDS VOICED OR NOTED. NO SIGNS OF ACUTE DISTRESS. WILL CONTINUE TO MONITOR.
[2019-02-09] VITALS (14 sets, daily range): BP systolic 101–120; BP diastolic 48–65
--- NOTE | 2019-02-09 01:00 | NUR ---
PT IS LAYING IN BED WITH EYES CLOSED WEARING CPAP MASK. NO NEEDS VOICED AT THIS TIME. NO SIGNS OF ACUTE DISTRESS. WILL CONTINUE TO MONITOR.
--- NOTE | 2019-02-09 03:00 | NUR ---
REASSESSMENT COMPLETED, SEE FLOWSHEET FOR DETAILS. PT IS LAYING IN BED WITH CPAP MASK ON AT THIS TIME. NO NEEDS VOICED OR NOTED. NO SIGNS OF ACUTE DISTRESS. WILL CONTINUE TO MONITOR CLOSELY.
--- NOTE | 2019-02-09 05:00 | NUR ---
PT IS SITTING UP IN CHAIR AT THIS TIME. NO NEEDS VOICED. NO SIGNS OF ACUTE DISTRESS. WILL CONTINUE TO MONITOR.
--- NOTE | 2019-02-09 07:10 | NUR ---
AWAKE AND ALERT UP IN CHAIR AT BEDSIDE. DENIES PAIN STATES THROAT IS SORE. INCENTIVE SPIROMETRY DONE. MONITOR PACER RHYTHM. AMBULATES TO BATHROOM WITH MINIMAL ASSISTANCES. RIGHT NECK AND RIGHT UPPER CHEST DRESSING DRY AND INTACT. NO DISTRESS
--- NOTE | 2019-02-09 08:00 | NUR ---
BREAKFAST SERVED APPETITE GOOD.
[2019-02-09] MEDS ORDERED: ULTRAM50 MG PO (08:38)
--- NOTE | 2019-02-09 09:00 | NUR ---
AMBUALTED TO BATHROOM, DOES BECOME SHORT OF BREATH WITH AMBULATION. AMBULATED IN [place] WITH PHYSICAL THERAPY. TOLERATED FAIR. WEAR OXYGEN AT HOME.
--- NOTE | 2019-02-09 09:31 | NUR ---
HERE UPDATE GIVEN. PLANNING ON DISCHARGE TODAY
--- NOTE | 2019-02-09 11:30 | NUR ---
NAPPING IN CHAIR AT INTERVALS. NO DISTRESS. DRESSING RIGHT NECK DRY AND INTACT.
--- NOTE | 2019-02-09 12:00 | NUR ---
lunch tray served fair appetite. ambulating in room gait good.
--- NOTE | 2019-02-09 14:00 | NUR ---
dr. chapman here talked with patient and . discharge instructions per Alem. reviewed medications with and discharge instructions.
--- NOTE | 2019-02-09 14:30 | NUR ---
discharged home per wheelchair with patient's home portable oxygen
--- NOTE | 2019-02-09 18:17 | MORECARE ---
CASE MANAGEMENT DISCHARGE SUMMARY PATIENT: YOEL FINK UNIT: [id number] ADM DATE: 02/07/19 AGE: 73 : [birth year] SEX: M ROOM/BED: D[facility] AUTHOR: MARIZA,DOC PHYSICIAN: REFERRING PHYSICIAN: ATILIO LUTHER MD DATE OF SERVICE: 02/09/19 Discharge Plan Patient Name: YOEL FINK Facility: [facility]:[place] : 1945 Planned Disposition: Home Anticipated Discharge Date: Discharge Date: 02/09/2019 Expected LOS: Initial Reviewer: [email or web address] Initial Review Date: 02/08/2019 Generated: 02/09/19 7:16 pm Comments DCP- Discharge Planning Updated by [email or web address]: Denisa Hull on 02/08/19 5:[address] Patient Name: YOEL FINK Admission Status: Elective Accout number: [id number] Admission Date: 02-07-2019 : 1945 Admission Diagnosis: Attending: ATILIO LUTHER Current LOS: 1 Anticipated DC Date: Planned Disposition: Primary Insurance: MEDICARE A & B Discharge Planning Comments: CM met with patient at bedside after explaining CM role and obtaining verbal consent. Patient lives at home with his Luiz where he is independent with his care and plans to return there upon discharge. Patient feels this would be a safe discharge. CM discussed availability / needs of home health and medical equipment. Patient states he has home 02 / portable 02 and CPAP with [facility]. Patient denies any discharge needs at this time. Patient states he will have his family drive him home upon discharge. CM will continue to follow and assist as needed with discharge planning / needs. Blanket Folder: Deinsa Hull DCPIA - Discharge Planning Initial Assessment Updated by [email or web address]: Denisa Hull on 02/08/19 6:57 pm * Is the patient Alert and Oriented? Yes * How many steps to enter\exit or inside your home? * PCP RUBI * Pharmacy [facility] * Preadmission Environment Home with Family * ADLs Independent * Other Equipment HOME/ PORTABLE 02, CPAP * List name and contact numbers for known caregivers / representatives who currently or will assist patient after discharge: LUIZ FINK - SPOUSE- [phone] * Verbal permission to speak to the caregivers and representatives has been obtained from the patient. N/A * Community resources currently utilized None * Additional services required to return to the preadmission environment? No * Can the patient safely return to the preadmission environment? Yes * Has this patient been hospitalized within the prior 30 days at any hospital? No Last DP export: 02/08/19 6:00 Patient Name: YOEL FINK Page 53054 at 1817 All edits/amendments must be made on the electronic document DICTATION DATE: 02/09/191815 PUNCH PRESS OPERATOR: LIV 02/09/191815 RPT#: [id number] DC DATE:02/09/19 STATUS: DIS IN [facility] [address] [place] [address] END OF REPORT
--- NOTE | 2019-02-19 10:34 | OP ---
PATIENT NAME: YOEL FINK MEDICAL RECORD: [id number] :[birth year] LOCATION:[facility] D.CV02 ADMISSION DATE:02/07/19 SURGEON: MANUEL LUTHER MD DATE OF OPERATION: 02/07/2019 SURGEON: Manuel Luther MD ANESTHESIA: General endotracheal, Dr. Hsieh. OPERATION PERFORMED: Right carotid endarterectomy with patch angioplasty. PREOPERATIVE DIAGNOSIS: Critical right internal carotid artery stenosis. POSTOPERATIVE DIAGNOSIS: Bilateral carotid stenosis. INDICATION FOR OPERATION: Severe right internal carotid artery stenosis. FINDINGS AT OPERATION: Severe right internal carotid artery stenosis. There were no EEG changes with clamping or unclamping of the carotid artery. ESTIMATED BLOOD LOSS: Less than 50 mL. DESCRIPTION OF PROCEDURE: After informed consent and adequate preoperative medication evaluation, the patient was brought to the operating room and placed on the table in supine position. After induction of general endotracheal anesthesia and application of appropriate monitoring devices, the right neck and chest were prepped and draped in sterile field utilizing Betadine scrub, alcohol, and Betadine solution. Betadine-impregnated drape was also used. An oblique incision was made in the skin crease. Dissection carried down to the fascia. Hemostasis was maintained with electrocautery. Facial vein was identified and divided. Utilizing sharp dissection, the common carotid, internal and external carotid arteries were dissected free of surrounding areas protecting the neurological structures. The patient was given a calculated dose of heparin. After 3 minutes, clamps were applied. After 2 minutes of no EEG change, an arteriotomy was made and extended with Garcia scissors. Artery underwent endarterectomy sharply. Artery underwent extensive debridement and irrigation. Utilizing a CorMatrix vascular patch and running 6-0 Prolene suture, the arteriotomy was closed with a patch angioplasty technique. All maneuvers to remove trapped air performed. Clamps were removed sequentially. There were no EEG changes. The patient was given a calculated dose of protamine to reverse the heparin. Hemostasis was achieved. A #7 Robin-Truong drain was left in depths of wound and brought out through the base of the neck. Neck was again irrigated. Instrument and sponge count were correct times 2. Neck was closed in layers utilizing 3-0 Vicryl on the platysma, 5-0 subcuticular Monocryl on the skin. Sterile dressings were applied. The patient tolerated the procedure well and transferred to CV ICU in satisfactory condition. TRANSINT:[id number] Voice Confirmation ID: [id number] DOCUMENT ID: [id number] OPERATIVE REPORT [id number] YOEL FINK, MANUEL ADAM at 1034 CC: [id number] DICTATION DATE: 02/07/19 1012 FOREST SCIENTIST: 02/07/19 1101 DIS IN 02/09/19 [place] [id number] [place] [id number]
== END 2019-02-09 15:24 | disposition home or self-care (01) | DRG 38 ==
LOC: D.SDCHOLD 02-07 05:00 → D.CVICU 02-07 05:00 → D.SDCHOLD 02-07 07:30 → D.CVICU 02-07 10:00
PROVIDERS: ADMIT Internal Medicine Cardiovascular Disease; ATTEND Internal Medicine Cardiovascular Disease
PROC: 03UK0JZ Supplement Right Internal Carotid Artery with Synthetic Substitute, Open Approach (ICD-10-PCS; 2019-02-07)
PROC: 03CK0ZZ Extirpation of Matter from Right Internal Carotid Artery, Open Approach (ICD-10-PCS; principal; 2019-02-07 07:30)
DX: I65.23 Occlusion and stenosis of bilateral carotid arteries (principal); I50.22 Chronic systolic (congestive) heart failure; E78.5 Hyperlipidemia, unspecified; J44.9 Chronic obstructive pulmonary disease, unspecified; I49.5 Sick sinus syndrome; I71.4 Abdominal aortic aneurysm, without rupture; G47.33 Obstructive sleep apnea (adult) (pediatric); I73.9 Peripheral vascular disease, unspecified

== ENCOUNTER → 2019-05-14 08:18 | Outpatient (CLI) | payer MEDICARE, BC ==
[2019-02-07 11:08] VITALS: BMI 24.1
[~2019-05-14 08:18] MED LIST changes: +FERROUS SULFAT325 MG PO; +ULTRAM50 MG PO
== END | disposition home or self-care (01) ==
LOC: D.CT 08:18
PROVIDERS: ATTEND Internal Medicine Cardiovascular Disease
DX: I71.4 Abdominal aortic aneurysm, without rupture (principal)

== ENCOUNTER 2019-08-03 06:51 | Inpatient (IN) | payer MEDICARE, BC ==
[~2019-08-03] VITALS: Ht 170.2 cm; Wt 69.5 kg
--- NOTE | ~2019-08-03 | HEMODYNAMI ---
PATIENT:YOEL FINK MEDICAL RECORD: [id number] : [birth year] [facility] [id number] ADMISSION DATE: 08/03/19 Generatedon:08/06/201915:49 Patient name: YOEL FINK Patient #: [id number] SSN: DO B: 1945 Date of study: 08/06/2019 Page: Of Hemodynamic Procedure Report Patient Data Patient Demographics Procedure consent was obtained First Name: YOEL Gender: Male Last Name: DANAE : 1945 Middle Initial: FRANCISCO Age: 74 year(s) Patient #: [id number] Race: Unknown Additional ID: [id number] Contact details Address: [address] [place] [address] [facility] State: [place] City: [place] Zip code: [address] Past Medical History Allergies: No known allergies Admission Admission Data Admission Date: 08/03/2019 Admission Time: 9:48 Room #: D.2114 Height (in.): 67 BSA: 1.8 (m2) Height (cm.): 170.18 BMI: 23.96 (kg/m2) Weight (lbs.): 153 Weight (kg.): 69.4 Procedure Procedure Types Cath Procedure Peripheral Cath Diagnostic Procedure 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 Peripheral Procedures Abd/Extremity Extremities Bilat Lower Extremity Procedure Description Procedure Date Procedure Date: 08/06/2019 Procedure Start Time: 15:10 Procedure Staff Name Function Anthony Ramirez MD Performing Physician Ana Collins RT Technical Support Representative Mily Gomez RN Nurse Radha Gonzalez RN Nurse Hai Muñoz RT Scrub Procedure Data Cath Procedure Fluoroscopy Diagnostic fluoroscopy Total fluoroscopy Time: 2.5 time: 2.5 min min Diagnostic fluoroscopy Total fluoroscopy dose: 433 dose: 433 mGy mGy Contrast Material Contrast Material Type Amount (ml) Isovue 300 125 Procedure Medications Medication Administration Route Dosage Benadryl I.V. 25 mg Benadryl I.V. 25 mg Versed I.V. 1 mg Fentanyl I.V. 50 mcg Lidocaine 1% Versed I.V. 1 mg Fentanyl I.V. 50 mcg Hemodynamics Rest BSA: 1.8 (m2) O2 Consumption: Estimated: 212.26 (ml/min) O2 Consumption indexed: Estimated:117.92 (ml/min/m) Heart Rate: 77 (bpm) Snapshots Pre Cath Intra NCS Post Cath Vital Signs Time Heart Resp SPO2 etCO2 NIBP (mmHg) Rhythm Pain Sedation Rate (ipm) (%) (mmHg) Status Level (bpm) 15:02:16 69 12 0 No Cuff NSR 0 (11) 9(A) , No pain 15:03:44 69 14 1.5 126/74(103) NSR 0 (11) 9(A) , No pain 15:07:54 69 24 97 0 125/69(98) NSR 0 (11) 9(A) , No pain 15:12:01 72 14 97 0 117/71(97) NSR 0 (11) 7(A) , No pain 15:16:07 70 27 93 0 112/74(103) NSR 0 (11) 7(A) , No pain 15:20:11 69 23 86 0 110/73(86) NSR 0 (11) 7(A) , No pain 15:24:17 69 21 87 9 104/65(86) NSR 0 (11) 7(A) , No pain 15:28:17 69 24 87 7.5 101/80(89) NSR 0 (11) 7(A) , No pain 15:32:18 69 21 78 18.1 107/70(90) NSR 0 (11) 7(A) , No pain 15:35:47 66 24 95 21.9 118/70(90) NSR 0 (11) 7(A) , No pain 15:39:55 69 23 96 21.9 111/70(94) NSR 0 (11) 7(A) , No pain 15:43:59 67 22 97 21.9 115/73(99) NSR 0 (11) 7(A) , No pain 15:48:02 69 32 97 12 114/74(103) NSR 0 (11) 7(A) , No pain Medications Time Medication Route Dose Verified Delivered Reason Notes Effectiven ess by by 15:05:14 Benadryl I.V. 25 mg Isrrael Martellen RN physician 15:08:43 Benadryl I.V. 25 mg Anthony Minor Per Jason Ramirez RN physician 15:10:09 Versed I.V. 1 mg Anthony Minor used for Jason Ramirez RN procedure 15:10:32 Fentanyl I.V. 50 Anthony Mily used for mcg Jason Ramirez RN procedure 15:11:08 Lidocaine Anthony Cruz used for 1% James Ramirez MD procedure 15:12:27 Versed I.V. 1 mg Anthony Cruz used for James Ramirez MD procedure 15:12:36 Fentanyl I.V. 50 Anthony Anthony used for mcg James Ramirez MD procedure Procedure Log Time Note 14:12:36 Patient Height : 67 inches 14:13:16 Patient Weight : 153 lbs 14:15:35 Use device set IR Diagnostic 14:15:37 Tegaderm 4 x 4 (1626W) opened to sterile field. 14:15:38 Sterile Angiographic Pack opened to sterile field. 14:15:39 Bag Decanter (2002S) opened to sterile field. 14:15:41 ACIST Manifold (30046) opened to sterile field. 14:15:42 ACIST Hand Control (67985) opened to sterile field. 14:15:43 ACIST Syringe (88443) opened to sterile field. 14:16:46 DOC .035 wire (C02473) opened to sterile field. 14:16:47 WEEKS 260 wire (V89793) opened to sterile field. 14:16:48 Micropuncture VSI 4FR kit opened to sterile field. 14:16:49 SHEATH 5FR Warren (FNN183) opened to sterile field. 14:16:50 TUBING Contrast Injection High Pressure (ALV104I) opened to sterile field. 14:42:57 Time tracking: Regular hours (M-F 7:00 - 5:00) 14:43:22 Plan of Care:Hemodynamics will remain stable., Cardiac rhythm will remain stable., Comfort level will be maintained., Respiratory function will remain adequate., Patient/ family verbilizes understanding of procedure., Procedure tolerated without complication., Recovers from procedure without complications.. 14:43:34 Patient received from Med II to IR Alert and oriented. Tansferred to table in Supine position. 14:43:39 Signed procedure consent form obtained from patient. 14:43:46 H&P Date Dictated: 08/06/2019 Within 30 days and on chart.. 14:43:48 Pre-procedure instructions explained to patient. 14:43:48 Pre-op teaching completed and patient verbalized understanding. 14:43:51 Family unavailable. 14:43:53 Patient NPO since Midnight. 14:44:04 Patient allergic to No known allergies 14:45:36 Is the patient allergic to Iodine/contrast media? No. 14:45:38 Is patient on blood thinner?Yes 14:45:42 Patient diabetic? No. 14:45:43 - 14:45:44 ----Pre-sedation anethsthesia assessment.---- 14:45:50 Previous problem with sedation/anesthesia? No ? 14:45:53 Snore? No 14:45:55 Sleep apnea? Yes 14:45:56 Deviated septum? No 14:45:58 Opens mouth fully? Yes 14:46:00 Sticks out tongue? Yes 14:46:02 Airway obstruction? No ? 14:46:07 Dentures? No ? 14:46:10 - 14:51:19 Pre procedure: left dorsailis pedis pulse 0-Absent 14:51:23 Pre procedure: right dorsailis pedis pulse Doppler 14:51:31 Pre procedure: right posterior tibial pulse Other 14:51:36 Pre procedure: right posterior tibial pulse Doppler 14:51:41 Pre procedure: left posterior tibial pulse Doppler 14:51:52 Left groin area was prepped with chlora-prep and draped in sterile fashion 14:52:06 2) 60-89 Mildly reduced kidney function, and other findings (as for stage 1) point to kidney disease. 14:52:33 Maximum allowable contrast dose (3.7 X eGFR X 0.75)216 ml. 15:01:24 ECG and BP/O2 sat monitors applied to patient. 15::26 Vital chart was started 15::27 Baseline sample Acquired. 15::29 Full Disclosure recording started 15::30 - 15:05:14 Benadryl 25 mg I.V. was administered by Mily Gomez RN; Per physician; Verbal order read back and verified. 15:08:43 Benadryl 25 mg I.V. was administered by Mily Gomez RN; Per physician; Verbal order read back and verified. 15::29 Physician arrived 15:: --------ALL STOP TIME OUT------ 15::31 Final Timeout: patient, procedure, and site verified with staff and physician. All members of the team are in agreement. 15:09:52 Fire Safety Assessment: A--An alcohol-based skin anteseptic being used preoperatively., C--Open oxygen or nitrous oxide is being used. 15:10:02 Procedure started. 15:10:09 Versed 1 mg I.V. was administered by Mily Gomez RN; used for procedure; Verbal order read back and verified. 15:10:10 Local anesthetic to left femerol artery with Lidocaine 1% by Anthony Ramirez MD.INITIAL ACCESS ONLY 15:10:32 Fentanyl 50 mcg I.V. was administered by Mily Gomez RN; used for procedure; Verbal order read back and verified. 15:11:08 Lidocaine 1% was administered by Anthony Ramirez MD; used for procedure; Verbal order read back and verified. 15:11:31 Angiodynamics Omniflush 5Fr 65cm ([id number]) opened to sterile field. 15:12:27 Versed 1 mg I.V. was administered by Anthony Ramirez MD; used for procedure ; Verbal order read back and verified. 15:12:36 Fentanyl 50 mcg I.V. was administered by Anthony Ramirez MD; used for procedure; Verbal order read back and verified. 15:14:43 AMPLATZ Super Stiff 75cm wire ([id number]) opened to sterile field. 15:16:29 Arterial access obtained using ultrasound guidance. 15:36:47 EXOSEAL 5Fr (EX500) opened to sterile field. 15:38:50 Procedure ended.(Physican Out) 15:38:56 Fluoroscopy time 02.50 minutes. 15:39:02 Fluoroscopy dose: 433 mGy 15:39:02 Flurop Dose total: 433 15:39:09 Contrast amount:Isovue 300 125ml. 15:39:13 Procedure and supply charges have been captured, reviewed, submitted an d are correct. 15:49:28 Vital chart was stopped Device Usage Item Name Manufacture Quantity Catalog Hospital Part Current Minim al Lot# / Number Charge Number Stock Stock Serial# Code Tegaderm 4 x 3M 1 1626W 396134 [id number] [id number] 5 4 (1626W) Sterile Cardinal 1 [id number] 835773 078367 5 Angiographic Health Pack Bag Decanter Microtek 1 2001S 223843 25952 209425 5 (2001S) Medical Inc. ACIST Acist Medical 1 47575 923562 220671 033218 5 Manifold Systems Inc (45240) ACIST Hand Acist Medical 1 23100 426295 163172 669501 5 Control Systems Inc (67436) ACIST Syringe Acist Medical 1 68483 916837 943556 713573 20 (88929) Systems Inc DOC .035 wire Cook Medical 1 H08452 406746 940340 5 (T91305) WEEKS 260 Cook Medical 1 N88774 932628 78449 916524 5 wire (G02174) Micropuncture VSI VASCULAR 1 7266V 889926 492284 5 VSI 4FR kit SOLUTIONS SHEATH 5FR Terumo 1 DPM635 244016 909618 907154 5 Warren (PCD027) TUBING Merit Medical 1 [id number] 293910 630343 905715 5 Contrast Injection High Pressure ([id number]) Angiodynamics Angiodynamics 1 61969467 736691 712325 368175 5 Omniflush 5Fr 65cm ([id number]) AMPLATZ Super [place] 1 [id number] 584601 151691 113122 5 Stiff 75cm Scientific wire ([id number]) EXOSEAL 5Fr Cardinal 1 EX500 648470 875943 225947 10 (EX500) Health Signature Audit Stow Stage Time Signature Unsigned Intra-Procedure 08/06/2019 Ana Collins 3:49:23 PM RT(R) [facility] [address] [place] [id number]
[2019-08-03 07:19] VITALS: BP 106/58
[2019-08-03 07:24] LABS: BASOPHILS 0.6 % (0-2); EOSINOPHILS 1.2 % (0-7); HEMOGLOBIN 11.4 g/dL (13.5-17.5); IMMATURE GRANULOCYTES 0.1 % (0-5); LYMPHOCYTES 19.9 % (15-50); MCH 33.8 pg (26.0-34.0); MCHC 32.6 g/dL (31.0-37.0); MCV 103.9 fL (80.0-100.0); MEAN PLATELET VOLUME 9.3 fL (7.4-10.4); MONOCYTES 10.9 % (2-11); NEUTROPHILS 67.3 % (40-80); RBC 3.37 10x6/uL (4.20-6.10); RDW 15.2 % (11.5-14.5)
[2019-08-03 07:47] LABS: PLATELET COUNT 159 10x3/uL (130-400)
[2019-08-03 07:51] LABS: CALC OSMOLALITY 270 mosm/kg (275-300); CARBON DIOXIDE 28.2 mmol/L (21.0-32.0); CHLORIDE - SERUM 96 mmol/L (98-107); GLUCOSE 95 mg/dL (74-106); POTASSIUM - SERUM 3.2 mmol/L (3.5-5.1); SODIUM 134 mmol/L (136-145); UREA NITROGEN 20 mg/dL (7-18); eGFR NON AFRICAN AMERICAN 78 mL/min (90-120)
[2019-08-03 08:06] LABS: ALBUMIN 3.6 g/dL (3.4-5.0); ALKALINE PHOSPHATASE 197 U/L (30-120); ALT (SGPT) 31 U/L (10-68); BILIRUBIN - TOTAL 1.74 mg/dL (0.2-1.3); CKMB 3.4 U/L (0.0-3.6); CREATINE KINASE 188 UL (21-232); MAGNESIUM - SERUM 1.9 mg/dL (1.8-2.4); PROTEIN - SERUM 7.5 g/dL (6.4-8.2); TROPONIN-I 0.029 ng/mL (0.000-0.060)
[2019-08-03 08:22] LABS: INR 1.49 (0.85-1.17); PROTIME 17.9 SECONDS (11.6-15.0)
[2019-08-03 08:23] LABS: APTT 46.4 SECONDS (22.8-39.4)
--- NOTE | 2019-08-03 08:48 | NUR ---
pt back from ultrasound
[2019-08-03 09:10] VITALS: BP 106/57
--- NOTE | 2019-08-03 09:24 | NUR ---
dr. clifton here to see pt.
[2019-08-03 11:13] VITALS: BP 101/54; BMI 24.0
[2019-08-03 14:13] VITALS: Ht 170.2 cm; Wt 69.5 kg
[2019-08-03 14:58] LABS: % SATURATION 13 % (15-55); IRON 44 ug/dl (35-150); TOTAL IRON BIND CAPACITY 326 ug/dl (260-445); UNSAT IRON BIND CAPACITY 282 ug/dl (150-375)
[2019-08-03 20:00] VITALS: BP 108/63
[2019-08-04 00:30] VITALS: BP 103/60
[2019-08-04 04:00] VITALS: BP 104/54
[2019-08-04 05:12] LABS: BASOPHILS 0.5 % (0-2); EOSINOPHILS 0.9 % (0-7); HEMATOCRIT 34.7 % (42.0-54.0); HEMOGLOBIN 11.1 g/dL (13.5-17.5); LYMPHOCYTES 22.1 % (15-50); MCH 33.7 pg (26.0-34.0); MCV 105.5 fL (80.0-100.0); MEAN PLATELET VOLUME 9.5 fL (7.4-10.4); MONOCYTES 10.7 % (2-11); NEUTROPHILS 65.8 % (40-80); PLATELET COUNT 145 10x3/uL (130-400); RBC 3.29 10x6/uL (4.20-6.10); RDW 15.5 % (11.5-14.5); WBC 7.5 10x3/uL (4.8-10.8)
[2019-08-04 05:21] LABS: PROTIME 17.1 SECONDS (11.6-15.0)
[2019-08-04 05:34] LABS: ALBUMIN 3.1 g/dL (3.4-5.0); ALKALINE PHOSPHATASE 155 U/L (30-120); BILIRUBIN - TOTAL 1.79 mg/dL (0.2-1.3); CALC OSMOLALITY 271 mosm/kg (275-300); CALCIUM 8.8 mg/dL (8.5-10.1); CARBON DIOXIDE 28.7 mmol/L (21.0-32.0); CHLORIDE - SERUM 99 mmol/L (98-107); GLUCOSE 100 mg/dL (74-106); POTASSIUM - SERUM 3.5 mmol/L (3.5-5.1); PROTEIN - SERUM 7.1 g/dL (6.4-8.2); SODIUM 135 mmol/L (136-145); UREA NITROGEN 18 mg/dL (7-18); eGFR NON AFRICAN AMERICAN 78 mL/min (90-120)
[2019-08-04 05:36] LABS: ALT (SGPT) 23 U/L (10-68)
[2019-08-04 06:26] LABS: APTT > 200.0 SECONDS (22.8-39.4)
[2019-08-04 08:18] VITALS: BP 99/53
[2019-08-04 11:37] VITALS: BP 109/48
[2019-08-04 14:33] LABS: BILIRUBIN NEGATIVE (NEGATIVE); GLUCOSE NEGATIVE (NEGATIVE); KETONE NEGATIVE (NEGATIVE); NITRITE NEGATIVE (NEGATIVE); SPECIFIC GRAVITY 1.015 (1.005-1.020); UROBILINOGEN NORMAL (NORMAL)
--- NOTE | 2019-08-04 17:08 | NUR ---
NO CHANGE IN RATE FOR HEPARIN. 84.1. PT A/O X4 NO S/S OF DISTRESS BED LOW CALL LIGHT WITHIN REACH. WILL CONTINUE TO MONITOR.
--- NOTE | 2019-08-04 18:52 | NUR ---
I have reviewed this patient and I concur with the Shift Assessment completed by the Licensed Practical Nurse today this shift.
[2019-08-04 20:00] VITALS: BP 93/54
[2019-08-05] VITALS: BP 94/55
[2019-08-05 04:00] VITALS: BP 99/56
[2019-08-05 05:18] LABS: BASOPHILS 0.5 % (0-2); EOSINOPHILS 1.4 % (0-7); HEMATOCRIT 31.5 % (42.0-54.0); HEMOGLOBIN 10.1 g/dL (13.5-17.5); IMMATURE GRANULOCYTES 0.2 % (0-5); LYMPHOCYTES 21.5 % (15-50); MCH 33.3 pg (26.0-34.0); MCHC 32.1 g/dL (31.0-37.0); MEAN PLATELET VOLUME 9.4 fL (7.4-10.4); MONOCYTES 13.6 % (2-11); NEUTROPHILS 62.8 % (40-80); PLATELET COUNT 144 10x3/uL (130-400); RBC 3.03 10x6/uL (4.20-6.10); RDW 15.4 % (11.5-14.5); WBC 6.6 10x3/uL (4.8-10.8)
[2019-08-05 05:41] LABS: CALCIUM 8.6 mg/dL (8.5-10.1); CARBON DIOXIDE 26.2 mmol/L (21.0-32.0); CREATININE - SERUM 1.1 mg/dL (0.6-1.3); POTASSIUM - SERUM 3.2 mmol/L (3.5-5.1)
--- NOTE | 2019-08-05 07:20 | NUR ---
RECIEVE REPORT. ALERT AND ORIENTED X4. RESTING IN BED. SINUS PACED ON TELEMETRY. DENIES ANY NEEDS. CONTINUE PLAN OF CARE AND SAFETY PRECAUTIONS.
[2019-08-05 09:25] VITALS: BP 96/51
[2019-08-05 14:00] VITALS: BP 98/47
[2019-08-05 16:22] VITALS: BP 95/58
[2019-08-05 20:00] VITALS: BP 101/51
--- NOTE | 2019-08-05 20:00 | NUR ---
REPORT RECIEVED AND INITIAL ROUNDS COMPLETED. PT RESTING IN BED. ALERT/ORIENTED. HEPARIN DRIP INFUSING AT 7ML/HR TO RFA + NS @ 50ML/HR. O2 @ 2L/NC WITH NONLABORED RESPIRATIONS. PACED ON TELEMETRY. PT WILL BE NPO AFTER MIDNIGHT FOR IR TO DO AN ARTERIOGRAM IN AM TO LEFT LEG. CPOC.
--- NOTE | 2019-08-05 23:00 | NUR ---
ALL BEDTIME MEDS GIVEN. ASSISTED PT TO CONNECT UP HIS HOME CPAP MACHINE AND READY FOR BED. PT THINKS HE SHOULD BE HAVING A "BENADRYL DRIP" RIGHT NOW. EXPLAINED TO PT THAT THERE IS NOT AN ORDER FOR A BENADRYL DRIP. PT SLIGHTLY CONFUSED AND PUTTERING AROUND HIS ROOM. GOT HIM SETTLED BACK IN BED AND INSTRUCTED HIM ON NPO AFTER MIDNIGHT AND THAT HE WILL BE SEEN BY INTERVENTIONAL RADIOLOGY IN AM FOR PROCEDURE. MONITOR AND CPOC.
[2019-08-06] VITALS (9 sets, daily range): BP systolic 94–128; BP diastolic 52–73
--- NOTE | 2019-08-06 05:42 | NUR ---
PT HAS BEEN NPO SINCE MIDNIGHT. RESTING WITH NO DISTRESS AT THIS TIME. CPOC.
[2019-08-06 06:19] LABS: BASOPHILS 0.6 % (0-2); EOSINOPHILS 1.7 % (0-7); HEMATOCRIT 31.9 % (42.0-54.0); HEMOGLOBIN 10.2 g/dL (13.5-17.5); IMMATURE GRANULOCYTES 0.2 % (0-5); LYMPHOCYTES 20.2 % (15-50); MCH 32.9 pg (26.0-34.0); MCV 102.9 fL (80.0-100.0); MEAN PLATELET VOLUME 9.6 fL (7.4-10.4); MONOCYTES 13.4 % (2-11); NEUTROPHILS 63.9 % (40-80); PLATELET COUNT 146 10x3/uL (130-400); RDW 15.3 % (11.5-14.5); WBC 6.5 10x3/uL (4.8-10.8)
[2019-08-06 06:46] LABS: CALC OSMOLALITY 271 mosm/kg (275-300); CALCIUM 8.7 mg/dL (8.5-10.1); CARBON DIOXIDE 24.4 mmol/L (21.0-32.0); CHLORIDE - SERUM 99 mmol/L (98-107); GLUCOSE 90 mg/dL (74-106); POTASSIUM - SERUM 3.5 mmol/L (3.5-5.1); SODIUM 135 mmol/L (136-145); UREA NITROGEN 18 mg/dL (7-18); eGFR NON AFRICAN AMERICAN 78 mL/min (90-120)
--- NOTE | 2019-08-06 07:20 | NUR ---
RECIEVE REPORT. RESTING IN BED WITH EYES CLOSED. SINUS RYTHM 69 ON TELEMETRY. NO SIGNS OF DISTRESS. CONTINUE PLAN OF CARE AND SAFETY PRECAUTIONS.
--- NOTE | 2019-08-06 07:20 | NUR ---
RECIEVE REPORT. ALERT AND ORIENTED X4. SITTING UP IN BED. SINUS RYTHM PACED 70 ON TELEMETRY. LT ARM IN SLING. DENIES ANY NEEDS. CONTINUE PLAN OF CARE AND SAFETY PRECAUTIONS.
--- NOTE | 2019-08-06 10:00 | NUR ---
ALERT AND ORIENTED X4. SITTING UP ON SIDE OF BED. BATH AND LINEN CHANGE COMPLETE. CONSENTS FOR AFRO SIGNED ON CHART. PTT 91.4. FOLLOW HEPARIN DRIP PROTOCOL. SINUS PACED 70 ON TELEMETRY. CONTINUE PLAN OF CARE AND SAFETY PRECAUTIONS.
[2019-08-06 12:46] LABS: INR 1.31 (0.85-1.17); PROTIME 16.2 SECONDS (11.6-15.0)
--- NOTE | 2019-08-06 14:05 | NUR ---
Nutrition follow-up: Pt now NPO for scheduled procedure PO intake of Low sodium diet ~60% average of last 2 meals Labs reviewed Wt: 153# RDN following.
--- NOTE | 2019-08-06 16:10 | NUR ---
ARRIVE BACK TO ROOM VIA BED FROM IR. LT GROIN DRESSING CLEAN DRY INTACT. FREE FROM BLEEDING. FREE FROM HEMATOMA. BP-112/67, HR-70 SINUS PACED, O2-93% WITH CPAP. INSTRUCT TO REMAIN FLAT FOR NEXT 6 HOURS. CONTINUE PLAN OF CARE AND SAFETY PRECAUTIONS.
--- NOTE | 2019-08-06 19:44 | NUR ---
RECEIVED BEDSIDE REPORT. PATIENT IS ALERT AND ORIENTED, SITTING COMFORTABLY IN BED. RESPIRATIONS ARE EVEN AND UNLABORED. NO S/S OF DISTRESS. NO C/OP AIN. CALL LIGHT WITHIN REACH. WILL CPOC.
[2019-08-07] VITALS: BP 151/94
[2019-08-07 01:19] LABS: BASOPHILS 0.6 % (0-2); EOSINOPHILS 1.7 % (0-7); HEMATOCRIT 33.6 % (42.0-54.0); HEMOGLOBIN 10.8 g/dL (13.5-17.5); IMMATURE GRANULOCYTES 0.2 % (0-5); LYMPHOCYTES 18.4 % (15-50); MCH 33.8 pg (26.0-34.0); MCHC 32.1 g/dL (31.0-37.0); MEAN PLATELET VOLUME 9.1 fL (7.4-10.4); MONOCYTES 11.2 % (2-11); NEUTROPHILS 67.9 % (40-80); PLATELET COUNT 127 10x3/uL (130-400); RDW 15.5 % (11.5-14.5); WBC 6.4 10x3/uL (4.8-10.8)
[2019-08-07 01:28] LABS: ANION GAP 9.3 mmol/L (8-16); CALCIUM 8.5 mg/dL (8.5-10.1); CARBON DIOXIDE 28.3 mmol/L (21.0-32.0); MAGNESIUM - SERUM 1.7 mg/dL (1.8-2.4); POTASSIUM - SERUM 3.6 mmol/L (3.5-5.1)
[2019-08-07 01:30] LABS: CREATININE - SERUM 1.3 mg/dL (0.6-1.3)
[2019-08-07 04:00] VITALS: BP 107/63
--- NOTE | 2019-08-07 07:20 | NUR ---
RECIEVE REPORT. RESTING IN BED WITH EYES CLOSED. AROUSES EASILY TO STIMULI. LT GROIN DRESSING C/D/I. DENIES ANY NEEDS AT THIS TIME. CONTINUE PLAN OF CARE AND SAFETY PRECAUTIONS.
[2019-08-07 08:00] VITALS: BP 97/55
--- NOTE | 2019-08-07 10:58 | NUR ---
ALERT AND ORIENTED X4. SITTING UP IN BED PTT-69.4. NO CHANGE TO HEPARIN DRIP PER PROTOCOL. SCHEDULE NEXT DRAW FOR 0600 08/08/19.
[2019-08-07 13:25] VITALS: BP 87/45
--- NOTE | 2019-08-07 19:35 | NUR ---
RECEIVED BEDSIDE REPORT. PATIENT IS ALERT AND ORIENTED, RESTING COMFORTABLY IN BED. RESPIRATIONS ARE EVEN AND UNLABORED. NO S/S OF DISTRESS. NO C/O PAIN. CALL LIGHT WITHIN REACH. WILL CPOC.
[2019-08-07 21:12] VITALS: BP 93/53
[2019-08-07 23:58] VITALS: BP 92/55
[2019-08-08 05:14] LABS: BASOPHILS 0.5 % (0-2); HEMATOCRIT 32.1 % (42.0-54.0); HEMOGLOBIN 10.2 g/dL (13.5-17.5); IMMATURE GRANULOCYTES 0.2 % (0-5); LYMPHOCYTES 21.3 % (15-50); MCHC 31.8 g/dL (31.0-37.0); MCV 103.9 fL (80.0-100.0); MEAN PLATELET VOLUME 9.3 fL (7.4-10.4); MONOCYTES 12.6 % (2-11); NEUTROPHILS 62.4 % (40-80); PLATELET COUNT 141 10x3/uL (130-400); RBC 3.09 10x6/uL (4.20-6.10); RDW 15.1 % (11.5-14.5); WBC 6.1 10x3/uL (4.8-10.8)
[2019-08-08 05:17] VITALS: BP 90/52
[2019-08-08 05:24] LABS: CALC OSMOLALITY 274 mosm/kg (275-300); CALCIUM 8.8 mg/dL (8.5-10.1); CARBON DIOXIDE 28.3 mmol/L (21.0-32.0); CHLORIDE - SERUM 102 mmol/L (98-107); GLUCOSE 94 mg/dL (74-106); MAGNESIUM - SERUM 1.7 mg/dL (1.8-2.4); POTASSIUM - SERUM 3.7 mmol/L (3.5-5.1); SODIUM 137 mmol/L (136-145); UREA NITROGEN 16 mg/dL (7-18); eGFR NON AFRICAN AMERICAN 78 mL/min (90-120)
--- NOTE | 2019-08-08 07:59 | NUR ---
AM ROUNDS COMPLETED. INTRODUCED MYSELF TO PT PRIMARY RN FOR TODAYS SHIFT. SHIFT ASSESSMENT COMPLETED. PT IS A&O SITTING UP IN BED RESTING QUIETLY. EMPTIED BEDSIDE URINAL OF 450CC CONCENTRATED URINE. PT STATES HE IS REALLY WANTING TO BE DISCHARGED TODAY. REVIEWED CHARTS AND PT APPEARS TO BE AT BASELINE HOWEVER HIS BP IS HYPOTENSIVE THIS MORNING 78/46 VIA R.ARM AND 68/42 L.ARM. PT IS ASYPTOMATIC HOWEVER HE STATES AT HOME HE STAYS IN THE 90S SYSTOLIC. PT DENIES ANY DIZZINESS. WILL REVIEW HIS MEDICATION AND MAKE SURE WE ARE GIVING CORRECT DOSES AND RECHECK BP SHORTLY. RR NONLABORED WITH NC @3L PT ONLY SATTING AT 90%. PT STATES HE WEARS 2L CONTINUOUSLY AT HOME BUT ALSO THAT HE ISNT AMBULATING VERY MUCH, WILL HAVE HIM COUGH DEEP BREATHE AND AMBULATE WHEN BP IS HIGHER AND SEE IF IT HELPS EXPAND HIS LUNGS AND HELP O2 SATURATION. DISCUSSED ALL THIS WITH PT AND HE VERBALIZED UNDERSTANDING AND IS MOTIVATED TO DO WHATEVER IT TAKES TO DISCHARGE. R.FOOT STILL HAS BLUE DISCOLORATION TO HIS TOES HOWEVER PRIMARILY APPEAR LIKE A BRUISE AND NOT FULLY DISCOLORED. PULSES INTACT AND STRONG, FOOT WARM. HEPARIN DRIP STILL INFUSING PER PROTOCOL @7CC AN HR. NO CURRENT NEEDS WILL CTM.
[2019-08-08 08:03] VITALS: BP 78/46
--- NOTE | 2019-08-08 11:02 | NUR ---
PT SITTING UP IN BED RESTING QUIETLY. PT STATES HE IS FEELING GOOD OVERALL. DENIES ANY SOB OR ANY CURRENT NEEDS. CL IN REACH, BED IN LOWEST, SIDE RAILS X2. WILL CPOC.
[2019-08-08 11:35] VITALS: BP 93/49
--- NOTE | 2019-08-08 13:35 | NUR ---
PT WILL GET TO BE DISCHARGED AND IS VERY HAPPY TO HEAR THIS. WILL BEGIN DISCHARGE PAPER WORKUP. PT VOICED THANKS. NO CURRENT NEEDS. WILL CTM.
--- NOTE | 2019-08-08 15:38 | NUR ---
D/C PTS L.FA PIV WITH CATHETER TIP FULLY INTACT. D/C PTS R.FA PIV WITH CATHETER TIP FULLY INTACT. DISCHARGE TEACHING PROVIDED AND PAPERS SIGNED. PT VERBALIZED UNDERSTANDING AND DENIES ANY QUESTIONS OR CONCERNS. ALL BELONGINGS COLLECTED AND BAGGED UP FOR PT. D/C TELEMETRY AND RETURNED TO [facility]. NO FURTHER NEEDS. PT IS AWAITING HIS TRANSPORTATION.
--- NOTE | 2019-08-08 15:57 | MORECARE ---
CASE MANAGEMENT DISCHARGE SUMMARY PATIENT: YOEL PARIKH UNIT: [id number] ADM DATE: 08/03/19 AGE: 74 : 47 SEX: M ROOM/BED: D.2114 AUTHOR: IVANA DAWKINS PHYSICIAN: REFERRING PHYSICIAN: DERRICK DOCKERY MD DATE OF SERVICE: 08/08/19 Discharge Plan Patient Name: YOEL PARIKH [facility] [facility] 1945 Planned Disposition: Home Anticipated Discharge Date: 08/08/19 Discharge Date: Expected LOS: 5 Initial Reviewer: [id number] Initial Review Date: 08/03/2019 Generated: 08/08/19 4:56 pm Comments DCP- Discharge Planning Updated by [id number]: Gladys Delaney on 08/08/19 2:[address] CM met with patient for DC plans/needs. Patient lives independently with his , Kyra #[phone]. PCP: Dr. Hsieh. Pharmacy: [address] DME: home O2 with portability, walker (does not use). Obtained permission to speak with family. Denies use of community resources and feels he can safely return home with his spouse. Denies the need for additional services. Denies prior hospitalizations within past 30 days. Patient's will drive him home upon DC. Coverage Notice Reviewer: [id number] - Gladys Delaney Notice Issued Date-Time: 08/07/2019 17:53 Notice Type: IM Discharge Notice Notice Delivered To: Patient Relationship to Patient: Self Leather Stitcher Name: Yoel Parikh Delivery Method: HAND - Hand Delivered Ariadna Days: Prior Verbal Notification: Recipient Understood Notice: Yes Recipient Signature: Yes Med Rec Note Co-signed by Attending: Coverage Notice Comment: DC IMM signed Patient Name: YOEL PARIKH Page [id number] at 1557 All edits/amendments must be made on the electronic document DICTATION DATE: 08/08/19 1556 PACKING HOUSE SUPERVISOR: LIV 08/08/19 1556 RPT#: [id number] DC DATE: STATUS: ADM IN [facility] [address] [place] [address] END OF REPORT
--- NOTE | 2019-08-08 16:05 | MORECARE ---
CASE MANAGEMENT DISCHARGE SUMMARY PATIENT: YOEL PARIKH UNIT: [id number] ADM DATE: 08/03/19 AGE: 74 : 47 SEX: M ROOM/BED: D.6684 AUTHOR: MARIZA,DOC PHYSICIAN: REFERRING PHYSICIAN: DERRICK DOCKERY MD DATE OF SERVICE: 08/08/19 Discharge Plan Patient Name: YOEL PARIKH Facility: [facility]:[place] : 1945 Planned Disposition: Home Anticipated Discharge Date: 08/08/19 Discharge Date: Expected LOS: 5 Initial Reviewer: [email or web address] Initial Review Date: 08/03/2019 Generated: 08/08/19 5:04 pm Comments DCP- Discharge Planning Updated by [email or web address]: Gladys Delaney on 08/08/19 2:[address] CM met with patient for DC plans/needs. Patient lives independently with his , Kyra #[phone]. PCP: Dr. Hsieh. Pharmacy: [facility]. DME: home O2 with portability, walker (does not use). Obtained permission to speak with family. Denies use of community resources and feels he can safely return home with his spouse. Denies the need for additional services. Denies prior hospitalizations within past 30 days. Patient's will drive him home upon DC. DCPIA - Discharge Planning Initial Assessment Updated by [email or web address]: Gladysjoann Delaney on 08/08/19 3:59 pm * Is the patient Alert and Oriented? Yes * How many steps to enter\exit or inside your home? * PCP Dr. Hsieh * Pharmacy [address] * Preadmission Environment Home with Family * ADLs Independent * Equipment Oxygen Walker * Other Equipment Portable O2 * List name and contact numbers for known caregivers / representatives who currently or will assist patient after discharge: Kyra Collier #[phone], () * Verbal permission to speak to the caregivers and representatives has been obtained from the patient. Yes * Community resources currently utilized None * Please name any agencies selected above. NA * Additional services required to return to the preadmission environment? No * Can the patient safely return to the preadmission environment? Yes * Has this patient been hospitalized within the prior 30 days at any hospital? No Coverage Notice Reviewer: [id number] Dot Delaney Notice Issued Date-Time: 08/07/2019 17:53 Notice Type: IM Discharge Notice Notice Delivered To: Patient Relationship to Patient: Self Fast Food Team Member Name: Yoel Parikh Delivery Method: HAND - Hand Delivered Ariadna Days: Prior Verbal Notification: Recipient Understood Notice: Yes Recipient Signature: Yes Med Rec Note Co-signed by Attending: Coverage Notice Comment: DC IMM signed Last DP export: 08/08/19 2:57 p Patient Name: YOEL PARIKH Page [id number] at 1605 All edits/amendments must be made on the electronic document DICTATION DATE: 08/08/191603 LANGUAGE THERAPIST: LIV 08/08/191603 RPT#: [id number] DC DATE: STATUS: ADM IN [facility] [address] [place] [address] END OF REPORT
--- NOTE | 2019-08-08 18:19 | MORECARE ---
CASE MANAGEMENT DISCHARGE SUMMARY PATIENT: YOEL PARIKH UNIT: [id number] ADM DATE: 08/03/19 AGE: 74 : 47 SEX: M ROOM/BED: D.9664 AUTHOR: MARIZA,DOC PHYSICIAN: REFERRING PHYSICIAN: DERRICK DOCKERY MD DATE OF SERVICE: 08/08/19 Discharge Plan Patient Name: YOEL PARIKH Facility: [facility]:[place] : 1945 Planned Disposition: Home Anticipated Discharge Date: 08/08/19 Discharge Date: 08/08/2019 Expected LOS: 5 Initial Reviewer: [email or web address] Initial Review Date: 08/03/2019 Generated: 08/08/19 7:19 pm Comments DCP- Discharge Planning Updated by [email or web address]: Gladys Delaney on 08/08/19 2:[address] CM met with patient for DC plans/needs. Patient lives independently with his , Kyra #[phone]. PCP: Dr. Hsieh. Pharmacy: [address] DME: home O2 with portability, walker (does not use). Obtained permission to speak with family. Denies use of community resources and feels he can safely return home with his spouse. Denies the need for additional services. Denies prior hospitalizations within past 30 days. Patient's will drive him home upon DC. DCPIA - Discharge Planning Initial Assessment Updated by [email or web address]: Gladys Delaney on 08/08/19 3:59 pm * Is the patient Alert and Oriented? Yes * How many steps to enter\exit or inside your home? * PCP Dr. Hsieh * Pharmacy [address] * Preadmission Environment Home with Family * ADLs Independent * Equipment Oxygen Walker * Other Equipment Portable O2 * List name and contact numbers for known caregivers / representatives who currently or will assist patient after discharge: Kyra Collier #[phone], () * Verbal permission to speak to the caregivers and representatives has been obtained from the patient. Yes * Community resources currently utilized None * Please name any agencies selected above. NA * Additional services required to return to the preadmission environment? No * Can the patient safely return to the preadmission environment? Yes * Has this patient been hospitalized within the prior 30 days at any hospital? No Coverage Notice Reviewer: [email or web address] Dot Delaney Notice Issued Date-Time: 08/07/2019 17:53 Notice Type: IM Discharge Notice Notice Delivered To: Patient Relationship to Patient: Self Investment Executive Name: Yoel Parikh Delivery Method: HAND - Hand Delivered Ariadna Days: Prior Verbal Notification: Recipient Understood Notice: Yes Recipient Signature: Yes Med Rec Note Co-signed by Attending: Coverage Notice Comment: DC IMM signed Last DP export: 08/08/19 3:05 p Patient Name: YOEL PARIKH Page [id number] at 1819 All edits/amendments must be made on the electronic document DICTATION DATE: 08/08/191818 CLINICAL ADMINISTRATOR: LIV 08/08/191818 RPT#: [id number] DC DATE:08/08/19 STATUS: DIS IN [facility] [id number] [place] [address] END OF REPORT
== END 2019-08-08 16:38 | disposition home or self-care (01) | DRG 299 ==
LOC: D.ER 06:51 → D.M2 09:48
PROVIDERS: Family Medicine; General Practice; ADMIT Internal Medicine Nephrology; ATTEND Internal Medicine Nephrology
PROC: B41G1ZZ Fluoroscopy of Left Lower Extremity Arteries using Low Osmolar Contrast (ICD-10-PCS; principal; 2019-08-06 15:18)
DX: I75.022 Atheroembolism of left lower extremity (principal); J18.9 Pneumonia, unspecified organism; I50.23 Acute on chronic systolic (congestive) heart failure; E87.1 Hypo-osmolality and hyponatremia; N17.9 Acute kidney failure, unspecified; D64.9 Anemia, unspecified; E87.6 Hypokalemia; E80.6 Other disorders of bilirubin metabolism; K21.9 Gastro-esophageal reflux disease without esophagitis; G62.9 Polyneuropathy, unspecified; I70.292 Other atherosclerosis of native arteries of extremities, left leg; I08.1 Rheumatic disorders of both mitral and tricuspid valves

== ENCOUNTER → 2019-08-31 08:55 | Outpatient (CLI) | payer MEDICARE, BC ==
[2019-08-03 14:13] VITALS: BMI 23.9
== END | disposition home or self-care (01) ==
LOC: D.RT 08:55
PROVIDERS: ATTEND Internal Medicine Pulmonary Disease
DX: R94.2 Abnormal results of pulmonary function studies (principal)

== ENCOUNTER → 2019-11-14 12:31 | Outpatient (CLI) | payer MEDICARE, BC ==
[2019-08-03 14:13] VITALS: BMI 23.9
== END | disposition home or self-care (01) ==
LOC: D.US 11-13 13:30
PROVIDERS: ATTEND Internal Medicine Cardiovascular Disease
DX: I65.23 Occlusion and stenosis of bilateral carotid arteries (principal)